=== PATIENT | female | born 1955 | race Caucasian/White ===

== ENCOUNTER 2016-07-29 11:38 | Emergency (ER) | payer MEDICARE ==
--- NOTE | 2016-07-29 11:52 | ER Document Report ---
ED Medical Screen (RME) - General Stated Complaint: BLOOD SUGAR PROBLEM Mode of Arrival: Wheelchair Information source: Patient Notes: Patient complains of elevated blood pressure and blood sugar. Patient states her blood sugar was in the 230s. Patient denies any pain symptoms hx: Hypertension, diabetes, TIA, right BKA I have greeted and performed a rapid initial assessment of this patient. A comprehensive ED assessment and evaluation of the patient, analysis of test results and completion of the medical decision making process will be conducted by additional ED providers. TRAVEL OUTSIDE OF THE [place] IN LAST 30 DAYS: No - Related Data Allergies/Adverse Reactions: No Known Allergies Allergy (Verified 07/29/16 11:40) Past Medical History - Past Medical History Cardiac Medical History: Reports: Hx Hypercholesterolemia, Hx Hypertension, Hx Peripheral Vascular Disease Neurological Medical History: Reports: Hx Cerebrovascular Accident Endocrine Medical History: Reports: Hx Diabetes Mellitus Type 2 GI Medical History: Denies: Hx Cirrhosis, Hx Hepatitis Infectious Medical History: Denies: Hx Hepatitis Past Surgical History: Reports: Hx Section, Hx Orthopedic Surgery - Right BKA - Immunizations Hx Diphtheria, Pertussis, Tetanus Vaccination: - Unknown Physical Exam - General General appearance: Appears well, Alert In distress: None
[2016-07-29 12:35] LABS: ABSOLUTE EOSINOPHILS # (AUTO) 0.1 10^3/uL (0.0-0.6); ABSOLUTE LYMPHOCYTES (AUTO) 0.8 10^3/uL (0.5-4.7); ABSOLUTE MONOCYTES (AUTO) 0.4 10^3/uL (0.1-1.4); ABSOLUTE NEUT (AUTO) 5.2 10^3/uL (1.7-8.2); BASOPHILS % (AUTO) 0.5 % (0-2); EOSINOPHILS % (AUTO) 1.9 % (0-6); HEMOGLOBIN 12.1 g/dL (12.0-15.5); HGB HCT DIFFERENCE -1.7; LYMPHOCYTES % (AUTO) 12.3 % (13-45); MEAN CORPUSCULAR HEMOGLOBIN 27.5 pg (27.0-33.4); MEAN CORPUSCULAR HGB CONC 31.9 g/dL (32.0-36.0); MEAN CORPUSCULAR VOLUME 86 fl (80-97); MONOCYTES % (AUTO) 6.4 % (3-13); RED BLOOD COUNT 4.42 10^6/uL (3.72-5.28); RED CELL DISTRIBUTION WIDTH 14.2 % (11.5-14.0); SEGMENTED NEUTROPHILS % (AUTO) 78.9 % (42-78); WHITE BLOOD COUNT 6.6 10^3/uL (4.0-10.5)
[2016-07-29 12:38] LABS: APPEARANCE,URINE CLEAR; BILIRUBIN,URINE NEGATIVE (NEGATIVE); GLUCOSE, URINE 150 mg/dL (NEGATIVE); KETONES,URINE TRACE mg/dL (NEGATIVE); LEUKOCYTE ESTERASE,URINE NEGATIVE (NEGATIVE); NITRITE,URINE NEGATIVE (NEGATIVE); PROTEIN,URINE >=500 mg/dL (NEGATIVE); URINE SPECIFIC GRAVITY 1.009; UROBILINOGEN,URINE NEGATIVE mg/dL (<2.0)
[2016-07-29 12:55] LABS: ALANINE AMINOTRANSFERASE 30 U/L (9-52); ALBUMIN 3.1 g/dL (3.5-5.0); ALKALINE PHOSPHATASE 120 U/L (38-126); ANION GAP 10 (5-19); ASPARTATE AMINO TRANSFERASE 19 U/L (14-36); BILIRUBIN,TOTAL 0.6 mg/dL (0.2-1.3); BLOOD UREA NITROGEN 22 mg/dL (7-20); CALCIUM 9.5 mg/dL (8.4-10.2); CARBON DIOXIDE 24 mmol/L (22-30); CHLORIDE 102 mmol/L (98-107); CREATININE RESULT 1.78 mg/dL (0.52-1.25); GLUCOSE 231 mg/dL (75-110); POTASSIUM 4.5 mmol/L (3.6-5.0); TOTAL PROTEIN 6.3 g/dL (6.3-8.2)
--- NOTE | 2016-07-29 12:57 | ER Document Report ---
ED Blood Sugar Problem - General Chief Complaint: High Blood Sugar Stated Complaint: BLOOD SUGAR PROBLEM Time seen by provider: 12:56 Mode of Arrival: Wheelchair Information source: Patient Notes: 60-year-old insulin-dependent diabetic needs a shot of insulin today. They do not have the money to buy the Lantus or the NovoLog. She and her want insulin orders that will not be as expensive as those 2 insulin that she's been taking for 3 years. No other illness or problems today. I told him that I would get in touch with Cyndie Comer MD and see what he recommended. Her Accu-Chek at 1155 was 220 in the emergency department. Blood sugar was 239 at home. Spoke to Cyndie Comer MD's nurse who does not have any Lantus and NovoLog samples in his office today. TRAVEL OUTSIDE OF THE [place] IN LAST 30 DAYS: No - Related Data Allergies/Adverse Reactions: No Known Allergies Allergy (Verified 07/29/16 11:40) Past Medical History - General Information source: Patient - Social History Smoking Status: Never Smoker Chew tobacco use (# tins/day): No Frequency of alcohol use: None Lives with: Spouse/Significant other Family History: Reviewed & Not Pertinent Patient has suicidal ideation: No Patient has homicidal ideation: No - Past Medical History Cardiac Medical History: Reports: Hx Hypercholesterolemia, Hx Hypertension, Hx Peripheral Vascular Disease Neurological Medical History: Reports: Hx Cerebrovascular Accident Endocrine Medical History: Reports: Hx Diabetes Mellitus Type 2 Renal/ Medical History: Denies: Hx Peritoneal Dialysis Past Surgical History: Reports: Hx Section, Hx Orthopedic Surgery - Right BKA - Immunizations Hx Diphtheria, Pertussis, Tetanus Vaccination: Yes - Unknown Hx Pneumococcal Vaccination: 09/09/09 Review of Systems - Review of Systems Constitutional: No symptoms reported EENT: No symptoms reported Cardiovascular: No symptoms reported Respiratory: No symptoms reported Gastrointestinal: No symptoms reported Genitourinary: No symptoms reported Female Genitourinary: No symptoms reported Musculoskeletal: No symptoms reported Skin: No symptoms reported Hematologic/Lymphatic: No symptoms reported Neurological/Psychological: No symptoms reported Physical Exam - Vital signs Vitals: Temp Pulse Resp BP Pulse Ox 97.8 F 77 20 190/83 H 95 07/29/16 11:45 07/29/16 11:45 07/29/16 11:45 07/29/16 11:45 07/29/16 11:45 Interpretation: Normal - General General appearance: Appears well, Alert Notes: obese - HEENT Head: Normocephalic, Atraumatic Eyes: Normal Conjunctiva: Normal Pupils: PERRL Pharynx: Normal Neck: Supple. No: Lymphadenopathy - Respiratory Respiratory status: No respiratory distress Chest status: Nontender Breath sounds: Normal Chest palpation: Normal - Cardiovascular Rhythm: Regular Heart sounds: Normal auscultation Murmur: No - Abdominal Inspection: Normal Distension: No distension Bowel sounds: Normal Tenderness: Nontender. No: Tender Organomegaly: No organomegaly - Back Back: Normal, Nontender - Extremities General upper extremity: Normal inspection, Nontender, Normal color, Normal ROM , Normal temperature General lower extremity: Normal inspection, Nontender, Normal color, Normal ROM , Normal temperature, Normal weight bearing. No: Pio's sign - Neurological Neuro grossly intact: Yes Cognition: Normal Orientation: AAOx4 [place] Coma Scale Eye Opening: Spontaneous Jacqueline Coma Scale Verbal: Oriented Jacqueline Coma Scale Motor: Obeys Commands Jacqueline Coma Scale Total: 15 Speech: Normal Motor strength normal: LUE, RUE, LLE, RLE Sensory: Normal - Psychological Associated symptoms: Normal affect, Normal mood - Skin Skin Temperature: Warm Skin Moisture: Dry Skin Color: Normal Skin irregularity: negative: Rash Course - Re-evaluation Re-evalutation: 07/29/16 13:[address] Cyndie Comer MD 07/29/16 13:51 Dr. Thomson recommended 7030 insulin which is $24 at [facility] she would take 12 units twice a day. Dr. Varela called me back and he was satisfied with those orders 07/29/16 13:[address] Portillo - Vital Signs Vital signs: Temp Pulse Resp BP Pulse Ox 97.2 F 74 16 192/108 H 97 07/29/16 14:03 07/29/16 14:03 07/29/16 14:03 07/29/16 14:00 07/29/16 14:03 - Laboratory Result Diagrams: 07/29/16 12:00 07/29/16 12:00 Laboratory results interpreted by me: 07/29/16 07/29/16 07/29/16 11:56 12:00 12:00 MCHC 31.9 L RDW 14.2 H Seg Neutrophils % 78.9 H Lymphocytes % 12.3 L Sodium 136.0 L BUN 22 H Creatinine 1.78 H Est GFR ( Amer) 35 L Est GFR (Non-Af Amer) 29 L Glucose 231 H POC Glucose 220 H Albumin 3.1 L Urine Protein Urine Glucose (UA) Urine Ketones Urine Blood 07/29/16 12:00 MCHC RDW Seg Neutrophils % Lymphocytes % Sodium BUN Creatinine Est GFR ( Amer) Est GFR (Non-Af Amer) Glucose POC Glucose Albumin Urine Protein >=500 H Urine Glucose (UA) 150 H Urine Ketones TRACE H Urine Blood SMALL H Discharge - Discharge Clinical Impression: diabetes ran out of insulin, Elevated blood pressure reading Condition: Good Disposition: HOME, SELF-CARE Instructions: Diabetes (COUNT INCLUDES THE [facility]), Insulin (COUNT INCLUDES THE [facility]), High Blood Pressure (COUNT INCLUDES THE [facility]) Additional Instructions: see dr varela on sunday get your insulin today, it is $24 at [facility] over the [place] Insulin 70/30 12 units twice a day Prescriptions: Hum Insulin NPH/Reg Insulin Hm [Insulin Inj 70-30 (100 Unit/1 ml) 3 ml Vial] 12 unit SUBCUT BID #3 unit Referrals: CYNDIE COMER MD [Primary Care Provider] - 07/31/16
[2016-07-29 15:52] VITALS: BP 192/108
== END 2016-07-29 14:03 | disposition home or self-care (01) ==
LOC: ER 11:38
DX: E11.9 Type 2 diabetes mellitus without complications (principal); I10 Essential (primary) hypertension; Z79.4 Long term (current) use of insulin; E78.00 Pure hypercholesterolemia, unspecified; E66.9 Obesity, unspecified; Z86.73 Personal history of transient ischemic attack (TIA), and cerebral infarction without residual deficits; Z89.511 Acquired absence of right leg below knee
CPT/HCPCS: 36415; 80053; 81001; 82962; 85025; 99283

== ENCOUNTER → 2016-08-22 | Outpatient (CLI) | payer MEDICARE ==
[2016-08-22 14:38] LABS: HEMATOCRIT 37.8 % (36.0-47.0); HEMOGLOBIN 12.3 g/dL (12.0-15.5); HGB HCT DIFFERENCE -0.9; MEAN CORPUSCULAR HEMOGLOBIN 27.3 pg (27.0-33.4); MEAN CORPUSCULAR HGB CONC 32.6 g/dL (32.0-36.0); MEAN CORPUSCULAR VOLUME 84 fl (80-97); RED BLOOD COUNT 4.52 10^6/uL (3.72-5.28); RED CELL DISTRIBUTION WIDTH 14.7 % (11.5-14.0); WHITE BLOOD COUNT 8.2 10^3/uL (4.0-10.5)
[2016-08-22 15:03] LABS: ANION GAP 12 (5-19); BLOOD UREA NITROGEN 27 mg/dL (7-20); CALCIUM 9.4 mg/dL (8.4-10.2); CARBON DIOXIDE 22 mmol/L (22-30); CHLORIDE 101 mmol/L (98-107); CREATININE RESULT 1.79 mg/dL (0.52-1.25); GLUCOSE 159 mg/dL (75-110); PHOSPHORUS 3.8 mg/dL (2.5-4.5); POTASSIUM 4.3 mmol/L (3.6-5.0)
[2016-08-23 18:59] LABS: APPEARANCE,URINE SLIGHTLY-CLOUDY; BILIRUBIN,URINE NEGATIVE (NEGATIVE); GLUCOSE, URINE 150 mg/dL (NEGATIVE); KETONES,URINE TRACE mg/dL (NEGATIVE); LEUKOCYTE ESTERASE,URINE TRACE (NEGATIVE); NITRITE,URINE NEGATIVE (NEGATIVE); PROTEIN,URINE >=500 mg/dL (NEGATIVE); URINE SPECIFIC GRAVITY 1.014; UROBILINOGEN,URINE NEGATIVE mg/dL (<2.0)
[2016-08-25 11:40] LABS: CREATININE URINE 78.6 mg/dL (Not Estab.)
== END ==
LOC: OD 13:38
PROVIDERS: ATTEND Internal Medicine Nephrology
DX: E11.22 Type 2 diabetes mellitus with diabetic chronic kidney disease (principal); N18.4 Chronic kidney disease, stage 4 (severe); D64.9 Anemia, unspecified; R80.9 Proteinuria, unspecified
CPT/HCPCS: 36415; 80048; 81001; 82570; 83970; 84100; 84156; 85027

== ENCOUNTER → 2016-09-11 | Outpatient (CLI) | payer MEDICARE | LOC: SP 14:57 | PROVIDERS: ATTEND Internal Medicine Nephrology | DX: I65.23 Occlusion and stenosis of bilateral carotid arteries (principal) | CPT/HCPCS: 93880 ==

== ENCOUNTER → 2016-11-07 | Outpatient (CLI) | payer MEDICARE ==
--- NOTE | 2016-11-07 15:45 | RADIOLOGY REPORT (SQ) ---
EXAM DESCRIPTION: HAND LEFT 3 VIEWS COMPLETED DATE/TIME: 11/07/2016 3:28 pm REASON FOR STUDY: UNSP INJURY OF LEFT WRIST, HAND AND FINGER(S), INIT ENCNTR, S69.92XA UNSP INJURY OF LEFT WRIST, HAND AND FINGER(S), INIT S62.92XA UNSP FRACTURE OF LEFT WRIST AND HAND, INIT FOR CLOS COMPARISON: None. EXAM PARAMETERS: NUMBER OF VIEWS: Three views. TECHNIQUE: AP, lateral and oblique radiographic images acquired of the left hand. LIMITATIONS: None. FINDINGS: MINERALIZATION: Osteopenia. BONES: There is irregularity at the base of the 4th middle phalanx on the radial aspect. JOINTS: No effusions. SOFT TISSUES: The soft tissue swelling of the 4th digit. OTHER: No other significant finding. IMPRESSION: There is slight irregularity in the 4th middle phalanx size is a minimal chip fracture c annot be ruled out. TECHNICAL DOCUMENTATION: JOB ID: [id number] [employer]- All Rights Reserved
== END ==
LOC: OD 15:05
PROVIDERS: ATTEND Internal Medicine
DX: S62.92XA Unspecified fracture of left hand, initial encounter for closed fracture (principal); X58.XXXA Exposure to other specified factors, initial encounter; Y93.9 Activity, unspecified; Y92.9 Unspecified place or not applicable

== ENCOUNTER → 2016-11-22 | Outpatient (CLI) | payer MEDICARE ==
[2016-11-22 17:18] LABS: HEMATOCRIT 39.8 % (36.0-47.0); HEMOGLOBIN 12.9 g/dL (12.0-15.5); HGB HCT DIFFERENCE -1.1; MEAN CORPUSCULAR HEMOGLOBIN 27.5 pg (27.0-33.4); MEAN CORPUSCULAR HGB CONC 32.4 g/dL (32.0-36.0); MEAN CORPUSCULAR VOLUME 85 fl (80-97); RED BLOOD COUNT 4.68 10^6/uL (3.72-5.28); RED CELL DISTRIBUTION WIDTH 16.4 % (11.5-14.0); WHITE BLOOD COUNT 5.3 10^3/uL (4.0-10.5)
[2016-11-22 17:29] LABS: APPEARANCE,URINE SLIGHTLY-CLOUDY; BILIRUBIN,URINE NEGATIVE (NEGATIVE); GLUCOSE, URINE 150 mg/dL (NEGATIVE); KETONES,URINE NEGATIVE (NEGATIVE); LEUKOCYTE ESTERASE,URINE NEGATIVE (NEGATIVE); NITRITE,URINE NEGATIVE (NEGATIVE); PROTEIN,URINE >=500 mg/dL (NEGATIVE); UROBILINOGEN,URINE NEGATIVE mg/dL (<2.0)
[2016-11-22 17:43] LABS: URINE CREATININE 56.1 mg/dL (15-278)
[2016-11-22 17:47] LABS: ANION GAP 11 (5-19); BLOOD UREA NITROGEN 38 mg/dL (7-20); CALCIUM 9.2 mg/dL (8.4-10.2); CARBON DIOXIDE 23 mmol/L (22-30); CHLORIDE 101 mmol/L (98-107); CREATININE RESULT 1.78 mg/dL (0.52-1.25); GLUCOSE 224 mg/dL (75-110); POTASSIUM 4.4 mmol/L (3.6-5.0); SODIUM 134.8 mmol/L (137-145)
[2016-11-22 18:08] LABS: URINE PROTEIN 562.1 mg/dL (<12)
== END ==
LOC: OD 16:31
PROVIDERS: ATTEND Internal Medicine Nephrology
DX: I12.9 Hypertensive chronic kidney disease with stage 1 through stage 4 chronic kidney disease, or unspecified chronic kidney disease (principal); N18.4 Chronic kidney disease, stage 4 (severe); R80.9 Proteinuria, unspecified; E11.9 Type 2 diabetes mellitus without complications
CPT/HCPCS: 36415; 80048; 81001; 82570; 84156; 85027

== ENCOUNTER → 2017-03-26 | Outpatient (CLI) | payer MEDICARE ==
[2017-03-26 16:24] LABS: HEMATOCRIT 36.4 % (36.0-47.0); HEMOGLOBIN 12.3 g/dL (12.0-15.5); HGB HCT DIFFERENCE 0.5; MEAN CORPUSCULAR HEMOGLOBIN 29.4 pg (27.0-33.4); MEAN CORPUSCULAR HGB CONC 33.8 g/dL (32.0-36.0); MEAN CORPUSCULAR VOLUME 87 fl (80-97); RED BLOOD COUNT 4.18 10^6/uL (3.72-5.28); RED CELL DISTRIBUTION WIDTH 13.4 % (11.5-14.0); WHITE BLOOD COUNT 6.7 10^3/uL (4.0-10.5)
[2017-03-26 16:25] LABS: AMORPHOUS SEDIMENT,URINE TRACE /HPF; APPEARANCE,URINE SLIGHTLY-CLOUDY; BILIRUBIN,URINE NEGATIVE (NEGATIVE); GLUCOSE, URINE 50 mg/dL (NEGATIVE); KETONES,URINE NEGATIVE (NEGATIVE); LEUKOCYTE ESTERASE,URINE LARGE (NEGATIVE); NITRITE,URINE NEGATIVE (NEGATIVE); PROTEIN,URINE >=500 mg/dL (NEGATIVE); URINE SPECIFIC GRAVITY 1.015; UROBILINOGEN,URINE NEGATIVE mg/dL (<2.0)
[2017-03-26 16:37] LABS: URINE CREATININE 87.8 mg/dL (15-278)
[2017-03-26 16:47] LABS: ANION GAP 11 (5-19); BLOOD UREA NITROGEN 42 mg/dL (7-20); CALCIUM 9.3 mg/dL (8.4-10.2); CARBON DIOXIDE 25 mmol/L (22-30); CHLORIDE 103 mmol/L (98-107); CREATININE RESULT 2.13 mg/dL (0.52-1.25); GLUCOSE 150 mg/dL (75-110); POTASSIUM 4.5 mmol/L (3.6-5.0); SODIUM 138.9 mmol/L (137-145)
[2017-03-26 17:11] LABS: URINE PROTEIN 880.4 mg/dL (<12)
== END ==
LOC: OD 15:08
PROVIDERS: ATTEND Internal Medicine Nephrology
DX: I12.9 Hypertensive chronic kidney disease with stage 1 through stage 4 chronic kidney disease, or unspecified chronic kidney disease (principal); N18.4 Chronic kidney disease, stage 4 (severe); E11.9 Type 2 diabetes mellitus without complications; R80.9 Proteinuria, unspecified; D64.9 Anemia, unspecified
CPT/HCPCS: 36415; 80048; 81001; 82570; 84156; 85027

== ENCOUNTER → 2017-06-27 | Outpatient (CLI) | payer MEDICARE ==
[2017-06-27 12:20] LABS: ABSOLUTE EOSINOPHILS # (AUTO) 0.1 10^3/uL (0.0-0.6); ABSOLUTE LYMPHOCYTES (AUTO) 1.1 10^3/uL (0.5-4.7); ABSOLUTE MONOCYTES (AUTO) 0.4 10^3/uL (0.1-1.4); ABSOLUTE NEUT (AUTO) 3.3 10^3/uL (1.7-8.2); EOSINOPHILS % (AUTO) 2.1 % (0-6); HEMATOCRIT 37.5 % (36.0-47.0); HEMOGLOBIN 12.5 g/dL (12.0-15.5); LYMPHOCYTES % (AUTO) 21.9 % (13-45); MEAN CORPUSCULAR HGB CONC 33.2 g/dL (32.0-36.0); MEAN CORPUSCULAR VOLUME 87 fl (80-97); MONOCYTES % (AUTO) 7.5 % (3-13); PLATELET COUNT 261 10^3/uL (150-450); RED BLOOD COUNT 4.29 10^6/uL (3.72-5.28); SEGMENTED NEUTROPHILS % (AUTO) 67.5 % (42-78); TOTAL CELLS COUNTED % (AUTO) 100 %; WHITE BLOOD COUNT 4.8 10^3/uL (4.0-10.5)
[2017-06-27 12:47] LABS: ALANINE AMINOTRANSFERASE 26 U/L (9-52); ALBUMIN 3.4 g/dL (3.5-5.0); ALKALINE PHOSPHATASE 121 U/L (38-126); ANION GAP 7 (5-19); ASPARTATE AMINO TRANSFERASE 20 U/L (14-36); BILIRUBIN,DIRECT 0.3 mg/dL (0.0-0.4); BILIRUBIN,TOTAL 0.3 mg/dL (0.2-1.3); BLOOD UREA NITROGEN 25 mg/dL (7-20); CALCIUM 9.2 mg/dL (8.4-10.2); CARBON DIOXIDE 25 mmol/L (22-30); CHLORIDE 105 mmol/L (98-107); CHOLESTEROL 288.98 mg/dL (0-200); GLUCOSE 166 mg/dL (75-110); POTASSIUM 4.7 mmol/L (3.6-5.0); TOTAL PROTEIN 6.3 g/dL (6.3-8.2); TRIGLYCERIDES 147 mg/dL (<150)
[2017-06-27 12:58] LABS: DIRECT LDL 147 mg/dL (<100)
[2017-06-29 10:38] LABS: CREATININE URINE 62.4 mg/dL (Not Estab.)
[2017-06-29 15:29] LABS: MICROALBUMIN URINE 3128.3 ug/mL (Not Estab.)
== END ==
LOC: OD 11:20
PROVIDERS: ATTEND Internal Medicine
DX: E11.9 Type 2 diabetes mellitus without complications (principal); E78.5 Hyperlipidemia, unspecified; I73.9 Peripheral vascular disease, unspecified; I25.10 Atherosclerotic heart disease of native coronary artery without angina pectoris
CPT/HCPCS: 36415; 80053; 80061; 82043; 82570; 83036; 84443; 85025

== ENCOUNTER → 2017-07-30 | Outpatient (CLI) | payer MEDICARE ==
[2017-07-30 15:38] LABS: HEMATOCRIT 36.3 % (36.0-47.0); HEMOGLOBIN 12.2 g/dL (12.0-15.5); MEAN CORPUSCULAR HEMOGLOBIN 28.9 pg (27.0-33.4); MEAN CORPUSCULAR HGB CONC 33.5 g/dL (32.0-36.0); MEAN CORPUSCULAR VOLUME 86 fl (80-97); PLATELET COUNT 235 10^3/uL (150-450); RED BLOOD COUNT 4.21 10^6/uL (3.72-5.28); RED CELL DISTRIBUTION WIDTH 13.7 % (11.5-14.0); WHITE BLOOD COUNT 7.3 10^3/uL (4.0-10.5)
[2017-07-30 16:02] LABS: ANION GAP 12 (5-19); BLOOD UREA NITROGEN 43 mg/dL (7-20); CALCIUM 8.3 mg/dL (8.4-10.2); CARBON DIOXIDE 21 mmol/L (22-30); CHLORIDE 97 mmol/L (98-107); GLUCOSE 125 mg/dL (75-110); POTASSIUM 4.1 mmol/L (3.6-5.0); SODIUM 130.3 mmol/L (137-145)
[2017-07-31 15:27] LABS: APPEARANCE,URINE SLIGHTLY-CLOUDY; BILIRUBIN,URINE NEGATIVE (NEGATIVE); COLOR,URINE YELLOW; GLUCOSE, URINE 50 mg/dL (NEGATIVE); KETONES,URINE TRACE mg/dL (NEGATIVE); LEUKOCYTE ESTERASE,URINE NEGATIVE (NEGATIVE); NITRITE,URINE NEGATIVE (NEGATIVE); PROTEIN,URINE >=500 mg/dL (NEGATIVE); URINE SPECIFIC GRAVITY 1.017; UROBILINOGEN,URINE NEGATIVE mg/dL (<2.0)
[2017-07-31 15:46] LABS: URINE CREATININE 94.2 mg/dL (15-278)
[2017-07-31 16:06] LABS: UR PRO/CREAT RATIO RESULT 10.4 mg/mg (0.0-0.2); URINE PROTEIN 982.4 mg/dL (<12)
== END ==
LOC: OD 14:49
PROVIDERS: ATTEND Internal Medicine Nephrology
DX: E11.22 Type 2 diabetes mellitus with diabetic chronic kidney disease (principal); I12.9 Hypertensive chronic kidney disease with stage 1 through stage 4 chronic kidney disease, or unspecified chronic kidney disease; N18.4 Chronic kidney disease, stage 4 (severe); D64.9 Anemia, unspecified; R80.9 Proteinuria, unspecified
CPT/HCPCS: 36415; 80048; 81001; 82570; 84156; 85027

== ENCOUNTER → 2017-11-09 | Outpatient (CLI) | payer MEDICARE ==
[2017-11-09 10:16] LABS: ABSOLUTE EOSINOPHILS # (AUTO) 0.6 10^3/uL (0.0-0.6); ABSOLUTE LYMPHOCYTES (AUTO) 0.7 10^3/uL (0.5-4.7); ABSOLUTE MONOCYTES (AUTO) 0.3 10^3/uL (0.1-1.4); ABSOLUTE NEUT (AUTO) 2.8 10^3/uL (1.7-8.2); BASOPHILS % (AUTO) 0.8 % (0-2); EOSINOPHILS % (AUTO) 13.2 % (0-6); HEMATOCRIT 35.1 % (36.0-47.0); HEMOGLOBIN 11.7 g/dL (12.0-15.5); LYMPHOCYTES % (AUTO) 15.9 % (13-45); MEAN CORPUSCULAR HEMOGLOBIN 28.6 pg (27.0-33.4); MEAN CORPUSCULAR HGB CONC 33.3 g/dL (32.0-36.0); MEAN CORPUSCULAR VOLUME 86 fl (80-97); MONOCYTES % (AUTO) 7.2 % (3-13); PLATELET COUNT 249 10^3/uL (150-450); RED BLOOD COUNT 4.07 10^6/uL (3.72-5.28); RED CELL DISTRIBUTION WIDTH 13.9 % (11.5-14.0); SEGMENTED NEUTROPHILS % (AUTO) 62.9 % (42-78); TOTAL CELLS COUNTED % (AUTO) 100 %; WHITE BLOOD COUNT 4.4 10^3/uL (4.0-10.5)
[2017-11-09 10:40] LABS: ALANINE AMINOTRANSFERASE 23 U/L (9-52); ALBUMIN 3.1 g/dL (3.5-5.0); ALKALINE PHOSPHATASE 93 U/L (38-126); ANION GAP 12 (5-19); ASPARTATE AMINO TRANSFERASE 20 U/L (14-36); BILIRUBIN,DIRECT 0.4 mg/dL (0.0-0.4); BILIRUBIN,TOTAL 0.4 mg/dL (0.2-1.3); BLOOD UREA NITROGEN 31 mg/dL (7-20); CARBON DIOXIDE 23 mmol/L (22-30); CHLORIDE 106 mmol/L (98-107); CHOLESTEROL 225.15 mg/dL (0-200); GLUCOSE 126 mg/dL (75-110); POTASSIUM 4.4 mmol/L (3.6-5.0); SODIUM 140.6 mmol/L (137-145); TOTAL PROTEIN 6.4 g/dL (6.3-8.2); TRIGLYCERIDES 132 mg/dL (<150)
[2017-11-09 10:52] LABS: DIRECT LDL 116 mg/dL (<100)
[2017-11-10 11:38] LABS: CREATININE URINE 51.7 mg/dL (Not Estab.)
[2017-11-11 03:59] LABS: MICROALBUMIN URINE 2030.3 ug/mL (Not Estab.)
== END ==
LOC: OD 09:13
PROVIDERS: ATTEND Internal Medicine
DX: E11.9 Type 2 diabetes mellitus without complications (principal); I12.9 Hypertensive chronic kidney disease with stage 1 through stage 4 chronic kidney disease, or unspecified chronic kidney disease; N18.9 Chronic kidney disease, unspecified; E78.5 Hyperlipidemia, unspecified
CPT/HCPCS: 36415; 80053; 80061; 82043; 82570; 83036; 84443; 85025

== ENCOUNTER → 2017-11-16 | Outpatient (CLI) | payer MEDICARE ==
[2017-11-16 16:44] LABS: HEMATOCRIT 32.5 % (36.0-47.0); MEAN CORPUSCULAR HEMOGLOBIN 29.2 pg (27.0-33.4); MEAN CORPUSCULAR HGB CONC 33.8 g/dL (32.0-36.0); MEAN CORPUSCULAR VOLUME 86 fl (80-97); PLATELET COUNT 243 10^3/uL (150-450); RED BLOOD COUNT 3.77 10^6/uL (3.72-5.28); RED CELL DISTRIBUTION WIDTH 13.8 % (11.5-14.0)
[2017-11-16 17:28] LABS: ANION GAP 9 (5-19); BLOOD UREA NITROGEN 34 mg/dL (7-20); CALCIUM 8.9 mg/dL (8.4-10.2); CARBON DIOXIDE 25 mmol/L (22-30); CHLORIDE 107 mmol/L (98-107); GLUCOSE 180 mg/dL (75-110); PHOSPHORUS 4.1 mg/dL (2.5-4.5); POTASSIUM 4.2 mmol/L (3.6-5.0); SODIUM 141.3 mmol/L (137-145)
[2017-11-19 14:39] LABS: A/G RATIO 0.9 (0.7-1.7); ALBUMIN 2 2.7 g/dL (2.9-4.4); ALPHA-2-GLOBULIN 2 0.8 g/dL (0.4-1.0); BETA GLOBULINS 0.8 g/dL (0.7-1.3); GAMMA GLOBULIN 1.2 g/dL (0.4-1.8); MONOCLONAL SPIKE Not Observed g/dL (Not Observ); PROTEIN TOTAL SERUM 5.7 g/dL (6.0-8.5)
== END ==
LOC: OD 16:11
PROVIDERS: ATTEND Internal Medicine Nephrology
DX: N18.4 Chronic kidney disease, stage 4 (severe) (principal); R80.9 Proteinuria, unspecified; E11.22 Type 2 diabetes mellitus with diabetic chronic kidney disease; I12.9 Hypertensive chronic kidney disease with stage 1 through stage 4 chronic kidney disease, or unspecified chronic kidney disease
CPT/HCPCS: 36415; 80048; 83970; 84100; 84165; 85027

== ENCOUNTER → 2017-12-26 | Outpatient (CLI) | payer MEDICARE ==
[2017-12-26 14:36] LABS: ABSOLUTE EOSINOPHILS # (AUTO) 0.1 10^3/uL (0.0-0.6); ABSOLUTE MONOCYTES (AUTO) 0.3 10^3/uL (0.1-1.4); ABSOLUTE NEUT (AUTO) 3.7 10^3/uL (1.7-8.2); BASOPHILS % (AUTO) 0.7 % (0-2); EOSINOPHILS % (AUTO) 2.3 % (0-6); HEMATOCRIT 34.7 % (36.0-47.0); HEMOGLOBIN 11.6 g/dL (12.0-15.5); LYMPHOCYTES % (AUTO) 19.1 % (13-45); MEAN CORPUSCULAR HEMOGLOBIN 28.9 pg (27.0-33.4); MEAN CORPUSCULAR HGB CONC 33.3 g/dL (32.0-36.0); MEAN CORPUSCULAR VOLUME 87 fl (80-97); MONOCYTES % (AUTO) 6.7 % (3-13); PLATELET COUNT 266 10^3/uL (150-450); RED CELL DISTRIBUTION WIDTH 14.4 % (11.5-14.0); SEGMENTED NEUTROPHILS % (AUTO) 71.2 % (42-78); TOTAL CELLS COUNTED % (AUTO) 100 %; WHITE BLOOD COUNT 5.2 10^3/uL (4.0-10.5)
[2017-12-26 14:43] LABS: APPEARANCE,URINE CLEAR; BILIRUBIN,URINE NEGATIVE (NEGATIVE); COLOR,URINE STRAW; GLUCOSE, URINE 150 mg/dL (NEGATIVE); KETONES,URINE NEGATIVE (NEGATIVE); LEUKOCYTE ESTERASE,URINE NEGATIVE (NEGATIVE); NITRITE,URINE NEGATIVE (NEGATIVE); PROTEIN,URINE >=500 mg/dL (NEGATIVE); URINE SPECIFIC GRAVITY 1.011; UROBILINOGEN,URINE NEGATIVE mg/dL (<2.0)
[2017-12-26 14:45] LABS: HEMATOCRIT 34.7 % (36.0-47.0); HEMOGLOBIN 11.6 g/dL (12.0-15.5); MEAN CORPUSCULAR HEMOGLOBIN 28.9 pg (27.0-33.4); MEAN CORPUSCULAR HGB CONC 33.3 g/dL (32.0-36.0); MEAN CORPUSCULAR VOLUME 87 fl (80-97); PLATELET COUNT 266 10^3/uL (150-450); RED CELL DISTRIBUTION WIDTH 14.4 % (11.5-14.0); WHITE BLOOD COUNT 5.2 10^3/uL (4.0-10.5)
[2017-12-26 14:50] LABS: ALANINE AMINOTRANSFERASE 19 U/L (9-52); ALBUMIN 3.3 g/dL (3.5-5.0); ALKALINE PHOSPHATASE 110 U/L (38-126); ANION GAP 12 (5-19); ASPARTATE AMINO TRANSFERASE 17 U/L (14-36); BILIRUBIN,DIRECT 0.3 mg/dL (0.0-0.4); BILIRUBIN,TOTAL 0.5 mg/dL (0.2-1.3); BLOOD UREA NITROGEN 44 mg/dL (7-20); CALCIUM 8.8 mg/dL (8.4-10.2); CARBON DIOXIDE 22 mmol/L (22-30); CHLORIDE 107 mmol/L (98-107); CHOLESTEROL 241.48 mg/dL (0-200); GLUCOSE 163 mg/dL (75-110); POTASSIUM 4.8 mmol/L (3.6-5.0); SODIUM 140.7 mmol/L (137-145); TOTAL PROTEIN 6.7 g/dL (6.3-8.2); TRIGLYCERIDES 112 mg/dL (<150)
[2017-12-26 15:01] LABS: DIRECT LDL 109 mg/dL (<100)
[2017-12-26 15:01] LABS: URINE CREATININE 37.3 mg/dL (15-278)
[2017-12-26 15:08] LABS: UR PRO/CREAT RATIO RESULT 13.9 mg/mg (0.0-0.2); URINE PROTEIN 518.6 mg/dL (<12)
[2017-12-26 15:28] LABS: ANION GAP 12 (5-19); BLOOD UREA NITROGEN 44 mg/dL (7-20); CALCIUM 8.8 mg/dL (8.4-10.2); CARBON DIOXIDE 22 mmol/L (22-30); CHLORIDE 107 mmol/L (98-107); GLUCOSE 163 mg/dL (75-110); PHOSPHORUS 4.8 mg/dL (2.5-4.5); POTASSIUM 4.8 mmol/L (3.6-5.0); SODIUM 140.7 mmol/L (137-145)
[2017-12-26 15:36] LABS: IRON(TIBC) 46.8 ug/dL (37-170)
[2017-12-28 11:40] LABS: CREATININE URINE 35.4 mg/dL (Not Estab.)
[2017-12-28 16:40] LABS: MICROALBUMIN URINE 2325.5 ug/mL (Not Estab.)
== END ==
LOC: OD 13:37
PROVIDERS: ATTEND Internal Medicine
DX: I12.9 Hypertensive chronic kidney disease with stage 1 through stage 4 chronic kidney disease, or unspecified chronic kidney disease (principal); N18.3 Chronic kidney disease, stage 3 (moderate); R80.9 Proteinuria, unspecified; D64.9 Anemia, unspecified; E78.5 Hyperlipidemia, unspecified; E11.9 Type 2 diabetes mellitus without complications; I73.9 Peripheral vascular disease, unspecified
CPT/HCPCS: 36415; 80048; 80053; 80061; 81001; 82043; 82570; 82728; 83036; 83540; 83550; 83735; 83970; 84100; 84156; 84165; 84443; 85025; 85027

== ENCOUNTER → 2018-01-21 | Outpatient (CLI) | payer MEDICARE ==
[2018-01-21 13:43] LABS: APPEARANCE,URINE CLEAR; BILIRUBIN,URINE NEGATIVE (NEGATIVE); COLOR,URINE YELLOW; GLUCOSE, URINE 50 mg/dL (NEGATIVE); KETONES,URINE NEGATIVE (NEGATIVE); LEUKOCYTE ESTERASE,URINE NEGATIVE (NEGATIVE); NITRITE,URINE NEGATIVE (NEGATIVE); PROTEIN,URINE >=500 mg/dL (NEGATIVE); URINE SPECIFIC GRAVITY 1.014; UROBILINOGEN,URINE NEGATIVE mg/dL (<2.0)
[2018-01-21 13:49] LABS: URINE CREATININE 64.4 mg/dL (15-278)
[2018-01-21 13:50] LABS: HEMATOCRIT 34.8 % (36.0-47.0); HEMOGLOBIN 11.5 g/dL (12.0-15.5); MEAN CORPUSCULAR HEMOGLOBIN 28.6 pg (27.0-33.4); MEAN CORPUSCULAR HGB CONC 33.1 g/dL (32.0-36.0); MEAN CORPUSCULAR VOLUME 86 fl (80-97); PLATELET COUNT 259 10^3/uL (150-450); RED BLOOD COUNT 4.02 10^6/uL (3.72-5.28); RED CELL DISTRIBUTION WIDTH 13.9 % (11.5-14.0); WHITE BLOOD COUNT 5.2 10^3/uL (4.0-10.5)
[2018-01-21 14:11] LABS: UR PRO/CREAT RATIO RESULT 6.8 mg/mg (0.0-0.2); URINE PROTEIN 437.7 mg/dL (<12)
[2018-01-21 14:17] LABS: ANION GAP 15 (5-19); BLOOD UREA NITROGEN 89 mg/dL (7-20); CALCIUM 9.3 mg/dL (8.4-10.2); CARBON DIOXIDE 22 mmol/L (22-30); CHLORIDE 101 mmol/L (98-107); GLUCOSE 158 mg/dL (75-110); IRON(TIBC) 100.9 ug/dL (37-170); POTASSIUM 4.3 mmol/L (3.6-5.0); SODIUM 138.3 mmol/L (137-145)
== END ==
LOC: OD 12:47
PROVIDERS: ATTEND Internal Medicine Nephrology
DX: I12.9 Hypertensive chronic kidney disease with stage 1 through stage 4 chronic kidney disease, or unspecified chronic kidney disease (principal); N18.4 Chronic kidney disease, stage 4 (severe); D64.9 Anemia, unspecified; E83.42 Hypomagnesemia
CPT/HCPCS: 36415; 80048; 81001; 82570; 82728; 83540; 83550; 84156; 85027

== ENCOUNTER → 2018-03-08 | Outpatient (CLI) | payer MEDICARE ==
[2018-03-08 12:57] LABS: HEMATOCRIT 31.6 % (36.0-47.0); HEMOGLOBIN 10.7 g/dL (12.0-15.5); MEAN CORPUSCULAR HEMOGLOBIN 29.6 pg (27.0-33.4); MEAN CORPUSCULAR HGB CONC 33.9 g/dL (32.0-36.0); MEAN CORPUSCULAR VOLUME 88 fl (80-97); PLATELET COUNT 257 10^3/uL (150-450); RED BLOOD COUNT 3.61 10^6/uL (3.72-5.28); RED CELL DISTRIBUTION WIDTH 14.2 % (11.5-14.0); WHITE BLOOD COUNT 4.5 10^3/uL (4.0-10.5)
[2018-03-08 13:19] LABS: ANION GAP 9 (5-19); BLOOD UREA NITROGEN 44 mg/dL (7-20); CALCIUM 8.9 mg/dL (8.4-10.2); CARBON DIOXIDE 20 mmol/L (22-30); CHLORIDE 108 mmol/L (98-107); GLUCOSE 120 mg/dL (75-110); PHOSPHORUS 4.2 mg/dL (2.5-4.5); POTASSIUM 4.5 mmol/L (3.6-5.0); SODIUM 136.9 mmol/L (137-145)
== END ==
LOC: OD 12:23
PROVIDERS: ATTEND Internal Medicine Nephrology
DX: I12.9 Hypertensive chronic kidney disease with stage 1 through stage 4 chronic kidney disease, or unspecified chronic kidney disease (principal); N18.4 Chronic kidney disease, stage 4 (severe); E11.22 Type 2 diabetes mellitus with diabetic chronic kidney disease; D64.9 Anemia, unspecified
CPT/HCPCS: 36415; 80048; 83735; 83970; 84100; 85027

== ENCOUNTER → 2018-05-07 | Outpatient (CLI) | payer MEDICARE ==
[2018-05-07 14:31] LABS: HEMATOCRIT 32.6 % (36.0-47.0); HEMOGLOBIN 11.3 g/dL (12.0-15.5); MEAN CORPUSCULAR HGB CONC 34.7 g/dL (32.0-36.0); MEAN CORPUSCULAR VOLUME 87 fl (80-97); PLATELET COUNT 250 10^3/uL (150-450); RED BLOOD COUNT 3.77 10^6/uL (3.72-5.28); RED CELL DISTRIBUTION WIDTH 12.9 % (11.5-14.0); WHITE BLOOD COUNT 3.7 10^3/uL (4.0-10.5)
[2018-05-07 14:41] LABS: APPEARANCE,URINE CLEAR; BILIRUBIN,URINE NEGATIVE (NEGATIVE); COLOR,URINE YELLOW; GLUCOSE, URINE 150 mg/dL (NEGATIVE); KETONES,URINE NEGATIVE (NEGATIVE); LEUKOCYTE ESTERASE,URINE NEGATIVE (NEGATIVE); NITRITE,URINE NEGATIVE (NEGATIVE); PROTEIN,URINE >=500 mg/dL (NEGATIVE); URINE SPECIFIC GRAVITY 1.012; UROBILINOGEN,URINE NEGATIVE mg/dL (<2.0)
[2018-05-07 14:59] LABS: ANION GAP 14 (5-19); BLOOD UREA NITROGEN 34 mg/dL (7-20); CALCIUM 8.9 mg/dL (8.4-10.2); CARBON DIOXIDE 23 mmol/L (22-30); CHLORIDE 101 mmol/L (98-107); GLUCOSE 136 mg/dL (75-110); PHOSPHORUS 4.5 mg/dL (2.5-4.5); POTASSIUM 4.3 mmol/L (3.6-5.0); SODIUM 137.5 mmol/L (137-145)
== END ==
LOC: OD 13:32
PROVIDERS: ATTEND Internal Medicine Nephrology
DX: I12.9 Hypertensive chronic kidney disease with stage 1 through stage 4 chronic kidney disease, or unspecified chronic kidney disease (principal); N18.4 Chronic kidney disease, stage 4 (severe); D64.9 Anemia, unspecified
CPT/HCPCS: 36415; 80048; 81001; 83970; 84100; 85027

== ENCOUNTER → 2018-06-28 | Outpatient (CLI) | payer MEDICARE ==
[2018-06-28 11:12] LABS: ABSOLUTE EOSINOPHILS # (AUTO) 0.1 10^3/uL (0.0-0.6); ABSOLUTE LYMPHOCYTES (AUTO) 0.7 10^3/uL (0.5-4.7); ABSOLUTE MONOCYTES (AUTO) 0.3 10^3/uL (0.1-1.4); ABSOLUTE NEUT (AUTO) 2.1 10^3/uL (1.7-8.2); EOSINOPHILS % (AUTO) 4.4 % (0-6); HEMATOCRIT 33.3 % (36.0-47.0); LYMPHOCYTES % (AUTO) 20.8 % (13-45); MEAN CORPUSCULAR HGB CONC 33.1 g/dL (32.0-36.0); MEAN CORPUSCULAR VOLUME 85 fl (80-97); PLATELET COUNT 209 10^3/uL (150-450); RED BLOOD COUNT 3.94 10^6/uL (3.72-5.28); RED CELL DISTRIBUTION WIDTH 14.3 % (11.5-14.0); SEGMENTED NEUTROPHILS % (AUTO) 64.8 % (42-78); TOTAL CELLS COUNTED % (AUTO) 100 %; WHITE BLOOD COUNT 3.3 10^3/uL (4.0-10.5)
[2018-06-28 11:33] LABS: ALANINE AMINOTRANSFERASE 24 U/L (9-52); ALBUMIN 3.1 g/dL (3.5-5.0); ALKALINE PHOSPHATASE 104 U/L (38-126); ANION GAP 7 (5-19); ASPARTATE AMINO TRANSFERASE 16 U/L (14-36); BILIRUBIN,DIRECT 0.2 mg/dL (0.0-0.4); BILIRUBIN,TOTAL 0.3 mg/dL (0.2-1.3); BLOOD UREA NITROGEN 27 mg/dL (7-20); CALCIUM 8.6 mg/dL (8.4-10.2); CARBON DIOXIDE 23 mmol/L (22-30); CHLORIDE 107 mmol/L (98-107); CHOLESTEROL 215.98 mg/dL (0-200); GLUCOSE 131 mg/dL (75-110); POTASSIUM 3.9 mmol/L (3.6-5.0); TOTAL PROTEIN 6.1 g/dL (6.3-8.2); TRIGLYCERIDES 82 mg/dL (<150)
[2018-06-28 11:44] LABS: DIRECT LDL 99 mg/dL (<100)
== END ==
LOC: OD 10:24
PROVIDERS: ATTEND Internal Medicine
DX: I13.0 Hypertensive heart and chronic kidney disease with heart failure and stage 1 through stage 4 chronic kidney disease, or unspecified chronic kidney disease (principal); N18.9 Chronic kidney disease, unspecified; I50.9 Heart failure, unspecified; I25.10 Atherosclerotic heart disease of native coronary artery without angina pectoris; E11.22 Type 2 diabetes mellitus with diabetic chronic kidney disease; E78.5 Hyperlipidemia, unspecified
CPT/HCPCS: 36415; 80053; 80061; 83036; 84443; 85025

== ENCOUNTER 2018-08-14 12:51 | Emergency (ER) | payer MEDICARE ==
[2018-08-14] MEDS ORDERED: HYDRALAZINE HCL INJ/PF 20 MG/1 ML SDV IV ONE (13:20)
[2018-08-14 13:30] LABS: ABSOLUTE LYMPHOCYTES (AUTO) 0.5 10^3/uL (0.5-4.7); ABSOLUTE MONOCYTES (AUTO) 0.1 10^3/uL (0.1-1.4); ABSOLUTE NEUT (AUTO) 4.3 10^3/uL (1.7-8.2); BASOPHILS % (AUTO) 0.3 % (0-2); EOSINOPHILS % (AUTO) 0.1 % (0-6); HEMATOCRIT 36.2 % (36.0-47.0); HEMOGLOBIN 12.2 g/dL (12.0-15.5); LYMPHOCYTES % (AUTO) 10.2 % (13-45); MEAN CORPUSCULAR HEMOGLOBIN 28.8 pg (27.0-33.4); MEAN CORPUSCULAR HGB CONC 33.7 g/dL (32.0-36.0); MEAN CORPUSCULAR VOLUME 86 fl (80-97); MONOCYTES % (AUTO) 2.9 % (3-13); PLATELET COUNT 256 10^3/uL (150-450); RED BLOOD COUNT 4.23 10^6/uL (3.72-5.28); RED CELL DISTRIBUTION WIDTH 15.8 % (11.5-14.0); SEGMENTED NEUTROPHILS % (AUTO) 86.5 % (42-78); TOTAL CELLS COUNTED % (AUTO) 100 %; WHITE BLOOD COUNT 4.9 10^3/uL (4.0-10.5)
[2018-08-14 13:47] LABS: LIPASE 92.5 U/L (23-300)
[2018-08-14 13:58] LABS: CREATINE KINASE MB 1.43 ng/mL (<4.55); TROPONIN I 0.026 ng/mL
[2018-08-14 14:14] LABS: ALANINE AMINOTRANSFERASE < 6 U/L (9-52); ALBUMIN 4.1 g/dL (3.5-5.0); ALKALINE PHOSPHATASE 100 U/L (38-126); ANION GAP 13 (5-19); ASPARTATE AMINO TRANSFERASE 23 U/L (14-36); BILIRUBIN,DIRECT 0.5 mg/dL (0.0-0.4); BILIRUBIN,TOTAL 0.5 mg/dL (0.2-1.3); BLOOD UREA NITROGEN 30 mg/dL (7-20); CARBON DIOXIDE 23 mmol/L (22-30); CHLORIDE 103 mmol/L (98-107); GLUCOSE 268 mg/dL (75-110); POTASSIUM 4.4 mmol/L (3.6-5.0); SODIUM 139.1 mmol/L (137-145); TOTAL PROTEIN 8.2 g/dL (6.3-8.2)
--- NOTE | 2018-08-14 16:44 | ER Document Report ---
ED General - General Chief Complaint: Nausea/Vomiting Stated Complaint: NAUSEA, VOMITING Time Seen by Provider: 08/14/18 13:07 Primary Care Provider: CYNDIE COMER MD [Primary Care Provider] - Follow up as needed TRAVEL OUTSIDE OF THE [place] IN LAST 30 DAYS: No - HPI Notes: Patient presents emergency department for evaluation. She has nausea and vomiting for the last several days. She complains of some constipation as well. Her boyfriend states that she has not really been able to keep down any solids for a while. She is been drinking nothing but liquids and has a markedly diminished appetite as of late. - Related Data Allergies/Adverse Reactions: No Known Allergies Allergy (Verified 07/29/16 11:40) Past Medical History - General Information source: Patient - Social History Smoking Status: Never Smoker Chew tobacco use (# tins/day): No Frequency of alcohol use: None Drug Abuse: None Family History: Reviewed & Not Pertinent Patient has suicidal ideation: No Patient has homicidal ideation: No - Past Medical History Cardiac Medical History: Reports: Hx Hypercholesterolemia, Hx Hypertension, Hx Peripheral Vascular Disease Neurological Medical History: Reports: Hx Cerebrovascular Accident Endocrine Medical History: Reports: Hx Diabetes Mellitus Type 2 Renal/ Medical History: Denies: Hx Peritoneal Dialysis GI Medical History: Denies: Hx Cirrhosis, Hx Hepatitis Infectious Medical History: Denies: Hx Hepatitis Past Surgical History: Reports: Hx Section, Hx Orthopedic Surgery - Right BKA - Immunizations Hx Diphtheria, Pertussis, Tetanus Vaccination: Yes - Unknown Hx Pneumococcal Vaccination: 09/09/09 Review of Systems - Review of Systems Constitutional: Malaise, Weakness EENT: No symptoms reported Cardiovascular: No symptoms reported Respiratory: No symptoms reported Gastrointestinal: Nausea, Vomiting Musculoskeletal: No symptoms reported Skin: No symptoms reported Neurological/Psychological: No symptoms reported Physical Exam - Vital signs Vitals: Temp 97.3 F 08/14/18 13:01 Notes: Blood pressure 205/79 on arrival, remainder of vitals unremarkable. - Notes Notes: Vital signs reviewed, please refer to chart. Patient is normocephalic, atraumatic. Pupils equal round, reactive to light. Neck is supple without meningismus. Heart is regular rate and rhythm. Lungs are clear to auscultation bilaterally. Abdomen is soft, nontender, normoactive bowel sounds throughout. Extremities reveal a right BKA. Left lower extremity reveals 1+ pretibial edema with no posterior calf tenderness.. Peripheral pulses are equal. Skin is warm and dry. Patient is awake, alert, neurological exam is nonfocal. Course - Re-evaluation Re-evalutation: 08/14/18 18:55 She presents to the emergency department for evaluation of the above-mentioned symptoms. She was significantly hypertensive upon arrival. I do suspect strongly this is all because she could not tolerate her antihypertensives. She was given 1 dose of hydralazine here. She maintained a blood pressure in the 160s-170s throughout the course of her stay. Her nausea and vomiting improved and she had no further emesis while here. Laboratory investigations failed to reveal any significant acute changes. Her EKG does reveal a left bundle branch block, but the patient has no chest pain. Her prior EKG for comparison is nearly 3 years old. I do not suspect that this is acute. I spoke with Dr. Comer. He states that on the lack of any acute findings he will see her as an outpatient. She does have diminished urine output but no signs of infection. Her renal function is poor but this is not new. I will send her home with Grant. She is to follow-up with her primary care physician tomorrow in the office. - Vital Signs Vital signs: Temp Pulse Resp BP Pulse Ox 97.3 F 20 176/92 H 100 08/14/18 13:01 08/14/18 15:01 08/14/18 15:00 08/14/18 15:01 - Laboratory Result Diagrams: 08/14/18 12:40 08/14/18 12:40 Laboratory results interpreted by me: 08/14/18 08/14/18 08/14/18 12:40 12:40 18:11 RDW 15.8 H Seg Neutrophils % 86.5 H Lymphocytes % 10.2 L Monocytes % 2.9 L BUN 30 H Creatinine 2.67 H Est GFR ( Amer) 22 L Est GFR (Non-Af Amer) 18 L Glucose 268 H Direct Bilirubin 0.5 H ALT < 6 L Urine Protein >=500 H Urine Glucose (UA) >=500 H Urine Ketones TRACE H Discharge - Discharge Clinical Impression: Nausea & vomiting, Hypertension Condition: Stable Disposition: HOME, SELF-CARE Instructions: Antinausea Medication ([facility]) Additional Instructions: Zofran as needed for nausea. Continue your home medications as previously prescribed. Follow-up with your primary care physician tomorrow. Return to the emergency department with worsening or new concerning symptoms. Referrals: CYNDIE COMER MD [Primary Care Provider] - Follow up as needed
--- NOTE | 2018-08-14 16:48 | RADIOLOGY REPORT (SQ) ---
EXAM DESCRIPTION: KUB/ABDOMEN (SINGLE VIEW) COMPLETED DATE/TIME: 08/14/2018 4:38 pm REASON FOR STUDY: Constipation COMPARISON: Chest films 08/21/2015 NUMBER OF VIEWS: One view. TECHNIQUE: Supine radiographic image of the abdomen acquired. LIMITATIONS: None. FINDINGS: BOWEL GAS PATTERN: Normal bowel gas pattern. No dilated loops. Moderate stool in the rect osigmoid CALCIFICATIONS: No suspicious calcifications. SOFT TISSUES: No gross mass or suggestion of organomegaly. HARDWARE: None in the abdomen. BONES: No acute fracture. No worrisome bone lesions. OTHER: No other significant finding. IMPRESSION: NO RADIOGRAPHIC EVIDENCE FOR ACUTE ABDOMINAL DISEASE. Moderate constipation TECHNICAL DOCUMENTATION: JOB ID: [id number] [employer]- All Rights Reserved Reading location - IP/workstation name: [email or web address]
[2018-08-14 18:25] LABS: APPEARANCE,URINE SLIGHTLY-CLOUDY; BILIRUBIN,URINE NEGATIVE (NEGATIVE); COLOR,URINE YELLOW; GLUCOSE, URINE >=500 mg/dL (NEGATIVE); KETONES,URINE TRACE mg/dL (NEGATIVE); LEUKOCYTE ESTERASE,URINE NEGATIVE (NEGATIVE); NITRITE,URINE NEGATIVE (NEGATIVE); PROTEIN,URINE >=500 mg/dL (NEGATIVE); UROBILINOGEN,URINE NEGATIVE mg/dL (<2.0)
[2018-08-14] MEDS ORDERED: ONDANSETRON ODT 4 MG TAB (6 TAB/ER DISP) PO PRN (18:53)
--- NOTE | 2018-08-14 19:12 | EKG REPORT ---
SEVERITY:- ABNORMAL ECG - SINUS RHYTHM LEFT BUNDLE BRANCH BLOCK : Confirmed by: Daisy Rose MD 14-Aug-2018 19:11:48
[2018-08-14 19:29] VITALS: BP 170/73
== END 2018-08-14 20:00 | disposition home or self-care (01) ==
LOC: ER 12:51
DX: R11.2 Nausea with vomiting, unspecified (principal); I10 Essential (primary) hypertension; K59.00 Constipation, unspecified; R63.0 Anorexia; R53.1 Weakness; R53.81 Other malaise; I44.7 Left bundle-branch block, unspecified; R60.0 Localized edema; E11.51 Type 2 diabetes mellitus with diabetic peripheral angiopathy without gangrene
CPT/HCPCS: 93005; 99284; 96374; 36415; 82553; 82550; 83690; 85025; 80053; 81001; 84484; 74018; 93010; J0360; A9270

== ENCOUNTER 2018-08-15 08:45 | Inpatient (IN) | payer MEDICARE ==
[2018-08-15] MEDS ORDERED: ONDANSETRON HCL INJ/PF 4 MG/2 ML SDV IV ONE (09:41)
--- NOTE | 2018-08-15 10:24 | ER Document Report ---
ED General - General Chief Complaint: Dizziness Stated Complaint: DIZZINESS,VOMITING Time Seen by Provider: 08/15/18 09:34 Primary Care Provider: CYNDIE COMER MD [Primary Care Provider] - Follow up as needed TRAVEL OUTSIDE OF THE [place] IN LAST 30 DAYS: No - HPI Notes: Patient presents to the emergency department for evaluation with her significant other. I actually had the pleasure of seeing this patient yesterday. She was seen yesterday for vomiting. She was feeling improved after symptoms were treated yesterday. Her blood pressure had been elevated and this was treated as well. She went home and patient's significant other did not give her any of her blood pressure medication last night. This morning upon waking she became extremely dizzy. She did describe the sensation that the world was spinning. She states that has improved significantly. She denies having that sensation at any time yesterday. She is still feeling very nauseated but has not vomited this morning. She did tolerate her blood pressure medications at home. 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 We are still unsure of all of her medications. She denies any head trauma. She denies any pain at this time. - Related Data Allergies/Adverse Reactions: No Known Allergies Allergy (Verified 07/29/16 11:40) Past Medical History - General Information source: Patient - And significant other - Social History Smoking Status: Unknown if Ever Smoked Family History: Reviewed & Not Pertinent Patient has suicidal ideation: No Patient has homicidal ideation: No - Past Medical History Cardiac Medical History: Reports: Hx Hypercholesterolemia, Hx Hypertension, Hx Peripheral Vascular Disease Neurological Medical History: Reports: Hx Cerebrovascular Accident Endocrine Medical History: Reports: Hx Diabetes Mellitus Type 2 Renal/ Medical History: Denies: Hx Peritoneal Dialysis GI Medical History: Denies: Hx Cirrhosis, Hx Hepatitis Infectious Medical History: Denies: Hx Hepatitis Past Surgical History: Reports: Hx Section, Hx Orthopedic Surgery - Right BKA - Immunizations Hx Diphtheria, Pertussis, Tetanus Vaccination: Yes - Unknown Hx Pneumococcal Vaccination: 09/09/09 Review of Systems - Review of Systems Constitutional: Weakness EENT: No symptoms reported Cardiovascular: No symptoms reported Respiratory: No symptoms reported Gastrointestinal: Nausea Genitourinary: Other - Diminished urine output Skin: No symptoms reported Neurological/Psychological: See HPI Physical Exam - Vital signs Vitals: BP Pulse Ox 176/74 H 97 08/15/18 08:51 08/15/18 08:51 Notes: She is afebrile. Blood pressure elevated. Vitals as charted. - Notes Notes: Vital signs reviewed, please refer to chart. Patient is normocephalic, atraumatic. Pupils equal round, reactive to light. Neck is supple without meningismus. Heart is regular rate and rhythm. Lungs are clear to auscultation bilaterally. Abdomen is soft, nontender, normoactive bowel sounds throughout. Right BKA with prosthetic in place. Left lower extremity yields 1+ pretibial edema, pitting. No posterior calf tenderness.. Peripheral pulses are equal. Skin is warm and dry. Patient is awake, alert, oriented x3. Cranial nerves II through XII are grossly intact without focal neurological deficits. Strength is 4+ out of 5 bilateral upper and left lower extremity. Sensation is intact. Intact [id number], rapid alternating movements, [id number] on the left. No pronator drift. Course - Re-evaluation Re-evalutation: 08/15/18 10:23 Patient presents to the emergency department for evaluation of dizziness. Given her multiple risk factors I am concerned about the possibility of a cerebellar issue, but she continues to say she is not dizzy at this time. She did complain of some nausea so this was treated. She was left on the monitor. Blood pressure is moderately elevated but certainly not to the level at which she presented yesterday. Certainly I do not think this is responsible for her symptoms and signs at this time. Patient maintained on the monitor, sent to CT. We will continue to evaluate. 08/15/18 14:06 Laboratory investigations are largely unchanged yesterday, but her chronic kidney disease is progressively worsening. She continues to feel intermittently dizzy. She continues to feel nauseated. CT scan showed an old cerebellar infa rct, certainly I cannot rule out another acute when given her symptoms. I spoke with Dr. Comer, he will admit the patient for further care. - Vital Signs Vital signs: Temp Pulse Resp BP Pulse Ox 98 F 75 18 144/76 H 96 08/15/18 09:22 08/15/18 09:22 08/15/18 13:02 08/15/18 13:02 08/15/18 13:02 - Laboratory Result Diagrams: 08/15/18 09:17 08/15/18 09:17 Laboratory results interpreted by me: 08/15/18 08/15/18 09:17 09:17 Hgb 11.0 L Hct 32.4 L RDW 16.0 H Seg Neutrophils % 86.0 H Lymphocytes % 8.4 L BUN 33 H Creatinine 2.78 H Est GFR ( Amer) 21 L Est GFR (Non-Af Amer) 17 L Glucose 178 H Direct Bilirubin 0.5 H - Diagnostic Test Radiology reviewed: Reports reviewed - No acute intracranial process. - EKG Interpretation by Me Additional EKG results interpreted by me: 08/15/18 14:07 Sinus mechanism at a rate of 78 bpm. Normal axis. Left bundle branch block. No significant change from prior study. Discharge - Discharge Clinical Impression: Nausea & vomiting, Dizziness Condition: Stable Disposition: ADMITTED INPATIENT Admitting Provider: Nikhil Unit Admitted: IMCU Referrals: CYNDIE COMER MD [Primary Care Provider] - Follow up as needed
[2018-08-15 10:40] LABS: ABSOLUTE LYMPHOCYTES (AUTO) 0.6 10^3/uL (0.5-4.7); ABSOLUTE MONOCYTES (AUTO) 0.4 10^3/uL (0.1-1.4); ABSOLUTE NEUT (AUTO) 6.1 10^3/uL (1.7-8.2); BASOPHILS % (AUTO) 0.2 % (0-2); EOSINOPHILS % (AUTO) 0.1 % (0-6); HEMATOCRIT 32.4 % (36.0-47.0); LYMPHOCYTES % (AUTO) 8.4 % (13-45); MEAN CORPUSCULAR HEMOGLOBIN 29.2 pg (27.0-33.4); MEAN CORPUSCULAR HGB CONC 33.9 g/dL (32.0-36.0); MEAN CORPUSCULAR VOLUME 86 fl (80-97); MONOCYTES % (AUTO) 5.3 % (3-13); PLATELET COUNT 248 10^3/uL (150-450); RED BLOOD COUNT 3.76 10^6/uL (3.72-5.28); TOTAL CELLS COUNTED % (AUTO) 100 %; WHITE BLOOD COUNT 7.1 10^3/uL (4.0-10.5)
[2018-08-15 10:43] LABS: INTERNATIONAL RATION (INR) 0.96; PROTHROMBIN TIME 13.2 SEC (11.4-15.4)
--- NOTE | 2018-08-15 10:53 | RADIOLOGY REPORT (SQ) ---
EXAM DESCRIPTION: CT HEAD WITHOUT COMPLETED DATE/TIME: 08/15/2018 10:42 am REASON FOR STUDY: Dizziness COMPARISON: None. TECHNIQUE: Axial images acquired through the brain without intravenous contrast. Images reviewed wi th bone, brain and subdural windows. Additional sagittal and coronal reconstructions were generated. Images stored on PACS. All CT scanners at this facility use dose modulation, iterative reconstruction, and/or weight based d osing when appropriate to reduce radiation dose to as low as reasonably achievable (ALARA). [facility]: Dose Right [facility]: CareDose [facility]: Dose Right [facility]: Teradose 4D [facility]: [employer] RADIATION DOSE: CT Rad equipment meets quality standard of care and radiation dose reduction techniq ues were employed. CTDIvol: 53.2 mGy. DLP: 1017 mGy-cm.mGy. LIMITATIONS: None. FINDINGS: VENTRICLES: Prominent. CEREBRUM: No masses. No hemorrhage. No midline shift. Areas of low density in the white matter mos t likely due to chronic micro-vascular ischemic change. No evidence for acute infarction. CEREBELLUM: No masses. No hemorrhage. Old left cerebellar infarct. No evidence for acute infarctio n. EXTRAAXIAL SPACES: Age-related involutional change. No fluid collections. No masses. ORBITS AND GLOBE: No intra- or extraconal masses. Normal contour of globe without masses. CALVARIUM: No fracture. PARANASAL SINUSES: No fluid or mucosal thickening. SOFT TISSUES: No mass or hematoma. OTHER: No other significant finding. IMPRESSION: CHRONIC CHANGES OF ATROPHY AND MICROVASCULAR ISCHEMIA. NO ACUTE PROCESS. EVIDENCE OF ACUTE STROKE: NO. TECHNICAL DOCUMENTATION: JOB ID: [id number] Quality ID # [id number]: Final reports with documentation of one or more dose reduction techniques (e.g., Au tomated exposure control, adjustment of the mA and/or kV according to patient size, use of iterative reconstruction technique) 2010 [employer]- All Rights Reserved Reading location - IP/workstation name: [email or web address]
[2018-08-15 11:01] LABS: CREATINE KINASE MB 2.55 ng/mL (<4.55)
[2018-08-15 11:08] LABS: ALANINE AMINOTRANSFERASE 10 U/L (9-52); ALBUMIN 3.7 g/dL (3.5-5.0); ALKALINE PHOSPHATASE 90 U/L (38-126); ANION GAP 12 (5-19); ASPARTATE AMINO TRANSFERASE 22 U/L (14-36); BILIRUBIN,DIRECT 0.5 mg/dL (0.0-0.4); BILIRUBIN,TOTAL 0.5 mg/dL (0.2-1.3); BLOOD UREA NITROGEN 33 mg/dL (7-20); CALCIUM 9.7 mg/dL (8.4-10.2); CARBON DIOXIDE 24 mmol/L (22-30); CHLORIDE 103 mmol/L (98-107); CREATINE KINASE 42 U/L (30-135); GLUCOSE 178 mg/dL (75-110); POTASSIUM 4.7 mmol/L (3.6-5.0); SODIUM 139.1 mmol/L (137-145); TOTAL PROTEIN 7.2 g/dL (6.3-8.2)
[2018-08-15 11:24] LABS: TROPONIN I 0.071 ng/mL
--- NOTE | 2018-08-15 12:34 | EKG REPORT ---
SEVERITY:- ABNORMAL ECG - LEFT BUNDLE BRANCH BLOCK PROBABLE SINUS RHYTHM : Confirmed by: Daisy Rose MD 15-Aug-2018 12:33:54
[2018-08-15] MEDS ORDERED: ACETAMINOPHEN 325 MG TABLET PO PRN (16:08)
--- NOTE | 2018-08-15 16:23 | PDOC H&P ---
History of Present Illness Admission Date/PCP: 08/15/18 14:42 CYNDIE COMER MD Patient complains of: Dizziness, lightheadedness, nausea, inability to keep anything down. Difficulty urinating. History of Present Illness: MELBA ROSADO is a 62 year old female Past Medical History Cardiac Medical History: Reports: Atrial Fibrillation, Coronary Artery Disease, Hyperlipidema, Hypertension, Peripheral Vascular Disease Neurological Medical History: Reports: Ischemic CVA Endocrine Medical History: Reports: Diabetes Mellitus Type 2 GI Medical History: Reports: Gastroesophageal Reflux Disease Denies: Cirrhosis, Hepatitis Musculoskeltal Medical History: Reports: Gout Hematology: Reports: Anemia Past Surgical History Past Surgical History: Reports: Amputation - Right BKA, September 2013, Section, Orthopedic Surgery - Right BKA, Vascular Surgery Social History Lives with: Family, Spouse/Significant other Smoking Status: Never Smoker Frequency of Alcohol Use: None Hx Recreational Drug Use: No Drugs: None Hx Prescription Drug Abuse: No Family History Family History: CAD, DM, Hypertension Parental Family History Reviewed: Yes Children Family History Reviewed: Yes Sibling(s) Family History Reviewed.: Yes Medication/Allergy Home Medications: Allopurinol [Zyloprim 100 mg Tablet] 100 mg PO DAILY 08/15/18 Aspirin [Adult Low Dose Aspirin EC] 81 mg PO QID 08/15/18 Atorvastatin Calcium [Lipitor 40 mg Tablet] 40 mg PO DAILY 08/15/18 B Complex W-C No.20/Folic Acid [Triphrocaps Softgel] 1 mg PO DAILY 08/15/18 Calcitriol [Rocaltrol 0.25 mcg Capsule] 0.25 mcg PO DAILY 08/15/18 Cyanocobalamin (Vitamin B-12) [Vitamin B-12] 1,000 mcg PO DAILY 08/15/18 Diltiazem HCl [Cardizem 30 mg Tablet] 30 mg PO TID 08/15/18 Famotidine [Pepcid 20 mg Tablet] 20 mg PO DAILY 08/15/18 Ferrous Sulfate [Feosol 325 mg Tablet] 325 mg PO BID 08/15/18 Furosemide [Lasix 40 mg Tablet] 40 mg PO DAILY 08/15/18 Hum Insulin NPH/Reg Insulin Hm [Novolin 70-30 100 Unit/ml Vial] 7 units SQ QAM 08/15/18 Hum Insulin NPH/Reg Insulin Hm [Novolin 70-30 100 Unit/ml Vial] 12 units SQ QPM 08/15/18 Hydralazine HCl [Apresoline 50 mg Tablet] 50 mg PO TID 08/15/18 Lisinopril [Zestril] 5 mg PO DAILY 08/15/18 Metolazone [Zaroxolyn 2.5 mg Tablet] 2.5 mg PO DAILY 08/15/18 Multivitamin [Multiple Vitamins] 1 tab PO DAILY 08/15/18 Omeprazole 20 mg PO DAILY 08/15/18 Warfarin Sodium [Coumadin 3 mg Tablet] 3 mg PO DAILY 08/15/18 Allergies/Adverse Reactions: No Known Allergies Allergy (Verified 07/29/16 11:40) Review of Systems All systems: as per PMH Physical Exam Vital Signs: Temp Pulse Resp BP Pulse Ox 98 F 75 25 H 165/60 H 95 08/15/18 09:22 08/15/18 09:22 08/15/18 16:01 08/15/18 16:00 08/15/18 16:01 Intake & Output 08/14/18 08/15/18 08/16/18 06:59 06:59 06:59 Weight 68.3 kg General appearance: PRESENT: mild distress Head exam: PRESENT: atraumatic Eye exam: PRESENT: conjunctival injection Mouth exam: PRESENT: dry mucosa Neck exam: PRESENT: carotid bruit. ABSENT: JVD Respiratory exam: PRESENT: clear to auscultation gustavo Cardiovascular exam: PRESENT: irregular rhythm, +S1, +S2 GI/Abdominal exam: PRESENT: normal bowel sounds, soft, tenderness Extremities exam: PRESENT: right BKA Musculoskeletal exam: PRESENT: tenderness Neurological exam: PRESENT: alert, awake Psychiatric exam: PRESENT: anxious Results Laboratory Results: 08/15/18 09:17 08/15/18 09:17 08/15/18 08/15/18 09:17 09:17 WBC 7.1 RBC 3.76 Hgb 11.0 L Hct 32.4 L MCV 86 MCH 29.2 MCHC 33.9 RDW 16.0 H Plt Count 248 Seg Neutrophils % 86.0 H Lymphocytes % 8.4 L Monocytes % 5.3 Eosinophils % 0.1 Basophils % 0.2 Absolute Neutrophils 6.1 Absolute Lymphocytes 0.6 Absolute Monocytes 0.4 Absolute Eosinophils 0.0 Absolute Basophils 0.0 Sodium 139.1 Potassium 4.7 Chloride 103 Carbon Dioxide 24 Anion Gap 12 BUN 33 H Creatinine 2.78 H Est GFR ( Amer) 21 L Est GFR (Non-Af Amer) 17 L Glucose 178 H Calcium 9.7 Total Bilirubin 0.5 AST 22 ALT 10 Alkaline Phosphatase 90 Total Protein 7.2 Albumin 3.7 08/15/18 08/15/18 09:17 09:17 Creatine Kinase 42 CK-MB (CK-2) 2.55 Troponin I 0.071 Impressions: Head CT 08/15/18 09:41 IMPRESSION: CHRONIC CHANGES OF ATROPHY AND MICROVASCULAR ISCHEMIA. NO ACUTE PROCESS. EVIDENCE OF ACUTE STROKE: NO. Assessment & Plan - Diagnosis (1) Dizziness Is this a current diagnosis for this admission?: Yes Plan: Bedrest and IV fluids (2) Nausea & vomiting Is this a current diagnosis for this admission?: Yes Plan: Diet as tolerated and medications (3) Acute worsening of stage 4 chronic kidney disease Is this a current diagnosis for this admission?: Yes Plan: Nephrology consultation (4) Cerebrovascular accident (CVA) Is this a current diagnosis for this admission?: Yes Plan: Continue current meds (5) Diabetes mellitus Is this a current diagnosis for this admission?: Yes Plan: We will put on the sliding scale protocol (6) Hypertension Is this a current diagnosis for this admission?: Yes Plan: Will need to adjust medications (7) Paroxysmal atrial fibrillation Is this a current diagnosis for this admission?: Yes Plan: Continue the same medications for rate control (8) Dehydration Is this a current diagnosis for this admission?: Yes Plan: Most probably because of difficulty keeping things down. We will gingerly hydrate and consult with nephrology
[2018-08-15] MEDS: 1/2 NORMAL SALINE 1,000 ML IV PRN (17:34)
[2018-08-15] MEDS: FERROUS SULFATE 325 MG TABLET PO SCH (17:34)
[2018-08-15] MEDS: DOCUSATE SODIUM 100 MG CAPSULE PO SCH (17:34)
[2018-08-15] MEDS: ASPIRIN 81 MG TABLET, ENT COATED PO SCH ×2 (17:34→21:08)
[2018-08-15 17:47] LABS: CREATINE KINASE MB 2.88 ng/mL (<4.55)
[2018-08-15 18:08] LABS: TROPONIN I 0.198 ng/mL
[2018-08-15] MEDS ORDERED: WARFARIN SODIUM 3 MG TABLET PO SCH (20:00)
[2018-08-15] MEDS: HYDRALAZINE HCL 50 MG TABLET PO SCH (21:08)
[2018-08-15] MEDS: DILTIAZEM HCL 30 MG TABLET PO SCH (21:08)
[2018-08-15 23:26] LABS: CREATINE KINASE MB 2.67 ng/mL (<4.55); TROPONIN I 0.273 ng/mL
[2018-08-16 04:50] LABS: ABSOLUTE MONOCYTES (AUTO) 0.3 10^3/uL (0.1-1.4); ABSOLUTE NEUT (AUTO) 2.9 10^3/uL (1.7-8.2); BASOPHILS % (AUTO) 0.5 % (0-2); EOSINOPHILS % (AUTO) 0.5 % (0-6); HEMATOCRIT 28.4 % (36.0-47.0); HEMOGLOBIN 9.6 g/dL (12.0-15.5); LYMPHOCYTES % (AUTO) 23.3 % (13-45); MEAN CORPUSCULAR HEMOGLOBIN 29.1 pg (27.0-33.4); MEAN CORPUSCULAR HGB CONC 33.9 g/dL (32.0-36.0); MEAN CORPUSCULAR VOLUME 86 fl (80-97); MONOCYTES % (AUTO) 7.1 % (3-13); PLATELET COUNT 233 10^3/uL (150-450); RED BLOOD COUNT 3.31 10^6/uL (3.72-5.28); SEGMENTED NEUTROPHILS % (AUTO) 68.6 % (42-78); TOTAL CELLS COUNTED % (AUTO) 100 %; WHITE BLOOD COUNT 4.3 10^3/uL (4.0-10.5)
[2018-08-16 04:53] LABS: INTERNATIONAL RATION (INR) 1.05; PROTHROMBIN TIME 14.3 SEC (11.4-15.4)
[2018-08-16 05:12] LABS: ANION GAP 8 (5-19); BLOOD UREA NITROGEN 34 mg/dL (7-20); CALCIUM 8.4 mg/dL (8.4-10.2); CARBON DIOXIDE 23 mmol/L (22-30); CHLORIDE 104 mmol/L (98-107); CHOLESTEROL 201.65 mg/dL (0-200); CREATINE KINASE 32 U/L (30-135); GLUCOSE 123 mg/dL (75-110); LIPASE 88.3 U/L (23-300); POTASSIUM 4.5 mmol/L (3.6-5.0); SODIUM 135.1 mmol/L (137-145); TRIGLYCERIDES 80 mg/dL (<150)
[2018-08-16 05:23] LABS: CREATINE KINASE MB 2.1 ng/mL (<4.55); DIRECT LDL 110 mg/dL (<100); TROPONIN I 0.346 ng/mL
[2018-08-16 05:32] LABS: AMYLASE < 30 U/L (30-110)
[2018-08-16] MEDS: 1/2 NORMAL SALINE 1,000 ML IV PRN ×2 (05:49→18:15)
[2018-08-16] MEDS: DILTIAZEM HCL 30 MG TABLET PO SCH ×3 (05:50→21:30)
[2018-08-16] MEDS: HYDRALAZINE HCL 50 MG TABLET PO SCH ×3 (05:50→21:30)
[2018-08-16] MEDS: LANSOPRAZOLE 30 MG TAB.RAP.DR PO SCH (05:50)
--- NOTE | 2018-08-16 07:27 | EKG REPORT ---
SEVERITY:- ABNORMAL ECG - POSSIBLE ATRIAL ARRHYTHMIA, A-RATE 219 NS IVCD.POSSIBLE LVH WITH STRAIN : Confirmed by: Daisy Rose MD 16-Aug-2018 07:26:51
[2018-08-16] MEDS ORDERED: GLUCAGON,HUMAN RECOMB 1 MG INJ IM PRN (08:24)
[2018-08-16] MEDS ORDERED: DEXTROSE 50%-WATER 25 GM/50 ML DISP.SYRIN IV PRN ×2 (08:24)
[2018-08-16] MEDS ORDERED: DEXTROSE 40% GEL 15 GM TUBE PO PRN ×2 (08:24)
--- NOTE | 2018-08-16 08:29 | PDOC PROGRESS REPORT ---
Subjective Progress Note for:: 08/16/18 Subjective:: The patient appears to be much better. She does not have any further nausea vomiting or dizziness. She is tolerating food well. Her blood pressure is better controlled. Her I& O's are positive Reason For Visit: ACUTE ON CHORNIC KIDNEY DISEASE,NIDDM,HISTORY Physical Exam Vital Signs: Temp Pulse Resp BP Pulse Ox 98.0 F 66 20 145/55 H 96 08/16/18 03:53 08/16/18 07:00 08/16/18 03:53 08/16/18 03:53 08/16/18 03:53 Intake & Output 08/15/18 08/16/18 08/17/18 06:59 06:59 06:59 Intake Total 1274 Output Total 0 Balance 1274 Weight 67.4 kg General appearance: PRESENT: mild distress Head exam: PRESENT: atraumatic Eye exam: PRESENT: conjunctival injection Neck exam: PRESENT: carotid bruit. ABSENT: JVD Respiratory exam: PRESENT: clear to auscultation gustavo Cardiovascular exam: PRESENT: irregular rhythm, +S1, +S2 GI/Abdominal exam: PRESENT: normal bowel sounds, soft Extremities exam: PRESENT: right BKA Neurological exam: PRESENT: alert, awake Results Laboratory Results: 08/16/18 04:29 08/16/18 04:29 08/15/18 08/15/18 08/16/18 09:17 09:17 04:29 WBC 7.1 RBC 3.76 Hgb 11.0 L Hct 32.4 L MCV 86 MCH 29.2 MCHC 33.9 RDW 16.0 H Plt Count 248 Seg Neutrophils % 86.0 H Lymphocytes % 8.4 L Monocytes % 5.3 Eosinophils % 0.1 Basophils % 0.2 Absolute Neutrophils 6.1 Absolute Lymphocytes 0.6 Absolute Monocytes 0.4 Absolute Eosinophils 0.0 Absolute Basophils 0.0 Sodium 139.1 135.1 L Potassium 4.7 4.5 Chloride 103 104 Carbon Dioxide 24 23 Anion Gap 12 8 BUN 33 H 34 H Creatinine 2.78 H 2.68 H Est GFR ( Amer) 21 L 22 L Est GFR (Non-Af Amer) 17 L 18 L Glucose 178 H 123 H Calcium 9.7 8.4 Magnesium 1.9 Total Bilirubin 0.5 AST 22 ALT 10 Alkaline Phosphatase 90 Ammonia Total Protein 7.2 Albumin 3.7 Triglycerides 80 Cholesterol 201.65 H LDL Cholesterol Direct 110 H VLDL Cholesterol 16.0 HDL Cholesterol 54 Amylase < 30 L Lipase 88.3 TSH 08/16/18 08/16/18 08/16/18 04:29 04:29 04:29 WBC 4.3 RBC 3.31 L Hgb 9.6 L Hct 28.4 L MCV 86 MCH 29.1 MCHC 33.9 RDW 16.0 H Plt Count 233 Seg Neutrophils % 68.6 Lymphocytes % 23.3 Monocytes % 7.1 Eosinophils % 0.5 Basophils % 0.5 Absolute Neutrophils 2.9 Absolute Lymphocytes 1.0 Absolute Monocytes 0.3 Absolute Eosinophils 0.0 Absolute Basophils 0.0 Sodium Potassium Chloride Carbon Dioxide Anion Gap BUN Creatinine Est GFR ( Amer) Est GFR (Non-Af Amer) Glucose Calcium Magnesium Total Bilirubin AST ALT Alkaline Phosphatase Ammonia < 8.7 L Total Protein Albumin Triglycerides Cholesterol LDL Cholesterol Direct VLDL Cholesterol HDL Cholesterol Amylase Lipase TSH 1.67 08/15/18 08/15/18 08/15/18 09:17 09:17 16:52 Creatine Kinase 42 46 CK-MB (CK-2) 2.55 Troponin I 0.071 08/15/18 08/15/18 08/15/18 16:52 22:22 22:22 Creatine Kinase 40 CK-MB (CK-2) 2.88 2.67 Troponin I 0.198 0.273 08/16/18 08/16/18 04:29 04:29 Creatine Kinase 32 CK-MB (CK-2) 2.10 Troponin I 0.346 Impressions: Head CT 08/15/18 09:41 IMPRESSION: CHRONIC CHANGES OF ATROPHY AND MICROVASCULAR ISCHEMIA. NO ACUTE PROCESS. EVIDENCE OF ACUTE STROKE: NO. Assessment & Plan - Diagnosis (1) Dizziness Is this a current diagnosis for this admission?: Yes Plan: Resolved continue current treatment (2) Nausea & vomiting Is this a current diagnosis for this admission?: Yes Plan: Resolved continue current treatment encourage (3) Acute worsening of stage 4 chronic kidney disease Is this a current diagnosis for this admission?: Yes Plan: Nephrology consultation (4) Cerebrovascular accident (CVA) Is this a current diagnosis for this admission?: Yes Plan: No new signs (5) Diabetes mellitus Is this a current diagnosis for this admission?: Yes Plan: Will use the sliding scale insulin (6) Hypertension Is this a current diagnosis for this admission?: Yes Plan: Relatively well controlled with medication (7) Paroxysmal atrial fibrillation Is this a current diagnosis for this admission?: Yes Plan: Continue current medications. Awaiting cardiology consultation (8) Dehydration Is this a current diagnosis for this admission?: Yes Plan: Continue IV fluids
[2018-08-16] MEDS: LISINOPRIL 5 MG TABLET PO SCH (09:52)
[2018-08-16] MEDS: ALLOPURINOL 100 MG TABLET PO SCH (09:52)
[2018-08-16] MEDS: FERROUS SULFATE 325 MG TABLET PO SCH ×2 (09:52→18:13)
[2018-08-16] MEDS: ASPIRIN 81 MG TABLET, ENT COATED PO SCH ×4 (09:52→21:30)
[2018-08-16] MEDS: MULTIVITAMIN TABLET PO SCH (09:52)
[2018-08-16] MEDS: CALCITRIOL 0.25 MCG CAPSULE PO SCH (09:52)
[2018-08-16] MEDS: DOCUSATE SODIUM 100 MG CAPSULE PO SCH ×2 (09:52→18:13)
[2018-08-16] MEDS: ATORVASTATIN CALCIUM 40 MG TABLET PO SCH (09:53)
[2018-08-16] MEDS: FOLIC ACID/VITAMIN B COMP W-C CAPSULE PO SCH (09:53)
[2018-08-16] MEDS: METOLAZONE 2.5 MG TABLET PO SCH (09:53)
[2018-08-16] MEDS: CYANOCOBALAMIN (VITAMIN B-12) 1,000 MCG TABLET PO SCH (09:53)
[2018-08-16] MEDS: FUROSEMIDE 40 MG TABLET PO SCH (09:53)
[2018-08-16] MEDS ORDERED: (PENDING PHARMACY ID) (Warfarin Sodium 3 MG) PO SCH (10:00)
[2018-08-16] MEDS: INSULIN LISPRO 100 UNIT/ML 3 ML VIAL SUBCUT SCH ×3 (12:29→21:29)
--- NOTE | 2018-08-16 14:45 | PDOC CONSULTATION ---
Consultation Consult Date: 08/16/18 Consult reason:: ANDREA on CKD. History of Present Illness Admission Date/PCP: 08/15/18 14:42 CYNDIE COMER MD History of Present Illness: MELBA ROSADO is a 62 year old female with complicated diabetes, hypertension, peripheral vascular disease was admitted with history of persistent nausea vomiting for the last couple of days. She has also been constipated for the same amount of time. She has still not had a bowel movement. She also gives a symptoms suggestive of diabetic gastroparesis for quite a long time. No complaints of any hematemesis, abdominal pains or melena. No history of being on any NSAIDs. Labs and medications were reviewed. Past Medical History Cardiac Medical History: Reports: Atrial Fibrillation, Coronary Artery Disease, Hyperlipidemia, Peripheral Vascular Disease Neurological Medical History: Reports: Ischemic CVA Endocrine Medical History: Reports: Diabetes Mellitus Type 2 Complications of Diabetes: Reports: Diabetic Foot Ulcer - s/p Right BKA Renal/ Medical History: Reports: Chronic Kidney Disease Stage IV GI Medical History: Reports: Gastroesophageal Reflux Disease Denies: Cirrhosis, Hepatitis Musculoskeltal Medical History: Reports: Gout Psychiatric Medical History: Denies: Depression Past Surgical History Past Surgical History: Reports: Section, Orthopedic Surgery - Right BKA, Vascular Surgery Social History Lives with: Family, Spouse/Significant other Smoking Status: Former Smoker Number of Years Smokin Frequency of Alcohol Use: None Hx Recreational Drug Use: No Drugs: None Hx Prescription Drug Abuse: No Family History Parental Family History Reviewed: Yes - Mother was a diabetic with CKD. Children Family History Reviewed: No Sibling(s) Family History Reviewed.: No Medication/Allergy Home Medications: Allopurinol [Zyloprim 100 mg Tablet] 100 mg PO DAILY 08/15/18 Aspirin [Adult Low Dose Aspirin EC] 81 mg PO QAM 08/15/18 Atorvastatin Calcium [Lipitor 40 mg Tablet] 40 mg PO DAILY 08/15/18 B Complex W-C No.20/Folic Acid [Triphrocaps Softgel] 1 mg PO DAILY 08/15/18 Calcitriol [Rocaltrol 0.25 mcg Capsule] 0.25 mcg PO DAILY 08/15/18 Cyanocobalamin (Vitamin B-12) [Vitamin B-12] 1,000 mcg PO DAILY 08/15/18 Diltiazem HCl [Cardizem 30 mg Tablet] 30 mg PO TID 08/15/18 Famotidine [Pepcid 20 mg Tablet] 20 mg PO DAILY 08/15/18 Ferrous Sulfate [Feosol 325 mg Tablet] 325 mg PO BID 08/15/18 Furosemide [Lasix 40 mg Tablet] 40 mg PO DAILY 08/15/18 Hum Insulin NPH/Reg Insulin Hm [Novolin 70-30 100 Unit/ml Vial] 7 units SQ QAM 08/15/18 Hum Insulin NPH/Reg Insulin Hm [Novolin 70-30 100 Unit/ml Vial] 12 units SQ QPM 08/15/18 Hydralazine HCl [Apresoline 50 mg Tablet] 50 mg PO TID 08/15/18 Lisinopril [Zestril] 5 mg PO DAILY 08/15/18 Metolazone [Zaroxolyn 2.5 mg Tablet] 2.5 mg PO DAILY 08/15/18 Multivitamin [Multiple Vitamins] 1 tab PO DAILY 08/15/18 Omeprazole 20 mg PO DAILY 08/15/18 Warfarin Sodium [Coumadin 3 mg Tablet] 3 mg PO QPM 08/15/18 Allergies/Adverse Reactions: No Known Allergies Allergy (Verified 07/29/16 11:40) Review of Systems Constitutional: PRESENT: anorexia, fatigue, weakness. ABSENT: chills, fever(s), headache(s), night sweats Nose, Mouth, and Throat: ABSENT: mouth pain, sore throat Cardiovascular: ABSENT: chest pain, dyspnea on exertion, edema, orthropnea, palpitations Gastrointestinal: PRESENT: bloating, constipation, nausea, vomiting. ABSENT: abdominal pain, coffee ground emesis, diarrhea, dysphagia, heartburn, hematemesis, hematochezia Genitourinary: ABSENT: difficulty urinating, dysuria, hematuria Musculoskeletal: ABSENT: deformity, joint swelling, muscle weakness Integumentary: ABSENT: diaphoresis, erythema, lesions, pruritus, rash Neurological: ABSENT: abnormal movements, abnormal speech, confusion, convulsions, focal weakness Psychiatric: ABSENT: anxiety Hematologic/Lymphatic: ABSENT: easy bruising, lymphadenopathy Physical Exam Vital Signs: Temp Pulse Resp BP Pulse Ox 97.6 F 75 21 H 169/54 H 100 08/16/18 11:42 08/16/18 14:00 08/16/18 11:42 08/16/18 11:42 08/16/18 11:42 Intake & Output 08/15/18 08/16/18 08/17/18 06:59 06:59 06:59 Intake Total 1274 100 Output Total 0 Balance 1274 100 Weight 67.4 kg General appearance: PRESENT: no acute distress Eye exam: PRESENT: conjunctiva pink, EOMI, PERRLA Ear exam: PRESENT: normal external ear exam Mouth exam: PRESENT: moist, neck supple Neck exam: ABSENT: lymphadenopathy, meningismus, tenderness, thyromegaly, tracheal deviation Respiratory exam: PRESENT: clear to auscultation gustavo. ABSENT: crackles, decreased breath sounds Cardiovascular exam: PRESENT: +S1, +S2 GI/Abdominal exam: PRESENT: normal bowel sounds, soft. ABSENT: organomegaly, tenderness Extremities exam: ABSENT: pedal edema - Of the left leg. She is status post right BKA. Neurological exam: PRESENT: alert, awake, oriented to person, oriented to place, oriented to time Psychiatric exam: PRESENT: appropriate affect Skin exam: ABSENT: erythema, mottled, petechiae, rash Results Laboratory Results: 08/16/18 04:29 08/16/18 04:29 08/16/18 08/16/18 08/16/18 04:29 04:29 04:29 WBC 4.3 RBC 3.31 L Hgb 9.6 L Hct 28.4 L MCV 86 MCH 29.1 MCHC 33.9 RDW 16.0 H Plt Count 233 Seg Neutrophils % 68.6 Lymphocytes % 23.3 Monocytes % 7.1 Eosinophils % 0.5 Basophils % 0.5 Absolute Neutrophils 2.9 Absolute Lymphocytes 1.0 Absolute Monocytes 0.3 Absolute Eosinophils 0.0 Absolute Basophils 0.0 Sodium 135.1 L Potassium 4.5 Chloride 104 Carbon Dioxide 23 Anion Gap 8 BUN 34 H Creatinine 2.68 H Est GFR ( Amer) 22 L Est GFR (Non-Af Amer) 18 L Glucose 123 H Calcium 8.4 Magnesium 1.9 Ammonia < 8.7 L Triglycerides 80 Cholesterol 201.65 H LDL Cholesterol Direct 110 H VLDL Cholesterol 16.0 HDL Cholesterol 54 Amylase < 30 L Lipase 88.3 TSH 08/16/18 04:29 WBC RBC Hgb Hct MCV MCH MCHC RDW Plt Count Seg Neutrophils % Lymphocytes % Monocytes % Eosinophils % Basophils % Absolute Neutrophils Absolute Lymphocytes Absolute Monocytes Absolute Eosinophils Absolute Basophils Sodium Potassium Chloride Carbon Dioxide Anion Gap BUN Creatinine Est GFR ( Amer) Est GFR (Non-Af Amer) Glucose Calcium Magnesium Ammonia Triglycerides Cholesterol LDL Cholesterol Direct VLDL Cholesterol HDL Cholesterol Amylase Lipase TSH 1.67 08/15/18 08/15/18 08/15/18 09:17 09:17 16:52 Creatine Kinase 42 46 CK-MB (CK-2) 2.55 Troponin I 0.071 08/15/18 08/15/18 08/15/18 16:52 22:22 22:22 Creatine Kinase 40 CK-MB (CK-2) 2.88 2.67 Troponin I 0.198 0.273 08/16/18 08/16/18 04:29 04:29 Creatine Kinase 32 CK-MB (CK-2) 2.10 Troponin I 0.346 Impressions: Head CT 08/15/18 09:41 IMPRESSION: CHRONIC CHANGES OF ATROPHY AND MICROVASCULAR ISCHEMIA. NO ACUTE PROCESS. EVIDENCE OF ACUTE STROKE: NO. Assessment & Plan - Diagnosis (1) Nausea & vomiting Is this a current diagnosis for this admission?: Yes Plan: Patient is got a complicated diabetic disease. I believe patient is got diabetic gastroparesis and enteropathy which possibly led her to her presentation. Obviously the disease could have been made worse by her blood sugars which has been running high around 200 also. Patient currently better. I am going to treat her bowels with an enema. I am unsure if this patient has had gastric emptying scan which would definitely aid to the diagnosis. If she is confirmed she has this then one could try a low-dose of prokinetic medications with respect to her CKD stage. (2) Dehydration Is this a current diagnosis for this admission?: Yes Plan: Patient getting gentle hydration which I agree. (3) CKD (chronic kidney disease), stage IV Plan: Patient has got underlying CKD stage IV with a base creatinine around 2.3-2.6. So her present condition is shows mild worsening of her baseline from dehydration.Agree with gentle hydration and monitoring. (4) ANDREA (acute kidney injury) Plan: Mild acute insult on CKD stage IV. She should hopefully respond to IV rehydration. 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 (7) Hypertension Is this a current diagnosis for this admission?: Yes Plan: Advised good control.
[2018-08-16] MEDS ORDERED: WARFARIN SODIUM 3 MG TABLET PO SCH (18:00)
[2018-08-16] MEDS: WARFARIN SODIUM 5 MG TABLET PO SCH (18:14)
[2018-08-17] MEDS: LANSOPRAZOLE 30 MG TAB.RAP.DR PO SCH (05:28)
[2018-08-17] MEDS: DILTIAZEM HCL 30 MG TABLET PO SCH ×3 (05:29→21:41)
[2018-08-17] MEDS: HYDRALAZINE HCL 50 MG TABLET PO SCH ×3 (05:29→21:40)
[2018-08-17 07:49] LABS: ABSOLUTE EOSINOPHILS # (AUTO) 0.1 10^3/uL (0.0-0.6); ABSOLUTE MONOCYTES (AUTO) 0.3 10^3/uL (0.1-1.4); ABSOLUTE NEUT (AUTO) 2.4 10^3/uL (1.7-8.2); BASOPHILS % (AUTO) 0.6 % (0-2); EOSINOPHILS % (AUTO) 1.7 % (0-6); HEMATOCRIT 28.3 % (36.0-47.0); HEMOGLOBIN 9.5 g/dL (12.0-15.5); MEAN CORPUSCULAR HEMOGLOBIN 28.7 pg (27.0-33.4); MEAN CORPUSCULAR HGB CONC 33.5 g/dL (32.0-36.0); MEAN CORPUSCULAR VOLUME 86 fl (80-97); MONOCYTES % (AUTO) 7.6 % (3-13); PLATELET COUNT 224 10^3/uL (150-450); RED BLOOD COUNT 3.31 10^6/uL (3.72-5.28); RED CELL DISTRIBUTION WIDTH 15.3 % (11.5-14.0); SEGMENTED NEUTROPHILS % (AUTO) 63.1 % (42-78); TOTAL CELLS COUNTED % (AUTO) 100 %; WHITE BLOOD COUNT 3.8 10^3/uL (4.0-10.5)
[2018-08-17 08:07] LABS: INTERNATIONAL RATION (INR) 1.05; PROTHROMBIN TIME 14.3 SEC (11.4-15.4)
[2018-08-17 08:18] LABS: ANION GAP 10 (5-19); BLOOD UREA NITROGEN 34 mg/dL (7-20); CALCIUM 8.4 mg/dL (8.4-10.2); CARBON DIOXIDE 22 mmol/L (22-30); CHLORIDE 97 mmol/L (98-107); GLUCOSE 154 mg/dL (75-110); POTASSIUM 4.1 mmol/L (3.6-5.0); SODIUM 128.5 mmol/L (137-145)
[2018-08-17] MEDS: 1/2 NORMAL SALINE 1,000 ML IV PRN (08:53)
[2018-08-17] MEDS: INSULIN LISPRO 100 UNIT/ML 3 ML VIAL SUBCUT SCH ×4 (08:53→21:40)
[2018-08-17] MEDS: ATORVASTATIN CALCIUM 40 MG TABLET PO SCH (10:28)
[2018-08-17] MEDS: CALCITRIOL 0.25 MCG CAPSULE PO SCH (10:28)
[2018-08-17] MEDS: METOLAZONE 2.5 MG TABLET PO SCH (10:28)
[2018-08-17] MEDS: MULTIVITAMIN TABLET PO SCH (10:28)
[2018-08-17] MEDS: CYANOCOBALAMIN (VITAMIN B-12) 1,000 MCG TABLET PO SCH (10:28)
[2018-08-17] MEDS: ALLOPURINOL 100 MG TABLET PO SCH (10:28)
[2018-08-17] MEDS: LISINOPRIL 5 MG TABLET PO SCH (10:29)
[2018-08-17] MEDS: FOLIC ACID/VITAMIN B COMP W-C CAPSULE PO SCH (10:29)
[2018-08-17] MEDS: FERROUS SULFATE 325 MG TABLET PO SCH ×2 (10:29→17:16)
[2018-08-17] MEDS: FUROSEMIDE 40 MG TABLET PO SCH (10:29)
[2018-08-17] MEDS: DOCUSATE SODIUM 100 MG CAPSULE PO SCH ×2 (10:29→17:16)
[2018-08-17] MEDS: ASPIRIN 81 MG TABLET, ENT COATED PO SCH ×4 (10:29→21:40)
--- NOTE | 2018-08-17 12:31 | EKG REPORT ---
SEVERITY:- ABNORMAL ECG - SINUS RHYTHM ATRIAL PREMATURE COMPLEX NS IVCD : Confirmed by: Daisy Rose MD 17-Aug-2018 12:31:14
--- NOTE | 2018-08-17 15:34 | PDOC PROGRESS REPORT ---
Subjective Progress Note for:: 08/17/18 - Covering Dr. Tejeda Subjective:: Patient is leaning slightly to the right. Plate of cottage cheese and fruits appears untouched. is at the bedside. Reason For Visit: ACUTE ON CHORNIC KIDNEY DISEASE,NIDDM,HISTORY Physical Exam Vital Signs: Temp Pulse Resp BP Pulse Ox 97.6 F 71 18 139/52 H 100 08/17/18 07:42 08/17/18 14:00 08/17/18 07:42 08/17/18 07:42 08/17/18 07:42 Intake & Output 08/16/18 08/17/18 08/18/18 06:59 06:59 07:59 Intake Total 1274 1132 1150 Output Total 0 Balance 1274 1132 1150 Weight 67.4 kg 69.4 kg General appearance: PRESENT: no acute distress, well-developed Head exam: PRESENT: normocephalic Eye exam: PRESENT: other - Exophthalmos Ear exam: PRESENT: normal external ear exam Mouth exam: PRESENT: moist Respiratory exam: PRESENT: clear to auscultation gustavo. ABSENT: rales, rhonchi, wheezes Cardiovascular exam: PRESENT: RRR, +S1, +S2 GI/Abdominal exam: PRESENT: normal bowel sounds, soft. ABSENT: tenderness Rectal exam: PRESENT: deferred Neurological exam: PRESENT: alert, awake, oriented to person, oriented to place, oriented to time, oriented to situation Psychiatric exam: PRESENT: flat affect. ABSENT: agitated, anxious Focused psych exam: ABSENT: delusional, restlessness Results Laboratory Results: 08/17/18 06:28 08/17/18 06:28 08/17/18 08/17/18 06:28 06:28 WBC 3.8 L RBC 3.31 L Hgb 9.5 L Hct 28.3 L MCV 86 MCH 28.7 MCHC 33.5 RDW 15.3 H Plt Count 224 Seg Neutrophils % 63.1 Lymphocytes % 27.0 Monocytes % 7.6 Eosinophils % 1.7 Basophils % 0.6 Absolute Neutrophils 2.4 Absolute Lymphocytes 1.0 Absolute Monocytes 0.3 Absolute Eosinophils 0.1 Absolute Basophils 0.0 Sodium 128.5 L Potassium 4.1 Chloride 97 L Carbon Dioxide 22 Anion Gap 10 BUN 34 H Creatinine 2.74 H Est GFR ( Amer) 21 L Est GFR (Non-Af Amer) 18 L Glucose 154 H Calcium 8.4 08/15/18 08/15/18 08/15/18 09:17 09:17 16:52 Creatine Kinase 42 46 CK-MB (CK-2) 2.55 Troponin I 0.071 08/15/18 08/15/18 08/15/18 16:52 22:22 22:22 Creatine Kinase 40 CK-MB (CK-2) 2.88 2.67 Troponin I 0.198 0.273 08/16/18 08/16/18 08/17/18 04:29 04:29 06:28 Creatine Kinase 32 CK-MB (CK-2) 2.10 Troponin I 0.346 0.173 Impressions: Head CT 08/15/18 09:41 IMPRESSION: CHRONIC CHANGES OF ATROPHY AND MICROVASCULAR ISCHEMIA. NO ACUTE PROCESS. EVIDENCE OF ACUTE STROKE: NO. Assessment & Plan - Diagnosis (1) Nausea & vomiting Qualifiers: Vomiting Intractability: unspecified Is this a current diagnosis for this admission?: Yes Plan: Please also reviewed nephrology note. With her underlying diabetes there is s uspicion of diabetic gastroparesis. She does not appear nauseated and has not been vomiting today. Her appetite is still diminished. Treat symptomatically at this time. (2) Acute worsening of stage 4 chronic kidney disease Is this a current diagnosis for this admission?: Yes Plan: Likely from the nausea, vomiting and dehydration. She was getting one half normal saline however she is developing hyponatremia until the saline was discontinued. We will encourage oral liquids. (3) Dehydration Is this a current diagnosis for this admission?: Yes Plan: As above (4) Hyponatremia Is this a current diagnosis for this admission?: Yes Plan: As above. The half-normal saline has been discontinued. - Time Time Spent with patient: 15-24 minutes Medications reviewed and adjusted accordingly: Yes
[2018-08-17] MEDS: WARFARIN SODIUM 5 MG TABLET PO SCH (17:16)
--- NOTE | 2018-08-17 21:25 | PDOC CONSULTATION ---
Consultation-Blank Consultation: CARDIOLOGY CONSULTATION by Dr. Daisy Rose on 08/17/2017. Note the patient is seen briefly and the chart reviewed on 08/16/2018. Formal consultation done at 8 AM on 08/17/2018. History obtained from patient patient's . REASON FOR CONSULTATION: Elevated troponin The patient. HISTORY OF PRESENT ILLNESS: Patient is a 62-year-old female with known history of hypertension, diabetes mellitus, chronic kidney disease stage III, who was admitted with nausea and vomiting, and decreased p.o. intake, and was admitted with acute on chronic renal failure, with acute kidney injury due to dehydration, and although the patient had no chest pain or discomfort.. The patient troponin has been elevated. Hence the consult. The patient denies any chest pain or discomfort. There is no shortness of breath or PND orthopnea. There is no new symptoms of TIA or CVA, with the patient having sustained an old right sided weakness due to prior stroke, and patient with multiple histories of TIAs. Neck PAST MEDICAL HISTORY: To me the patient and her denied any history of LA or CAD or anginal symptoms. She has a history of hypertension, history of diabetes mellitus, and history of chronic kidney disease. She has had a history of CVA in the past and history of multiple TIAs. There is no history of thyroid disease. There is no history of anxiety or depression. 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 She has a history of peripheral vascular disease. It is reported in the chart that the patient has a history of atrial fibrillation, but the patient and the state that there is no recent occurrences of atrial fibrillation. The patient is on Coumadin for this, for stroke prophylaxis. There is no history of asthma or COPD. There is no history of seizures. There is no history of sleep apnea. She has a past history of gout. She also has history of GERD. She has a past history of diabetic foot ulcer which did not heal and patient underwent a right BKA in the past. PAST SURGICAL HISTORY: The patient has had a , right BKA surgery, and vascular surgery. FAMILY HISTORY: Mother had a history of diabetes mellitus and chronic kidney disease. ALLERGIES: No known allergies. SOCIAL HISTORY: The patient has never smoked. There is no history of EtOH abuse. DISPOSITION: The patient is a full code. Her is her surrogate healthcare decision maker. REVIEW SYSTEMS: CONSTITUTIONAL: Denies any fever chills or rigors. She c omplains of generalized fatigue and weakness. EYES: No history of amblyopia, or diplopia. No history of diabetic retinopathy. No history of amaurosis fugax. EARS: No history of tinnitus. No history of hearing loss. No history of recurrent ear infections. NOSE: No history of hayfever. No history of nosebleeds. MOUTH: No altered taste sensation. No ulcers in the mouth. No bleeding from the gums. THROAT: No odynophagia or dysphagia. No history of recurrent sore throats. SKIN: No history of pruritus. No history of jaundice. No history of psoriasis. NECK: Denies any neck pain or neck swelling. LUNGS: No history of cough or sputum production. No wheezing. No history of asthma or COPD. No history of sleep apnea. No history of pulmonary embolism. No history of symptoms of upper or lower respiratory tract infections. CARDIAC: History of hypertension present.. The patient and the denies any history of CAD or LA. She has no anginal symptoms. Elevated troponin I most likely secondary to type II supply demand mismatch LA due to the patient's acute renal failure on chronic renal failure, and dehydration. No evidence of non-ST elevation LA. No history of congestive heart failure. History of proximal atrial fibrillation in the past, with no recurrence. She is on Coumadin GI: No history of GI bleed. The patient has been constipated. History of nausea and vomiting. Patient unable to keep anything down if she takes by mouth liquids or solids. No history of fatty food intolerance. No history of jaundice. Denies abdominal pain. No history of GI bleed. She has a history of GERD. She has very much decreased appetite. There is a plate of cottage cheese and fruit in a plate which the patient is not touched. She states that looking at them makes her nauseous. MUSCULOSKELETAL: Denies collagen vascular disease. History of arthritis present. METABOLIC: History of gout present. History of hyperlipidemia present. RENAL: The patient has history of chronic kidney disease stage III. No GFR is worsened. This is dehydration causing acute on chronic renal failure. No symptoms of UTI. No history of hematuria pyuria or dysuria. ENDOCRINE: History of diabetes mellitus present no history of thyroid disease. No polydipsia polyuria. No history of heat or cold intolerance. She has a history of diabetic neuropathy and history of diabetic ulcer resulting in the right BKA. No polydipsia polyuria. No history of heat or cold intolerance. 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 History of multiple TIAs. The patient now although there is no recurrence of TIA or CVA this admission does seem to lean towards the right. PSYCHIATRIC: No history of anxiety or depression. Appears to have slow mentation. There is no suicidal ideation. No history of homicidal ideation. VASCULAR: History of peripheral vascular disease present. But no history of calf or buttock claudication, but the patient does not ambulate much. No history of DVT. HEMATOLOGICAL: No history of bleeding diathesis. No history of clotting disorders. PHYSICAL EXAMINATION: The patient is well-built. Appears to be chronically ill. She is in no acute distress. Selected Entries 08/17/18 07:42 Temperature 97.6 F Temperature Oral Source Pulse Rate 66 Respiratory 18 Rate Blood Pressure 139/52 H Blood Pressure 81 Mean BP Location Left Arm BP Position Supine O2 Sat by Pulse 100 Oximetry Oxygen Delivery Room Air Method HEAD: Is atraumatic normocephalic. EYES: Pupils are equal round regular react to light accommodation. Extraocular movements are normal. There are no clinical pallor. There is no scleral icterus. EARS: Tympanic memories are intact. External auditory canals are clear NOSE: There is no deviated nasal septum. There is no inflammation nasal mucous membrane. MOUTH: Mucous membranes of the mouth are moist. Tongue is moist. There is no ulcers. There is no bleeding from the gums. THROAT: There is no exudates in the throat. There is no redness of the oropharynx. SKIN: There is no skin rashes or skin lesions.. There is no petechia or ecchymosis. NECK: Is supple. There is no JV D. Carotids are equal. There is no carotid bruits. There is no carotid delay. There is no lymphadenopathy. There is no goiter. There is no accessory muscle respiration use.. Trachea central. LUNGS: Lungs are clear to auscultation percussion, without any rhonchi rales or wheezing. On percussion there is hyperresonance. On palpation there is no chest wall tenderness. HEART: S1-S2 is heard. There is no S3 gallop. There is no S4 gallop. There is systolic murmur left sternal border and the apex there is no rub. ABDOMEN: Is soft. Nontender. There is no hepatosplenomegaly. Bowel sounds are well heard. There is no tender areas masses. EXTREMITIES: Femorals are mildly diminished there is no femoral bruits. Leg pulses are well felt. There is no pedal edema. There is no DVT or cellulitis. There is no calf tenderness. There is no cyanosis or clubbing. Capillary refill is normal. PROFESSOR OF FORESTRY: The patient is conscious awake oriented x3, but of slow mentation. Is mild right-sided weakness. PSYCHIATRIC: The patient judgment insight are intact. His affect is flat, and her mentation is slightly slow Current Medications Generic Name Dose Route Start Last Admin Trade Name Freq PRN Reason Stop Dose Admin Acetaminophen 650 mg 08/15/18 16:08 Tylenol 325 Mg Tablet PO 09/14/18 16:07 Q4HP PRN FOR PAIN Allopurinol 100 mg 08/16/18 10:00 08/17/18 10:28 Zyloprim 100 Mg Tablet PO 09/15/18 09:59 100 mg DAILY [facility] Administration Aspirin 81 mg 08/15/18 18:00 08/17/18 17:16 Ecotrin 81 Mg Ec Tablet PO 09/14/18 17:59 81 mg QID [facility] Administration Atorvastatin Calcium 40 mg 08/16/18 10:00 08/17/18 10:28 Lipitor 40 Mg Tablet PO 09/15/18 09:59 40 mg DAILY [facility] Administration Calcitriol 0.25 mcg 08/16/18 10:00 08/17/18 10:28 Rocaltrol 0.25 Mcg Capsule PO 09/15/18 09:59 0.25 mcg DAILY [facility] Administration Cyanocobalamin 1,000 mcg 08/16/18 10:00 08/17/18 10:28 Vitamin B-12 1000 Mcg Tablet PO 09/15/18 09:59 1,000 mcg DAILY [facility] Administration Dextrose 12.5 gm 08/16/18 08:24 Dextrose Inj 50% Syringe (25 Gm/50 Ml) IV 09/15/18 08:23 PRN PRN FOR BG 50-69 IN ALERT PATIENT Protocol Dextrose 25 gm 08/16/18 08:24 Dextrose Inj 50% Syringe (25 Gm/50 Ml) IV 09/15/18 08:23 PRN PRN PER PROTOCOL Protocol Diltiazem HCl 30 mg 08/15/18 22:00 08/17/18 13:18 Cardizem 30 Mg Tablet PO 09/14/18 21:59 30 mg Q8 [facility] Administration Docusate Sodium 100 mg 08/15/18 18:00 08/17/18 17:16 Colace 100 Mg Capsule PO 09/14/18 17:59 100 mg BID [facility] Administration Ferrous Sulfate 325 mg 08/15/18 18:00 08/17/18 17:16 Feosol 325 Mg Tablet PO 09/14/18 17:59 325 mg BID [facility] Administration Furosemide 40 mg 08/16/18 10:00 08/17/18 10:29 Lasix 40 Mg Tablet PO 09/15/18 09:59 40 mg DAILY [facility] Administration Glucagon 1 mg 08/16/18 08:24 Glucagen Inj 1 Mg Vial IM 09/15/18 08:23 PRN PRN Evaluate for BG < 70 Protocol Glucose 15 gm 08/16/18 08:24 Glutose 40% Gel 15 Gm Tube PO 09/15/18 08:23 PRN PRN FOR BG 50-69 IN ALERT PATIENT Protocol Glucose 30 gm 08/16/18 08:24 Glutose 40% Gel 15 Gm Tube PO 09/15/18 08:23 PRN PRN FOR BG < 50 IN ALERT PATIENT Protocol Hydralazine HCl 50 mg 08/15/18 22:00 08/17/18 13:19 Apresoline 50 Mg Tablet PO 09/14/18 21:59 50 mg Q8 [facility] Administration Insulin Human Lispro 0 - 12 unit 08/16/18 11:00 08/17/18 17:17 Humalog Insulin 100 Unit/1 Ml 3 Ml Vial SUBCUT 09/15/18 10:59 2 unit ACHS [facility] Administration Protocol Lansoprazole 30 mg 08/16/18 06:00 08/17/18 05:28 Prevacid 30 Mg Odt Tablet PO 09/15/18 05:59 30 mg Q6AM [facility] Administration Lisinopril 5 mg 08/16/18 10:00 08/17/18 10:29 Prinivil 5 Mg Tablet PO 09/15/18 09:59 5 mg DAILY [facility] Administration Metolazone 2.5 mg 08/16/18 10:00 08/17/18 10:28 Zaroxolyn 2.5 Mg Tablet PO 09/15/18 09:59 2.5 mg DAILY [facility] Administration Multivit/Ca Carb/B Cmplx/FA/Prenat 1 cap 08/16/18 10:00 08/17/18 10:29 Nephrocaps Multiple Vitamin Capsule PO 09/15/18 09:59 1 cap DAILY [facility] Administration Multivitamins 1 tab 08/16/18 10:00 08/17/18 10:28 Tab-A-Matheus (Multiple Vitamin) Tablet PO 09/15/18 09:59 1 tab DAILY [facility] Administration Ondansetron HCl 4 mg 08/15/18 16:08 Zofran Odt 4 Mg Tablet PO 09/14/18 16:07 Q4HP PRN FOR NAUSEA/VOMITING Sodium Chloride 2.5 ml 08/15/18 22:00 08/17/18 13:13 Saline Flush 2.5 Ml Monoject Prefil Syrin IV 09/14/18 21:59 Not Given Q8 [facility] Warfarin Sodium 5 mg 08/16/18 18:00 08/17/18 17:16 Coumadin 5 Mg Tablet PO 09/15/18 17:59 5 mg QPM [facility] Administration Discontinued Medications Generic Name Dose Route Start Last Admin Trade Name Freq PRN Reason Stop Dose Admin Sodium Chloride 1,000 mls @ 75 mls/hr 08/15/18 15:55 08/17/18 08:53 Nacl 0.45% 1000 Ml Iv Soln IV 09/14/18 15:54 75 mls/hr CONTINUOUS PRN Administration THIS MED IS NOT "PRN" Ondansetron HCl 8 mg 08/15/18 09:41 08/15/18 09:45 Zofran Inj/Pf 4 Mg/2 Ml Sdv IV 08/15/18 09:42 8 mg NOW ONE Administration Warfarin Sodium 3 mg 08/15/18 20:00 08/15/18 21:07 Coumadin 3 Mg Tablet PO 09/14/18 19:59 3 mg QPM [facility] Administration Warfarin Sodium 5 mg 08/16/18 18:00 Coumadin 3 Mg Tablet PO 09/15/18 17:59 QPM [facility] HOME MEDICATIONS: Allopurinol [Zyloprim 100 mg Tablet] 100 mg PO DAILY 08/15/18 Aspirin [Adult Low Dose Aspirin EC] 81 mg PO QAM 08/15/18 Atorvastatin Calcium [Lipitor 40 mg Tablet] 40 mg PO DAILY 08/15/18 B Complex W-C No.20/Folic Acid [Triphrocaps Softgel] 1 mg PO DAILY 08/15/18 Calcitriol [Rocaltrol 0.25 mcg Capsule] 0.25 mcg PO DAILY 08/15/18 Cyanocobalamin (Vitamin B-12) [Vitamin B-12] 1,000 mcg PO DAILY 08/15/18 Diltiazem HCl [Cardizem 30 mg Tablet] 30 mg PO TID 08/15/18 Famotidine [Pepcid 20 mg Tablet] 20 mg PO DAILY 08/15/18 Ferrous Sulfate [Feosol 325 mg Tablet] 325 mg PO BID 08/15/18 Furosemide [Lasix 40 mg Tablet] 40 mg PO DAILY 08/15/18 Hum Insulin NPH/Reg Insulin Hm [Novolin 70-30 100 Unit/ml Vial] 7 units SQ QAM 08/15/18 Hum Insulin NPH/Reg Insulin Hm [Novolin 70-30 100 Unit/ml Vial] 12 units SQ QPM 08/15/18 Hydralazine HCl [Apresoline 50 mg Tablet] 50 mg PO TID 08/15/18 Lisinopril [Zestril] 5 mg PO DAILY 08/15/18 Metolazone [Zaroxolyn 2.5 mg Tablet] 2.5 mg PO DAILY 08/15/18 Multivitamin [Multiple Vitamins] 1 tab PO DAILY 08/15/18 Omeprazole 20 mg PO DAILY 08/15/18 Warfarin Sodium [Coumadin 3 mg Tablet] 3 mg PO QPM 08/15/18 Labs- Entire Visit 08/15/18 08/15/18 08/15/18 09:17 09:17 09:17 WBC 7.1 RBC 3.76 Hgb 11.0 L Hct 32.4 L MCV 86 MCH 29.2 MCHC 33.9 RDW 16.0 H Plt Count 248 Seg Neutrophils % 86.0 H Lymphocytes % 8.4 L Monocytes % 5.3 Eosinophils % 0.1 Basophils % 0.2 Absolute Neutrophils 6.1 Absolute Lymphocytes 0.6 Absolute Monocytes 0.4 Absolute Eosinophils 0.0 Absolute Basophils 0.0 PT 13.2 INR 0.96 Sodium 139.1 Potassium 4.7 Chloride 103 Carbon Dioxide 24 Anion Gap 12 BUN 33 H Creatinine 2.78 H Est GFR ( Amer) 21 L Est GFR (Non-Af Amer) 17 L Glucose 178 H POC Glucose Hemoglobin A1c % Calcium 9.7 Magnesium Total Bilirubin 0.5 Direct Bilirubin 0.5 H Neonat Total Bilirubin Not Reportable Neonat Direct Bilirubin Not Reportable Neonat Indirect Bili Not Reportable AST 22 ALT 10 Alkaline Phosphatase 90 Ammonia Creatine Kinase 42 CK-MB (CK-2) Troponin I Total Protein 7.2 Albumin 3.7 Triglycerides Cholesterol LDL Cholesterol Direct VLDL Cholesterol HDL Cholesterol Amylase Lipase TSH 08/15/18 08/15/18 08/15/18 09:17 16:52 16:52 WBC RBC Hgb Hct MCV MCH MCHC RDW Plt Count Seg Neutrophils % Lymphocytes % Monocytes % Eosinophils % Basophils % Absolute Neutrophils Absolute Lymphocytes Absolute Monocytes Absolute Eosinophils Absolute Basophils PT INR Sodium Potassium Chloride Carbon Dioxide Anion Gap BUN Creatinine Est GFR ( Amer) Est GFR (Non-Af Amer) Glucose POC Glucose Hemoglobin A1c % Calcium Magnesium Total Bilirubin Direct Bilirubin Neonat Total Bilirubin Neonat Direct Bilirubin Neonat Indirect Bili AST ALT Alkaline Phosphatase Ammonia Creatine Kinase 46 CK-MB (CK-2) 2.55 2.88 Troponin I 0.071 0.198 Total Protein Albumin Triglycerides Cholesterol LDL Cholesterol Direct VLDL Cholesterol HDL Cholesterol Amylase Lipase TSH 08/15/18 08/15/18 08/16/18 22:22 22:22 04:29 WBC RBC Hgb Hct MCV MCH MCHC RDW Plt Count Seg Neutrophils % Lymphocytes % Monocytes % Eosinophils % Basophils % Absolute Neutrophils Absolute Lymphocytes Absolute Monocytes Absolute Eosinophils Absolute Basophils PT INR Sodium 135.1 L Potassium 4.5 Chloride 104 Carbon Dioxide 23 Anion Gap 8 BUN 34 H Creatinine 2.68 H Est GFR ( Amer) 22 L Est GFR (Non-Af Amer) 18 L Glucose 123 H POC Glucose Hemoglobin A1c % Calcium 8.4 Magnesium 1.9 Total Bilirubin Direct Bilirubin Neonat Total Bilirubin Neonat Direct Bilirubin Neonat Indirect Bili AST ALT Alkaline Phosphatase Ammonia Creatine Kinase 40 32 CK-MB (CK-2) 2.67 Troponin I 0.273 Total Protein Albumin Triglycerides 80 Cholesterol 201.65 H LDL Cholesterol Direct 110 H VLDL Cholesterol 16.0 HDL Cholesterol 54 Amylase < 30 L Lipase 88.3 TSH 08/16/18 08/16/18 08/16/18 04:29 04:29 04:29 WBC 4.3 RBC 3.31 L Hgb 9.6 L Hct 28.4 L MCV 86 MCH 29.1 MCHC 33.9 RDW 16.0 H Plt Count 233 Seg Neutrophils % 68.6 Lymphocytes % 23.3 Monocytes % 7.1 Eosinophils % 0.5 Basophils % 0.5 Absolute Neutrophils 2.9 Absolute Lymphocytes 1.0 Absolute Monocytes 0.3 Absolute Eosinophils 0.0 Absolute Basophils 0.0 PT 14.3 INR 1.05 Sodium Potassium Chloride Carbon Dioxide Anion Gap BUN Creatinine Est GFR ( Amer) Est GFR (Non-Af Amer) Glucose POC Glucose Hemoglobin A1c % Calcium Magnesium Total Bilirubin Direct Bilirubin Neonat Total Bilirubin Neonat Direct Bilirubin Neonat Indirect Bili AST ALT Alkaline Phosphatase Ammonia Creatine Kinase CK-MB (CK-2) 2.10 Troponin I 0.346 Total Protein Albumin Triglycerides Cholesterol LDL Cholesterol Direct VLDL Cholesterol HDL Cholesterol Amylase Lipase TSH 08/16/18 08/16/18 08/16/18 04:29 04:29 04:29 WBC RBC Hgb Hct MCV MCH MCHC RDW Plt Count Seg Neutrophils % Lymphocytes % Monocytes % Eosinophils % Basophils % Absolute Neutrophils Absolute Lymphocytes Absolute Monocytes Absolute Eosinophils Absolute Basophils PT INR Sodium Potassium Chloride Carbon Dioxide Anion Gap BUN Creatinine Est GFR ( Amer) Est GFR (Non-Af Amer) Glucose POC Glucose Hemoglobin A1c % 5.5 Calcium Magnesium Total Bilirubin Direct Bilirubin Neonat Total Bilirubin Neonat Direct Bilirubin Neonat Indirect Bili AST ALT Alkaline Phosphatase Ammonia < 8.7 L Creatine Kinase CK-MB (CK-2) Troponin I Total Protein Albumin Triglycerides Cholesterol LDL Cholesterol Direct VLDL Cholesterol HDL Cholesterol Amylase Lipase TSH 1.67 08/16/18 08/16/18 08/16/18 12:04 15:53 21:17 WBC RBC Hgb Hct MCV MCH MCHC RDW Plt Count Seg Neutrophils % Lymphocytes % Monocytes % Eosinophils % Basophils % Absolute Neutrophils Absolute Lymphocytes Absolute Monocytes Absolute Eosinophils Absolute Basophils PT INR Sodium Potassium Chloride Carbon Dioxide Anion Gap BUN Creatinine Est GFR ( Amer) Est GFR (Non-Af Amer) Glucose POC Glucose 151 H 166 H 183 H Hemoglobin A1c % Calcium Magnesium Total Bilirubin Direct Bilirubin Neonat Total Bilirubin Neonat Direct Bilirubin Neonat Indirect Bili AST ALT Alkaline Phosphatase Ammonia Creatine Kinase CK-MB (CK-2) Troponin I Total Protein Albumin Triglycerides Cholesterol LDL Cholesterol Direct VLDL Cholesterol HDL Cholesterol Amylase Lipase TSH 08/17/18 08/17/18 08/17/18 06:28 06:28 06:28 WBC 3.8 L RBC 3.31 L Hgb 9.5 L Hct 28.3 L MCV 86 MCH 28.7 MCHC 33.5 RDW 15.3 H Plt Count 224 Seg Neutrophils % 63.1 Lymphocytes % 27.0 Monocytes % 7.6 Eosinophils % 1.7 Basophils % 0.6 Absolute Neutrophils 2.4 Absolute Lymphocytes 1.0 Absolute Monocytes 0.3 Absolute Eosinophils 0.1 Absolute Basophils 0.0 PT 14.3 INR 1.05 Sodium 128.5 L Potassium 4.1 Chloride 97 L Carbon Dioxide 22 Anion Gap 10 BUN 34 H Creatinine 2.74 H Est GFR ( Amer) 21 L Est GFR (Non-Af Amer) 18 L Glucose 154 H POC Glucose Hemoglobin A1c % Calcium 8.4 Magnesium Total Bilirubin Direct Bilirubin Neonat Total Bilirubin Neonat Direct Bilirubin Neonat Indirect Bili AST ALT Alkaline Phosphatase Ammonia Creatine Kinase CK-MB (CK-2) Troponin I Total Protein Albumin Triglycerides Cholesterol LDL Cholesterol Direct VLDL Cholesterol HDL Cholesterol Amylase Lipase TSH 08/17/18 08/17/18 08/17/18 06:28 07:45 12:43 WBC RBC Hgb Hct MCV MCH MCHC RDW Plt Count Seg Neutrophils % Lymphocytes % Monocytes % Eosinophils % Basophils % Absolute Neutrophils Absolute Lymphocytes Absolute Monocytes Absolute Eosinophils Absolute Basophils PT INR Sodium Potassium Chloride Carbon Dioxide Anion Gap BUN Creatinine Est GFR ( Amer) Est GFR (Non-Af Amer) Glucose POC Glucose 159 H 150 H Hemoglobin A1c % Calcium Magnesium Total Bilirubin Direct Bilirubin Neonat Total Bilirubin Neonat Direct Bilirubin Neonat Indirect Bili AST ALT Alkaline Phosphatase Ammonia Creatine Kinase CK-MB (CK-2) Troponin I 0.173 Total Protein Albumin Triglycerides Cholesterol LDL Cholesterol Direct VLDL Cholesterol HDL Cholesterol Amylase Lipase TSH 08/17/18 16:53 WBC RBC Hgb Hct MCV MCH MCHC RDW Plt Count Seg Neutrophils % Lymphocytes % Monocytes % Eosinophils % Basophils % Absolute Neutrophils Absolute Lymphocytes Absolute Monocytes Absolute Eosinophils Absolute Basophils PT INR Sodium Potassium Chloride Carbon Dioxide Anion Gap BUN Creatinine Est GFR ( Amer) Est GFR (Non-Af Amer) Glucose POC Glucose 163 H Hemoglobin A1c % Calcium Magnesium Total Bilirubin Direct Bilirubin Neonat Total Bilirubin Neonat Direct Bilirubin Neonat Indirect Bili AST ALT Alkaline Phosphatase Ammonia Creatine Kinase CK-MB (CK-2) Troponin I Total Protein Albumin Triglycerides Cholesterol LDL Cholesterol Direct VLDL Cholesterol HDL Cholesterol Amylase Lipase TSH Head CT 08/15/18 09:41 IMPRESSION: CHRONIC CHANGES OF ATROPHY AND MICROVASCULAR ISCHEMIA. NO ACUTE PROCESS. EVIDENCE OF ACUTE STROKE: NO. ekg: Shows sinus rhythm. In some EKGs looks like nonspecific IVCD. There is it looks like the patient has left bundle branch block pattern. Hence EKG is nondiagnostic for acute ischemia or LA. IMPRESSION/RECOMMENDATION: 1. Elevated troponin I: Secondary to supply demand mismatch due to the patient's dehydration and acute on chronic kidney disease. There is no definite evidence of non-ST elevation LA. Would not treat this as a NSTEMI.Will treat the precipiatating cause. But the patient does have multiple CAD risk factors namely age, hypertension, diabetes mellitus, and hyperlipidemia, hence would recommend getting an echo and an IV Lexiscan Cardiolite stress test later this admission or as an outpatient as early as possible after patient discharge. 2. Dehydration: Secondary to nausea and vomiting. Agree with hydration of the patient. 3. Acute on chronic kidney disease: Nephrology on the case. 4. Hypertension: Blood pressure well controlled. 5. Diabetes mellitus: Continue antidiabetic medication and diet. 6. Hyperlipidemia: Continue statins. 7. Paroxysmal atrial fibrillation: No evidence of atrial fibrillation this admission. Agree with continue the patient Coumadin. Note the patient's corrected Willie vasc 2 score is 5, hence there is a strong indication for continuing chronic anticoagulation. 8. Past history of CVA, and history of TIAs: Most likely secondary to patient's paroxysmal atrial fibrillation. Agree with the present treatment of continuing Coumadin. Medications reviewed. Management plan discussed with attending physician on the case. Cardiac status is stable. Medical decision making is of moderate to high complexity. 60 minutes spent on this patient more than 50% of time spent in direct patient care. Cardiac status at present is stable. We will sign off. The patient desires to follow-up with me in the office. Will arrange for a echo and a stress test either as an inpatient or outpatient, depending upon the patient's clinical progress.
[2018-08-18] MEDS: HYDRALAZINE HCL 50 MG TABLET PO SCH ×3 (05:22→21:27)
[2018-08-18] MEDS: DILTIAZEM HCL 30 MG TABLET PO SCH ×3 (05:23→21:27)
[2018-08-18] MEDS: LANSOPRAZOLE 30 MG TAB.RAP.DR PO SCH (05:23)
[2018-08-18 05:32] LABS: ABSOLUTE LYMPHOCYTES (AUTO) 0.6 10^3/uL (0.5-4.7); ABSOLUTE MONOCYTES (AUTO) 0.2 10^3/uL (0.1-1.4); ABSOLUTE NEUT (AUTO) 4.1 10^3/uL (1.7-8.2); BASOPHILS % (AUTO) 0.3 % (0-2); EOSINOPHILS % (AUTO) 0.4 % (0-6); HEMATOCRIT 29.4 % (36.0-47.0); HEMOGLOBIN 9.9 g/dL (12.0-15.5); LYMPHOCYTES % (AUTO) 11.9 % (13-45); MEAN CORPUSCULAR HEMOGLOBIN 28.6 pg (27.0-33.4); MEAN CORPUSCULAR HGB CONC 33.7 g/dL (32.0-36.0); MEAN CORPUSCULAR VOLUME 85 fl (80-97); MONOCYTES % (AUTO) 4.9 % (3-13); PLATELET COUNT 243 10^3/uL (150-450); RED BLOOD COUNT 3.46 10^6/uL (3.72-5.28); RED CELL DISTRIBUTION WIDTH 15.4 % (11.5-14.0); SEGMENTED NEUTROPHILS % (AUTO) 82.5 % (42-78); TOTAL CELLS COUNTED % (AUTO) 100 %
[2018-08-18 05:39] LABS: INTERNATIONAL RATION (INR) 1.57; PROTHROMBIN TIME 19.5 SEC (11.4-15.4)
[2018-08-18 05:45] LABS: ANION GAP 11 (5-19); BLOOD UREA NITROGEN 34 mg/dL (7-20); CALCIUM 8.6 mg/dL (8.4-10.2); CARBON DIOXIDE 20 mmol/L (22-30); CHLORIDE 97 mmol/L (98-107); GLUCOSE 156 mg/dL (75-110); POTASSIUM 3.9 mmol/L (3.6-5.0); SODIUM 127.9 mmol/L (137-145)
[2018-08-18] MEDS: INSULIN LISPRO 100 UNIT/ML 3 ML VIAL SUBCUT SCH ×4 (07:55→22:15)
[2018-08-18] MEDS: ATORVASTATIN CALCIUM 40 MG TABLET PO SCH (10:19)
[2018-08-18] MEDS: FUROSEMIDE 40 MG TABLET PO SCH (10:19)
[2018-08-18] MEDS: CALCITRIOL 0.25 MCG CAPSULE PO SCH (10:19)
[2018-08-18] MEDS: FERROUS SULFATE 325 MG TABLET PO SCH ×2 (10:20→17:16)
[2018-08-18] MEDS: MULTIVITAMIN TABLET PO SCH (10:20)
[2018-08-18] MEDS: LISINOPRIL 5 MG TABLET PO SCH (10:20)
[2018-08-18] MEDS: FOLIC ACID/VITAMIN B COMP W-C CAPSULE PO SCH (10:20)
[2018-08-18] MEDS: ALLOPURINOL 100 MG TABLET PO SCH (10:20)
[2018-08-18] MEDS: ASPIRIN 81 MG TABLET, ENT COATED PO SCH ×4 (10:20→21:27)
[2018-08-18] MEDS: DOCUSATE SODIUM 100 MG CAPSULE PO SCH ×2 (10:21→17:15)
[2018-08-18] MEDS: CYANOCOBALAMIN (VITAMIN B-12) 1,000 MCG TABLET PO SCH (10:25)
[2018-08-18] MEDS: METOLAZONE 2.5 MG TABLET PO SCH (10:25)
[2018-08-18] MEDS: WARFARIN SODIUM 5 MG TABLET PO SCH (17:15)
--- NOTE | 2018-08-18 19:16 | PDOC PROGRESS REPORT ---
Subjective Progress Note for:: 08/18/18 Subjective:: Still complaining of very poor appetite and sense of fullness. Reason For Visit: ACUTE ON CHORNIC KIDNEY DISEASE,NIDDM,HISTORY Physical Exam Vital Signs: Temp Pulse Resp BP Pulse Ox 98.8 F 75 18 138/46 H 98 08/18/18 15:32 08/18/18 15:32 08/18/18 15:32 08/18/18 15:32 08/18/18 15:32 Intake & Output 08/17/18 08/18/18 08/19/18 05:59 06:59 06:59 Intake Total 592 Output Total Balance 592 Weight General appearance: PRESENT: no acute distress, cooperative, well-developed Head exam: PRESENT: normocephalic Eye exam: PRESENT: other - Exophthalmos Ear exam: PRESENT: normal external ear exam Mouth exam: PRESENT: moist, tongue midline Respiratory exam: PRESENT: rales, symmetrical, unlabored. ABSENT: accessory muscle use, rhonchi, wheezes Cardiovascular exam: PRESENT: RRR, +S1, +S2 GI/Abdominal exam: PRESENT: diminished bowel sounds, soft. ABSENT: distended, tenderness Rectal exam: PRESENT: deferred Extremities exam: PRESENT: pedal edema - Left foot Musculoskeletal exam: PRESENT: other - Right below-knee amputation with prosthetic Neurological exam: PRESENT: alert, awake, oriented to person, oriented to place, oriented to situation Psychiatric exam: PRESENT: unusual affect. ABSENT: agitated, anxious Focused psych exam: ABSENT: delusional, restlessness Results Laboratory Results: 08/18/18 04:53 08/18/18 04:53 08/18/18 08/18/18 04:53 04:53 WBC 5.0 RBC 3.46 L Hgb 9.9 L Hct 29.4 L MCV 85 MCH 28.6 MCHC 33.7 RDW 15.4 H Plt Count 243 Seg Neutrophils % 82.5 H Lymphocytes % 11.9 L Monocytes % 4.9 Eosinophils % 0.4 Basophils % 0.3 Absolute Neutrophils 4.1 Absolute Lymphocytes 0.6 Absolute Monocytes 0.2 Absolute Eosinophils 0.0 Absolute Basophils 0.0 Sodium 127.9 L Potassium 3.9 Chloride 97 L Carbon Dioxide 20 L Anion Gap 11 BUN 34 H Creatinine 2.88 H Est GFR ( Amer) 20 L Est GFR (Non-Af Amer) 17 L Glucose 156 H Calcium 8.6 08/15/18 08/15/18 08/15/18 09:17 09:17 16:52 Creatine Kinase 42 46 CK-MB (CK-2) 2.55 Troponin I 0.071 08/15/18 08/15/18 08/15/18 16:52 22:22 22:22 Creatine Kinase 40 CK-MB (CK-2) 2.88 2.67 Troponin I 0.198 0.273 08/16/18 08/16/18 08/17/18 04:29 04:29 06:28 Creatine Kinase 32 CK-MB (CK-2) 2.10 Troponin I 0.346 0.173 Impressions: Head CT 08/15/18 09:41 IMPRESSION: CHRONIC CHANGES OF ATROPHY AND MICROVASCULAR ISCHEMIA. NO ACUTE PROCESS. EVIDENCE OF ACUTE STROKE: NO. Assessment & Plan - Diagnosis (1) Nausea & vomiting Qualifiers: Vomiting Intractability: unspecified Is this a current diagnosis for this admission?: Yes Plan: Improved. May need a gastric emptying time exam. (2) Acute worsening of stage 4 chronic kidney disease Is this a current diagnosis for this admission?: Yes Plan: Continue to monitor. Nephrology is following. (3) Dehydration Is this a current diagnosis for this admission?: Yes Plan: She is drinking better. Her appetite is still poor. (4) Hyponatremia Is this a current diagnosis for this admission?: Yes Plan: May need to institute a fluid restriction. - Time Time Spent with patient: 15-24 minutes Medications reviewed and adjusted accordingly: Yes
[2018-08-18] MEDS: ONDANSETRON 4 MG TAB.RAPDIS PO PRN (21:27)
[2018-08-19 05:04] LABS: INTERNATIONAL RATION (INR) 2.58; PROTHROMBIN TIME 28.9 SEC (11.4-15.4)
[2018-08-19] MEDS: LANSOPRAZOLE 30 MG TAB.RAP.DR PO SCH (05:16)
[2018-08-19] MEDS: DILTIAZEM HCL 30 MG TABLET PO SCH ×3 (05:16→21:19)
[2018-08-19] MEDS: HYDRALAZINE HCL 50 MG TABLET PO SCH ×3 (05:16→21:19)
[2018-08-19] MEDS: INSULIN LISPRO 100 UNIT/ML 3 ML VIAL SUBCUT SCH ×4 (11:04→22:42)
[2018-08-19] MEDS: FOLIC ACID/VITAMIN B COMP W-C CAPSULE PO SCH (11:05)
[2018-08-19] MEDS: FUROSEMIDE 40 MG TABLET PO SCH (11:05)
[2018-08-19] MEDS: FERROUS SULFATE 325 MG TABLET PO SCH ×2 (11:05→19:45)
[2018-08-19] MEDS: CALCITRIOL 0.25 MCG CAPSULE PO SCH (11:05)
[2018-08-19] MEDS: ALLOPURINOL 100 MG TABLET PO SCH (11:06)
[2018-08-19] MEDS: CYANOCOBALAMIN (VITAMIN B-12) 1,000 MCG TABLET PO SCH (11:06)
[2018-08-19] MEDS: LISINOPRIL 5 MG TABLET PO SCH (11:06)
[2018-08-19] MEDS: MULTIVITAMIN TABLET PO SCH (11:06)
[2018-08-19] MEDS: ASPIRIN 81 MG TABLET, ENT COATED PO SCH ×2 (11:07→15:59)
[2018-08-19] MEDS: METOLAZONE 2.5 MG TABLET PO SCH (11:07)
[2018-08-19] MEDS: DOCUSATE SODIUM 100 MG CAPSULE PO SCH ×2 (11:07→19:44)
[2018-08-19] MEDS: ATORVASTATIN CALCIUM 40 MG TABLET PO SCH (11:08)
--- NOTE | 2018-08-19 14:57 | RADIOLOGY REPORT (SQ) ---
EXAM DESCRIPTION: CHEST SINGLE VIEW COMPLETED DATE/TIME: 08/19/2018 2:48 pm REASON FOR STUDY: Decreased breath sounds right lung COMPARISON: None. EXAM PARAMETERS: NUMBER OF VIEWS: One view. TECHNIQUE: Single frontal radiographic view of the chest acquired. RADIATION DOSE: NA LIMITATIONS: None. FINDINGS: LUNGS AND PLEURA: Faint airspace disease in the right lower lobe with small to moderate ri ght pleural effusion. Left lung clear. MEDIASTINUM AND HILAR STRUCTURES: No masses. Contour normal. HEART AND VASCULAR STRUCTURES: Heart upper limits of normal in size. Normal vasculature. BONES: No acute findings. HARDWARE: None in the chest. OTHER: No other significant finding. IMPRESSION: SMALL TO MODERATE RIGHT PLEURAL EFFUSION WITH MILD RIGHT BASILAR ATELECTASIS VERSUS INFI LTRATE. TECHNICAL DOCUMENTATION: JOB ID: [id number] [employer]- All Rights Reserved Reading location - IP/workstation name: [email or web address]
--- NOTE | 2018-08-19 16:10 | PDOC PROGRESS REPORT ---
Subjective Progress Note for:: 08/19/18 Subjective:: Patient denies any further nausea and vomiting today. However she remains to have poor appetite. She is drinking water and tea about less than 1 L a day from her description. Patient is incontinent and urine output is not being quantified. Her IV fluids were discontinued over the weekend and oral hydration was encouraged. Reason For Visit: ACUTE ON CHORNIC KIDNEY DISEASE,NIDDM,HISTORY Physical Exam Vital Signs: Temp Pulse Resp BP Pulse Ox 97.9 F 73 18 144/47 H 98 08/19/18 10:58 08/19/18 10:58 08/19/18 10:58 08/19/18 10:58 08/19/18 10:58 Intake & Output 08/18/18 08/19/18 08/20/18 06:59 06:59 06:59 Intake Total 792 200 Balance 792 200 Weight 68.2 kg Exam: General appearance: PRESENT: no acute distress, cooperative, well-developed, well-nourished Head exam: PRESENT: atraumatic, normocephalic Eye exam: PRESENT: conjunctiva pale, PERRLA. ABSENT: scleral icterus Neck exam: ABSENT: JVD Respiratory exam: PRESENT: Normal breath sounds. ABSENT: crackles, rales, rhonchi, unlabored, wheezes Cardiovascular exam: PRESENT: Regular rate rhythm -+S1, +S2. ABSENT: diastolic murmur, systolic murmur GI/Abdominal exam: PRESENT: normal bowel sounds, soft. ABSENT: guarding, mass, tenderness Extremities exam: ABSENT: No edema, prosthesis on her right BKA stump Neurological exam: PRESENT: alert, awake, oriented to person, place and time. Skin exam: PRESENT: dry, warm, Cardiovascular exam: PRESENT: +S1, +S2 GI/Abdominal exam: PRESENT: normal bowel sounds, soft. ABSENT: organomegaly, tenderness Results Laboratory Results: 08/18/18 04:53 08/18/18 04:53 08/15/18 08/15/18 08/15/18 09:17 09:17 16:52 Creatine Kinase 42 46 CK-MB (CK-2) 2.55 Troponin I 0.071 08/15/18 08/15/18 08/15/18 16:52 22:22 22:22 Creatine Kinase 40 CK-MB (CK-2) 2.88 2.67 Troponin I 0.198 0.273 08/16/18 08/16/18 08/17/18 04:29 04:29 06:28 Creatine Kinase 32 CK-MB (CK-2) 2.10 Troponin I 0.346 0.173 Impressions: Head CT 08/15/18 09:41 IMPRESSION: CHRONIC CHANGES OF ATROPHY AND MICROVASCULAR ISCHEMIA. NO ACUTE PROCESS. EVIDENCE OF ACUTE STROKE: NO. Chest X-Ray 08/19/18 00:00 IMPRESSION: SMALL TO MODERATE RIGHT PLEURAL EFFUSION WITH MILD RIGHT BASILAR ATELECTASIS VERSUS INFILTRATE. Assessment & Plan - Diagnosis (1) Acute worsening of stage 4 chronic kidney disease Is this a current diagnosis for this admission?: Yes Plan: There is some mild worsening of her kidney function which could still be secondary to prerenal factors. I will hold the patient's diuretics including Lasix and metolazone for the next 48 hours. Continue to monitor kidney function and avoid nephrotoxic medications. (2) CKD (chronic kidney disease), stage IV Is this a current diagnosis for this admission?: Yes Plan: Baseline creatinine about 2.3-2.6 (3) Nausea & vomiting Qualifiers: Vomiting Intractability: unspecified Is this a current diagnosis for this admission?: Yes Plan: Currently improved and resolved. Patient could have underlying diabetic gastroparesis. (4) Dehydration Is this a current diagnosis for this admission?: Yes (5) Hyponatremia Is this a current diagnosis for this admission?: Yes Plan: Encourage patient to drink fluids other than water and tea. Water restriction to less than 1 L a day. Hold metolazone. (6) Anemia Qualifiers: Chronic kidney disease stage: stage 4 (severe) Is this a current diagnosis for this admission?: Yes (7) Diabetes mellitus type 2 in nonobese Is this a current diagnosis for this admission?: Yes (8) Hypertension Is this a current diagnosis for this admission?: Yes - Time Time with patient: 15-25 minutes
[2018-08-19] MEDS: ONDANSETRON 4 MG TAB.RAPDIS PO PRN (19:45)
[2018-08-19] MEDS: WARFARIN SODIUM 5 MG TABLET PO SCH (19:46)
--- NOTE | 2018-08-19 22:51 | PDOC PROGRESS REPORT ---
Subjective Progress Note for:: 08/19/18 Subjective:: Patient is up in the chair. Lunch tray in front of her but nothing appears to have been eaten Reason For Visit: ACUTE ON CHORNIC KIDNEY DISEASE,NIDDM,HISTORY Physical Exam Vital Signs: Temp Pulse Resp BP Pulse Ox 97.8 F 75 14 157/56 H 97 08/19/18 03:42 08/19/18 03:42 08/19/18 03:42 08/19/18 03:42 08/19/18 03:42 Intake & Output 08/18/18 08/19/18 08/20/18 06:59 06:59 06:59 Intake Total 792 Balance 792 Weight 68.2 kg General appearance: PRESENT: no acute distress, cooperative, well-developed Head exam: PRESENT: normocephalic Respiratory exam: PRESENT: clear to auscultation gustavo - Anteriorly, decreased breath sounds - At bases, symmetrical. ABSENT: accessory muscle use, rhonchi, wheezes Cardiovascular exam: PRESENT: RRR, +S1, +S2 GI/Abdominal exam: PRESENT: hyperactive bowel sounds, soft. ABSENT: tenderness Extremities exam: PRESENT: pedal edema - Left foot, other - Right prosthesis in place. Neurological exam: PRESENT: alert, awake, oriented to person, oriented to place, oriented to situation Psychiatric exam: PRESENT: flat affect. ABSENT: agitated, anxious Focused psych exam: ABSENT: delusional, restlessness Results Laboratory Results: 08/18/18 04:53 08/18/18 04:53 08/15/18 08/15/18 08/15/18 09:17 09:17 16:52 Creatine Kinase 42 46 CK-MB (CK-2) 2.55 Troponin I 0.071 08/15/18 08/15/18 08/15/18 16:52 22:22 22:22 Creatine Kinase 40 CK-MB (CK-2) 2.88 2.67 Troponin I 0.198 0.273 08/16/18 08/16/18 08/17/18 04:29 04:29 06:28 Creatine Kinase 32 CK-MB (CK-2) 2.10 Troponin I 0.346 0.173 Impressions: Head CT 08/15/18 09:41 IMPRESSION: CHRONIC CHANGES OF ATROPHY AND MICROVASCULAR ISCHEMIA. NO ACUTE PROCESS. EVIDENCE OF ACUTE STROKE: NO. Assessment & Plan - Diagnosis (1) Nausea & vomiting Qualifiers: Vomiting Intractability: unspecified Is this a current diagnosis for this admission?: Yes Plan: Improved. Still with poor appetite. I have ordered a gastric emptying time study as the patient clinically appears to have gastroparesis. (2) Acute worsening of stage 4 chronic kidney disease Is this a current diagnosis for this admission?: Yes Plan: Appears to be stable at this time. Continue to monitor renal function. (3) Dehydration Is this a current diagnosis for this admission?: Yes Plan: Resolved (4) Hyponatremia Is this a current diagnosis for this admission?: Yes Plan: Still with low sodium. Oral fluid intake is minimal. Maintenance fluid has been stopped. He may need to reconsider use of furosemide. She would be susceptible to volume overload. (5) Diabetes mellitus type 2 in nonobese Is this a current diagnosis for this admission?: Yes Plan: Continue sliding scale. Glucoses are not ideally controlled. The patient was on 70/30 twice a day at home. Consider resuming small doses. Unfortunately her oral intake is inconsistent. 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 Her usual dose is 3 mg daily. She was on 5 mg daily. Her INR is now therapeutic. Continue to wean down to consistent dosing. She may very well require her 3 mg dose. I have ordered 4 mg for tomorrow. - Time Time Spent with patient: 15-24 minutes Medications reviewed and adjusted accordingly: Yes
[2018-08-20] MEDS: DILTIAZEM HCL 30 MG TABLET PO SCH ×3 (05:06→21:33)
[2018-08-20] MEDS: LANSOPRAZOLE 30 MG TAB.RAP.DR PO SCH (05:06)
[2018-08-20] MEDS: HYDRALAZINE HCL 50 MG TABLET PO SCH ×3 (05:06→21:32)
[2018-08-20 07:08] LABS: INTERNATIONAL RATION (INR) 2.81; PROTHROMBIN TIME 30.9 SEC (11.4-15.4)
[2018-08-20 07:22] LABS: ANION GAP 11 (5-19); BLOOD UREA NITROGEN 39 mg/dL (7-20); CALCIUM 8.6 mg/dL (8.4-10.2); CARBON DIOXIDE 23 mmol/L (22-30); CHLORIDE 93 mmol/L (98-107); GLUCOSE 179 mg/dL (75-110); POTASSIUM 4.1 mmol/L (3.6-5.0); SODIUM 127.3 mmol/L (137-145)
[2018-08-20] MEDS: INSULIN LISPRO 100 UNIT/ML 3 ML VIAL SUBCUT SCH ×4 (14:47→21:32)
[2018-08-20] MEDS: FERROUS SULFATE 325 MG TABLET PO SCH ×2 (14:48→18:03)
[2018-08-20] MEDS: DOCUSATE SODIUM 100 MG CAPSULE PO SCH ×2 (14:48→18:03)
[2018-08-20] MEDS: ATORVASTATIN CALCIUM 40 MG TABLET PO SCH (14:55)
[2018-08-20] MEDS: FOLIC ACID/VITAMIN B COMP W-C CAPSULE PO SCH (14:55)
[2018-08-20] MEDS: CALCITRIOL 0.25 MCG CAPSULE PO SCH (14:55)
[2018-08-20] MEDS: LISINOPRIL 5 MG TABLET PO SCH (14:55)
[2018-08-20] MEDS: CYANOCOBALAMIN (VITAMIN B-12) 1,000 MCG TABLET PO SCH (14:56)
[2018-08-20] MEDS: MULTIVITAMIN TABLET PO SCH (14:56)
[2018-08-20] MEDS: ALLOPURINOL 100 MG TABLET PO SCH (14:57)
[2018-08-20] MEDS: ASPIRIN 81 MG TABLET, ENT COATED PO SCH (14:57)
--- NOTE | 2018-08-20 16:31 | RADIOLOGY REPORT (SQ) ---
EXAM DESCRIPTION: NM GASTRIC EMPTYING STUDY COMPLETED DATE/TIME: 08/20/2018 3:10 pm REASON FOR STUDY: Suspect gastroparesis diabetic patient COMPARISON: KUB 08/14/2018 RADIONUCLIDE AND DOSE: 2.1 millicuries Tc-99m Sulfur Colloid. Scrambled eggs The route of agent administration: Oral. TECHNIQUE: 1 minute serial static imaging performed at time of meal, 1 hour, 2 hours, 3 hours, as ne eded. Once stomach reaches 90% emptying, the test is complete. Image intensity values plotted with r espect to time with linear regression algorithm. LIMITATIONS: None. FINDINGS: Patient was observed for 3 hours. Immediate post meal serves as baseline. Gastric emptying at 60 minutes was 46%. Gastric emptying at 180 minutes was 95%. Gastric emptying at 240 minutes was 96%. Normal values: 60 minutes: 30-90% retained. If less than 30%, abnormally rapid emptying. If greater than 90%, del ayed gastric emptying. 120 minutes: <60% retained. If greater than 60%, delayed gastric emptying. 240 minutes: <10% retained. If greater than 10%, delayed gastric emptying. IMPRESSION: NORMAL GASTRIC EMPTYING. TECHNICAL DOCUMENTATION: JOB ID: [id number] [employer]- All Rights Reserved rev-10/26 Reading location - IP/workstation name: [email or web address]
[2018-08-20] MEDS ORDERED: NORMAL SALINE 1000 ML 1,000 ML IV ONE (17:00)
[2018-08-20] MEDS ORDERED: WARFARIN SODIUM 5 MG TABLET PO SCH (18:00)
[2018-08-20] MEDS: WARFARIN SODIUM 4 MG TABLET PO SCH (18:04)
--- NOTE | 2018-08-20 19:35 | PDOC PROGRESS REPORT ---
Subjective Progress Note for:: 08/20/18 Subjective:: The patient is resting in her bed. She is awake and alert. She states she has had no further episodes of nausea or vomiting today. She has remained afebrile overnight and states that she is feeling better. She states that her plans are to go home directly from the hospital with possibly home health services. According to the last rehab notes patient really is not ambulating. I discussed the need for possible rehab with her and she wants to see how she does with physical therapy tomorrow. Reason For Visit: ACUTE ON CHORNIC KIDNEY DISEASE,NIDDM,HISTORY Physical Exam Vital Signs: Temp Pulse Resp BP Pulse Ox 97.3 F 72 18 145/47 H 100 08/20/18 15:29 08/20/18 15:29 08/20/18 15:29 08/20/18 15:29 08/20/18 15:29 Intake & Output 08/19/18 08/20/18 08/21/18 06:59 06:59 06:59 Intake Total 792 475 355 Output Total 0 Balance 792 475 355 Weight 68.2 kg 66.1 kg General appearance: PRESENT: no acute distress, well-developed, well-nourished Head exam: PRESENT: atraumatic, normocephalic Mouth exam: PRESENT: moist, tongue midline Respiratory exam: PRESENT: clear to auscultation gustavo. ABSENT: rales, rhonchi, wheezes Cardiovascular exam: PRESENT: RRR. ABSENT: diastolic murmur, rubs, systolic murmur GI/Abdominal exam: PRESENT: normal bowel sounds, soft. ABSENT: distended, g uarding, mass, organolmegaly, rebound, tenderness Rectal exam: PRESENT: deferred Extremities exam: PRESENT: full ROM. ABSENT: calf tenderness, clubbing, pedal edema Neurological exam: PRESENT: alert, awake, oriented to person, oriented to place, oriented to time, oriented to situation, CN II-XII grossly intact. ABSENT: mo tor sensory deficit Psychiatric exam: PRESENT: appropriate affect, normal mood. ABSENT: homicidal ideation, suicidal ideation Skin exam: PRESENT: dry, intact, warm. ABSENT: cyanosis, rash Results Laboratory Results: 08/18/18 04:53 08/20/18 05:36 08/20/18 05:36 Sodium 127.3 L Potassium 4.1 Chloride 93 L Carbon Dioxide 23 Anion Gap 11 BUN 39 H Creatinine 3.33 H Est GFR ( Amer) 17 L Est GFR (Non-Af Amer) 14 L Glucose 179 H Calcium 8.6 Magnesium 1.7 08/15/18 08/15/18 08/15/18 09:17 09:17 16:52 Creatine Kinase 42 46 CK-MB (CK-2) 2.55 Troponin I 0.071 08/15/18 08/15/18 08/15/18 16:52 22:22 22:22 Creatine Kinase 40 CK-MB (CK-2) 2.88 2.67 Troponin I 0.198 0.273 08/16/18 08/16/18 08/17/18 04:29 04:29 06:28 Creatine Kinase 32 CK-MB (CK-2) 2.10 Troponin I 0.346 0.173 Impressions: Head CT 08/15/18 09:41 IMPRESSION: CHRONIC CHANGES OF ATROPHY AND MICROVASCULAR ISCHEMIA. NO ACUTE PROCESS. EVIDENCE OF ACUTE STROKE: NO. Chest X-Ray 08/19/18 00:00 IMPRESSION: SMALL TO MODERATE RIGHT PLEURAL EFFUSION WITH MILD RIGHT BASILAR ATELECTASIS VERSUS INFILTRATE. Gastric Emptying Nuclear Medicine 08/20/18 00:00 IMPRESSION: NORMAL GASTRIC EMPTYING. Assessment & Plan - Diagnosis (1) Acute on chronic renal failure Is this a current diagnosis for this admission?: Yes Plan: Her baseline creatinine is 2.3-2.6. At this point her Lasix and metolazone have been held by the nephrology service. Creatinine is still above baseline. She will have a chemistry panel drawn in the morning. Appreciate the assistance of nephrology. (2) Nausea & vomiting Is this a current diagnosis for this admission?: Yes Plan: She had a gastric emptying study performed today which was normal. I suspect her nausea and vomiting is likely due to her acute renal failure. (3) Paroxysmal atrial fibrillation Is this a current diagnosis for this admission?: Yes Plan: Currently in a sinus rhythm and rate controlled. She is on Coumadin for anticoagulation (4) Current use of group home anticoagulation Is this a current diagnosis for this admission?: Yes Plan: She is on Coumadin for anticoagulation. Her INR is therapeutic today. (5) Diabetes mellitus type 2 in nonobese Is this a current diagnosis for this admission?: Yes Plan: Stable on current regimen (6) Hypertension Is this a current diagnosis for this admission?: Yes Plan: Stable (7) History of CVA (cerebrovascular accident) Is this a current diagnosis for this admission?: Yes Plan: Continue aspirin and statin medication (8) Dehydration Is this a current diagnosis for this admission?: Yes Plan: Resolved at this point. Her IV fluids have been stopped. Continue to encourage good p.o. intake (9) Hyponatremia Is this a current diagnosis for this admission?: Yes Plan: Nephrology is following. This could be due to SIADH versus volume contraction at the time of admission. She will have a chemistry panel drawn in the morning (10) Anemia Is this a current diagnosis for this admission?: Yes Plan: Anemia of chronic disease. (11) Full code status Is this a current diagnosis for this admission?: Yes - Time Time Spent with patient: 35 or more minutes - Inpatient Certification Medical Necessity: Other - Inpatient hospitalization remains necessary. Overall the patient is still in quite poor condition. Timing of disposition will be determined by her clinical course. The family would like her to go to subacute rehabilitation. I am not sure how well she will rehab at this point. I will try to talk to the family tomorrow.
--- NOTE | 2018-08-20 20:41 | PDOC PROGRESS REPORT ---
Subjective Progress Note for:: 08/20/18 Subjective:: Patient seems to be progressively getting better every day. She had a gastric emptying time study which came out to be normal. Says she feels good and when I saw her she was actually eating. She denies any more nausea nor vomiting. She is incontinent of urine so urine output is not quantified. Reason For Visit: ACUTE ON CHORNIC KIDNEY DISEASE,NIDDM,HISTORY Physical Exam Vital Signs: Temp Pulse Resp BP Pulse Ox 97.3 F 72 18 145/47 H 100 08/20/18 15:29 08/20/18 20:08 08/20/18 15:29 08/20/18 15:29 08/20/18 15:29 Intake & Output 08/19/18 08/20/18 08/21/18 06:59 06:59 06:59 Intake Total 792 475 355 Output Total 0 Balance 792 475 355 Weight 68.2 kg 66.1 kg Exam: General appearance: PRESENT: no acute distress, cooperative, well-developed, well-nourished Head exam: PRESENT: atraumatic, normocephalic Eye exam: PRESENT: conjunctiva slightly pale, PERRLA. ABSENT: scleral icterus Neck exam: ABSENT: JVD Respiratory exam: PRESENT: Normal breath sounds. ABSENT: crackles, rales, rhonchi, unlabored, wheezes Cardiovascular exam: PRESENT: Regular rate rhythm -+S1, +S2. ABSENT: diastolic murmur, systolic murmur GI/Abdominal exam: PRESENT: normal bowel sounds, soft. ABSENT: guarding, mass, tenderness Extremities exam: ABSENT: No edema, right BKA Neurological exam: PRESENT: alert, awake, oriented to person, place and time. Skin exam: PRESENT: dry, warm, Cardiovascular exam: PRESENT: +S1, +S2 GI/Abdominal exam: PRESENT: normal bowel sounds, soft. ABSENT: organomegaly, tenderness Results Laboratory Results: 08/18/18 04:53 08/20/18 05:36 08/20/18 05:36 Sodium 127.3 L Potassium 4.1 Chloride 93 L Carbon Dioxide 23 Anion Gap 11 BUN 39 H Creatinine 3.33 H Est GFR ( Amer) 17 L Est GFR (Non-Af Amer) 14 L Glucose 179 H Calcium 8.6 Magnesium 1.7 08/15/18 08/15/18 08/15/18 09:17 09:17 16:52 Creatine Kinase 42 46 CK-MB (CK-2) 2.55 Troponin I 0.071 08/15/18 08/15/18 08/15/18 16:52 22:22 22:22 Creatine Kinase 40 CK-MB (CK-2) 2.88 2.67 Troponin I 0.198 0.273 08/16/18 08/16/18 08/17/18 04:29 04:29 06:28 Creatine Kinase 32 CK-MB (CK-2) 2.10 Troponin I 0.346 0.173 Impressions: Head CT 08/15/18 09:41 IMPRESSION: CHRONIC CHANGES OF ATROPHY AND MICROVASCULAR ISCHEMIA. NO ACUTE PROCESS. EVIDENCE OF ACUTE STROKE: NO. Chest X-Ray 08/19/18 00:00 IMPRESSION: SMALL TO MODERATE RIGHT PLEURAL EFFUSION WITH MILD RIGHT BASILAR ATELECTASIS VERSUS INFILTRATE. Gastric Emptying Nuclear Medicine 08/20/18 00:00 IMPRESSION: NORMAL GASTRIC EMPTYING. Assessment & Plan - Diagnosis (1) Acute worsening of stage 4 chronic kidney disease Is this a current diagnosis for this admission?: Yes Plan: There is some mild worsening of her kidney function which could still be s econdary to prerenal factors. Continue to hold the patient's diuretics including Lasix and metolazone for the next 48 hours. I will give her 1 L of 0.9 normal saline at 100 mL an hour tonight. Continue to monitor kidney function and avoid nephrotoxic medications. (2) CKD (chronic kidney disease), stage IV Is this a current diagnosis for this admission?: Yes Plan: Baseline creatinine about 2.3-2.6 (3) Nausea & vomiting Qualifiers: Vomiting Intractability: unspecified Is this a current diagnosis for this admission?: Yes Plan: Currently improved and resolved. Gastric emptying time study was normal. (4) Dehydration Is this a current diagnosis for this admission?: Yes (5) Hyponatremia Is this a current diagnosis for this admission?: Yes Plan: Encourage patient to drink fluids other than water and tea. Water restriction to less than 1 L a day. Hold metolazone. I will give her a liter of 0.9 normal saline tonight. (6) Anemia Qualifiers: Chronic kidney disease stage: stage 4 (severe) Is this a current diagnosis for this admission?: Yes (7) Diabetes mellitus type 2 in nonobese Is this a current diagnosis for this admission?: Yes (8) Hypertension Is this a current diagnosis for this admission?: Yes - Time Time with patient: 15-25 minutes
[2018-08-21 04:59] LABS: ABSOLUTE EOSINOPHILS # (AUTO) 0.2 10^3/uL (0.0-0.6); ABSOLUTE MONOCYTES (AUTO) 0.4 10^3/uL (0.1-1.4); ABSOLUTE NEUT (AUTO) 2.7 10^3/uL (1.7-8.2); BASOPHILS % (AUTO) 0.6 % (0-2); LYMPHOCYTES % (AUTO) 23.1 % (13-45); MEAN CORPUSCULAR HGB CONC 34.5 g/dL (32.0-36.0); MEAN CORPUSCULAR VOLUME 84 fl (80-97); MONOCYTES % (AUTO) 9.8 % (3-13); PLATELET COUNT 244 10^3/uL (150-450); RED BLOOD COUNT 3.44 10^6/uL (3.72-5.28); RED CELL DISTRIBUTION WIDTH 15.8 % (11.5-14.0); SEGMENTED NEUTROPHILS % (AUTO) 62.5 % (42-78); TOTAL CELLS COUNTED % (AUTO) 100 %; WHITE BLOOD COUNT 4.4 10^3/uL (4.0-10.5)
[2018-08-21] MEDS: HYDRALAZINE HCL 50 MG TABLET PO SCH ×3 (05:13→21:53)
[2018-08-21] MEDS: LANSOPRAZOLE 30 MG TAB.RAP.DR PO SCH (05:13)
[2018-08-21] MEDS: DILTIAZEM HCL 30 MG TABLET PO SCH ×3 (05:13→21:53)
[2018-08-21 05:36] LABS: ANION GAP 6 (5-19); BLOOD UREA NITROGEN 41 mg/dL (7-20); CALCIUM 8.7 mg/dL (8.4-10.2); CARBON DIOXIDE 24 mmol/L (22-30); CHLORIDE 98 mmol/L (98-107); GLUCOSE 138 mg/dL (75-110); POTASSIUM 3.8 mmol/L (3.6-5.0); SODIUM 128.2 mmol/L (137-145)
[2018-08-21] MEDS: INSULIN LISPRO 100 UNIT/ML 3 ML VIAL SUBCUT SCH ×4 (10:34→21:55)
[2018-08-21] MEDS: ASPIRIN 81 MG TABLET, ENT COATED PO SCH (10:35)
[2018-08-21] MEDS: ATORVASTATIN CALCIUM 40 MG TABLET PO SCH (10:35)
[2018-08-21] MEDS: MULTIVITAMIN TABLET PO SCH (10:35)
[2018-08-21] MEDS: CALCITRIOL 0.25 MCG CAPSULE PO SCH (10:35)
[2018-08-21] MEDS: FOLIC ACID/VITAMIN B COMP W-C CAPSULE PO SCH (10:35)
[2018-08-21] MEDS: ALLOPURINOL 100 MG TABLET PO SCH (10:35)
[2018-08-21] MEDS: DOCUSATE SODIUM 100 MG CAPSULE PO SCH ×2 (10:36→19:27)
[2018-08-21] MEDS: FERROUS SULFATE 325 MG TABLET PO SCH ×2 (10:36→19:28)
[2018-08-21] MEDS: CYANOCOBALAMIN (VITAMIN B-12) 1,000 MCG TABLET PO SCH (10:36)
[2018-08-21] MEDS: LISINOPRIL 5 MG TABLET PO SCH (10:36)
--- NOTE | 2018-08-21 15:13 | RADIOLOGY REPORT (SQ) ---
EXAM DESCRIPTION: CT RT LOWER EXTREMITY WITHOUT COMPLETED DATE/TIME: 08/21/2018 2:54 pm REASON FOR STUDY: suspect abscess on stump COMPARISON: None. TECHNIQUE: Axial imaging performed through the right knee with reformatted coronal and sagittal imag ing windowed for bone and soft tissues. Images saved to PACS. 3D IMAGING: Were 3D images as MIP, SSD, or volume rendering performed at the work station? No. All CT scanners at this facility use dose modulation, iterative reconstruction, and/or weight based d osing when appropriate to reduce radiation dose to as low as reasonably achievable (ALARA). [facility]: Dose Right [facility]: CareDose [facility]: Dose Right [facility]: Teradose 4D [facility]: Awesome Maps LIMITATIONS: None. RADIATION DOSE: CT Rad equipment meets quality standard of care and radiation dose reduction techniq ues were employed. CTDIvol: 4.6 mGy. DLP: 132 mGy-cm. mGy. FINDINGS: SOFT TISSUES: No focal fluid collection. No soft tissue mass. BONES: [id number] amputation. No bony lesions. No acute fracture. No dislocation. MINERALIZATION: Normal. OTHER: No other significant finding. IMPRESSION: [id number] AMPUTATION. OTHERWISE NO SIGNIFICANT FINDINGS. NO EVIDENCE OF SOFT TISS UE ABSCESS. TECHNICAL DOCUMENTATION: JOB ID: [id number] Quality ID # [id number]: Final reports with documentation of one or more dose reduction techniques (e.g., Au tomated exposure control, adjustment of the mA and/or kV according to patient size, use of iterative reconstruction technique) 2010 [employer]- All Rights Reserved Reading location - IP/workstation name: [email or web address]
[2018-08-21] MEDS: WARFARIN SODIUM 4 MG TABLET PO SCH (19:27)
[2018-08-21] MEDS: ONDANSETRON 4 MG TAB.RAPDIS PO PRN (20:45)
--- NOTE | 2018-08-21 21:26 | PDOC PROGRESS REPORT ---
Subjective Progress Note for:: 08/21/18 Subjective:: Appetite is still poor but no nausea or vomiting. Patient has right BKA skin wound negative for abscess on CT scan of the leg. I gave the patient a liter of normal saline yesterday. Reason For Visit: ACUTE ON CHORNIC KIDNEY DISEASE,NIDDM,HISTORY Physical Exam Vital Signs: Temp Pulse Resp BP Pulse Ox 97.8 F 70 20 149/50 H 96 08/21/18 15:08 08/21/18 15:08 08/21/18 15:08 08/21/18 15:08 08/21/18 15:08 Intake & Output 08/20/18 08/21/18 08/22/18 06:59 06:59 06:59 Intake Total 475 1455 573 Output Total 0 Balance 475 1455 573 Weight 66.1 kg 67.4 kg Exam: General appearance: PRESENT: no acute distress, cooperative, well-developed, well-nourished Head exam: PRESENT: atraumatic, normocephalic Eye exam: PRESENT: conjunctiva pink, PERRLA. ABSENT: scleral icterus Neck exam: ABSENT: JVD Respiratory exam: PRESENT: Normal breath sounds. ABSENT: crackles, rales, rhonchi, unlabored, wheezes Cardiovascular exam: PRESENT: Regular rate rhythm -+S1, +S2. ABSENT: diastolic murmur, systolic murmur GI/Abdominal exam: PRESENT: normal bowel sounds, soft. ABSENT: guarding, mass, tenderness Extremities exam: ABSENT: No edema; Right BKA stump with sore but covered with TIKA Wrap. Neurological exam: PRESENT: alert, awake, oriented to person, place and time. Skin exam: PRESENT: dry, warm, Cardiovascular exam: PRESENT: +S1, +S2 GI/Abdominal exam: PRESENT: normal bowel sounds, soft. ABSENT: organomegaly, tenderness Results Laboratory Results: 08/21/18 04:34 08/21/18 04:34 08/21/18 08/21/18 04:34 04:34 WBC 4.4 RBC 3.44 L Hgb 10.0 L Hct 29.0 L MCV 84 MCH 29.0 MCHC 34.5 RDW 15.8 H Plt Count 244 Seg Neutrophils % 62.5 Lymphocytes % 23.1 Monocytes % 9.8 Eosinophils % 4.0 Basophils % 0.6 Absolute Neutrophils 2.7 Absolute Lymphocytes 1.0 Absolute Monocytes 0.4 Absolute Eosinophils 0.2 Absolute Basophils 0.0 Sodium 128.2 L Potassium 3.8 Chloride 98 Carbon Dioxide 24 Anion Gap 6 BUN 41 H Creatinine 3.03 H Est GFR ( Amer) 19 L Est GFR (Non-Af Amer) 16 L Glucose 138 H Calcium 8.7 Magnesium 1.7 08/15/18 08/15/18 08/15/18 09:17 09:17 16:52 Creatine Kinase 42 46 CK-MB (CK-2) 2.55 Troponin I 0.071 08/15/18 08/15/18 08/15/18 16:52 22:22 22:22 Creatine Kinase 40 CK-MB (CK-2) 2.88 2.67 Troponin I 0.198 0.273 08/16/18 08/16/18 08/17/18 04:29 04:29 06:28 Creatine Kinase 32 CK-MB (CK-2) 2.10 Troponin I 0.346 0.173 Impressions: Head CT 08/15/18 09:41 IMPRESSION: CHRONIC CHANGES OF ATROPHY AND MICROVASCULAR ISCHEMIA. NO ACUTE PROCESS. EVIDENCE OF ACUTE STROKE: NO. Chest X-Ray 08/19/18 00:00 IMPRESSION: SMALL TO MODERATE RIGHT PLEURAL EFFUSION WITH MILD RIGHT BASILAR ATELECTASIS VERSUS INFILTRATE. Gastric Emptying Nuclear Medicine 08/20/18 00:00 IMPRESSION: NORMAL GASTRIC EMPTYING. Lower Extremity CT 08/21/18 00:00 IMPRESSION: [id number] AMPUTATION. OTHERWISE NO SIGNIFICANT FINDINGS. NO EVIDENCE OF SOFT TISSUE ABSCESS. Assessment & Plan - Diagnosis (1) Acute worsening of stage 4 chronic kidney disease Is this a current diagnosis for this admission?: Yes Plan: There is some mild worsening of her kidney function which could still be secondary to prerenal factors. Continue to hold the patient's diuretics including Lasix and metolazone. Monitor kidney function. (2) CKD (chronic kidney disease), stage IV Is this a current diagnosis for this admission?: Yes Plan: Baseline creatinine about 2.3-2.6 (3) Nausea & vomiting Qualifiers: Vomiting Intractability: unspecified Is this a current diagnosis for this admission?: Yes Plan: Currently improved and resolved. Gastric emptying time study was normal. (4) Dehydration Is this a current diagnosis for this admission?: Yes (5) Hyponatremia Is this a current diagnosis for this admission?: Yes Plan: Encourage patient to drink fluids other than water and tea. Water restriction to less than 1 L a day. Hold metolazone. (6) Anemia Qualifiers: Chronic kidney disease stage: stage 4 (severe) Is this a current diagnosis for this admission?: Yes (7) Diabetes mellitus type 2 in nonobese Is this a current diagnosis for this admission?: Yes (8) Hypertension Is this a current diagnosis for this admission?: Yes - Time Time with patient: 15-25 minutes
--- NOTE | 2018-08-22 01:35 | PDOC PROGRESS REPORT ---
Subjective Progress Note for:: 08/22/18 Subjective:: The patient has developed a red painful area from her prosthetic. CT scan was negativefor abscess. No more nausea or vomiting. Her kidney function is still above baseline. Reason For Visit: ACUTE ON CHORNIC KIDNEY DISEASE,NIDDM,HISTORY Physical Exam Vital Signs: Temp Pulse Resp BP Pulse Ox 97.8 F 75 20 150/49 H 97 08/22/18 00:16 08/22/18 00:16 08/22/18 00:16 08/22/18 00:16 08/22/18 00:16 Intake & Output 08/20/18 08/21/18 08/22/18 06:59 06:59 06:59 Intake Total 475 1455 573 Output Total 0 Balance 475 1455 573 Weight 66.1 kg 67.4 kg General appearance: PRESENT: no acute distress, well-developed, well-nourished Head exam: PRESENT: atraumatic, normocephalic Respiratory exam: PRESENT: clear to auscultation gustavo. ABSENT: rales, rhonchi, wheezes Cardiovascular exam: PRESENT: RRR. ABSENT: diastolic murmur, rubs, systolic m urmur GI/Abdominal exam: PRESENT: normal bowel sounds, soft. ABSENT: distended, guarding, mass, organolmegaly, rebound, tenderness Extremities exam: PRESENT: other - right lower bka with area of erythema that is somewhat warm on her stump site Neurological exam: PRESENT: alert, awake, oriented to person, oriented to place, oriented to time, oriented to situation, CN II-XII grossly intact. ABSENT: motor sensory deficit Psychiatric exam: PRESENT: appropriate affect, normal mood. ABSENT: homicidal ideation, suicidal ideation Results Laboratory Results: 08/21/18 04:34 08/21/18 04:34 08/21/18 08/21/18 04:34 04:34 WBC 4.4 RBC 3.44 L Hgb 10.0 L Hct 29.0 L MCV 84 MCH 29.0 MCHC 34.5 RDW 15.8 H Plt Count 244 Seg Neutrophils % 62.5 Lymphocytes % 23.1 Monocytes % 9.8 Eosinophils % 4.0 Basophils % 0.6 Absolute Neutrophils 2.7 Absolute Lymphocytes 1.0 Absolute Monocytes 0.4 Absolute Eosinophils 0.2 Absolute Basophils 0.0 Sodium 128.2 L Potassium 3.8 Chloride 98 Carbon Dioxide 24 Anion Gap 6 BUN 41 H Creatinine 3.03 H Est GFR ( Amer) 19 L Est GFR (Non-Af Amer) 16 L Glucose 138 H Calcium 8.7 Magnesium 1.7 08/15/18 08/15/18 08/15/18 09:17 09:17 16:52 Creatine Kinase 42 46 CK-MB (CK-2) 2.55 Troponin I 0.071 08/15/18 08/15/18 08/15/18 16:52 22:22 22:22 Creatine Kinase 40 CK-MB (CK-2) 2.88 2.67 Troponin I 0.198 0.273 08/16/18 08/16/18 08/17/18 04:29 04:29 06:28 Creatine Kinase 32 CK-MB (CK-2) 2.10 Troponin I 0.346 0.173 Impressions: Head CT 08/15/18 09:41 IMPRESSION: CHRONIC CHANGES OF ATROPHY AND MICROVASCULAR ISCHEMIA. NO ACUTE PROCESS. EVIDENCE OF ACUTE STROKE: NO. Chest X-Ray 08/19/18 00:00 IMPRESSION: SMALL TO MODERATE RIGHT PLEURAL EFFUSION WITH MILD RIGHT BASILAR ATELECTASIS VERSUS INFILTRATE. Gastric Emptying Nuclear Medicine 08/20/18 00:00 IMPRESSION: NORMAL GASTRIC EMPTYING. Lower Extremity CT 08/21/18 00:00 IMPRESSION: [id number] AMPUTATION. OTHERWISE NO SIGNIFICANT FINDINGS. NO EVIDENCE OF SOFT TISSUE ABSCESS. Assessment & Plan - Diagnosis (1) Acute on chronic renal failure Is this a current diagnosis for this admission?: Yes Plan: Her baseline creatinine is 2.3-2.6. At this point her Lasix and metolazone have been held by the nephrology service. Creatinine is still above baseline. She will have a chemistry panel drawn in the morning. Appreciate the assistance of nephrology. (2) Nausea & vomiting Is this a current diagnosis for this admission?: Yes Plan: She had a gastric emptying study performed today which was normal. I suspect her nausea and vomiting is likely due to her acute renal failure. (3) Stump injury Is this a current diagnosis for this admission?: Yes Plan: Ct was negative for abscess. Will place on keflex as she likely is developing mild cellulitis (4) Paroxysmal atrial fibrillation Is this a current diagnosis for this admission?: Yes Plan: Currently in a sinus rhythm and rate controlled. She is on Coumadin for anticoagulation (5) Current use of [facility] anticoagulation Is this a current diagnosis for this admission?: Yes Plan: She is on Coumadin for anticoagulation. Her INR is therapeutic today. (6) Diabetes mellitus type 2 in nonobese Is this a current diagnosis for this admission?: Yes (7) History of CVA (cerebrovascular accident) Is this a current diagnosis for this admission?: Yes (8) Dehydration Is this a current diagnosis for this admission?: Yes (9) Hyponatremia Is this a current diagnosis for this admission?: Yes (10) Anemia Is this a current diagnosis for this admission?: Yes (11) Full code status Is this a current diagnosis for this admission?: Yes - Time Time Spent with patient: 35 or more minutes - Inpatient Certification Medical Necessity: Other - Inpatient hospitalization remains necessary. Need to see if she will be able to manage at home without her prostetic. If she can she may be able to go tomorrow
[2018-08-22] MEDS ORDERED: CEPHALEXIN 500 MG CAPSULE PO ONE (02:00)
[2018-08-22 05:17] LABS: ABSOLUTE EOSINOPHILS # (AUTO) 0.1 10^3/uL (0.0-0.6); ABSOLUTE LYMPHOCYTES (AUTO) 0.8 10^3/uL (0.5-4.7); ABSOLUTE MONOCYTES (AUTO) 0.4 10^3/uL (0.1-1.4); ABSOLUTE NEUT (AUTO) 2.5 10^3/uL (1.7-8.2); BASOPHILS % (AUTO) 0.8 % (0-2); EOSINOPHILS % (AUTO) 3.5 % (0-6); HEMATOCRIT 28.6 % (36.0-47.0); HEMOGLOBIN 9.8 g/dL (12.0-15.5); LYMPHOCYTES % (AUTO) 21.6 % (13-45); MEAN CORPUSCULAR HGB CONC 34.4 g/dL (32.0-36.0); MEAN CORPUSCULAR VOLUME 85 fl (80-97); MONOCYTES % (AUTO) 9.6 % (3-13); PLATELET COUNT 243 10^3/uL (150-450); RED BLOOD COUNT 3.38 10^6/uL (3.72-5.28); RED CELL DISTRIBUTION WIDTH 15.7 % (11.5-14.0); SEGMENTED NEUTROPHILS % (AUTO) 64.5 % (42-78); TOTAL CELLS COUNTED % (AUTO) 100 %; WHITE BLOOD COUNT 3.8 10^3/uL (4.0-10.5)
[2018-08-22] MEDS: LANSOPRAZOLE 30 MG TAB.RAP.DR PO SCH (05:26)
[2018-08-22] MEDS: HYDRALAZINE HCL 50 MG TABLET PO SCH ×3 (05:26→22:01)
[2018-08-22] MEDS: DILTIAZEM HCL 30 MG TABLET PO SCH ×3 (05:26→22:01)
[2018-08-22 05:43] LABS: ANION GAP 6 (5-19); BLOOD UREA NITROGEN 39 mg/dL (7-20); CALCIUM 8.8 mg/dL (8.4-10.2); CARBON DIOXIDE 25 mmol/L (22-30); CHLORIDE 98 mmol/L (98-107); GLUCOSE 151 mg/dL (75-110); POTASSIUM 4.1 mmol/L (3.6-5.0); SODIUM 129.3 mmol/L (137-145)
[2018-08-22] MEDS: INSULIN LISPRO 100 UNIT/ML 3 ML VIAL SUBCUT SCH ×4 (10:00→22:04)
[2018-08-22] MEDS: ASPIRIN 81 MG TABLET, ENT COATED PO SCH (10:07)
[2018-08-22] MEDS: FOLIC ACID/VITAMIN B COMP W-C CAPSULE PO SCH (10:07)
[2018-08-22] MEDS: CALCITRIOL 0.25 MCG CAPSULE PO SCH (10:07)
[2018-08-22] MEDS: LISINOPRIL 5 MG TABLET PO SCH (10:07)
[2018-08-22] MEDS: ATORVASTATIN CALCIUM 40 MG TABLET PO SCH (10:08)
[2018-08-22] MEDS: FERROUS SULFATE 325 MG TABLET PO SCH ×2 (10:08→17:51)
[2018-08-22] MEDS: ALLOPURINOL 100 MG TABLET PO SCH (10:08)
[2018-08-22] MEDS: MULTIVITAMIN TABLET PO SCH (10:08)
[2018-08-22] MEDS: CYANOCOBALAMIN (VITAMIN B-12) 1,000 MCG TABLET PO SCH (10:08)
[2018-08-22] MEDS: FUROSEMIDE 40 MG TABLET PO SCH (10:08)
[2018-08-22] MEDS: METOLAZONE 2.5 MG TABLET PO SCH (10:10)
[2018-08-22] MEDS: DOCUSATE SODIUM 100 MG CAPSULE PO SCH ×2 (10:10→17:51)
[2018-08-22] MEDS: CEPHALEXIN 500 MG CAPSULE PO SCH ×2 (10:10→22:01)
[2018-08-22] MEDS ORDERED: ACETAMINOPHEN 325 MG TABLET PO PRN (12:16)
--- NOTE | 2018-08-22 12:16 | PDOC PROGRESS REPORT ---
Subjective Progress Note for:: 08/22/18 Subjective:: Patient says she does not have any nausea she feels better today. He was able to walk with a short distance using her prosthesis. Lower extremity CT scan did not reveal any abscess. She does not have any other complaints. Reason For Visit: ACUTE ON CHORNIC KIDNEY DISEASE,NIDDM,HISTORY Physical Exam Vital Signs: Temp Pulse Resp BP Pulse Ox 97.8 F 67 20 155/53 H 98 08/22/18 04:03 08/22/18 07:00 08/22/18 04:03 08/22/18 04:03 08/22/18 04:03 Intake & Output 08/21/18 08/22/18 08/23/18 06:59 06:59 06:59 Intake Total 1455 1034 Balance 1455 1034 Weight 67.4 kg 67.2 kg Exam: General appearance: PRESENT: no acute distress, cooperative, well-developed, well-nourished Head exam: PRESENT: atraumatic, normocephalic Eye exam: PRESENT: conjunctiva slightly pale, PERRLA. ABSENT: scleral icterus Neck exam: ABSENT: JVD Respiratory exam: PRESENT: Normal breath sounds. ABSENT: crackles, rales, rhonchi, unlabored, wheezes Cardiovascular exam: PRESENT: Regular rate rhythm -+S1, +S2. ABSENT: diastolic murmur, systolic murmur GI/Abdominal exam: PRESENT: normal bowel sounds, soft. ABSENT: guarding, mass, tenderness Extremities exam: ABSENT: No edema, right BKA stump with bandage on. Neurological exam: PRESENT: alert, awake, oriented to person, place and time. Skin exam: PRESENT: dry, warm, Cardiovascular exam: PRESENT: +S1, +S2 GI/Abdominal exam: PRESENT: normal bowel sounds, soft. ABSENT: organomegaly, tenderness Results Laboratory Results: 08/22/18 04:54 08/22/18 04:54 08/22/18 08/22/18 04:54 04:54 WBC 3.8 L RBC 3.38 L Hgb 9.8 L Hct 28.6 L MCV 85 MCH 29.0 MCHC 34.4 RDW 15.7 H Plt Count 243 Seg Neutrophils % 64.5 Lymphocytes % 21.6 Monocytes % 9.6 Eosinophils % 3.5 Basophils % 0.8 Absolute Neutrophils 2.5 Absolute Lymphocytes 0.8 Absolute Monocytes 0.4 Absolute Eosinophils 0.1 Absolute Basophils 0.0 Sodium 129.3 L Potassium 4.1 Chloride 98 Carbon Dioxide 25 Anion Gap 6 BUN 39 H Creatinine 3.02 H Est GFR ( Amer) 19 L Est GFR (Non-Af Amer) 16 L Glucose 151 H Calcium 8.8 Magnesium 1.8 08/15/18 08/15/18 08/15/18 09:17 09:17 16:52 Creatine Kinase 42 46 CK-MB (CK-2) 2.55 Troponin I 0.071 08/15/18 08/15/18 08/15/18 16:52 22:22 22:22 Creatine Kinase 40 CK-MB (CK-2) 2.88 2.67 Troponin I 0.198 0.273 08/16/18 08/16/18 08/17/18 04:29 04:29 06:28 Creatine Kinase 32 CK-MB (CK-2) 2.10 Troponin I 0.346 0.173 Impressions: Head CT 08/15/18 09:41 IMPRESSION: CHRONIC CHANGES OF ATROPHY AND MICROVASCULAR ISCHEMIA. NO ACUTE PROCESS. EVIDENCE OF ACUTE STROKE: NO. Chest X-Ray 08/19/18 00:00 IMPRESSION: SMALL TO MODERATE RIGHT PLEURAL EFFUSION WITH MILD RIGHT BASILAR ATELECTASIS VERSUS INFILTRATE. Gastric Emptying Nuclear Medicine 08/20/18 00:00 IMPRESSION: NORMAL GASTRIC EMPTYING. Lower Extremity CT 08/21/18 00:00 IMPRESSION: [id number] AMPUTATION. OTHERWISE NO SIGNIFICANT FINDINGS. NO EVIDENCE OF SOFT TISSUE ABSCESS. Assessment & Plan - Diagnosis (1) Acute worsening of stage 4 chronic kidney disease Is this a current diagnosis for this admission?: Yes Plan: There is some mild worsening of her kidney function which could still be secondary to prerenal factors. Kidney function stabilizing for the last couple of days. Lasix and metolazone were resumed today. I do not think she needs metolazone at all so I will discontinue the metolazone and advised patient that it should only be taken as needed but not scheduled. If the patient's kidney function remains stable I think patient can be discharged home for the next 24 hours from nephrology standpoint. (2) CKD (chronic kidney disease), stage IV Is this a current diagnosis for this admission?: Yes Plan: Baseline creatinine about 2.3-2.6 (3) Nausea & vomiting Qualifiers: Vomiting Intractability: unspecified Is this a current diagnosis for this admission?: Yes Plan: Currently improved and resolved. Gastric emptying time study was normal. (4) Dehydration Is this a current diagnosis for this admission?: Yes Plan: Resolved. (5) Hyponatremia Is this a current diagnosis for this admission?: Yes Plan: Improved. Discontinue metolazone. (6) Anemia Qualifiers: Chronic kidney disease stage: stage 4 (severe) Is this a current diagnosis for this admission?: Yes (7) Diabetes mellitus type 2 in nonobese Is this a current diagnosis for this admission?: Yes (8) Hypertension Is this a current diagnosis for this admission?: Yes - Time Time with patient: 15-25 minutes
[2018-08-22] MEDS: WARFARIN SODIUM 4 MG TABLET PO SCH (17:51)
[2018-08-23] MEDS: DILTIAZEM HCL 30 MG TABLET PO SCH ×3 (05:22→22:44)
[2018-08-23] MEDS: HYDRALAZINE HCL 50 MG TABLET PO SCH ×3 (05:22→22:44)
[2018-08-23] MEDS: LANSOPRAZOLE 30 MG TAB.RAP.DR PO SCH (05:23)
[2018-08-23] MEDS: INSULIN LISPRO 100 UNIT/ML 3 ML VIAL SUBCUT SCH ×4 (10:15→22:45)
[2018-08-23] MEDS: DOCUSATE SODIUM 100 MG CAPSULE PO SCH ×2 (10:23→18:06)
[2018-08-23] MEDS: FOLIC ACID/VITAMIN B COMP W-C CAPSULE PO SCH (10:23)
[2018-08-23] MEDS: CALCITRIOL 0.25 MCG CAPSULE PO SCH (10:23)
[2018-08-23] MEDS: ATORVASTATIN CALCIUM 40 MG TABLET PO SCH (10:24)
[2018-08-23] MEDS: ALLOPURINOL 100 MG TABLET PO SCH (10:24)
[2018-08-23] MEDS: MULTIVITAMIN TABLET PO SCH (10:24)
[2018-08-23] MEDS: ASPIRIN 81 MG TABLET, ENT COATED PO SCH (10:24)
[2018-08-23] MEDS: CYANOCOBALAMIN (VITAMIN B-12) 1,000 MCG TABLET PO SCH (10:24)
[2018-08-23] MEDS: FUROSEMIDE 40 MG TABLET PO SCH (10:24)
[2018-08-23] MEDS: LISINOPRIL 5 MG TABLET PO SCH (10:24)
[2018-08-23] MEDS: FERROUS SULFATE 325 MG TABLET PO SCH ×2 (10:24→18:06)
[2018-08-23] MEDS: CEPHALEXIN 500 MG CAPSULE PO SCH ×2 (10:26→22:46)
[2018-08-23] MEDS: WARFARIN SODIUM 4 MG TABLET PO SCH (18:11)
--- NOTE | 2018-08-23 18:16 | PDOC DISCHARGE SUMMARY ---
General - Admit/Disc Date/PCP Admission Date/Primary Care Provider: 08/15/18 14:42 CYNDIE COMER MD Discharge Date: 08/23/18 - Discharge Diagnosis (1) Acute on chronic renal failure Is this a current diagnosis for this admission?: Yes Summary: Due to dehydration, seen by nephrology, no further intervention was recommended beyond replenishment via IV fluids (2) Dehydration Is this a current diagnosis for this admission?: Yes Summary: Resolved via IV fluids (3) Stump injury Is this a current diagnosis for this admission?: Yes Summary: She is being treated for cellulitis with Keflex - Additional Information Discharge Diet: Diabetic Discharge Activity: Activity As Tolerated, Balance Activity w/Rest Prescriptions: Cephalexin Monohydrate [Keflex 500 mg Capsule] 500 mg PO Q12 #20 capsule Home Medications: Allopurinol [Zyloprim 100 mg Tablet] 100 mg PO DAILY 08/15/18 Aspirin [Adult Low Dose Aspirin EC] 81 mg PO QAM 08/15/18 Atorvastatin Calcium [Lipitor 40 mg Tablet] 40 mg PO DAILY 08/15/18 B Complex W-C No.20/Folic Acid [Triphrocaps Softgel] 1 mg PO DAILY 08/15/18 Calcitriol [Rocaltrol 0.25 mcg Capsule] 0.25 mcg PO DAILY 08/15/18 Cyanocobalamin (Vitamin B-12) [Vitamin B-12] 1,000 mcg PO DAILY 08/15/18 Diltiazem HCl [Cardizem 30 mg Tablet] 30 mg PO TID 08/15/18 Famotidine [Pepcid 20 mg Tablet] 20 mg PO DAILY 08/15/18 Ferrous Sulfate [Feosol 325 mg Tablet] 325 mg PO BID 08/15/18 Furosemide [Lasix 40 mg Tablet] 40 mg PO DAILY 08/15/18 Hum Insulin NPH/Reg Insulin Hm [Novolin 70-30 100 Unit/ml Vial] 7 units SQ QAM 08/15/18 Hum Insulin NPH/Reg Insulin Hm [Novolin 70-30 100 Unit/ml Vial] 12 units SQ QPM 08/15/18 Hydralazine HCl [Apresoline 50 mg Tablet] 50 mg PO TID 08/15/18 Lisinopril [Zestril] 5 mg PO DAILY 08/15/18 Multivitamin [Multiple Vitamins] 1 tab PO DAILY 08/15/18 Omeprazole 20 mg PO DAILY 08/15/18 Warfarin Sodium [Coumadin 3 mg Tablet] 3 mg PO QPM 08/15/18 Cephalexin Monohydrate [Keflex 500 mg Capsule] 500 mg PO Q12 #20 capsule 08/23/18 History of Present Illness History of Present Illness: MELBA ROSADO is a 62 year old female Per HPI: "She was seen yesterday for vomiting. She was feeling improved after symptoms were treated yesterday. Her blood pressure had been elevated and this was treated as well. She went home and patient's significant other did not give her any of her blood pressure medication last night. This morning upon waking she became extremely dizzy. She did describe the sensation that the world was spinning. She states that has improved significantly. She denies having that sensation at any time yesterday. She is still feeling very nauseated but has not vomited this morning. She did tolerate her blood pressure medications at home. 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 We are still unsure of all of her medications. She denies any head trauma. She denies any pain at this time." Hospital Course Hospital Course: She was treated with IV fluids and was thought to have gotten dehydrated because of some nausea and decreased p.o. intake. She was seen in consultation by nephrology who recommended no further intervention. She had treatment started for a possible cellulitis on her lower extremity stump and will finish a course of Keflex as an outpatient. She was eating and drinking without difficulty this morning. Her labs and examination were reassuring she was discharged in good condition. Physical Exam Vital Signs: Temp Pulse Resp BP Pulse Ox 97.1 F 71 20 133/37 H 94 08/23/18 12:00 08/23/18 15:31 08/23/18 12:00 08/23/18 12:00 08/23/18 12:00 Intake & Output 08/22/18 08/23/18 08/24/18 06:59 06:59 06:59 Intake Total 1034 372 822 Output Total 0 Balance 1034 372 822 Weight 67.2 kg General appearance: PRESENT: no acute distress, well-developed, well-nourished Head exam: PRESENT: atraumatic, normocephalic Respiratory exam: PRESENT: clear to auscultation gustavo. ABSENT: rales, rhonchi, wheezes Cardiovascular exam: PRESENT: RRR. ABSENT: diastolic murmur, rubs, systolic murmur GI/Abdominal exam: PRESENT: normal bowel sounds, soft. ABSENT: distended, guarding, mass, organolmegaly, rebound, tenderness Extremities exam: PRESENT: other - right lower bka with area of erythema that is somewhat warm on her stump site Neurological exam: PRESENT: alert, awake, oriented to person, oriented to place, oriented to time, oriented to situation, CN II-XII grossly intact. ABSENT: motor sensory deficit Psychiatric exam: PRESENT: appropriate affect, normal mood. ABSENT: homicidal ideation, suicidal ideation Results Laboratory Results: 08/22/18 04:54 08/22/18 04:54 08/15/18 08/15/18 08/15/18 09:17 09:17 16:52 Creatine Kinase 42 46 CK-MB (CK-2) 2.55 Troponin I 0.071 08/15/18 08/15/18 08/15/18 16:52 22:22 22:22 Creatine Kinase 40 CK-MB (CK-2) 2.88 2.67 Troponin I 0.198 0.273 08/16/18 08/16/18 08/17/18 04:29 04:29 06:28 Creatine Kinase 32 CK-MB (CK-2) 2.10 Troponin I 0.346 0.173 Impressions: Head CT 08/15/18 09:41 IMPRESSION: CHRONIC CHANGES OF ATROPHY AND MICROVASCULAR ISCHEMIA. NO ACUTE PROCESS. EVIDENCE OF ACUTE STROKE: NO. Chest X-Ray 08/19/18 00:00 IMPRESSION: SMALL TO MODERATE RIGHT PLEURAL EFFUSION WITH MILD RIGHT BASILAR ATELECTASIS VERSUS INFILTRATE. Gastric Emptying Nuclear Medicine 08/20/18 00:00 IMPRESSION: NORMAL GASTRIC EMPTYING. Lower Extremity CT 08/21/18 00:00 IMPRESSION: [id number] AMPUTATION. OTHERWISE NO SIGNIFICANT FINDINGS. NO EVIDENCE OF SOFT TISSUE ABSCESS. Qualifiers - * PATIENT BEING DISCHARGED WITH ANY OF THE FOLLOWING DIAGNOSIS: No
[2018-08-24] MEDS ORDERED: PANTOPRAZOLE SODIUM 40 MG TABLET.DR PO SCH (06:00)
[2018-08-24] MEDS: HYDRALAZINE HCL 50 MG TABLET PO SCH (06:00)
[2018-08-24] MEDS: DILTIAZEM HCL 30 MG TABLET PO SCH (06:01)
[2018-08-24] MEDS: INSULIN LISPRO 100 UNIT/ML 3 ML VIAL SUBCUT SCH ×2 (08:32→13:25)
[2018-08-24] MEDS: ALLOPURINOL 100 MG TABLET PO SCH (09:30)
[2018-08-24] MEDS: CEPHALEXIN 500 MG CAPSULE PO SCH (09:30)
[2018-08-24] MEDS: FERROUS SULFATE 325 MG TABLET PO SCH (09:30)
[2018-08-24] MEDS: MULTIVITAMIN TABLET PO SCH (09:30)
[2018-08-24] MEDS: FUROSEMIDE 40 MG TABLET PO SCH (09:30)
[2018-08-24] MEDS: CYANOCOBALAMIN (VITAMIN B-12) 1,000 MCG TABLET PO SCH (09:30)
[2018-08-24] MEDS: CALCITRIOL 0.25 MCG CAPSULE PO SCH (09:30)
[2018-08-24] MEDS: ATORVASTATIN CALCIUM 40 MG TABLET PO SCH (09:30)
[2018-08-24] MEDS: ASPIRIN 81 MG TABLET, ENT COATED PO SCH (09:30)
[2018-08-24] MEDS: DOCUSATE SODIUM 100 MG CAPSULE PO SCH (09:30)
[2018-08-24] MEDS: FOLIC ACID/VITAMIN B COMP W-C CAPSULE PO SCH (09:30)
[2018-08-24] MEDS: LISINOPRIL 5 MG TABLET PO SCH (09:31)
[2018-08-24 14:43] VITALS: BP 177/52
== END 2018-08-24 13:27 | disposition home health service (06) | DRG 683 ==
LOC: ER 08:45 → EH 14:42 → 3W 16:42
PROVIDERS: ADMIT Internal Medicine; ATTEND Internal Medicine
DX: N17.9 Acute kidney failure, unspecified (principal); I69.351 Hemiplegia and hemiparesis following cerebral infarction affecting right dominant side; L03.115 Cellulitis of right lower limb; E87.1 Hypo-osmolality and hyponatremia; E86.0 Dehydration; I12.9 Hypertensive chronic kidney disease with stage 1 through stage 4 chronic kidney disease, or unspecified chronic kidney disease; E11.22 Type 2 diabetes mellitus with diabetic chronic kidney disease; E11.51 Type 2 diabetes mellitus with diabetic peripheral angiopathy without gangrene; M10.9 Gout, unspecified; K21.9 Gastro-esophageal reflux disease without esophagitis; K59.00 Constipation, unspecified; E78.5 Hyperlipidemia, unspecified; I44.7 Left bundle-branch block, unspecified; I48.0 Paroxysmal atrial fibrillation; N18.4 Chronic kidney disease, stage 4 (severe); D63.1 Anemia in chronic kidney disease; Z89.519 Acquired absence of unspecified leg below knee; Z79.4 Long term (current) use of insulin; Z79.899 Other long term (current) drug therapy; Z79.01 Long term (current) use of anticoagulants; Z79.82 Long term (current) use of aspirin; Z87.891 Personal history of nicotine dependence; Z84.1 Family history of disorders of kidney and ureter; Z83.3 Family history of diabetes mellitus
CPT/HCPCS: 36415; 70450; 71045; 74018; 78264; 80048; 80053; 80061; 81001; 82140; 82150; 82550; 82553; 82962; 83036; 83690; 83735; 84443; 84484; 85025; 85610; 93005; 93010; 94799; 96374; 99285; A9541; J1815; J2405; J3490; J7030; S0119

== ENCOUNTER → 2018-09-16 | Outpatient (CLI) | payer MEDICARE | LOC: CHH 14:03 | PROVIDERS: ATTEND Internal Medicine | DX: I48.0 Paroxysmal atrial fibrillation (principal); Z79.01 Long term (current) use of anticoagulants; Z53.8 Procedure and treatment not carried out for other reasons ==

== ENCOUNTER 2018-11-24 12:42 | Inpatient (IN) | payer MEDICARE ==
--- NOTE | 2018-11-24 14:11 | ER Document Report ---
ED Medical Screen (RME) - General Chief Complaint: Skin Sore(s) Stated Complaint: PAIN/DRAINAGE/ODOR FROM "BED SORE" Time Seen by Provider: 11/24/18 14:07 Primary Care Provider: CYNDIE COMER MD [Primary Care Provider] - Follow up as needed Mode of Arrival: Wheelchair Information source: Patient, Friend Notes: Patient presents to the emergency department today with complaints of sacral decubitus. Patient is a diabetic wheelchair-bound. Boyfriend at her side reports that he was looking at it with a flashlight and it looks like it is tunneling and that it has drainage today. Unable to visualize an RME I have greeted and performed a rapid initial assessment of this patient. A comprehensive ED assessment and evaluation of the patient, analysis of test results and completion of the medical decision making process will be conducted by additional ED providers. Dictation of this chart was performed using voice recognition software; therefore, there may be some unintended grammatical errors. TRAVEL OUTSIDE OF THE [place] IN LAST 30 DAYS: No - Related Data Allergies/Adverse Reactions: No Known Allergies Allergy (Verified 11/24/18 12:45) Past Medical History - Past Medical History Cardiac Medical History: Reports: Hx Atrial Fibrillation, Hx Coronary Artery Disease, Hx Hypercholesterolemia, Hx Hypertension, Hx Peripheral Vascular Disease Neurological Medical History: Reports: Hx Cerebrovascular Accident Endocrine Medical History: Reports: Hx Diabetes Mellitus Type 2 Renal/ Medical History: Denies: Hx Peritoneal Dialysis GI Medical History: Reports: Hx Gastroesophageal Reflux Disease. Denies: Hx Cirrhosis, Hx Hepatitis Musculoskeltal Medical History: Reports Hx Gout Psychiatric Medical History: Denies: Hx Depression Infectious Medical History: Denies: Hx Hepatitis Past Surgical History: Reports: Hx Section, Hx Orthopedic Surgery - Right BKA, Hx Vascular Surgery - Immunizations Hx Diphtheria, Pertussis, Tetanus Vaccination: Yes - Unknown Physical Exam - Vital signs Vitals: Temp Pulse Resp BP Pulse Ox 99.0 F 80 16 145/53 H 100 11/24/18 12:51 11/24/18 12:51 11/24/18 12:51 11/24/18 12:51 11/24/18 12:51 Course - Vital Signs Vital signs: Temp Pulse Resp BP Pulse Ox 99.0 F 80 16 145/53 H 100 11/24/18 12:51 11/24/18 12:51 11/24/18 12:51 11/24/18 12:51 11/24/18 12:51 Doctor's Discharge - Discharge Referrals: CYNDIE COMER MD [Primary Care Provider] - Follow up as needed
[2018-11-24 14:40] LABS: ABSOLUTE EOSINOPHILS # (AUTO) 0.1 10^3/uL (0.0-0.6); ABSOLUTE MONOCYTES (AUTO) 0.5 10^3/uL (0.1-1.4); ABSOLUTE NEUT (AUTO) 5.5 10^3/uL (1.7-8.2); BASOPHILS % (AUTO) 0.6 % (0-2); EOSINOPHILS % (AUTO) 1.5 % (0-6); HEMATOCRIT 27.3 % (36.0-47.0); HEMOGLOBIN 9.2 g/dL (12.0-15.5); LYMPHOCYTES % (AUTO) 13.7 % (13-45); MEAN CORPUSCULAR HGB CONC 33.8 g/dL (32.0-36.0); MEAN CORPUSCULAR VOLUME 89 fl (80-97); MONOCYTES % (AUTO) 6.7 % (3-13); PLATELET COUNT 335 10^3/uL (150-450); RED BLOOD COUNT 3.07 10^6/uL (3.72-5.28); RED CELL DISTRIBUTION WIDTH 15.9 % (11.5-14.0); SEGMENTED NEUTROPHILS % (AUTO) 77.5 % (42-78); TOTAL CELLS COUNTED % (AUTO) 100 %
[2018-11-24 14:52] LABS: INTERNATIONAL RATION (INR) 3.05
[2018-11-24 14:53] LABS: APPEARANCE,URINE CLEAR; BILIRUBIN,URINE NEGATIVE (NEGATIVE); COLOR,URINE STRAW; GLUCOSE, URINE 150 mg/dL (NEGATIVE); KETONES,URINE NEGATIVE (NEGATIVE); LEUKOCYTE ESTERASE,URINE NEGATIVE (NEGATIVE); NITRITE,URINE NEGATIVE (NEGATIVE); PARTIAL THROMBOPLASTIN TIME 62.2 SEC (23.5-35.8); PROTEIN,URINE 100 mg/dL (NEGATIVE); UROBILINOGEN,URINE NEGATIVE mg/dL (<2.0)
[2018-11-24 14:59] LABS: ALANINE AMINOTRANSFERASE 13 U/L (9-52); ALBUMIN 3.5 g/dL (3.5-5.0); ALKALINE PHOSPHATASE 155 U/L (38-126); ANION GAP 12 (5-19); ASPARTATE AMINO TRANSFERASE 28 U/L (14-36); BLOOD UREA NITROGEN 84 mg/dL (7-20); CARBON DIOXIDE 22 mmol/L (22-30); CHLORIDE 101 mmol/L (98-107); GLUCOSE 140 mg/dL (75-110); POTASSIUM 4.3 mmol/L (3.6-5.0); SODIUM 135.1 mmol/L (137-145); TOTAL PROTEIN 7.4 g/dL (6.3-8.2)
[2018-11-24 15:00] LABS: CALCIUM 8.8 mg/dL (8.4-10.2)
[2018-11-24 15:03] LABS: BILIRUBIN,TOTAL 0.3 mg/dL (0.2-1.3)
--- NOTE | 2018-11-24 15:05 | ER Document Report ---
ED General - General Chief Complaint: Skin Sore(s) Stated Complaint: PAIN/DRAINAGE/ODOR FROM "BED SORE" Time Seen by Provider: 11/24/18 14:07 Mode of Arrival: Wheelchair TRAVEL OUTSIDE OF THE [place] IN LAST 30 DAYS: No - HPI Notes: 62-year-old female to the emergency department with her with complaints of a worsening sacral decubitus ulcer with foul draining purulence that has been noticed has significantly worsened today. He states that she has had some ulcers to her sacral region for the past several weeks because she predominantly sits all day long since she had a right below-knee amputation. Dates today that the patient had an accident on herself and when he went to go clean the ulcer he noticed some dark skin along the edges as well as significantly deeper ulceration that he had noticed before. He denies any fevers, chills, nausea, vomiting, diarrhea, abdominal pain, chest pain, shortness of breath. Patient has a history of diabetes, chronic kidney disease stage IV. The is followed by Dr. Tejeda as her primary care physician. She is a full code. - Related Data Allergies/Adverse Reactions: No Known Allergies Allergy (Verified 11/24/18 12:45) Past Medical History - General Information source: Patient, Friend - Social History Smoking Status: Never Smoker Chew tobacco use (# tins/day): No Frequency of alcohol use: None Drug Abuse: None Family History: CAD, DM, Hypertension Patient has suicidal ideation: No Patient has homicidal ideation: No - Past Medical History Cardiac Medical History: Reports: Hx Atrial Fibrillation, Hx Coronary Artery Disease, Hx Hypercholesterolemia, Hx Hypertension, Hx Peripheral Vascular Disease Neurological Medical History: Reports: Hx Cerebrovascular Accident Endocrine Medical History: Reports: Hx Diabetes Mellitus Type 2 Renal/ Medical History: Denies: Hx Peritoneal Dialysis GI Medical History: Reports: Hx Gastroesophageal Reflux Disease. Denies: Hx Cirrhosis, Hx Hepatitis Musculoskeletal Medical History: Reports Hx Gout Psychiatric Medical History: Denies: Hx Depression Infectious Medical History: Denies: Hx Hepatitis Past Surgical History: Reports: Hx Section, Hx Orthopedic Surgery - Right BKA, Hx Vascular Surgery - Immunizations Hx Diphtheria, Pertussis, Tetanus Vaccination: Yes - Unknown Hx Pneumococcal Vaccination: 09/09/09 Review of Systems - Review of Systems Constitutional: denies: Chills, Fever EENT: No symptoms reported Cardiovascular: denies: Chest pain, Palpitations, Heart racing, Dizziness, Lightheaded Respiratory: denies: Cough, Short of breath Gastrointestinal: denies: Abdominal pain, Diarrhea, Nausea, Vomiting Musculoskeletal: denies: No symptoms reported Skin: Other - Sacral decubitus ulcer -: Yes All other systems reviewed and negative Physical Exam - Vital signs Vitals: Temp Pulse Resp BP Pulse Ox 99.0 F 80 16 145/53 H 100 11/24/18 12:51 11/24/18 12:51 11/24/18 12:51 11/24/18 12:51 11/24/18 12:51 Interpretation: Normal - General General appearance: Other - Chronically ill-appearing sitting in wheelchair In distress: None - HEENT Head: Normocephalic, Atraumatic Eyes: Normal Pupils: PERRL - Respiratory Respiratory status: No respiratory distress Chest status: Nontender Breath sounds: Normal Chest palpation: Normal - Cardiovascular Rhythm: Regular Heart sounds: Normal auscultation Murmur: No - Abdominal Inspection: Normal Distension: No distension Bowel sounds: Normal Tenderness: Nontender - Extremities General upper extremity: Other - There is a below-knee amputation to the right leg. There is deformity to the left foot that is consistent with chronic Charcot's foot. There is dried wound to the base of the left foot without jean carlos ulceration - Neurological Neuro grossly intact: Yes Cognition: Normal Orientation: AAOx4 [place] Coma Scale Eye Opening: Spontaneous [place] Coma Scale Verbal: Oriented Jacqueline Coma Scale Motor: Obeys Commands [place] Coma Scale Total: 15 Speech: Normal - Skin Skin Temperature: Warm Skin Moisture: Dry Skin Color: Other - To the sacrum there is a stage IV decubitus ulcer approximately 3.5 cm in diameter with circumferential necrotic tissue and gummy foul-smelling purulence. Surrounding this area there are several other sacral ulcers, stage three. These do not appear to be infected. Patient has no tenderness to palpation to the infected ulcer likely due to her diabetes. Course - Vital Signs Vital signs: Temp Pulse Resp BP Pulse Ox 98.2 F 88 23 H 147/78 H 99 11/24/18 17:59 11/24/18 17:59 11/24/18 18:11 11/24/18 18:11 11/24/18 18:11 - Laboratory Result Diagrams: 11/24/18 14:20 11/24/18 14:20 Laboratory results interpreted by me: 11/24/18 11/24/18 11/24/18 14:20 14:20 14:20 RBC 3.07 L Hgb 9.2 L Hct 27.3 L RDW 15.9 H PT 33.0 H APTT 62.2 H Sodium 135.1 L BUN 84 H Creatinine 3.57 H Est GFR ( Amer) 16 L Est GFR (Non-Af Amer) 13 L Glucose 140 H Alkaline Phosphatase 155 H Creatine Kinase Urine Protein Urine Glucose (UA) Urine Blood 11/24/18 11/24/18 14:20 14:20 RBC Hgb Hct RDW PT APTT Sodium BUN Creatinine Est GFR ( Amer) Est GFR (Non-Af Amer) Glucose Alkaline Phosphatase Creatine Kinase 210 H Urine Protein 100 H Urine Glucose (UA) 150 H Urine Blood MODERATE H - Transfer of Care Notes: 11/24/18 lab work in conjunction with patient's physical exam findings of foul infected stage IV sacral decubitus ulcer with necrotic edges, patient will need admission. Started on clindamycin, obtained wound culture. Discussed patient with Dr. Cross ER attending and she agrees with plan for admission. States that surgery should be consulted as well for debridement. Dr. Hayes, surgeon on-call. He will come down and see the patient and likely provide debridement bedside. He has asked for debridement kit, lidocaine, a [address] Keith, hospitalist. He agrees with plan for admission, he is aware of patient's labs, including worsening kidney dysfunction and physical exam with infected sacral decubitus ulcer. Aware that clindamycin started. Aware that surgery is consulting on patient and will debride. Dr. Hayes down to see the patient we rounded on her together and he will do bedside debridement. He is aware patient's INR. Impression: Infected sacral decubitus ulcer stage IV and diabetic sedentary patient. Noted chronic knee disease but seems to have worsened from August. In August during admission creatinine was 3.03 with reported baseline of 2.3-2.6. Today creatinine is 3.52. Patient and agree with the plans to admit patient. Discharge - Discharge Clinical Impression: [id number] kidney injury Decubitus ulcer Qualifiers: Pressure injury location: sacral region Pressure injury stage: stage 4 Qualified Code(s): L89.154 - Pressure ulcer of sacral region, stage 4 Condition: Stable Disposition: ADMITTED INPATIENT Admitting Provider: Inna (Hospitalist) Unit Admitted: [facility]
[2018-11-24 15:20] LABS: BILIRUBIN,DIRECT 0.3 mg/dL (0.0-0.4)
[2018-11-24] MEDS ORDERED: NORMAL SALINE 1000 ML 1,000 ML IV ONE (16:57)
[2018-11-24] MEDS ORDERED: CLINDAMYCIN PHOSPHATE INJ 300 MG/2 ML SDV IV ONE (16:58)
[2018-11-24] MEDS ORDERED: LIDOCAINE 1% INJ (10 MG/ML) 10 ML MDV INJ ONE (17:53)
[2018-11-24] MEDS ORDERED: ONDANSETRON HCL INJ/PF 4 MG/2 ML SDV IV PRN (18:10)
[2018-11-24] MEDS ORDERED: ACETAMINOPHEN 325 MG TABLET PO PRN (18:10)
[2018-11-24] MEDS ORDERED: DEXTROSE 50%-WATER 25 GM/50 ML DISP.SYRIN IV PRN ×2 (18:24)
[2018-11-24] MEDS ORDERED: DEXTROSE 40% GEL 15 GM TUBE PO PRN ×2 (18:24)
[2018-11-24] MEDS ORDERED: GLUCAGON,HUMAN RECOMB 1 MG INJ IM PRN (18:24)
[2018-11-24] MEDS ORDERED: PIPERACILLIN/TAZOBACTAM 3.375 GM VIAL IV SCH (18:30)
--- NOTE | 2018-11-24 18:42 | PDOC H&P ---
History of Present Illness Admission Date/PCP: CYNDIE COMER MD Patient complains of: Infected bed sore History of Present Illness: MELBA ROSADO is a 62 year old female with history of atrial fibrillation on warfarin, diabetes mellitus type 2, hypertension, right BKA, hyperlipidemia, history of mini strokes brought in by family members with complaints of infected sacral decubitus. As per the living partner they noticed sacral wound 2 weeks ago and started turning black with foul-smelling drainage decided to came to the emergency room for further evaluation denies any fever denies any chills denies any nausea vomiting diarrhea denies any pains. She did not usually stays in the bed or in the wheelchair most of the time. No other complaints. Past Medical History Cardiac Medical History: Reports: Atrial Fibrillation, Coronary Artery Disease, Hyperlipidema, Hypertension, Peripheral Vascular Disease Endocrine Medical History: Reports: Diabetes Mellitus Type 2 GI Medical History: Reports: Gastroesophageal Reflux Disease Denies: Cirrhosis, Hepatitis Musculoskeltal Medical History: Reports: Gout Psychiatric Medical History: Denies: Depression Hematology: Reports: Anemia Past Surgical History Past Surgical History: Reports: Amputation - Right BKA, September 2013, Section, Orthopedic Surgery - Right BKA, Vascular Surgery Social History Information Source: Patient Smoking Status: Never Smoker Frequency of Alcohol Use: None Hx Recreational Drug Use: No Drugs: None Hx Prescription Drug Abuse: No - Advance Directive Resuscitation Status: Full Code Family History Family History: CAD, DM, Hypertension Parental Family History Reviewed: Yes - mOther with history of diabetes mellitus Children Family History Reviewed: Yes Sibling(s) Family History Reviewed.: Yes Medication/Allergy Home Medications: Allopurinol [Zyloprim 100 mg Tablet] 100 mg PO DAILY 08/15/18 Aspirin [Adult Low Dose Aspirin EC] 81 mg PO QAM 08/15/18 Atorvastatin Calcium [Lipitor 40 mg Tablet] 40 mg PO DAILY 08/15/18 B Complex W-C No.20/Folic Acid [Triphrocaps Softgel] 1 mg PO DAILY 08/15/18 Calcitriol [Rocaltrol 0.25 mcg Capsule] 0.25 mcg PO DAILY 08/15/18 Cyanocobalamin (Vitamin B-12) [Vitamin B-12] 1,000 mcg PO DAILY 08/15/18 Diltiazem HCl [Cardizem 30 mg Tablet] 30 mg PO TID 08/15/18 Famotidine [Pepcid 20 mg Tablet] 20 mg PO DAILY 08/15/18 Ferrous Sulfate [Feosol 325 mg Tablet] 325 mg PO BID 08/15/18 Furosemide [Lasix 40 mg Tablet] 40 mg PO DAILY 08/15/18 Hum Insulin NPH/Reg Insulin Hm [Novolin 70-30 100 Unit/ml Vial] 7 units SQ QAM 08/15/18 Hum Insulin NPH/Reg Insulin Hm [Novolin 70-30 100 Unit/ml Vial] 12 units SQ QPM 08/15/18 Hydralazine HCl [Apresoline 50 mg Tablet] 50 mg PO TID 08/15/18 Lisinopril [Zestril] 5 mg PO DAILY 08/15/18 Multivitamin [Multiple Vitamins] 1 tab PO DAILY 08/15/18 Omeprazole 20 mg PO DAILY 08/15/18 Warfarin Sodium [Coumadin 3 mg Tablet] 3 mg PO QPM 08/15/18 Cephalexin Monohydrate [Keflex 500 mg Capsule] 500 mg PO Q12 #20 capsule 08/23 Allergies/Adverse Reactions: No Known Allergies Allergy (Verified 11/24/18 12:45) Review of Systems Constitutional: ABSENT: fatigue, fever(s), headache(s), weakness Eyes: ABSENT: visual disturbances Nose, Mouth, and Throat: ABSENT: sore throat Cardiovascular: ABSENT: chest pain, dyspnea on exertion, orthropnea, palpitations Respiratory: ABSENT: cough, dyspnea Gastrointestinal: ABSENT: abdominal pain, constipation, diarrhea, hematemesis, hematochezia, nausea, vomiting Genitourinary: ABSENT: dysuria, hematuria Musculoskeletal: ABSENT: joint swelling Integumentary: PRESENT: other - Infected bed so Neurological: ABSENT: abnormal gait, abnormal speech, confusion, dizziness, focal weakness, syncope Psychiatric: ABSENT: anxiety, depression, homidical ideation, suicidal ideation Physical Exam Vital Signs: Temp Pulse Resp BP Pulse Ox 98.2 F 88 23 H 147/78 H 99 11/24/18 17:59 11/24/18 17:59 11/24/18 18:11 11/24/18 18:11 11/24/18 18:11 Intake & Output 11/23/18 11/24/18 11/25/18 06:59 06:59 06:59 Weight 74.843 kg General appearance: PRESENT: mild distress, thin Head exam: PRESENT: atraumatic Eye exam: PRESENT: PERRLA Mouth exam: PRESENT: moist, tongue midline Teeth exam: PRESENT: poor dentation Neck exam: ABSENT: carotid bruit, JVD, lymphadenopathy, thyromegaly Respiratory exam: PRESENT: clear to auscultation gustavo. ABSENT: rales, rhonchi, wheezes Cardiovascular exam: PRESENT: RRR, systolic murmur, tachycardia. ABSENT: diastolic murmur, rubs GI/Abdominal exam: PRESENT: normal bowel sounds, soft. ABSENT: distended, guarding, mass, organolmegaly, rebound, tenderness Rectal exam: PRESENT: deferred Extremities exam: PRESENT: full ROM, other - Patient has a right BKA with prosth esis. ABSENT: calf tenderness, clubbing, pedal edema Neurological exam: PRESENT: alert, awake, oriented to person, oriented to place, oriented to time, oriented to situation, CN II-XII grossly intact. ABSENT: motor sensory deficit Psychiatric exam: PRESENT: appropriate affect, normal mood. ABSENT: homicidal ideation, suicidal ideation Skin exam: PRESENT: other - Patient has a 3 bedsores one on the top on the sacrum with blackish discoloration of the skin and foul-smelling drainage and deep tunneling. Probably stage II-III. Results Laboratory Results: 11/24/18 14:20 11/24/18 14:20 11/24/18 11/24/18 11/24/18 14:20 14:20 14:20 WBC 7.0 RBC 3.07 L Hgb 9.2 L Hct 27.3 L MCV 89 MCH 30.0 MCHC 33.8 RDW 15.9 H Plt Count 335 Seg Neutrophils % 77.5 Lymphocytes % 13.7 Monocytes % 6.7 Eosinophils % 1.5 Basophils % 0.6 Absolute Neutrophils 5.5 Absolute Lymphocytes 1.0 Absolute Monocytes 0.5 Absolute Eosinophils 0.1 Absolute Basophils 0.0 Sodium 135.1 L Potassium 4.3 Chloride 101 Carbon Dioxide 22 Anion Gap 12 BUN 84 H Creatinine 3.57 H Est GFR ( Amer) 16 L Est GFR (Non-Af Amer) 13 L Glucose 140 H Calcium 8.8 Total Bilirubin 0.3 AST 28 ALT 13 Alkaline Phosphatase 155 H Total Protein 7.4 Albumin 3.5 Urine Color STRAW Urine Appearance CLEAR Urine pH 6.0 Ur Specific [place] 1.010 Urine Protein 100 H Urine Glucose (UA) 150 H Urine Ketones NEGATIVE Urine Blood MODERATE H Urine Nitrite NEGATIVE Ur Leukocyte Esterase NEGATIVE Urine WBC (Auto) 3 Urine RBC (Auto) 27 Assessment and Plan - Diagnosis (1) Decubitus ulcer Qualifiers: Pressure injury stage: stage 3 Is this a current diagnosis for this admission?: Yes Plan: 11/[id number]y-old female came in with infected decubitus ulcer surgical consult was requested. Patient is going to placed in [facility] rehab consult was requested to warfarin because the patient may go for debridement and also INR is 3+. GI prophylaxis was initiated started on SCDs. Wound cultures are done blood cultures and urine cultures are requested patient was started on IV Zosyn and vancomycin x-rays of the sacrum and MRI of the pelvic bones are requested to rule out osteomyelitis. Family is requesting for rehab placement PT consult OT consult was requested and social science research assistant consult requested for placement. Aspiration fall seizure precautions are requested. (2) Acute on chronic renal failure Is this a current diagnosis for this admission?: Yes Plan: 11/24/2018-patient admission creatinine to 3.57 baseline creatinine is around 2.7. Acute on chronic injury may be secondary to sepsis. Started on IV fluids 100 cc/h. Renal consult was requested and a renal ultrasound was ordered. (3) Anemia Is this a current diagnosis for this admission?: No Plan: 11/24/2018-serum hemoglobin is 9.2 anemia of chronic disease most likely secondary to CKD. (4) Diabetes mellitus type 2 in nonobese Is this a current diagnosis for this admission?: No Plan: 11/24/2018-patient has history of type 2 diabetes mellitus on blood sugar in the ER is 140s to start on insulin sliding scale before meals and at bedtime and plan to check hemoglobin A1c tomorrow. Reconsult was requested. (5) Paroxysmal atrial fibrillation Is this a current diagnosis for this admission?: No Plan: 11/24/2018-patient has history of paroxysmal atrial fibrillation on warfarin at home INR is 3.03 plan to hold warfarin for now recheck the PT/INR tomorrow. (6) HTN (hypertension) Is this a current diagnosis for this admission?: No Plan: 11/24/2018-patient has history of hypertension blood pressure is 147/78. Stable. Plan to put her on IV hydralazine 10 mg every 6 hours PRN for systolic blood pressure more than 150. Patient is going to kept n.p.o. for possible surgical debridement of the sacral wound. - Time Time Spent with patient: 25-34 minutes Medications reviewed and adjusted accordingly: Yes Anticipated discharge: SNF
--- NOTE | 2018-11-24 19:02 | Operative Report ---
Operative Report DATE OF SURGERY: 11/24/18 PREOPERATIVE DIAGNOSIS: Stage IV sacral decubitus; stage II bilateral ischial d ecubiti POSTOPERATIVE DIAGNOSIS: Same OPERATION: Excisional debridement of a stage IV sacral decubitus SURGEON: SOCORRO JUAN ANESTHESIA: Local TISSUE REMOVED OR ALTERED: Skin, subcutaneous tissue, fascia COMPLICATIONS: None ESTIMATED BLOOD LOSS: Minimal INTRAOPERATIVE FINDINGS: See below PROCEDURE: The patient was examined preoperatively, and determined to have a stage IV sacral decubitus with foul-smelling necrotic tissue. Despite the patient being on Coumadin with an INR of 3.05, I felt that debriding necrotic tissue would serve the patient favorably. Consent was provided. Surgical timeout conducted. The patient was placed in the right lateral decubitus position. The sacral wound was prepped with Betadine anesthetized 1% plain lidocaine. Using a #10 blade and tenotomy scissors, necrotic skin, subcutaneous tissue and fascia debrided. Approximately 5 g of tissue was excised. The final debrided hole was 2 x 2 x 3 cm. The wound was irrigated with saline, packed with a gauze moistened saline. 4 x 4's and tape applied. Patient tolerated procedure well. Bleeding was minimal. Orders for dressing change and offloading provided.
[2018-11-24 19:27] LABS: CREATINE KINASE MB 3.22 ng/mL (<4.55)
[2018-11-24 19:34] LABS: TROPONIN I 0.065 ng/mL
--- NOTE | 2018-11-24 19:39 | RADIOLOGY REPORT (SQ) ---
EXAM DESCRIPTION: U/S RETROPERITON (RENAL/AORTA) COMPLETED DATE/TIME: 11/24/2018 7:23 pm REASON FOR STUDY: ckd COMPARISON: 05/15/2016 TECHNIQUE: Dynamic and static grayscale images acquired of the kidneys and bladder and recorded on P ACS. Additional selected color Doppler and spectral images recorded. LIMITATIONS: None. FINDINGS: RIGHT KIDNEY: Atrophic size. Increased cortical echogenicity. No suspicious masses identif ied. No hydronephrosis. No significant calcifications. LEFT KIDNEY: Atrophic size. Increased cortical echogenicity. No suspicious masses identified. No hyd ronephrosis. No significant calcifications. BLADDER: No masses. OTHER: No other significant finding. IMPRESSION: CHRONIC MEDICAL RENAL DISEASE. NO HYDRONEPHROSIS. TECHNICAL DOCUMENTATION: JOB ID: [id number] [id number] 2010 [employer]- All Rights Reserved Reading location - IP/workstation name: [employer]
--- NOTE | 2018-11-24 20:45 | RADIOLOGY REPORT (SQ) ---
EXAM DESCRIPTION: MR PELVIS WITHOUT IV CONTRAST COMPLETED DATE/TME: 11/24/2018 00:00 CLINICAL HISTORY: Draining ulcer, right hip COMPARISON: None. FINDINGS: Multiplanar images of the hips were submitted. Bone marrow signal is preserved without evidence of edema or osteomyelitis. Abnormal diffuse increased T2-weighted signal within the subcutaneous tissue compatible with edema versus cellulitis. There is no abnormal focal fluid collection to suggest a drainable abscess. A marker was not placed at the ulcer. IMPRESSION: No MR evidence of osteomyelitis. Diffuse abnormal signal of the subcutaneous tissue could represent edema versus cellulitis.
[2018-11-24] MEDS: INSULIN REG, HUMAN 100 UNIT/ML 3 ML VIAL (PYX) SUBCUT SCH (21:47)
[2018-11-24] MEDS: ATORVASTATIN CALCIUM 40 MG TABLET PO SCH (21:48)
--- NOTE | 2018-11-24 21:59 | EKG REPORT ---
SEVERITY:- ABNORMAL ECG - SINUS RHYTHM FIRST DEGREE AV BLOCK LEFT BUNDLE BRANCH BLOCK : Confirmed by: Ty Montana MD 24-Nov-2018 21:59:01
[2018-11-24] MEDS ORDERED: VANCOMYCIN HCL 1,000 MG in DEXTROSE 5%-WATER 250 ML IV ONE (22:00)
[2018-11-24] MEDS: PANTOPRAZOLE SODIUM 40 MG VIAL IV SCH (22:27)
--- NOTE | 2018-11-24 22:48 | RADIOLOGY REPORT (SQ) ---
EXAM DESCRIPTION: XR HIP 1 VIEW BILATERAL COMPLETED DATE/TME: 11/24/2018 00:00 CLINICAL HISTORY: 62 years, Female, infected decubitus ulcer COMPARISON: None. NUMBER OF VIEWS: 3 TECHNIQUE: AP pelvis and single view of each hip LIMITATIONS: None. FINDINGS: Osteopenia. Negative for acute fracture or dislocation. Vascular calcifications. Hip joints are preserved bilaterally IMPRESSION: Osteopenia. No acute osseous abnormality copyright 2010 [employer]- All Rights Reserved
[2018-11-25] MEDS ORDERED: PIPERACILLIN SODIUM/TAZOBACTAM 2.25 GM in NORMAL SALINE 50 ML IV SCH ×2
[2018-11-25] MEDS: NORMAL SALINE 1000 ML 1,000 ML IV PRN (00:14)
[2018-11-25] MEDS ORDERED: VANCOMYCIN HCL INJ 1000 MG VIAL IV ONE (00:15)
[2018-11-25 01:26] LABS: CREATINE KINASE MB 2.99 ng/mL (<4.55); TROPONIN I 0.056 ng/mL
[2018-11-25] MEDS ORDERED: PIPERACILLIN/TAZOBACTAM 2.25 GM VIAL IV ONE (02:15)
[2018-11-25] MEDS: INSULIN REG, HUMAN 100 UNIT/ML 3 ML VIAL (PYX) SUBCUT SCH ×4 (04:22→17:51)
[2018-11-25 06:29] LABS: ABSOLUTE EOSINOPHILS # (AUTO) 0.1 10^3/uL (0.0-0.6); ABSOLUTE LYMPHOCYTES (AUTO) 1.1 10^3/uL (0.5-4.7); ABSOLUTE MONOCYTES (AUTO) 0.5 10^3/uL (0.1-1.4); ABSOLUTE NEUT (AUTO) 4.6 10^3/uL (1.7-8.2); BASOPHILS % (AUTO) 0.7 % (0-2); EOSINOPHILS % (AUTO) 1.7 % (0-6); HEMATOCRIT 21.7 % (36.0-47.0); LYMPHOCYTES % (AUTO) 16.9 % (13-45); MEAN CORPUSCULAR HEMOGLOBIN 29.5 pg (27.0-33.4); MEAN CORPUSCULAR HGB CONC 33.2 g/dL (32.0-36.0); MEAN CORPUSCULAR VOLUME 89 fl (80-97); MONOCYTES % (AUTO) 8.7 % (3-13); PLATELET COUNT 285 10^3/uL (150-450); RED BLOOD COUNT 2.45 10^6/uL (3.72-5.28); TOTAL CELLS COUNTED % (AUTO) 100 %; WHITE BLOOD COUNT 6.3 10^3/uL (4.0-10.5)
[2018-11-25 06:32] LABS: HEMOGLOBIN 7.2 g/dL (12.0-15.5)
[2018-11-25 06:37] LABS: INTERNATIONAL RATION (INR) 3.45; PROTHROMBIN TIME 36.3 SEC (11.4-15.4)
[2018-11-25 06:53] LABS: ALANINE AMINOTRANSFERASE 24 U/L (9-52); ALBUMIN 2.5 g/dL (3.5-5.0); ALKALINE PHOSPHATASE 100 U/L (38-126); ANION GAP 9 (5-19); ASPARTATE AMINO TRANSFERASE 18 U/L (14-36); BILIRUBIN,DIRECT 0.3 mg/dL (0.0-0.4); BILIRUBIN,TOTAL 0.3 mg/dL (0.2-1.3); BLOOD UREA NITROGEN 76 mg/dL (7-20); CALCIUM 8.1 mg/dL (8.4-10.2); CARBON DIOXIDE 21 mmol/L (22-30); CHLORIDE 104 mmol/L (98-107); CHOLESTEROL 109.85 mg/dL (0-200); CREATINE KINASE 134 U/L (30-135); GLUCOSE 194 mg/dL (75-110); POTASSIUM 4.1 mmol/L (3.6-5.0); SODIUM 133.9 mmol/L (137-145); TOTAL PROTEIN 5.4 g/dL (6.3-8.2); TRIGLYCERIDES 70 mg/dL (<150)
[2018-11-25 07:03] LABS: CREATINE KINASE MB 2.67 ng/mL (<4.55); TROPONIN I 0.062 ng/mL
[2018-11-25 07:04] LABS: DIRECT LDL 46 mg/dL (<100)
[2018-11-25 07:14] LABS: AMYLASE < 30 U/L (30-110)
[2018-11-25] MEDS: FERROUS SULFATE 325 MG TABLET PO SCH ×2 (09:29→17:51)
[2018-11-25] MEDS: FOLIC ACID/VITAMIN B COMP W-C CAPSULE PO SCH (09:29)
[2018-11-25] MEDS: MULTIVITAMIN TABLET PO SCH (09:29)
[2018-11-25] MEDS: CALCITRIOL 0.25 MCG CAPSULE PO SCH (09:29)
[2018-11-25] MEDS: DILTIAZEM HCL 30 MG TABLET PO SCH ×3 (09:29→17:51)
[2018-11-25] MEDS: PANTOPRAZOLE SODIUM 40 MG VIAL IV SCH ×2 (09:29→22:52)
[2018-11-25] MEDS: FAMOTIDINE 20 MG TABLET PO SCH (09:29)
[2018-11-25] MEDS ORDERED: VANCOMYCIN HCL INJ 1000 MG VIAL IV SCH (10:00)
--- NOTE | 2018-11-25 11:07 | PDOC PROGRESS REPORT ---
Subjective Progress Note for:: 11/25/18 Subjective:: 62 year old female with history of atrial fibrillation on warfarin, diabetes mellitus type 2, hypertension, right BKA, hyperlipidemia, history of mini strokes brought in by family members with complaints of infected sacral decubitus. As per the living partner they noticed sacral wound 2 weeks ago and started turning black with foul-smelling drainage decided to came to the emergency room for further evaluation denies any fever denies any chills denies any nausea vomiting diarrhea denies any pains. She did not usually stays in the bed or in the wheelchair most of the time. No other complaints. 11/25/[id number]-rhza-old female admitted with infected sacral decubitus. Status post debridement was done. Patient came in stage IV infected ulcer. MRI of the pelvis is negative for osteomyelitis. Patient is comfortable in the bed not in distress. Communicating well. T-max is 97.7. presently on IV vancomycin and Zosyn. Reason For Visit: INFECTED DECUBITUS ULCER Physical Exam Vital Signs: Temp Pulse Resp BP Pulse Ox 97.6 F 82 18 143/55 H 100 11/25/18 07:41 11/25/18 07:41 11/25/18 07:41 11/25/18 04:19 11/25/18 07:41 Intake & Output 11/24/18 11/25/18 11/26/18 06:59 06:59 06:59 Intake Total 1450 1000 Output Total 500 Balance 950 1000 Weight 70.4 kg General appearance: PRESENT: no acute distress Head exam: PRESENT: atraumatic Eye exam: PRESENT: PERRLA Mouth exam: PRESENT: moist, tongue midline Teeth exam: PRESENT: poor dentation Neck exam: ABSENT: carotid bruit, JVD, lymphadenopathy, thyromegaly Respiratory exam: PRESENT: decreased breath sounds Cardiovascular exam: PRESENT: RRR. ABSENT: diastolic murmur, rubs, systolic murmur GI/Abdominal exam: PRESENT: normal bowel sounds, soft. ABSENT: distended, guarding, mass, organolmegaly, rebound, tenderness Rectal exam: PRESENT: deferred Extremities exam: PRESENT: other - Right BKA with prosthesis present. Neurological exam: PRESENT: alert, awake, oriented to person, oriented to place, oriented to time, oriented to situation, CN II-XII grossly intact. ABSENT: motor sensory deficit Psychiatric exam: PRESENT: appropriate affect, normal mood. ABSENT: homicidal ideation, suicidal ideation Skin exam: PRESENT: other - Patient came in with infected stage III/IV sacral decubitus status post debridement. Results Laboratory Results: 11/25/18 05:59 11/25/18 05:59 11/24/18 11/24/18 11/24/18 14:20 14:20 14:20 WBC 7.0 RBC 3.07 L Hgb 9.2 L Hct 27.3 L MCV 89 MCH 30.0 MCHC 33.8 RDW 15.9 H Plt Count 335 Seg Neutrophils % 77.5 Lymphocytes % 13.7 Monocytes % 6.7 Eosinophils % 1.5 Basophils % 0.6 Absolute Neutrophils 5.5 Absolute Lymphocytes 1.0 Absolute Monocytes 0.5 Absolute Eosinophils 0.1 Absolute Basophils 0.0 Sodium 135.1 L Potassium 4.3 Chloride 101 Carbon Dioxide 22 Anion Gap 12 BUN 84 H Creatinine 3.57 H Est GFR ( Amer) 16 L Est GFR (Non-Af Amer) 13 L Glucose 140 H Calcium 8.8 Magnesium Total Bilirubin 0.3 AST 28 ALT 13 Alkaline Phosphatase 155 H Total Protein 7.4 Albumin 3.5 Triglycerides Cholesterol LDL Cholesterol Direct VLDL Cholesterol HDL Cholesterol Amylase TSH Urine Color STRAW Urine Appearance CLEAR Urine pH 6.0 Ur Specific [place] 1.010 Urine Protein 100 H Urine Glucose (UA) 150 H Urine Ketones NEGATIVE Urine Blood MODERATE H Urine Nitrite NEGATIVE Ur Leukocyte Esterase NEGATIVE Urine WBC (Auto) 3 Urine RBC (Auto) 27 11/25/18 11/25/18 11/25/18 05:59 05:59 05:59 WBC 6.3 RBC 2.45 L Hgb 7.2 L Hct 21.7 L MCV 89 MCH 29.5 MCHC 33.2 RDW 16.0 H Plt Count 285 Seg Neutrophils % 72.0 Lymphocytes % 16.9 Monocytes % 8.7 Eosinophils % 1.7 Basophils % 0.7 Absolute Neutrophils 4.6 Absolute Lymphocytes 1.1 Absolute Monocytes 0.5 Absolute Eosinophils 0.1 Absolute Basophils 0.0 Sodium 133.9 L Potassium 4.1 Chloride 104 Carbon Dioxide 21 L Anion Gap 9 BUN 76 H Creatinine 3.28 H Est GFR ( Amer) 17 L Est GFR (Non-Af Amer) 14 L Glucose 194 H Calcium 8.1 L Magnesium 1.6 Total Bilirubin 0.3 AST 18 ALT 24 Alkaline Phosphatase 100 Total Protein 5.4 L Albumin 2.5 L Triglycerides 70 Cholesterol 109.85 LDL Cholesterol Direct 46 VLDL Cholesterol 14.0 HDL Cholesterol 52 Amylase < 30 L TSH 1.79 Urine Color Urine Appearance Urine pH Ur Specific [place] Urine Protein Urine Glucose (UA) Urine Ketones Urine Blood Urine Nitrite Ur Leukocyte Esterase Urine WBC (Auto) Urine RBC (Auto) 11/24/18 11/24/18 11/25/18 14:20 14:20 00:44 Creatine Kinase 210 H 158 H CK-MB (CK-2) 3.22 Troponin I 0.065 NT-Pro-B Natriuret Pep 11/25/18 11/25/18 11/25/18 00:44 05:59 05:59 Creatine Kinase 134 CK-MB (CK-2) 2.99 2.67 Troponin I 0.056 0.062 NT-Pro-B Natriuret Pep 20940 H Impressions: Hip X-Ray 11/24/18 00:00 IMPRESSION: Osteopenia. No acute osseous abnormality copyright 2010 [employer]- All Rights Reserved Pelvis MRI 11/24/18 00:00 IMPRESSION: No MR evidence of osteomyelitis. Diffuse abnormal signal of the subcutaneous tissue could represent edema versus cellulitis. Renal Ultrasound 11/24/18 00:00 IMPRESSION: CHRONIC MEDICAL RENAL DISEASE. NO HYDRONEPHROSIS. Assessment and Plan - Diagnosis (1) Decubitus ulcer Qualifiers: Pressure injury location: sacral region Pressure injury stage: stage 4 Qualified Code(s): L89.154 - Pressure ulcer of sacral region, stage 4 Is this a current diagnosis for this admission?: Yes Plan: 11/24/[id number]-latc-old female came in with infected decubitus ulcer surgical consult was requested. Patient is going to placed in [facility] rehab consult was requested to warfarin because the patient may go for debridement and also INR is 3+. GI prophylaxis was initiated started on SCDs. Wound cultures are done blood cultures and urine cultures are requested patient was started on IV Zosyn and vancomycin x-rays of the sacrum and MRI of the pelvic bones are requested to rule out osteomyelitis. Family is requesting for rehab placement PT consult OT consult was requested and social work lecturer consult requested for placement. Aspiration fall seizure precautions are requested. 11/25/2018-patient came in with a stage III/stage IV sacral decubitus with necrosis status post debridement was done by Dr. Hayes. MRI of the pelvis is negative for osteomyelitis. Presently on IV vancomycin and Zosyn. Cultures are pending. (2) Acute on chronic renal failure Is this a current diagnosis for this admission?: Yes Plan: 11/24/2018-patient admission creatinine to 3.57 baseline creatinine is around 2.7. Acute on chronic injury may be secondary to sepsis. Started on IV fluids 100 cc/h. Renal consult was requested and a renal ultrasound was ordered. 11/25/2018-patient has history of stage III kidney disease baseline creatinine is around 2.7 on admission creatinine was 3.57 improved to 3.28 with IV fluids. Patient is receiving gentle hydration. Renal ultrasound suggestive of chronic medical disease no hydronephrosis seen. Nephrology consult was requested. Urinary output is good. (3) Anemia Is this a current diagnosis for this admission?: No Plan: 11/24/2018-serum hemoglobin is 9.2 anemia of chronic disease most likely secondary to CKD. 11/25/2018-patient came in with hemoglobin of 9.2 hemoglobin dropped to 7.2 after the procedure and she received 1 unit of PRBC. Anemia of chronic disease with blood loss may be secondary to chronic kidney disease and perioperative blood loss. (4) Diabetes mellitus type 2 in nonobese Is this a current diagnosis for this admission?: No Plan: 11/24/2018-patient has history of type 2 diabetes mellitus on blood sugar in the ER is 140s to start on insulin sliding scale before meals and at bedtime and plan to check hemoglobin A1c tomorrow. dietary consult was requested. 11/25/2018-patient has history of type 2 diabetes mellitus blood sugar is 222. Presently on insulin sliding scale before meals and at bedtime. Hemoglobin A1c is 8.2. Dietary consult was requested. (5) Paroxysmal atrial fibrillation Is this a current diagnosis for this admission?: No Plan: 11/24/2018-patient has history of paroxysmal atrial fibrillation on warfarin at home INR is 3.03 plan to hold warfarin for now recheck the PT/INR tomorrow. 11/25/2018-patient has history of paroxysmal atrial fibrillation on Coumadin at home INR today is 3.45 we are going to keep the INR on hold repeat the PT/INR tomorrow. (6) HTN (hypertension) Is this a current diagnosis for this admission?: No Plan: 11/24/2018-patient has history of hypertension blood pressure is 147/78. Stable. Plan to put her on IV hydralazine 10 mg every 6 hours PRN for systolic blood pressure more than 150. Patient is going to kept n.p.o. for possible surgical debridement of the sacral wound. 11/25/2018-patient blood pressure today is 143/55. Stable. Order was placed for PRN hydralazine 10 mg IV every 6 as needed for systolic blood pressure more than 150. She was started back on a diabetic diet. - Time Time Spent with patient: 25-34 minutes Medications reviewed and adjusted accordingly: Yes Anticipated discharge: SNF
[2018-11-25] MEDS: PIPERACILLIN SODIUM/TAZOBACTAM 2.25 GM in NORMAL SALINE 50 ML IV SCH ×2 (12:41→17:52)
--- NOTE | 2018-11-25 14:06 | PDOC CONSULTATION ---
Consultation Consult Date: 11/25/18 Provider Consulted: YONATAN GUZMAN Consult reason:: I was asked to see the patient due to some acute worsening of kidney function in a patient with chronic kidney disease. History of Present Illness Admission Date/PCP: 11/24/18 18:38 CYNDIE COMER MD History of Present Illness: MELBA ROSADO is a 62 year old female with history of diabetes mellitus type 2, hypertension, peripheral vascular disease, and chronic kidney disease stage IV being followed by Dr. Fonseca who was admitted yesterday because of infected sacral bed ulcer. Patient stated that her boyfriend noted sacral wound 2 days ago but other hospital records stated that it was actually noted 2 weeks ago associated with foul-smelling drainage and worsening wound. Immediately the patient was placed on IV antibiotics and had debridement last night. MRI did not show any evidence of osteomyelitis. Patient also came in with elevated BUN of 84, creatinine of 3.57 and EGFR of 13. Today she had a BUN of 76, creatinine of 3.28 and EGFR 14. Her baseline kidney function include a creatinine ranging between 2.7-3.0 and EGFR ranging from 16- 18. Her diabetes is not" not controlled with hemoglobin A1c of 8.2. She makes urine and overnight had 500 mL of urine via her Hardy catheter. She was given IV fluid bolus on presentation and is currently on maintenance normal saline at 100 mL an hour. Her urinalysis showed 100 protein, glucose of 150 and moderate blood. She had a kidney ultrasound which showed bilateral atrophic kidney with increased echogenicity and no hydronephrosis. Patient has no other complaints today. She states that she is eating good and drinking fluids good even at home prior to admission. She denies any nausea, vomiting, diarrhea, chest pains no shortness of breath. She denies any problem with urination including hematuria. She denies any NSAID use or any o [id number] elbow herbal use. Past Medical History Cardiac Medical History: Reports: Atrial Fibrillation, Coronary Artery Disease, Hyperlipidemia, Peripheral Vascular Disease Endocrine Medical History: Reports: Diabetes Mellitus Type 2 Complications of Diabetes: Reports: Diabetic Foot Ulcer - s/p Right BKA, Nephropathy Renal/ Medical History: Reports: Chronic Kidney Disease Stage IV GI Medical History: Reports: Gastroesophageal Reflux Disease Musculoskeltal Medical History: Reports: Gout Hematology Medical History: Reports Anemia of Chronic Kidney Disease Past Surgical History Past Surgical History: Reports: Section, Orthopedic Surgery - Right BK A, Vascular Surgery Social History Information Source: Patient, [facility] Records Smoking Status: Never Smoker Frequency of Alcohol Use: None Hx Recreational Drug Use: No Drugs: None Hx Prescription Drug Abuse: No - Advance Directive Resuscitation Status: Full Code Family History Family History: Chronic Kidney Disease - Mother, DM - Mother Parental Family History Reviewed: Yes Children Family History Reviewed: Yes Sibling(s) Family History Reviewed.: Yes Medication/Allergy Home Medications: Allopurinol [Zyloprim 100 mg Tablet] 100 mg PO DAILY 11/25/18 Atorvastatin Calcium [Lipitor 80 mg Tablet] 80 mg PO DAILY 11/25/18 Clopidogrel Bisulfate [Plavix 75 mg Tablet] 75 mg PO DAILY 11/25/18 Diltiazem HCl [Cardizem 30 mg Tablet] 30 mg PO MEALSHS 11/25/18 Docusate Sodium [Colace 100 mg Capsule] 100 mg PO DAILYP PRN 11/25/18 Ferrous Sulfate [Feosol 325 mg Tablet] 325 mg PO BID 11/25/18 Furosemide [Lasix 40 mg Tablet] 40 mg PO BID 11/25/18 Insulin NPH Hum/Reg Insulin Hm [Novolin 70-30 Flexpen] 7 units SQ QAM 11/25/18 Insulin NPH Hum/Reg Insulin Hm [Novolin 70-30 Flexpen] 12 units SQ QPM 11/25/18 Lisinopril [Zestril] 20 mg PO DAILY 11/25/18 Omeprazole 20 mg PO DAILY 11/25/18 Warfarin Sodium [Coumadin 3 mg Tablet] 3 mg PO [id number] 11/25/18 Allergies/Adverse Reactions: No Known Allergies Allergy (Verified 11/24/18 12:45) Review of Systems All systems: reviewed and no additional remarkable complaints except as stated Review of Systems: Constitutional: ABSENT: chills, fatigue, fever(s), headache(s), weight gain, cynthia ght loss Eyes: ABSENT: visual disturbances Ears: ABSENT: hearing changes Cardiovascular: ABSENT: chest pain, dyspnea on exertion, edema, orthropnea, palpitations Respiratory: ABSENT: cough, dyspnea, hemoptysis Gastrointestinal: ABSENT: abdominal pain, constipation, diarrhea, hematemesis, hematochezia, nausea, vomiting Genitourinary: ABSENT: dysuria, hematuria Musculoskeletal: ABSENT: joint swelling Integumentary: ABSENT: rash, wounds; admits sacral ulcer Neurological: ABSENT: abnormal gait, abnormal speech, confusion, dizziness, focal weakness, numbness, syncope Psychiatric: ABSENT: anxiety, depression Endocrine: ABSENT: cold intolerance, heat intolerance, polydipsia, polyuria Hematologic/Lymphatic: ABSENT: easy bleeding, easy bruising, lymphadenopathy Physical Exam Vital Signs: Temp Pulse Resp BP Pulse Ox 98.1 F 88 18 157/65 H 100 11/25/18 12:44 11/25/18 12:44 11/25/18 12:40 11/25/18 12:44 11/25/18 12:44 Intake & Output 11/24/18 11/25/18 11/26/18 06:59 06:59 06:59 Intake Total 1450 1050 Output Total 500 Balance 950 1050 Weight 70.4 kg Exam: General appearance: No acute distress, cooperative, well-developed, well- nourished Head exam: PRESENT: atraumatic, normocephalic Eye exam: PRESENT: Conjunctiva pale, EOMI, PERRLA. ABSENT: conjunctival injection, scleral icterus Mouth exam: PRESENT: moist, neck supple, tongue midline Neck exam: PRESENT: full ROM. ABSENT: carotid bruit, JVD, lymphadenopathy, thyromegaly Respiratory exam: PRESENT: clear to auscultation bilaterally. ABSENT: rales, rhonchi, stridor, wheezes Cardiovascular exam: PRESENT: RRR, +S1, +S2. ABSENT: systolic murmur Pulses: PRESENT: normal radial pulses, normal dorsalis pedis pulses GI/Abdominal exam: PRESENT: normal bowel sounds, soft. ABSENT: guarding, mass, tenderness Rectal exam: Deferred Extremities exam: PRESENT: full ROM. Right BKA with prosthesis. Grade 1 left lower extremity pitting edema ABSENT: calf tenderness Musculoskeletal: PRESENT: full ROM. ABSENT: deformity Neurological exam: PRESENT: alert, Awake, Oriented to person, Oriented to place, Oriented to time, reflexes normal, CN II-XII grossly intact. ABSENT: motor sensory deficit Psychiatric exam: PRESENT: appropriate affect, normal mood. ABSENT: homicidal ideation, suicidal ideation Skin exam: PRESENT: intact, dry, warm. ABSENT: rash Results Laboratory Results: 11/25/18 05:59 11/25/18 05:59 11/24/18 11/24/18 11/24/18 14:20 14:20 14:20 WBC 7.0 RBC 3.07 L Hgb 9.2 L Hct 27.3 L MCV 89 MCH 30.0 MCHC 33.8 RDW 15.9 H Plt Count 335 Seg Neutrophils % 77.5 Lymphocytes % 13.7 Monocytes % 6.7 Eosinophils % 1.5 Basophils % 0.6 Absolute Neutrophils 5.5 Absolute Lymphocytes 1.0 Absolute Monocytes 0.5 Absolute Eosinophils 0.1 Absolute Basophils 0.0 Sodium 135.1 L Potassium 4.3 Chloride 101 Carbon Dioxide 22 Anion Gap 12 BUN 84 H Creatinine 3.57 H Est GFR ( Amer) 16 L Est GFR (Non-Af Amer) 13 L Glucose 140 H Calcium 8.8 Magnesium Total Bilirubin 0.3 AST 28 ALT 13 Alkaline Phosphatase 155 H Total Protein 7.4 Albumin 3.5 Triglycerides Cholesterol LDL Cholesterol Direct VLDL Cholesterol HDL Cholesterol Amylase TSH Urine Color STRAW Urine Appearance CLEAR Urine pH 6.0 Ur Specific [place] 1.010 Urine Protein 100 H Urine Glucose (UA) 150 H Urine Ketones NEGATIVE Urine Blood MODERATE H Urine Nitrite NEGATIVE Ur Leukocyte Esterase NEGATIVE Urine WBC (Auto) 3 Urine RBC (Auto) 27 Blood Type Antibody Screen 11/25/18 11/25/18 11/25/18 05:59 05:59 05:59 WBC 6.3 RBC 2.45 L Hgb 7.2 L Hct 21.7 L MCV 89 MCH 29.5 MCHC 33.2 RDW 16.0 H Plt Count 285 Seg Neutrophils % 72.0 Lymphocytes % 16.9 Monocytes % 8.7 Eosinophils % 1.7 Basophils % 0.7 Absolute Neutrophils 4.6 Absolute Lymphocytes 1.1 Absolute Monocytes 0.5 Absolute Eosinophils 0.1 Absolute Basophils 0.0 Sodium 133.9 L Potassium 4.1 Chloride 104 Carbon Dioxide 21 L Anion Gap 9 BUN 76 H Creatinine 3.28 H Est GFR ( Amer) 17 L Est GFR (Non-Af Amer) 14 L Glucose 194 H Calcium 8.1 L Magnesium 1.6 Total Bilirubin 0.3 AST 18 ALT 24 Alkaline Phosphatase 100 Total Protein 5.4 L Albumin 2.5 L Triglycerides 70 Cholesterol 109.85 LDL Cholesterol Direct 46 VLDL Cholesterol 14.0 HDL Cholesterol 52 Amylase < 30 L TSH 1.79 Urine Color Urine Appearance Urine pH Ur Specific [place] Urine Protein Urine Glucose (UA) Urine Ketones Urine Blood Urine Nitrite Ur Leukocyte Esterase Urine WBC (Auto) Urine RBC (Auto) Blood Type Antibody Screen 11/25/18 09:30 WBC RBC Hgb Hct MCV MCH MCHC RDW Plt Count Seg Neutrophils % Lymphocytes % Monocytes % Eosinophils % Basophils % Absolute Neutrophils Absolute Lymphocytes Absolute Monocytes Absolute Eosinophils Absolute Basophils Sodium Potassium Chloride Carbon Dioxide Anion Gap BUN Creatinine Est GFR ( Amer) Est GFR (Non-Af Amer) Glucose Calcium Magnesium Total Bilirubin AST ALT Alkaline Phosphatase Total Protein Albumin Triglycerides Cholesterol LDL Cholesterol Direct VLDL Cholesterol HDL Cholesterol Amylase TSH Urine Color Urine Appearance Urine pH Ur Specific [place] Urine Protein Urine Glucose (UA) Urine Ketones Urine Blood Urine Nitrite Ur Leukocyte Esterase Urine WBC (Auto) Urine RBC (Auto) Blood Type B POSITIVE Antibody Screen NEGATIVE 11/24/18 11/24/18 11/25/18 14:20 14:20 00:44 Creatine Kinase 210 H 158 H CK-MB (CK-2) 3.22 Troponin I 0.065 NT-Pro-B Natriuret Pep 11/25/18 11/25/18 11/25/18 00:44 05:59 05:59 Creatine Kinase 134 CK-MB (CK-2) 2.99 2.67 Troponin I 0.056 0.062 NT-Pro-B Natriuret Pep 45747 H Impressions: Hip X-Ray 11/24/18 00:00 IMPRESSION: Osteopenia. No acute osseous abnormality copyright 2010 [employer]- All Rights Reserved Pelvis MRI 11/24/18 00:00 IMPRESSION: No MR evidence of osteomyelitis. Diffuse abnormal signal of the subcutaneous tissue could represent edema versus cellulitis. Renal Ultrasound 11/24/18 00:00 IMPRESSION: CHRONIC MEDICAL RENAL DISEASE. NO HYDRONEPHROSIS. Assessment & Plan - Diagnosis (1) Acute on chronic renal failure Is this a current diagnosis for this admission?: Yes Plan: The mild worsening of the patient's kidney function is likely related to the patient's infected sacral ulcer. Currently slowly improving with IV fluid hydration and treatment of the ulcer with debridement and IV antibiotics. Continue current management. No urgent indication for any acute renal replaceme nt therapy. Monitor kidney function and electrolytes. (2) Decubitus ulcer Qualifiers: Pressure injury location: sacral region Pressure injury stage: stage 4 Qualified Code(s): L89.154 - Pressure ulcer of sacral region, stage 4 Is this a current diagnosis for this admission?: Yes Plan: Status post debridement. Currently on IV antibiotics. (3) HTN (hypertension) Is this a current diagnosis for this admission?: Yes (4) Anemia Is this a current diagnosis for this admission?: Yes Plan: Patient's hemoglobin slightly got worse after debridement. Currently being transfused 1 unit of packed RBC. Will check iron panel. Patient may also need some Procrit related to her anemia of chronic kidney disease. (5) CKD (chronic kidney disease), stage IV Is this a current diagnosis for this admission?: Yes Plan: Patient's kidney ultrasound showing bilateral atrophic kidney and increased echogenicity is consistent with ongoing progressive chronic kidney disease. The patient should continue to follow-up with Dr. Fonseca once discharge. We will check phosphorus, PTH, vitamin D level and urine protein to creatinine ratio. I discussed with the patient the possibility of her requiring renal replacement therapy if her kidney function continued to deteriorate in the future. When I asked her if she is going to go to dialysis if she needs it, she said she will think about it first. At this time she does not need any acute renal replacement therapy. (6) Hyponatremia Is this a current diagnosis for this admission?: Yes (7) Diabetes mellitus type 2 in nonobese Is this a current diagnosis for this admission?: Yes - Notes Notes: Thank you very much for this consultation. We will follow the patient with you. - Time Time Spent: 50 to 70 Minutes
[2018-11-25 15:29] LABS: URINE CREATININE 35.7 mg/dL (15-278)
[2018-11-25 15:33] LABS: URINE AMPHETAMINES SCREEN NEGATIVE; URINE BARBITURATES SCREEN NEGATIVE; URINE BENZODIAZEPINES SCREEN NEGATIVE; URINE COCAINE SCREEN NEGATIVE; URINE MARIJUANA (THC) SCREEN NEGATIVE; URINE METHADONE SCREEN NEGATIVE; URINE PHENCYCLIDINE SCREEN NEGATIVE
[2018-11-25 15:40] LABS: UR PRO/CREAT RATIO RESULT 9.7 mg/mg (0.0-0.2); URINE PROTEIN 345.3 mg/dL (<12)
[2018-11-25] MEDS: ATORVASTATIN CALCIUM 40 MG TABLET PO SCH (22:51)
[2018-11-26] MEDS: PIPERACILLIN SODIUM/TAZOBACTAM 2.25 GM in NORMAL SALINE 50 ML IV SCH ×5 (00:47→23:40)
[2018-11-26] MEDS: INSULIN REG, HUMAN 100 UNIT/ML 3 ML VIAL (PYX) SUBCUT SCH ×5 (00:50→22:34)
[2018-11-26] MEDS: NORMAL SALINE 1000 ML 1,000 ML IV PRN ×2 (04:02→22:42)
[2018-11-26 06:22] LABS: ABSOLUTE EOSINOPHILS # (AUTO) 0.2 10^3/uL (0.0-0.6); ABSOLUTE LYMPHOCYTES (AUTO) 1.2 10^3/uL (0.5-4.7); ABSOLUTE MONOCYTES (AUTO) 0.5 10^3/uL (0.1-1.4); ABSOLUTE NEUT (AUTO) 3.7 10^3/uL (1.7-8.2); ABSOLUTE RETICS # 0.036 10^6/uL (0.028-0.122); BASOPHILS % (AUTO) 0.7 % (0-2); HEMOGLOBIN 8.7 g/dL (12.0-15.5); INTERNATIONAL RATION (INR) 3.35; LYMPHOCYTES % (AUTO) 21.2 % (13-45); MEAN CORPUSCULAR HEMOGLOBIN 29.7 pg (27.0-33.4); MEAN CORPUSCULAR HGB CONC 33.6 g/dL (32.0-36.0); MEAN CORPUSCULAR VOLUME 88 fl (80-97); MONOCYTES % (AUTO) 8.5 % (3-13); PLATELET COUNT 262 10^3/uL (150-450); PROTHROMBIN TIME 35.5 SEC (11.4-15.4); RED BLOOD COUNT 2.94 10^6/uL (3.72-5.28); RED CELL DISTRIBUTION WIDTH 15.3 % (11.5-14.0); RETICULOCYTE COUNT (AUTO) 1.24 % (0.66-2.85); SEGMENTED NEUTROPHILS % (AUTO) 66.6 % (42-78); TOTAL CELLS COUNTED % (AUTO) 100 %; WHITE BLOOD COUNT 5.6 10^3/uL (4.0-10.5)
[2018-11-26 06:42] LABS: ALANINE AMINOTRANSFERASE 21 U/L (9-52); ALBUMIN 2.5 g/dL (3.5-5.0); ALKALINE PHOSPHATASE 83 U/L (38-126); ANION GAP 9 (5-19); ASPARTATE AMINO TRANSFERASE 16 U/L (14-36); BILIRUBIN,DIRECT 0.3 mg/dL (0.0-0.4); BILIRUBIN,TOTAL 0.4 mg/dL (0.2-1.3); BLOOD UREA NITROGEN 68 mg/dL (7-20); CALCIUM 8.5 mg/dL (8.4-10.2); CARBON DIOXIDE 19 mmol/L (22-30); CHLORIDE 107 mmol/L (98-107); GLUCOSE 134 mg/dL (75-110); IRON(TIBC) 39.2 ug/dL (37-170); PHOSPHORUS 5.3 mg/dL (2.5-4.5); POTASSIUM 4.4 mmol/L (3.6-5.0); SODIUM 134.9 mmol/L (137-145); TOTAL PROTEIN 5.7 g/dL (6.3-8.2)
[2018-11-26 07:52] LABS: FOLATE > 20.00 ng/mL (>2.76)
[2018-11-26] MEDS: MULTIVITAMIN TABLET PO SCH (09:22)
[2018-11-26] MEDS: PANTOPRAZOLE SODIUM 40 MG VIAL IV SCH ×2 (09:22→22:34)
[2018-11-26] MEDS: FOLIC ACID/VITAMIN B COMP W-C CAPSULE PO SCH (09:22)
[2018-11-26] MEDS: CALCITRIOL 0.25 MCG CAPSULE PO SCH (09:22)
[2018-11-26] MEDS: DILTIAZEM HCL 30 MG TABLET PO SCH ×3 (09:22→17:05)
[2018-11-26] MEDS: FAMOTIDINE 20 MG TABLET PO SCH (09:22)
[2018-11-26] MEDS: FERROUS SULFATE 325 MG TABLET PO SCH ×2 (09:22→17:05)
[2018-11-26] MEDS ORDERED: FERRIC CARBOXYMALTOSE INJ 750 MG/15 ML VIAL IV ONE (10:45)
--- NOTE | 2018-11-26 10:54 | PDOC PROGRESS REPORT ---
Subjective Progress Note for:: 11/26/18 Subjective:: Patient states that she is doing fine. She denies any nausea, vomiting or shortness of breath. Here her urine output is minimal at only 350 mL that was recorded at least. No other new complaints. Reason For Visit: INFECTED DECUBITUS ULCER Physical Exam Vital Signs: Temp Pulse Resp BP Pulse Ox 98.4 F 90 18 140/98 H 99 11/26/18 09:13 11/26/18 09:13 11/26/18 09:13 11/26/18 09:13 11/26/18 09:13 Intake & Output 11/25/18 11/26/18 11/27/18 06:59 06:59 06:59 Intake Total 1450 1450 50 Output Total 500 350 Balance 950 1100 50 Weight 70.4 kg 64.5 kg Exam: General appearance: PRESENT: no acute distress, cooperative, well-developed, well-nourished Head exam: PRESENT: atraumatic, normocephalic Eye exam: PRESENT: conjunctiva pale, PERRLA. ABSENT: scleral icterus Neck exam: ABSENT: JVD Respiratory exam: PRESENT: Diminished breath sounds. ABSENT: crackles, rales, rhonchi, unlabored, wheezes Cardiovascular exam: PRESENT: Regular rate rhythm -+S1, +S2. ABSENT: diastolic murmur, systolic murmur GI/Abdominal exam: PRESENT: normal bowel sounds, soft. ABSENT: guarding, mass, tenderness Extremities exam: Improved trace left lower extremity edema, right BKA with prosthesis Neurological exam: PRESENT: alert, awake, oriented to person, place and time. Skin exam: PRESENT: dry, warm, Results Laboratory Results: 11/26/18 05:50 11/26/18 05:50 11/25/18 11/26/18 11/26/18 09:30 05:50 05:50 WBC 5.6 RBC 2.94 L Hgb 8.7 L Hct 26.0 L MCV 88 MCH 29.7 MCHC 33.6 RDW 15.3 H Plt Count 262 Seg Neutrophils % 66.6 Lymphocytes % 21.2 Monocytes % 8.5 Eosinophils % 3.0 Basophils % 0.7 Absolute Neutrophils 3.7 Absolute Lymphocytes 1.2 Absolute Monocytes 0.5 Absolute Eosinophils 0.2 Absolute Basophils 0.0 Retic Count (auto) 1.24 Absolute Retic 0.036 Sodium 134.9 L Potassium 4.4 Chloride 107 Carbon Dioxide 19 L Anion Gap 9 BUN 68 H Creatinine 3.46 H Est GFR ( Amer) 16 L Est GFR (Non-Af Amer) 13 L Glucose 134 H Calcium 8.5 Phosphorus 5.3 H Magnesium 1.8 Iron 39.2 TIBC 231 L % Saturation 17 Ferritin 220.00 Total Bilirubin 0.4 AST 16 ALT 21 Alkaline Phosphatase 83 Total Protein 5.7 L Albumin 2.5 L Vitamin B12 957.0 H Folate > 20.00 PTH Intact Blood Type B POSITIVE Antibody Screen NEGATIVE 11/26/18 05:50 WBC RBC Hgb Hct MCV MCH MCHC RDW Plt Count Seg Neutrophils % Lymphocytes % Monocytes % Eosinophils % Basophils % Absolute Neutrophils Absolute Lymphocytes Absolute Monocytes Absolute Eosinophils Absolute Basophils Retic Count (auto) Absolute Retic Sodium Potassium Chloride Carbon Dioxide Anion Gap BUN Creatinine Est GFR ( Amer) Est GFR (Non-Af Amer) Glucose Calcium Phosphorus Magnesium Iron TIBC % Saturation Ferritin Total Bilirubin AST ALT Alkaline Phosphatase Total Protein Albumin Vitamin B12 Folate PTH Intact Cancelled Blood Type Antibody Screen 11/24/18 11/24/18 11/25/18 14:20 14:20 00:44 Creatine Kinase 210 H 158 H CK-MB (CK-2) 3.22 Troponin I 0.065 NT-Pro-B Natriuret Pep 11/25/18 11/25/18 11/25/18 00:44 05:59 05:59 Creatine Kinase 134 CK-MB (CK-2) 2.99 2.67 Troponin I 0.056 0.062 NT-Pro-B Natriuret Pep 96151 H Impressions: Hip X-Ray 11/24/18 00:00 IMPRESSION: Osteopenia. No acute osseous abnormality copyright 2010 [employer]- All Rights Reserved Pelvis MRI 11/24/18 00:00 IMPRESSION: No MR evidence of osteomyelitis. Diffuse abnormal signal of the subcutaneous tissue could represent edema versus cellulitis. Renal Ultrasound 11/24/18 00:00 IMPRESSION: CHRONIC MEDICAL RENAL DISEASE. NO HYDRONEPHROSIS. Assessment & Plan - Diagnosis (1) Acute on chronic renal failure Is this a current diagnosis for this admission?: Yes Plan: Patient appears to be somewhat oliguric. However she does not have any signs of fluid overload. She does not have any other signs of uremia either. Kidney function is unchanged and steady. No indication for any urgent initiation of renal replacement therapy at this time. Continue to monitor kidney function. (2) Decubitus ulcer Qualifiers: Pressure injury location: sacral region Pressure injury stage: stage 4 Qualified Code(s): L89.154 - Pressure ulcer of sacral region, stage 4 Is this a current diagnosis for this admission?: Yes Plan: On IV antibiotics. Surgery following. (3) HTN (hypertension) Is this a current diagnosis for this admission?: Yes (4) Anemia Is this a current diagnosis for this admission?: Yes Plan: Her T sat is mildly elevated at 17, iron at 39.2 and ferritin of 220. I will give her a dose of IV Injectafer. We will also give her Procrit 20,000 units subcutaneously. Continue oral ferrous sulfate and thereafter. Check stool for occult blood. (5) CKD (chronic kidney disease), stage IV Is this a current diagnosis for this admission?: Yes Plan: I reiterated again to the patient that she is nearing to the point that she would need to be initiated with possible chronic renal replacement therapy depending on how her kidney function improves. I urged her to think about that he dialysis options. I do not think she is a candidate for home peritoneal dialysis and I recommend that she does hemodialysis if ever. (6) Hyponatremia Is this a current diagnosis for this admission?: Yes Plan: Improving. (7) Diabetes mellitus type 2 in nonobese Is this a current diagnosis for this admission?: Yes (8) Vitamin D deficiency Is this a current diagnosis for this admission?: Yes Plan: Start vitamin D 2000 units daily. Check PTH. (9) Metabolic acidosis Is this a current diagnosis for this admission?: Yes Plan: Mild. Monitor for now. - Time Time with patient: Greater than 35 minutes
[2018-11-26] MEDS ORDERED: DOCUSATE SODIUM 100 MG CAPSULE PO PRN (11:09)
[2018-11-26] MEDS ORDERED: VANCOMYCIN HCL 0 MG in DEXTROSE 5%-WATER 250 ML IV NR (11:15)
[2018-11-26] MEDS ORDERED: EPOETIN ALFA INJ 20000 UNIT/1 ML VIAL (RENAL) SUBCUT ONE (12:00)
[2018-11-26] MEDS: CHOLECALCIFEROL (D3) 1,000 UNIT (25 MCG) TABLET PO SCH (12:20)
[2018-11-26] MEDS ORDERED: INSULIN REG, HUMAN 100 UNIT/ML 3 ML VIAL (PYX) ONE (12:26)
[2018-11-26] MEDS ORDERED: FERRIC CARBOXYMALTOSE 750 MG in NORMAL SALINE 250 ML IV ONE (14:00)
[2018-11-26] MEDS ORDERED: HYDRALAZINE HCL INJ/PF 20 MG/1 ML SDV IV PRN (14:29)
--- NOTE | 2018-11-26 14:34 | PDOC PROGRESS REPORT ---
Subjective Progress Note for:: 11/26/18 Subjective:: 62 year old female with history of atrial fibrillation on warfarin, diabetes mellitus type 2, hypertension, right BKA, hyperlipidemia, and TIAs who was admitted for infected sacral decubitus ulcers. The patient was briefly seen on morning rounds and then checked on again later on this afternoon. Upon my first assessment I found her to be lying semi- Fowlers with right tilt. She was not noted to be in any acute distress, alert and oriented x4, but with large volume of emesis to her bed. Patient denied nausea prior to vomiting; denies abdominal discomfort, dyspepsia, constipation and diarrhea. When checked on again this afternoon, the patient stated she was feeling well. She denies further episodes of emesis; continues to deny nausea, abdominal pain, diarrhea, constipation. She further denies fever, chills, headache, dizziness, chest pain, palpitation, dyspnea, orthopnea, cough, discomfort to her sacral wound. She reports that she is ambulatory at home does not stay sedentary in chair or wheelchair for long periods of time. This morning she reports that she was able to ambulate approximately 20 feet with physical therapy. She indicates that her goal is to discharge to SNF for continued rehab and wound care. She has no further questions or concerns at this time. No concerns per nursing. Reason For Visit: INFECTED DECUBITUS ULCER Physical Exam Vital Signs: Temp Pulse Resp BP Pulse Ox 98.4 F 83 22 H 152/58 H 99 11/26/18 11:25 11/26/18 11:25 11/26/18 11:25 11/26/18 11:25 11/26/18 11:25 Intake & Output 11/25/18 11/26/18 11/27/18 06:59 06:59 06:59 Intake Total 1450 1450 100 Output Total 500 350 Balance 950 1100 100 Weight 70.4 kg 64.5 kg General appearance: PRESENT: no acute distress, cooperative, disheveled, well- developed, well-nourished - overweight Head exam: PRESENT: atraumatic, normocephalic Eye exam: PRESENT: conjunctiva pink, EOMI, PERRLA. ABSENT: scleral icterus Ear exam: PRESENT: normal external ear exam Mouth exam: PRESENT: moist, tongue midline Teeth exam: PRESENT: poor dentation Neck exam: ABSENT: carotid bruit, JVD, lymphadenopathy, thyromegaly Respiratory exam: PRESENT: clear to auscultation gustavo, symmetrical, unlabored. ABSENT: rales, rhonchi, wheezes Cardiovascular exam: PRESENT: RRR. ABSENT: diastolic murmur, rubs, systolic murmur Pulses: PRESENT: normal dorsalis pedis pul Vascular exam: PRESENT: normal capillary refill GI/Abdominal exam: PRESENT: normal bowel sounds, soft. ABSENT: distended, guarding, mass, organolmegaly, rebound, tenderness Rectal exam: PRESENT: deferred Gentrourinary exam: PRESENT: indwelling catheter Extremities exam: PRESENT: full ROM. ABSENT: calf tenderness, clubbing, pedal edema Musculoskeletal exam: PRESENT: other - Right BKA with prosthetic Neurological exam: PRESENT: alert, awake, oriented to person, oriented to place, oriented to time, oriented to situation, CN II-XII grossly intact. ABSENT: motor sensory deficit Psychiatric exam: PRESENT: appropriate affect, normal mood. ABSENT: homicidal ideation, suicidal ideation Skin exam: PRESENT: dry, intact, warm. ABSENT: cyanosis, rash Results Laboratory Results: 11/26/18 05:50 11/26/18 05:50 11/26/18 11/26/18 11/26/18 05:50 05:50 05:50 WBC 5.6 RBC 2.94 L Hgb 8.7 L Hct 26.0 L MCV 88 MCH 29.7 MCHC 33.6 RDW 15.3 H Plt Count 262 Seg Neutrophils % 66.6 Lymphocytes % 21.2 Monocytes % 8.5 Eosinophils % 3.0 Basophils % 0.7 Absolute Neutrophils 3.7 Absolute Lymphocytes 1.2 Absolute Monocytes 0.5 Absolute Eosinophils 0.2 Absolute Basophils 0.0 Retic Count (auto) 1.24 Absolute Retic 0.036 Sodium 134.9 L Potassium 4.4 Chloride 107 Carbon Dioxide 19 L Anion Gap 9 BUN 68 H Creatinine 3.46 H Est GFR ( Amer) 16 L Est GFR (Non-Af Amer) 13 L Glucose 134 H Calcium 8.5 Phosphorus 5.3 H Magnesium 1.8 Iron 39.2 TIBC 231 L % Saturation 17 Ferritin 220.00 Total Bilirubin 0.4 AST 16 ALT 21 Alkaline Phosphatase 83 Total Protein 5.7 L Albumin 2.5 L Vitamin B12 957.0 H Folate > 20.00 PTH Intact Cancelled 11/24/18 11/24/18 11/25/18 14:20 14:20 00:44 Creatine Kinase 210 H 158 H CK-MB (CK-2) 3.22 Troponin I 0.065 NT-Pro-B Natriuret Pep 11/25/18 11/25/18 11/25/18 00:44 05:59 05:59 Creatine Kinase 134 CK-MB (CK-2) 2.99 2.67 Troponin I 0.056 0.062 NT-Pro-B Natriuret Pep 29946 H Impressions: Hip X-Ray 11/24/18 00:00 IMPRESSION: Osteopenia. No acute osseous abnormality copyright 2010 [email or web address]- All Rights Reserved Pelvis MRI 11/24/18 00:00 IMPRESSION: No MR evidence of osteomyelitis. Diffuse abnormal signal of the subcutaneous tissue could represent edema versus cellulitis. Renal Ultrasound 11/24/18 00:00 IMPRESSION: CHRONIC MEDICAL RENAL DISEASE. NO HYDRONEPHROSIS. Assessment and Plan - Diagnosis (1) Decubitus ulcer Qualifiers: Pressure injury location: sacral region Pressure injury stage: stage 4 Qualified Code(s): L89.154 - Pressure ulcer of sacral region, stage 4 Is this a current diagnosis for this admission?: Yes Plan: Now POD #2 surgical debridement. MRI was negative for osteomyelitis. Blood cultures are negative at 24 hours. Wound cultures are pending. Patient is admitted to the medical floor and continuous cardiac telemetry. She is empirically placed on IV Zosyn and vancomycin; patient does have history of MRSA. Surgery is consulted; appreciate their expertise. Discharge planning is consulted; anticipate patient will require SNF and possibly wound VAC at discharge. (2) Acute on chronic renal failure Is this a current diagnosis for this admission?: Yes Plan: Improved. Patient has baseline creatinine of 3.03; she is admitted with creatinine of 3.57. She is noted to be somewhat oliguric; 350 output today. No evidence of fluid overload; no dependent edema and clear lung sounds. Nephrology is consulted; appreciate Dr. Roberson's assistance. Avoid nephrotoxic medications as able. Pharmacy to dose vancomycin. Continue gentle IV fluids. Holding home dose diuretics. Daily chemistries. (3) HTN (hypertension) Is this a current diagnosis for this admission?: Yes Plan: Patient is noted to have hypertension; blood pressures 150/58 today. Cardiac consistent carb diet. Continue home dose diltiazem. IV hydralazine as needed for blood pressure control. (4) Anemia Qualifiers: Anemia type: due to chronic kidney disease Chronic kidney disease stage: stage 3 (moderate) Qualified Code(s): N18.3 - Chronic kidney disease, stage 3 (moderate); D63.1 - Anemia in chronic kidney disease Is this a current diagnosis for this admission?: Yes Plan: Anemia of chronic disease secondary to CKD 3. s/p 1 unit PRBC Occult stool pending. No evidence of active bleeding at this time. Nephrology is consulted; appreciate Dr. Roberson's assistance. Has received IV Venofer here. Continue p.o. ferrous sulfate supplementation. (5) Diabetes mellitus Qualifiers: Diabetes mellitus type: type 2 Diabetes mellitus intermediate card tender insulin use: with intermediate card tender use Chronic kidney disease stage: stage 3 (moderate) Is this a current diagnosis for this admission?: Yes Plan: A1C 8.2% Patient is placed on a consistent carb/cardiac diet. Accu-Cheks AC and at bedtime with Humalog for sliding scale coverage. Continue home dose long-acting insulin. Hypoglycemia protocol in place. Registered dietitian and asthma educator consulted. (6) Paroxysmal atrial fibrillation Is this a current diagnosis for this admission?: No Plan: Patient has history of paroxysmal atrial fibrillation on Coumadin at home INR t dez is 3.45 Hold coumadin and repeat the PT/INR tomorrow. Continue home dose diltiazem (7) Supratherapeutic INR Is this a current diagnosis for this admission?: Yes Plan: Coumadin for PAF; goal 2-3 INR 3.05-> 3.45-> 3.35 Continue to hold coumadin. Daily PT/INR - Time Time Spent with patient: 25-34 minutes Medications reviewed and adjusted accordingly: Yes Anticipated discharge: SNF Within: Other - >72 hrs; pending culture results and surgical clearance. - Inpatient Certification Based on my medical assessment, after consideration of the patient's comorbidities, presenting symptoms, or acuity I expect that the services needed warrant INPATIENT care.: Yes I certify that my determination is in accordance with my understanding of Medicare's requirements for reasonable and necessary INPATIENT services [42 CFR 412.3e].: Yes Medical Necessity: Need for IV Antibiotics, Need for Surgery, Risk of Diagnosis Which Will Require Inpatient Eval/Care/Monitoring
[2018-11-26] MEDS ORDERED: VANCOMYCIN HCL 1,000 MG in DEXTROSE 5%-WATER 250 ML IV SCH (15:00)
[2018-11-26] MEDS ORDERED: INSULIN REG, HUMAN 100 UNIT/ML 3 ML VIAL (PYX) SUBCUT SCH (16:00)
[2018-11-26] MEDS: ATORVASTATIN CALCIUM 40 MG TABLET PO SCH (22:35)
[2018-11-27 05:12] LABS: ABSOLUTE BASOPHILS # (AUTO) 0.1 10^3/uL (0.0-0.2); ABSOLUTE EOSINOPHILS # (AUTO) 0.1 10^3/uL (0.0-0.6); ABSOLUTE LYMPHOCYTES (AUTO) 0.9 10^3/uL (0.5-4.7); ABSOLUTE MONOCYTES (AUTO) 0.6 10^3/uL (0.1-1.4); ABSOLUTE NEUT (AUTO) 4.1 10^3/uL (1.7-8.2); BASOPHILS % (AUTO) 0.9 % (0-2); EOSINOPHILS % (AUTO) 2.5 % (0-6); HEMATOCRIT 25.5 % (36.0-47.0); HEMOGLOBIN 8.6 g/dL (12.0-15.5); LYMPHOCYTES % (AUTO) 16.2 % (13-45); MEAN CORPUSCULAR HEMOGLOBIN 30.1 pg (27.0-33.4); MEAN CORPUSCULAR HGB CONC 33.8 g/dL (32.0-36.0); MEAN CORPUSCULAR VOLUME 89 fl (80-97); MONOCYTES % (AUTO) 10.1 % (3-13); PLATELET COUNT 242 10^3/uL (150-450); RED BLOOD COUNT 2.86 10^6/uL (3.72-5.28); RED CELL DISTRIBUTION WIDTH 15.6 % (11.5-14.0); SEGMENTED NEUTROPHILS % (AUTO) 70.3 % (42-78); TOTAL CELLS COUNTED % (AUTO) 100 %; WHITE BLOOD COUNT 5.8 10^3/uL (4.0-10.5)
[2018-11-27 05:17] LABS: INTERNATIONAL RATION (INR) 3.47; PROTHROMBIN TIME 36.5 SEC (11.4-15.4)
[2018-11-27] MEDS: PIPERACILLIN SODIUM/TAZOBACTAM 2.25 GM in NORMAL SALINE 50 ML IV SCH ×3 (05:22→17:59)
[2018-11-27 05:33] LABS: ANION GAP 9 (5-19); BLOOD UREA NITROGEN 61 mg/dL (7-20); CALCIUM 8.4 mg/dL (8.4-10.2); CARBON DIOXIDE 16 mmol/L (22-30); CHLORIDE 110 mmol/L (98-107); GLUCOSE 193 mg/dL (75-110); POTASSIUM 4.3 mmol/L (3.6-5.0); SODIUM 134.8 mmol/L (137-145)
[2018-11-27] MEDS: INSULIN REG, HUMAN 100 UNIT/ML 3 ML VIAL (PYX) SUBCUT SCH ×4 (08:27→22:53)
[2018-11-27] MEDS: FERROUS SULFATE 325 MG TABLET PO SCH ×2 (10:18→17:58)
[2018-11-27] MEDS: MULTIVITAMIN TABLET PO SCH (10:18)
[2018-11-27] MEDS: NORMAL SALINE 1000 ML 1,000 ML IV PRN ×2 (10:18→22:00)
[2018-11-27] MEDS: CHOLECALCIFEROL (D3) 1,000 UNIT (25 MCG) TABLET PO SCH (10:18)
[2018-11-27] MEDS: FOLIC ACID/VITAMIN B COMP W-C CAPSULE PO SCH (10:18)
[2018-11-27] MEDS: FAMOTIDINE 20 MG TABLET PO SCH (10:18)
[2018-11-27] MEDS: DILTIAZEM HCL 30 MG TABLET PO SCH ×3 (10:18→17:58)
[2018-11-27] MEDS: CALCITRIOL 0.25 MCG CAPSULE PO SCH (10:18)
[2018-11-27] MEDS: PANTOPRAZOLE SODIUM 40 MG VIAL IV SCH (10:19)
--- NOTE | 2018-11-27 12:01 | PDOC PROGRESS REPORT ---
Subjective Progress Note for:: 11/27/18 Subjective:: Patient is hemodynamically stable. He does not have any new complaints. She made a good amount of urine output for the last 24 hours at around 2225 mL. She said she is eating and drinking fluids. She does not have any other new complaints. Reason For Visit: INFECTED DECUBITUS ULCER Physical Exam Vital Signs: Temp Pulse Resp BP Pulse Ox 98.3 F 82 18 149/61 H 98 11/27/18 07:28 11/27/18 07:28 11/27/18 07:28 11/27/18 07:28 11/27/18 07:28 Intake & Output 11/26/18 11/27/18 11/28/18 06:59 06:59 06:59 Intake Total 1450 2325 1050 Output Total 350 2225 Balance 9531 333 6584 Weight 64.5 kg 67.7 kg Exam: General appearance: PRESENT: no acute distress, cooperative, well-developed, well-nourished Head exam: PRESENT: atraumatic, normocephalic Eye exam: PRESENT: conjunctiva pale, PERRLA. ABSENT: scleral icterus Neck exam: ABSENT: JVD Respiratory exam: PRESENT: Normal breath sounds. ABSENT: crackles, rales, rhonchi, unlabored, wheezes Cardiovascular exam: PRESENT: Regular rate rhythm -+S1, +S2. ABSENT: diastolic murmur, systolic murmur GI/Abdominal exam: PRESENT: normal bowel sounds, soft. ABSENT: guarding, mass, tenderness Extremities exam: Trace left lower extremity edema; right BKA with prosthesis Neurological exam: PRESENT: alert, awake, oriented to person, place and time. Skin exam: PRESENT: dry, warm, Results Laboratory Results: 11/27/18 04:48 11/27/18 04:48 11/26/18 11/27/18 11/27/18 18:00 04:48 04:48 WBC 5.8 RBC 2.86 L Hgb 8.6 L Hct 25.5 L MCV 89 MCH 30.1 MCHC 33.8 RDW 15.6 H Plt Count 242 Seg Neutrophils % 70.3 Lymphocytes % 16.2 Monocytes % 10.1 Eosinophils % 2.5 Basophils % 0.9 Absolute Neutrophils 4.1 Absolute Lymphocytes 0.9 Absolute Monocytes 0.6 Absolute Eosinophils 0.1 Absolute Basophils 0.1 Sodium 134.8 L Potassium 4.3 Chloride 110 H Carbon Dioxide 16 L Anion Gap 9 BUN 61 H Creatinine 3.26 H Est GFR ( Amer) 17 L Est GFR (Non-Af Amer) 14 L Glucose 193 H Calcium 8.4 PTH Intact Stool Occult Blood NEGATIVE 11/27/18 04:48 WBC RBC Hgb Hct MCV MCH MCHC RDW Plt Count Seg Neutrophils % Lymphocytes % Monocytes % Eosinophils % Basophils % Absolute Neutrophils Absolute Lymphocytes Absolute Monocytes Absolute Eosinophils Absolute Basophils Sodium Potassium Chloride Carbon Dioxide Anion Gap BUN Creatinine Est GFR ( Amer) Est GFR (Non-Af Amer) Glucose Calcium PTH Intact 234.7 H Stool Occult Blood 11/25/18 14:30 Catheterized Urine Urine Culture - Final NO GROWTH 2 DAYS 11/24/18 11/24/18 11/25/18 14:20 14:20 00:44 Creatine Kinase 210 H 158 H CK-MB (CK-2) 3.22 Troponin I 0.065 NT-Pro-B Natriuret Pep 11/25/18 11/25/18 11/25/18 00:44 05:59 05:59 Creatine Kinase 134 CK-MB (CK-2) 2.99 2.67 Troponin I 0.056 0.062 NT-Pro-B Natriuret Pep 32962 H Impressions: Hip X-Ray 11/24/18 00:00 IMPRESSION: Osteopenia. No acute osseous abnormality copyright 2011 [employer]- All Rights Reserved Pelvis MRI 11/24/18 00:00 IMPRESSION: No MR evidence of osteomyelitis. Diffuse abnormal signal of the subcutaneous tissue could represent edema versus cellulitis. Renal Ultrasound 11/24/18 00:00 IMPRESSION: CHRONIC MEDICAL RENAL DISEASE. NO HYDRONEPHROSIS. Assessment & Plan - Diagnosis (1) Acute on chronic renal failure Is this a current diagnosis for this admission?: Yes Plan: Urine output improved yesterday. She does not have any other signs of uremia no fluid overload either. Kidney function is very slowly improving. No indication for any urgent initiation of renal replacement therapy at this time. Continue to monitor kidney function. (2) Decubitus ulcer Qualifiers: Pressure injury location: sacral region Pressure injury stage: stage 4 Qualified Code(s): L89.154 - Pressure ulcer of sacral region, stage 4 Is this a current diagnosis for this admission?: Yes Plan: On IV antibiotics. Surgery following. (3) HTN (hypertension) Is this a current diagnosis for this admission?: Yes (4) Anemia Qualifiers: Anemia type: due to chronic kidney disease Chronic kidney disease stage: stage 3 (moderate) Qualified Code(s): N18.3 - Chronic kidney disease, stage 3 (moderate); D63.1 - Anemia in chronic kidney disease Is this a current diagnosis for this admission?: Yes Plan: Her TSat is mildly decreased at 17, iron at 39.2 and ferritin of 220. Stool for occult blood is negative. Patient received IV Injectafer and Procrit of 20,000 units yesterday, 618. Patient most likely need Procrit every 1 to 2 weeks once discharged. (5) CKD (chronic kidney disease), stage IV Is this a current diagnosis for this admission?: Yes Plan: I reiterated again to the patient that she is nearing to the point that she would need to be initiated with possible chronic renal replacement therapy depending on how her kidney function improves. She indicated that she would go for hemodialysis if needed. I do not think she is a candidate for home peritoneal dialysis and I recommend that she does hemodialysis if ever. (6) Hyponatremia Is this a current diagnosis for this admission?: Yes Plan: Unchanged and stable. (7) Diabetes mellitus type 2 in nonobese Is this a current diagnosis for this admission?: Yes (8) Vitamin D deficiency Is this a current diagnosis for this admission?: Yes Plan: Started vitamin D 2000 units daily. (9) Metabolic acidosis Is this a current diagnosis for this admission?: Yes Plan: Slightly worse likely exacerbated by IV fluids. Start sodium bicarbonate p.o. every 12. (10) Secondary hyperparathyroidism (of renal origin) Is this a current diagnosis for this admission?: Yes Plan: We will correct vitamin D level first before starting any other medication.. (11) Nephrotic range proteinuria Is this a current diagnosis for this admission?: Yes Plan: Most likely secondary to diabetic nephropathy. Will check protein electrophoresis. - Time Time with patient: 15-25 minutes
[2018-11-27] MEDS: SODIUM BICARBONATE 650 MG TABLET PO SCH ×2 (12:14→22:53)
--- NOTE | 2018-11-27 18:21 | PDOC PROGRESS REPORT ---
Subjective Progress Note for:: 11/27/18 Subjective:: 62 year old female with history of atrial fibrillation on warfarin, diabetes mellitus type 2, hypertension, right BKA, hyperlipidemia, and TIAs who was admitted for infected sacral decubitus ulcers. The patient was seen on afternoon rounds with nursing present. She again had an episode of emesis following a meal, not preceded by nausea. She continues to deny abdominal pain, diarrhea, and constipation. Otherwise, she reports that she is feeling better and has no new questions or concerns. She further denies fever, chills, headache, dizziness, chest pain, palpitation, dyspnea, orthopnea, cough, discomfort to her sacral wound. She indicates that her goal is to discharge to SNF for continued rehab and wound care. She has no further questions or concerns at this time. Nursing questions whether or not the patient may have esophageal stricture contributing to her postprandial emesis; request speech therapy's consultation. Reason For Visit: INFECTED DECUBITUS ULCER Physical Exam Vital Signs: Temp Pulse Resp BP Pulse Ox 98.3 F 89 18 163/80 H 98 11/27/18 11:24 11/27/18 14:00 11/27/18 11:24 11/27/18 11:24 11/27/18 11:24 Intake & Output 11/26/18 11/27/18 11/28/18 06:59 06:59 06:59 Intake Total 1450 2325 1220 Output Total 350 2225 300 Balance 1100 100 920 Weight 64.5 kg 67.7 kg General appearance: PRESENT: no acute distress, cooperative, disheveled, well- developed, well-nourished - Overweight Head exam: PRESENT: atraumatic, normocephalic Eye exam: PRESENT: conjunctiva pink, EOMI, PERRLA. ABSENT: scleral icterus Ear exam: PRESENT: normal external ear exam Mouth exam: PRESENT: moist, tongue midline Teeth exam: PRESENT: poor dentation Neck exam: ABSENT: carotid bruit, JVD, lymphadenopathy, thyromegaly Respiratory exam: PRESENT: clear to auscultation gustavo, symmetrical, unlabored. ABSENT: rales, rhonchi, wheezes Cardiovascular exam: PRESENT: RRR. ABSENT: diastolic murmur, rubs, systolic murmur Pulses: PRESENT: normal dorsalis pedis pul Vascular exam: PRESENT: normal capillary refill GI/Abdominal exam: PRESENT: normal bowel sounds, soft. ABSENT: distended, guarding, mass, organolmegaly, rebound, tenderness Rectal exam: PRESENT: deferred Gentrourinary exam: PRESENT: indwelling catheter Extremities exam: PRESENT: full ROM. ABSENT: calf tenderness, clubbing, pedal edema Musculoskeletal exam: PRESENT: other - Right BKA Neurological exam: PRESENT: alert, awake, oriented to person, oriented to place, oriented to time, oriented to situation, CN II-XII grossly intact. ABSENT: motor sensory deficit Psychiatric exam: PRESENT: normal mood, unusual affect. ABSENT: homicidal ideation, suicidal ideation Skin exam: PRESENT: dry, warm, other - Sacral decubitus ulcer visualized; eschar noted to the left lateral border, no drainage present.. ABSENT: cyanosis, rash Results Laboratory Results: 11/27/18 04:48 11/27/18 04:48 11/26/18 11/27/18 11/27/18 18:00 04:48 04:48 WBC 5.8 RBC 2.86 L Hgb 8.6 L Hct 25.5 L MCV 89 MCH 30.1 MCHC 33.8 RDW 15.6 H Plt Count 242 Seg Neutrophils % 70.3 Lymphocytes % 16.2 Monocytes % 10.1 Eosinophils % 2.5 Basophils % 0.9 Absolute Neutrophils 4.1 Absolute Lymphocytes 0.9 Absolute Monocytes 0.6 Absolute Eosinophils 0.1 Absolute Basophils 0.1 Sodium 134.8 L Potassium 4.3 Chloride 110 H Carbon Dioxide 16 L Anion Gap 9 BUN 61 H Creatinine 3.26 H Est GFR ( Amer) 17 L Est GFR (Non-Af Amer) 14 L Glucose 193 H Calcium 8.4 PTH Intact Stool Occult Blood NEGATIVE 11/27/18 04:48 WBC RBC Hgb Hct MCV MCH MCHC RDW Plt Count Seg Neutrophils % Lymphocytes % Monocytes % Eosinophils % Basophils % Absolute Neutrophils Absolute Lymphocytes Absolute Monocytes Absolute Eosinophils Absolute Basophils Sodium Potassium Chloride Carbon Dioxide Anion Gap BUN Creatinine Est GFR ( Amer) Est GFR (Non-Af Amer) Glucose Calcium PTH Intact 234.7 H Stool Occult Blood 11/24/18 16:49 Decubitis Ulcer - Buttocks Gram Stain - Final 11/25/18 14:30 Catheterized Urine Urine Culture - Final NO GROWTH 2 DAYS 06/16/19 06/16/19 06/17/19 14:20 14:20 00:44 Creatine Kinase 210 H 158 H CK-MB (CK-2) 3.22 Troponin I 0.065 NT-Pro-B Natriuret Pep 11/25/18 11/25/18 11/25/18 00:44 05:59 05:59 Creatine Kinase 134 CK-MB (CK-2) 2.99 2.67 Troponin I 0.056 0.062 NT-Pro-B Natriuret Pep 69943 H Impressions: Hip X-Ray 11/24/18 00:00 IMPRESSION: Osteopenia. No acute osseous abnormality copyright 2010 [employer]- All Rights Reserved Pelvis MRI 11/24/18 00:00 IMPRESSION: No MR evidence of osteomyelitis. Diffuse abnormal signal of the subcutaneous tissue could represent edema versus cellulitis. Renal Ultrasound 11/24/18 00:00 IMPRESSION: CHRONIC MEDICAL RENAL DISEASE. NO HYDRONEPHROSIS. Assessment and Plan - Diagnosis (1) Decubitus ulcer Qualifiers: Pressure injury location: sacral region Pressure injury stage: stage 4 Qualified Code(s): L89.154 - Pressure ulcer of sacral region, stage 4 Is this a current diagnosis for this admission?: Yes Plan: Now POD #2 surgical debridement. MRI was negative for osteomyelitis. Blood cultures are negative at 72 hours. Wound cultures (final) demonstrated skin teri. Patient is admitted to the medical floor and continuous cardiac telemetry. She was empirically placed on IV Zosyn and vancomycin; as cultures have resulted negative, patient remains afebrile with normal WBC, will discontinue antibiotics today. Surgery is consulted; appreciate their expertise. Will ask surgery to reevaluate the wound tomorrow and make wound care recommendations in anticipation of discharge within the next 24 to 48 hours. Discharge planning is consulted; anticipate patient will require SNF and possibly wound VAC at discharge. (2) Acute on chronic renal failure Is this a current diagnosis for this admission?: Yes Plan: Improved; 3.57-> 3.26. Patient has baseline creatinine of 3.03 Improved urinary output; 2.5 L in last 24 hours. No evidence of fluid overload; no dependent edema and clear lung sounds. Nephrology is consulted; appreciate Dr. Roberson's assistance. Avoid nephrotoxic medications as able. Pharmacy to dose vancomycin. Continue gentle IV fluids. Holding home dose diuretics. Daily chemistries. (3) HTN (hypertension) Is this a current diagnosis for this admission?: Yes Plan: Patient is noted to have hypertension; blood pressures 163/80 today. Cardiac consistent carb diet. Continue home dose diltiazem. Currently holding home dose furosemide and lisinopril secondary to ANDREA. IV hydralazine as needed for blood pressure control. (4) Anemia Qualifiers: Anemia type: due to chronic kidney disease Chronic kidney disease stage: stage 3 (moderate) Qualified Code(s): N18.3 - Chronic kidney disease, stage 3 (moderate); D63.1 - Anemia in chronic kidney disease Is this a current diagnosis for this admission?: Yes Plan: Anemia of chronic disease secondary to CKD 3. s/p 1 unit PRBC Occult stool negative. No evidence of active bleeding at this time. Nephrology is consulted; appreciate Dr. Roberson's assistance. Has received IV Venofer here. Continue p.o. ferrous sulfate supplementation. (5) Diabetes mellitus Qualifiers: Diabetes mellitus type: type 2 Diabetes mellitus exterminator termite insulin use: with exterminator termite use Chronic kidney disease stage: stage 3 (moderate) Is this a current diagnosis for this admission?: Yes Plan: A1C 8.2% Patient is placed on a consistent carb/cardiac diet. Accu-Cheks AC and at bedtime with Humalog for sliding scale coverage. Continue home dose long-acting insulin. Hypoglycemia protocol in place. Registered dietitian and special educator consulted. (6) Paroxysmal atrial fibrillation Is this a current diagnosis for this admission?: No Plan: Patient has history of paroxysmal atrial fibrillation on Coumadin INR today is 3.05-> 3.45-> 3.35-> 3.47; continues to trend up despite medication being held. Continue home dose diltiazem (7) Supratherapeutic INR Is this a current diagnosis for this admission?: Yes Plan: Coumadin for PAF; goal 2-3 INR today is 3.05-> 3.45-> 3.35-> 3.47; continues to trend up despite medication being held. Will ensure that the patient is not taking home medication while admitted. Continue to hold coumadin and repeat the PT/INR tomorrow. Will provide one-time dose of p.o. vitamin K. - Time Time Spent with patient: 25-34 minutes Medications reviewed and adjusted accordingly: Yes Anticipated discharge: SNF Within: within 48 hours
[2018-11-27] MEDS ORDERED: PHYTONADIONE 5 MG TABLET PO ONE (19:30)
[2018-11-27] MEDS: ATORVASTATIN CALCIUM 40 MG TABLET PO SCH (22:53)
[2018-11-28 06:32] LABS: ABSOLUTE BASOPHILS # (AUTO) 0.1 10^3/uL (0.0-0.2); ABSOLUTE MONOCYTES (AUTO) 0.7 10^3/uL (0.1-1.4); BASOPHILS % (AUTO) 0.8 % (0-2); EOSINOPHILS % (AUTO) 0.6 % (0-6); HEMATOCRIT 25.4 % (36.0-47.0); HEMOGLOBIN 8.5 g/dL (12.0-15.5); INTERNATIONAL RATION (INR) 3.03; LYMPHOCYTES % (AUTO) 12.9 % (13-45); MEAN CORPUSCULAR HEMOGLOBIN 29.8 pg (27.0-33.4); MEAN CORPUSCULAR HGB CONC 33.3 g/dL (32.0-36.0); MEAN CORPUSCULAR VOLUME 90 fl (80-97); MONOCYTES % (AUTO) 8.8 % (3-13); PLATELET COUNT 264 10^3/uL (150-450); PROTHROMBIN TIME 32.8 SEC (11.4-15.4); RED BLOOD COUNT 2.84 10^6/uL (3.72-5.28); RED CELL DISTRIBUTION WIDTH 15.8 % (11.5-14.0); SEGMENTED NEUTROPHILS % (AUTO) 76.9 % (42-78); TOTAL CELLS COUNTED % (AUTO) 100 %; WHITE BLOOD COUNT 7.8 10^3/uL (4.0-10.5)
[2018-11-28 06:50] LABS: ANION GAP 11 (5-19); BLOOD UREA NITROGEN 46 mg/dL (7-20); CALCIUM 8.8 mg/dL (8.4-10.2); CARBON DIOXIDE 16 mmol/L (22-30); CHLORIDE 110 mmol/L (98-107); GLUCOSE 150 mg/dL (75-110); POTASSIUM 4.1 mmol/L (3.6-5.0); SODIUM 136.8 mmol/L (137-145)
[2018-11-28] MEDS: INSULIN REG, HUMAN 100 UNIT/ML 3 ML VIAL (PYX) SUBCUT SCH ×4 (07:51→22:22)
--- NOTE | 2018-11-28 09:59 | PDOC PROGRESS REPORT ---
Subjective Progress Note for:: 11/28/18 Subjective:: no pains Reason For Visit: INFECTED DECUBITUS ULCER Physical Exam Vital Signs: Temp Pulse Resp BP Pulse Ox 97.2 F 82 17 175/68 H 96 11/28/18 07:38 11/28/18 07:38 11/28/18 07:38 11/28/18 07:38 11/28/18 07:38 Intake & Output 11/27/18 11/28/18 11/29/18 06:59 06:59 06:59 Intake Total 2325 2935 Output Total 2225 1800 Balance 100 1135 Weight 67.7 kg 70.7 kg Exam: sacral decud looks dry and relatively clean Results Laboratory Results: 11/28/18 05:14 11/28/18 05:14 11/28/18 11/28/18 05:14 05:14 WBC 7.8 RBC 2.84 L Hgb 8.5 L Hct 25.4 L MCV 90 MCH 29.8 MCHC 33.3 RDW 15.8 H Plt Count 264 Seg Neutrophils % 76.9 Lymphocytes % 12.9 L Monocytes % 8.8 Eosinophils % 0.6 Basophils % 0.8 Absolute Neutrophils 6.0 Absolute Lymphocytes 1.0 Absolute Monocytes 0.7 Absolute Eosinophils 0.0 Absolute Basophils 0.1 Sodium 136.8 L Potassium 4.1 Chloride 110 H Carbon Dioxide 16 L Anion Gap 11 BUN 46 H Creatinine 3.30 H Est GFR ( Amer) 17 L Est GFR (Non-Af Amer) 14 L Glucose 150 H Calcium 8.8 11/24/18 16:49 Decubitis Ulcer - Buttocks Gram Stain - Final 11/25/18 14:30 Catheterized Urine Urine Culture - Final NO GROWTH 2 DAYS 11/24/18 11/24/18 11/25/18 14:20 14:20 00:44 Creatine Kinase 210 H 158 H CK-MB (CK-2) 3.22 Troponin I 0.065 NT-Pro-B Natriuret Pep 11/25/18 11/25/18 11/25/18 00:44 05:59 05:59 Creatine Kinase 134 CK-MB (CK-2) 2.99 2.67 Troponin I 0.056 0.062 NT-Pro-B Natriuret Pep 50261 H Impressions: Hip X-Ray 11/24/18 00:00 IMPRESSION: Osteopenia. No acute osseous abnormality copyright 2011 [employer]- All Rights Reserved Pelvis MRI 11/24/18 00:00 IMPRESSION: No MR evidence of osteomyelitis. Diffuse abnormal signal of the subcutaneous tissue could represent edema versus cellulitis. Renal Ultrasound 11/24/18 00:00 IMPRESSION: CHRONIC MEDICAL RENAL DISEASE. NO HYDRONEPHROSIS. Assessment & Plan - Time Time Spent with patient: 15-24 minutes - Plan Summary Plan Summary: Continue with wet to dry dressings to sacral decub and turning to sides to prevent pressure on sacral area Should continue with good nutrition.
[2018-11-28] MEDS: CALCITRIOL 0.25 MCG CAPSULE PO SCH (11:07)
[2018-11-28] MEDS: FAMOTIDINE 20 MG TABLET PO SCH (11:07)
[2018-11-28] MEDS: DILTIAZEM HCL 30 MG TABLET PO SCH ×3 (11:07→18:04)
[2018-11-28] MEDS: SODIUM BICARBONATE 650 MG TABLET PO SCH ×2 (11:07→22:22)
[2018-11-28] MEDS: CHOLECALCIFEROL (D3) 1,000 UNIT (25 MCG) TABLET PO SCH (11:07)
[2018-11-28] MEDS: FERROUS SULFATE 325 MG TABLET PO SCH ×2 (11:07→18:04)
[2018-11-28] MEDS: MULTIVITAMIN TABLET PO SCH (11:07)
[2018-11-28] MEDS: FOLIC ACID/VITAMIN B COMP W-C CAPSULE PO SCH (11:08)
--- NOTE | 2018-11-28 11:28 | PDOC PROGRESS REPORT ---
Subjective Progress Note for:: 11/28/18 Subjective:: When I entered the room the patient is sitting up in the chair and tells me that she is feeling fine. is at bedside. states that she had some vomiting yesterday. Today she was able to eat breakfast without any problems. Her urine output remains to be acceptable. Urine output yesterday was 1800 mL. Her blood pressure is not well controlled. Reason For Visit: INFECTED DECUBITUS ULCER Physical Exam Vital Signs: Temp Pulse Resp BP Pulse Ox 97.2 F 82 17 175/68 H 96 11/28/18 07:38 11/28/18 07:38 11/28/18 07:38 11/28/18 07:38 11/28/18 07:38 Intake & Output 11/27/18 11/28/18 11/29/18 06:59 06:59 06:59 Intake Total 2325 2935 1000 Output Total 2225 1800 Balance 100 1135 1000 Weight 67.7 kg 70.7 kg Exam: General appearance: PRESENT: no acute distress, cooperative, well-developed, well-nourished Head exam: PRESENT: atraumatic, normocephalic Eye exam: PRESENT: conjunctiva pink, PERRLA. ABSENT: scleral icterus Neck exam: ABSENT: JVD Respiratory exam: PRESENT: Normal breath sounds. ABSENT: crackles, rales, rhonchi, unlabored, wheezes Cardiovascular exam: PRESENT: Regular rate rhythm -+S1, +S2. ABSENT: diastolic murmur, systolic murmur GI/Abdominal exam: PRESENT: normal bowel sounds, soft. ABSENT: guarding, mass, tenderness Extremities exam: Grade 1 left lower extremity pitting edema, right BKA with prosthesis Neurological exam: PRESENT: alert, awake, oriented to person, place and time. Skin exam: PRESENT: dry, warm, Results Laboratory Results: 11/28/18 05:14 11/28/18 05:14 11/28/18 11/28/18 05:14 05:14 WBC 7.8 RBC 2.84 L Hgb 8.5 L Hct 25.4 L MCV 90 MCH 29.8 MCHC 33.3 RDW 15.8 H Plt Count 264 Seg Neutrophils % 76.9 Lymphocytes % 12.9 L Monocytes % 8.8 Eosinophils % 0.6 Basophils % 0.8 Absolute Neutrophils 6.0 Absolute Lymphocytes 1.0 Absolute Monocytes 0.7 Absolute Eosinophils 0.0 Absolute Basophils 0.1 Sodium 136.8 L Potassium 4.1 Chloride 110 H Carbon Dioxide 16 L Anion Gap 11 BUN 46 H Creatinine 3.30 H Est GFR ( Amer) 17 L Est GFR (Non-Af Amer) 14 L Glucose 150 H Calcium 8.8 11/24/18 16:49 Decubitis Ulcer - Buttocks Gram Stain - Final 11/25/18 14:30 Catheterized Urine Urine Culture - Final NO GROWTH 2 DAYS 11/24/18 11/24/18 11/25/18 14:20 14:20 00:44 Creatine Kinase 210 H 158 H CK-MB (CK-2) 3.22 Troponin I 0.065 NT-Pro-B Natriuret Pep 11/25/18 11/25/18 11/25/18 00:44 05:59 05:59 Creatine Kinase 134 CK-MB (CK-2) 2.99 2.67 Troponin I 0.056 0.062 NT-Pro-B Natriuret Pep 12340 H Impressions: Hip X-Ray 11/24/18 00:00 IMPRESSION: Osteopenia. No acute osseous abnormality copyright 2011 [employer] All Rights Reserved Pelvis MRI 11/24/18 00:00 IMPRESSION: No MR evidence of osteomyelitis. Diffuse abnormal signal of the subcutaneous tissue could represent edema versus cellulitis. Renal Ultrasound 11/24/18 00:00 IMPRESSION: CHRONIC MEDICAL RENAL DISEASE. NO HYDRONEPHROSIS. Assessment & Plan - Diagnosis (1) Acute on chronic renal failure Is this a current diagnosis for this admission?: Yes Plan: Urine output improved. She does not have any other signs of uremia no fluid overload either. Kidney function is unchanged and stable. No indication for any urgent initiation of renal replacement therapy at this time. Continue to monitor kidney function. (2) Decubitus ulcer Qualifiers: Pressure injury location: sacral region Pressure injury stage: stage 4 Qualified Code(s): L89.154 - Pressure ulcer of sacral region, stage 4 Is this a current diagnosis for this admission?: Yes Plan: On IV antibiotics. Surgery following. (3) HTN (hypertension) Is this a current diagnosis for this admission?: Yes Plan: Uncontrolled. Start carvedilol 12.5 mg twice daily. (4) Anemia Qualifiers: Anemia type: due to chronic kidney disease Chronic kidney disease stage: stage 3 (moderate) Qualified Code(s): N18.3 - Chronic kidney disease, stage 3 (moderate); D63.1 - Anemia in chronic kidney disease Is this a current diagnosis for this admission?: Yes Plan: Her TSat is mildly decreased at 17, iron at 39.2 and ferritin of 220. Stool for occult blood is negative. Patient received IV Injectafer and Procrit of 20,000 units , 11/26. Patient most likely need Procrit every 1 to 2 weeks once discharged. (5) CKD (chronic kidney disease), stage IV Is this a current diagnosis for this admission?: Yes Plan: I reiterated again to the patient that she is nearing to the point that she w ould need to be initiated with possible chronic renal replacement therapy depending on how her kidney function improves. She indicated that she would go for hemodialysis if needed. I do not think she is a candidate for home peritoneal dialysis and I recommend that she does hemodialysis if ever. (6) Hyponatremia Is this a current diagnosis for this admission?: Yes Plan: Improved and resolving. Decrease IV fluids to maintenance of 75 mL an hour. (7) Diabetes mellitus type 2 in nonobese Is this a current diagnosis for this admission?: Yes (8) Vitamin D deficiency Is this a current diagnosis for this admission?: Yes Plan: Started vitamin D 2000 units daily. (9) Metabolic acidosis Is this a current diagnosis for this admission?: Yes Plan: In change. Started on sodium bicarbonate p.o. every 12. (10) Secondary hyperparathyroidism (of renal origin) Is this a current diagnosis for this admission?: Yes Plan: We will correct vitamin D level first before starting any other medication.. (11) Nephrotic range proteinuria Is this a current diagnosis for this admission?: Yes Plan: Most likely secondary to diabetic nephropathy. Pending protein electrophoresis. - Time Time with patient: 15-25 minutes
--- NOTE | 2018-11-28 12:31 | RADIOLOGY REPORT (SQ) ---
EXAM DESCRIPTION: MARISABEL SWALLOW COMPLETED DATE/TIME: 11/28/2018 9:55 am REASON FOR STUDY: dysphagia, emesis following meals COMPARISON: None. TECHNIQUE: Videofluoroscopic swallowing examination was performed in conjunction with speech patholo gy. Videofluoroscopic imaging was obtained and reviewed and these are the findings: RADIATION DOSE: Fluoro time 3.11 minutes 1 images saved to PACS. LIMITATIONS: None FINDINGS: The patient was brought into the fluoro room and placed upright on a modified barium swall ow chair. The patient was then given multiple consistencies mixed with barium to swallow under live fluoroscopic video guidance. According to the Speech Pathologist there was a single episode of laryn geal penetration and possible trace aspiration seen with thin barium. All other consistencies swallo wed without incident. Please refer to the speech pathology report for further details. IMPRESSION: SINGLE EPISODE OF LARYNGEAL PENETRATION AND POSSIBLE TRACE ASPIRATION WITH THIN BARIUM. PLEASE SEE SPEECH PATHOLOGIST REPORT FOR OTHER FINDINGS AND RECOMMENDATIONS. COMMENT: None Quality ID [id number]: Final reports for procedures using fluoroscopy that document radiation exposure garfield shyla, or exposure time and number of fluorographic images (if radiation exposure indices are not avail able) TECHNICAL DOCUMENTATION: JOB ID: [id number] [employer]- All Rights Reserved Reading location - IP/workstation name: [email or web address] [id number]
--- NOTE | 2018-11-28 13:37 | ST Inp Modified Barium Swallow ---
Medical Diagnosis - Medical Diagnoses Medical Diagnosis Description & ICD-10 Code(s): decubitus ulcer - ICD-10 Tx Diagnosis Coding (1) Dysphagia ICD-10 Code(s): R13.10 - DYSPHAGIA, UNSPECIFIED ST Inpatient [facility] [place] - General Date: 11/28/18 Date of Onset: 11/27/18 - History History Obtained From: Other - EMR -: Medical - per EMR: patient admitted with infected bed sore. Prior medical history includes atrial fibrillation, type 2 diabetes, hypertension, right BKA, hyperlipidemia, history of mini strokes, GERD. Recent progress not reports that patient had an episode of emesis after a meal on 11/27/18. Nursing was concerned for possible esophageal stricture. MBSS was subsequently ordered. Medications: Medications Reviewed Allergies: No known allergies - Subjective Current Nutritional Means: PO Current PO Diet: Regular Current Symptoms: other - episode of emesis after meal Pain: Patient reports, 0/5 - Objective Assessment: Upright, Left Lateral - Food Trials Food Trials Used: Thin liquids, Pureed, Regular The Patient: Was Able to Self Feed - Assessment Labial Function: Within Normal Limits Lingual Function: Within Normal Limits Mandibular Function: Within Normal Limits Dentition: Partial Velo-Pharyngeal Function: Unremarkable Laryngeal Function: clear voicing - Pharyngeal Stage Initiation of Pharyngeal Stage: Delayed - prolonged oral phase prior to initiation of swallow with solid trials Decreased Laryngeal Elevation: No Reduced Velo-Pharyngeal Closure: no Reduced Pressure Generation: Yes - mild Reduced Tongue Base Retraction: No Pre-Swallowing Pooling in Valleculae: None Pre-Swallowing Pooling in Pyriforms: None Reduced Thyro-Hyiod Approximation: No Reduced Epiglottic Excursion: Yes - mild Reduced Pharyngeal Peristalsis: No Multiple Swallows With: Cleared w/ Dry Swallow Post Swallow Residuals in Valleculae: Mild Post Swallow Residuals in Pyriforms: None - Esophageal Stage Esophageal Stage Comments: signs of esophageal stasis with solid trials below level of UES - Impression/Summary Laryngeal Penetration: Yes, Flash, during swallow Tracheal Aspiration: yes - possible episode of aspiration x1 with thin liquid residue after the swallow, cleared with cough Productive Cough: Yes Patient Presents With: Oral stage dysphagia, Esophageal stage dysph. - possible, Mild-Moderate Risk of Aspiration: Mild - Recommendations Strict Aspitarion Precautions: Yes Dysphagia Therapy with STATISTICAL DEVELOPER: Follow Up PRN - plan to follow up with further swallowing education x1. Recommended Techniques: Fully Upright During Meal, Small Bites and Sips, Alternate Bites/Sips Supervision: requires assistance Other Recommendations: Signs of oral phase dyscoordination with solids. Discussed soft solids with patient due to diffiuclty, however, patient declined. - Time Total Time: 25 Total Timed Minutes: 25
[2018-11-28] MEDS: CARVEDILOL 12.5 MG TABLET PO SCH ×2 (14:13→22:22)
[2018-11-28] MEDS: NORMAL SALINE 1000 ML 1,000 ML IV PRN (18:06)
--- NOTE | 2018-11-28 19:28 | PDOC PROGRESS REPORT ---
Subjective Progress Note for:: 11/28/18 Subjective:: 62 year old female with history of atrial fibrillation on warfarin, diabetes mellitus type 2, hypertension, right BKA, hyperlipidemia, and TIAs who was admitted for infected sacral decubitus ulcers. The patient was seen on morning rounds with her present. She was found sitting up to the recliner today. She is just returned from her swallow study; reports that she tolerated it well. She is noted to be eating her lunch and continues to pocket food to her left cheek. She reports that this is been chronic since her previous stroke. She did have another episode of emesis not preceded by nausea last night. But otherwise she reports that she is feeling well and has no questions or concerns at this time. She further denies fever, chills, headache, dizziness, chest pain, palpitation, dyspnea, orthopnea, cough, discomfort to her sacral wound. No concerns per nursing. Reason For Visit: INFECTED DECUBITUS ULCER Physical Exam Vital Signs: Temp Pulse Resp BP Pulse Ox 97.9 F 63 18 155/58 H 99 11/28/18 15:12 11/28/18 15:12 11/28/18 15:12 11/28/18 15:12 11/28/18 15:12 Intake & Output 11/27/18 11/28/18 11/29/18 06:59 06:59 06:59 Intake Total 2325 2935 1560 Output Total 2225 1800 500 Balance 100 1135 1060 Weight 67.7 kg 70.7 kg General appearance: PRESENT: no acute distress, cooperative, well-developed, well-nourished - Overweight Head exam: PRESENT: atraumatic, normocephalic Eye exam: PRESENT: conjunctiva pink, EOMI, PERRLA. ABSENT: scleral icterus Ear exam: PRESENT: normal external ear exam Mouth exam: PRESENT: moist, tongue midline Teeth exam: PRESENT: poor dentation Neck exam: ABSENT: carotid bruit, JVD, lymphadenopathy, thyromegaly Respiratory exam: PRESENT: clear to auscultation gustavo. ABSENT: rales, rhonchi, wheezes Cardiovascular exam: PRESENT: RRR. ABSENT: diastolic murmur, rubs, systolic murmur Pulses: PRESENT: normal dorsalis pedis pul Vascular exam: PRESENT: normal capillary refill GI/Abdominal exam: PRESENT: normal bowel sounds, soft. ABSENT: distended, guarding, mass, organolmegaly, rebound, tenderness Rectal exam: PRESENT: deferred Extremities exam: PRESENT: full ROM, other - Right BKA. ABSENT: calf tenderness, clubbing, pedal edema Neurological exam: PRESENT: alert, awake, oriented to person, oriented to place, oriented to time, oriented to situation, CN II-XII grossly intact. ABSENT: motor sensory deficit Psychiatric exam: PRESENT: normal mood, unusual affect. ABSENT: homicidal ideation, suicidal ideation Skin exam: PRESENT: dry, intact, warm. ABSENT: cyanosis, rash Results Laboratory Results: 11/28/18 05:14 11/28/18 05:14 11/28/18 11/28/18 05:14 05:14 WBC 7.8 RBC 2.84 L Hgb 8.5 L Hct 25.4 L MCV 90 MCH 29.8 MCHC 33.3 RDW 15.8 H Plt Count 264 Seg Neutrophils % 76.9 Lymphocytes % 12.9 L Monocytes % 8.8 Eosinophils % 0.6 Basophils % 0.8 Absolute Neutrophils 6.0 Absolute Lymphocytes 1.0 Absolute Monocytes 0.7 Absolute Eosinophils 0.0 Absolute Basophils 0.1 Sodium 136.8 L Potassium 4.1 Chloride 110 H Carbon Dioxide 16 L Anion Gap 11 BUN 46 H Creatinine 3.30 H Est GFR ( Amer) 17 L Est GFR (Non-Af Amer) 14 L Glucose 150 H Calcium 8.8 11/24/18 16:49 Decubitis Ulcer - Buttocks Gram Stain - Final 11/24/18 16:49 Decubitis Ulcer - Buttocks Wound Culture - Final Skin Teri Prevotella Species Peptostreptococcus Species 11/24/18 11/24/18 11/25/18 14:20 14:20 00:44 Creatine Kinase 210 H 158 H CK-MB (CK-2) 3.22 Troponin I 0.065 NT-Pro-B Natriuret Pep 11/25/18 11/25/18 11/25/18 00:44 05:59 05:59 Creatine Kinase 134 CK-MB (CK-2) 2.99 2.67 Troponin I 0.056 0.062 NT-Pro-B Natriuret Pep [id number] H Impressions: Hip X-Ray 11/24/18 00:00 IMPRESSION: Osteopenia. No acute osseous abnormality copyright 2010 [employer]- All Rights Reserved Pelvis MRI 11/24/18 00:00 IMPRESSION: No MR evidence of osteomyelitis. Diffuse abnormal signal of the subcutaneous tissue could represent edema versus cellulitis. Renal Ultrasound 11/24/18 00:00 IMPRESSION: CHRONIC MEDICAL RENAL DISEASE. NO HYDRONEPHROSIS. Modified Barium Swallow 11/28/18 00:00 IMPRESSION: SINGLE EPISODE OF LARYNGEAL PENETRATION AND POSSIBLE TRACE ASPIRATION WITH THIN BARIUM. PLEASE SEE SPEECH PATHOLOGIST REPORT FOR OTHER FINDINGS AND RECOMMENDATIONS. Assessment and Plan - Diagnosis (1) Decubitus ulcer Qualifiers: Pressure injury location: sacral region Pressure injury stage: stage 4 Qualified Code(s): L89.154 - Pressure ulcer of sacral region, stage 4 Is this a current diagnosis for this admission?: Yes Plan: Now POD 4# surgical debridement. MRI was negative for osteomyelitis. Blood cultures are negative at 4 days Wound cultures (final) demonstrated skin teri, Prevotella species and Peptostreptococcus species. Patient is admitted to the medical floor and continuous cardiac telemetry. She was empirically placed on IV Zosyn and vancomycin; have been discontinued. Patient is started on p.o. Cipro and Flagyl. Surgery is consulted; appreciate their expertise. Dr. Adair came by to evaluate the patient today; recommends continued wet-to-dry dressings. Discharge planning is consulted. Will not require wound VAC at discharge. (2) Acute on chronic renal failure Is this a current diagnosis for this admission?: Yes Plan: Improved; 3.57-> 3.26-> 3.30 Patient has baseline creatinine of 3.03 With good urinary output. No evidence of fluid overload; no dependent edema and clear lung sounds. Nephrology is consulted; appreciate Dr. Roberson's assistance. Avoid nephrotoxic medications as able. Continue gentle IV fluids. Holding home dose diuretics. Daily chemistries. (3) HTN (hypertension) Is this a current diagnosis for this admission?: Yes Plan: Patient is noted to have hypertension; continues to have poor control Cardiac consistent carb diet. Continue home dose diltiazem. Started on carvedilol by nephrology today. Currently holding home dose furosemide and lisinopril secondary to ANDREA. IV hydralazine as needed for blood pressure control. (4) Anemia Qualifiers: Anemia type: due to chronic kidney disease Chronic kidney disease stage: stage 3 (moderate) Qualified Code(s): N18.3 - Chronic kidney disease, stage 3 (moderate); D63.1 - Anemia in chronic kidney disease Is this a current diagnosis for this admission?: Yes Plan: Anemia of chronic disease secondary to CKD 3. s/p 1 unit PRBC Occult stool negative. No evidence of active bleeding at this time. Nephrology is consulted; appreciate Dr. Roberson's assistance. Has received IV Venofer here. Continue p.o. ferrous sulfate supplementation. 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 Accu-Cheks AC and at bedtime with Humalog for sliding scale coverage. Continue home dose long-acting insulin. Hypoglycemia protocol in place. Registered dietitian and employee development manager consulted. (6) Paroxysmal atrial fibrillation Is this a current diagnosis for this admission?: No Plan: Patient has history of paroxysmal atrial fibrillation on Coumadin INR today is 3.05-> 3.45-> 3.35-> 3.47-> 3.03 Continue home dose diltiazem Added on carvedilol twice daily by nephrology today. (7) Supratherapeutic INR Is this a current diagnosis for this admission?: Yes Plan: Coumadin for PAF; goal 2-3 INR today is 3.05-> 3.45-> 3.35-> 3.47-> 3.03; continues to trend up despite medication being held. Will ensure that the patient is not taking home medication while admitted. Continue to hold coumadin and repeat the PT/INR tomorrow. Received one-time dose of p.o. vitamin K yesterday. - Time Time Spent with patient: 15-24 minutes Medications reviewed and adjusted accordingly: Yes Anticipated discharge: SNF Within: when bed available
[2018-11-28] MEDS: ATORVASTATIN CALCIUM 40 MG TABLET PO SCH (22:22)
[2018-11-28] MEDS: CIPROFLOXACIN HCL 500 MG TABLET PO SCH (22:22)
[2018-11-28] MEDS: METOCLOPRAMIDE HCL 10 MG TABLET PO SCH (22:22)
[2018-11-28] MEDS: METRONIDAZOLE 500 MG TABLET PO SCH (22:22)
[2018-11-29 05:08] LABS: PROTHROMBIN TIME 21.8 SEC (11.4-15.4)
[2018-11-29] MEDS: METRONIDAZOLE 500 MG TABLET PO SCH ×3 (05:11→21:21)
[2018-11-29 05:33] LABS: ANION GAP 10 (5-19); BLOOD UREA NITROGEN 40 mg/dL (7-20); CALCIUM 8.4 mg/dL (8.4-10.2); CARBON DIOXIDE 15 mmol/L (22-30); CHLORIDE 112 mmol/L (98-107); GLUCOSE 105 mg/dL (75-110); POTASSIUM 3.9 mmol/L (3.6-5.0); SODIUM 137.3 mmol/L (137-145)
[2018-11-29] MEDS: INSULIN REG, HUMAN 100 UNIT/ML 3 ML VIAL (PYX) SUBCUT SCH ×4 (09:01→21:21)
[2018-11-29] MEDS: METOCLOPRAMIDE HCL 10 MG TABLET PO SCH ×4 (09:02→21:20)
[2018-11-29] MEDS: FOLIC ACID/VITAMIN B COMP W-C CAPSULE PO SCH (10:08)
[2018-11-29] MEDS: CIPROFLOXACIN HCL 500 MG TABLET PO SCH ×2 (10:08→21:22)
[2018-11-29] MEDS: DILTIAZEM HCL 30 MG TABLET PO SCH ×3 (10:08→17:28)
[2018-11-29] MEDS: CALCITRIOL 0.25 MCG CAPSULE PO SCH (10:08)
[2018-11-29] MEDS: APIXABAN 2.5 MG TABLET PO SCH ×2 (10:08→17:27)
[2018-11-29] MEDS: FAMOTIDINE 20 MG TABLET PO SCH (10:09)
[2018-11-29] MEDS: SODIUM BICARBONATE 650 MG TABLET PO SCH ×2 (10:09→21:21)
[2018-11-29] MEDS: CARVEDILOL 12.5 MG TABLET PO SCH ×2 (10:09→21:20)
[2018-11-29] MEDS: FERROUS SULFATE 325 MG TABLET PO SCH ×2 (10:09→17:28)
[2018-11-29] MEDS: CHOLECALCIFEROL (D3) 1,000 UNIT (25 MCG) TABLET PO SCH (10:09)
[2018-11-29] MEDS: MULTIVITAMIN TABLET PO SCH (10:09)
--- NOTE | 2018-11-29 15:36 | PDOC PROGRESS REPORT ---
Subjective Progress Note for:: 11/29/18 Subjective:: 62 year old female with history of atrial fibrillation on warfarin, diabetes mellitus type 2, hypertension, right BKA, hyperlipidemia, and TIAs who was admitted for infected sacral decubitus ulcers. The patient was seen on afternoon rounds. She was found sitting up to the recliner today. She was observed earlier today ambulating in the hallway with front wheel walker and minimal assist by physical therapy. She reports that she feels she has improved strength since working with physical therapy during this admission. She is noted to be eating crackers and again has odd pocketing behavior of food, although today this is to her right cheek where as yesterday it was to the left cheek. She is prompted to swallow and is able to swallow clearly without clear indications of aspiration. She does report that she has had no further episodes of emesis; possibly related to initiation of Reglan last night. She further denies fever, chills, headache, dizziness, chest pain, palpitation, dyspnea, orthopnea, cough, discomfort to her sacral wound. She is looking forward to possible discharge to SNF once insurance prior authorization is received. No concerns per nursing. Reason For Visit: INFECTED DECUBITUS ULCER Physical Exam Vital Signs: Temp Pulse Resp BP Pulse Ox 97.6 F 61 16 157/54 H 100 11/29/18 11:38 11/29/18 14:00 11/29/18 11:38 11/29/18 11:38 11/29/18 11:38 Intake & Output 11/28/18 11/29/18 11/30/18 06:59 06:59 06:59 Intake Total 2935 1782 474 Output Total 1800 1000 200 Balance 1135 782 274 Weight 70.7 kg 70.4 kg General appearance: PRESENT: no acute distress, cooperative, well-developed, well-nourished - Overweight Head exam: PRESENT: atraumatic, normocephalic Eye exam: PRESENT: conjunctiva pink, EOMI, PERRLA. ABSENT: scleral icterus Ear exam: PRESENT: normal external ear exam Mouth exam: PRESENT: moist, tongue midline Teeth exam: PRESENT: poor dentation Neck exam: ABSENT: carotid bruit, JVD, lymphadenopathy, thyromegaly Respiratory exam: PRESENT: clear to auscultation gustavo, symmetrical, unlabored. ABSENT: rales, rhonchi, wheezes Cardiovascular exam: PRESENT: RRR, +S1, +S2. ABSENT: diastolic murmur, rubs, systolic murmur Pulses: PRESENT: normal dorsalis pedis pul Vascular exam: PRESENT: normal capillary refill GI/Abdominal exam: PRESENT: normal bowel sounds, soft. ABSENT: distended, guarding, mass, organolmegaly, rebound, tenderness Rectal exam: PRESENT: deferred Extremities exam: PRESENT: full ROM, other - Right BKA. ABSENT: calf tend erness, clubbing, pedal edema Musculoskeletal exam: PRESENT: ambulatory - With front wheel walker Neurological exam: PRESENT: alert, awake, oriented to person, oriented to place, oriented to time, oriented to situation, CN II-XII grossly intact. ABSENT: motor sensory deficit Psychiatric exam: PRESENT: normal mood, unusual affect. ABSENT: homicidal ideation, suicidal ideation Skin exam: PRESENT: dry, intact, warm. ABSENT: cyanosis, rash Results Laboratory Results: 11/28/18 05:14 11/29/18 04:04 11/29/18 04:04 Sodium 137.3 Potassium 3.9 Chloride 112 H Carbon Dioxide 15 L Anion Gap 10 BUN 40 H Creatinine 3.12 H Est GFR ( Amer) 18 L Est GFR (Non-Af Amer) 15 L Glucose 105 Calcium 8.4 11/24/18 14:20 Blood Blood Culture - Final NO GROWTH IN 5 DAYS 11/24/18 16:49 Decubitis Ulcer - Buttocks Gram Stain - Final 11/24/18 16:49 Decubitis Ulcer - Buttocks Wound Culture - Final Skin Teri Prevotella Species Peptostreptococcus Species 11/24/18 11/24/18 11/25/18 14:20 14:20 00:44 Creatine Kinase 210 H 158 H CK-MB (CK-2) 3.22 Troponin I 0.065 NT-Pro-B Natriuret Pep 11/25/18 11/25/18 11/25/18 00:44 05:59 05:59 Creatine Kinase 134 CK-MB (CK-2) 2.99 2.67 Troponin I 0.056 0.062 NT-Pro-B Natriuret Pep 23957 H Impressions: Hip X-Ray 11/24/18 00:00 IMPRESSION: Osteopenia. No acute osseous abnormality copyright 2011 [employer]- All Rights Reserved Pelvis MRI 11/24/18 00:00 IMPRESSION: No MR evidence of osteomyelitis. Diffuse abnormal signal of the subcutaneous tissue could represent edema versus cellulitis. Renal Ultrasound 11/24/18 00:00 IMPRESSION: CHRONIC MEDICAL RENAL DISEASE. NO HYDRONEPHROSIS. Modified Barium Swallow 11/28/18 00:00 IMPRESSION: SINGLE EPISODE OF LARYNGEAL PENETRATION AND POSSIBLE TRACE ASPIRATION WITH THIN BARIUM. PLEASE SEE SPEECH PATHOLOGIST REPORT FOR OTHER FINDINGS AND RECOMMENDATIONS. Assessment and Plan - Diagnosis (1) Decubitus ulcer Qualifiers: Pressure injury location: sacral region Pressure injury stage: stage 4 Qualified Code(s): L89.154 - Pressure ulcer of sacral region, stage 4 Is this a current diagnosis for this admission?: Yes Plan: Now POD #5 surgical debridement. MRI was negative for osteomyelitis. Blood cultures are negative at 4 days Wound cultures (final) demonstrated skin teri, Prevotella species and Peptostreptococcus species. Patient is admitted to the medical floor and continuous cardiac telemetry. She was empirically placed on IV Zosyn and vancomycin; have been discontinued. Continue on p.o. Cipro and Flagyl. Surgery is consulted; appreciate their expertise. Dr. Adair evaluated patient yesterday; recommends continued wet-to-dry dressings. Discharge planning is consulted. Will not require wound VAC at discharge. (2) Acute on chronic renal failure Is this a current diagnosis for this admission?: Yes Plan: Improved; 3.57-> 3.26-> 3.30-> 3.12 Patient has baseline creatinine of 3.03 With good urinary output. No evidence of fluid overload; no dependent edema and clear lung sounds. Nephrology is consulted; appreciate Dr. Roberson's assistance. Discussed with Dr. Roberson today; can follow-up in the office in 2 to 3 weeks. Avoid nephrotoxic medications as able. Continue gentle IV fluids. Holding home dose diuretics. Daily chemistries. (3) HTN (hypertension) Is this a current diagnosis for this admission?: Yes Plan: Patient is noted to have hypertension; continues to have poor control. Slight improvement today with blood pressure 147/58 and 157/54. Cardiac consistent carb diet. Continue home dose diltiazem. Started on carvedilol yesterday. IV hydralazine as needed for blood pressure control. (4) Anemia Qualifiers: Anemia type: due to chronic kidney disease Chronic kidney disease stage: stage 3 (moderate) Qualified Code(s): N18.3 - Chronic kidney disease, stage 3 (moderate); D63.1 - Anemia in chronic kidney disease Is this a current diagnosis for this admission?: Yes Plan: Anemia of chronic disease secondary to CKD 3. Hemoglobin stable at 8.5. s/p 1 unit PRBC Occult stool negative. No evidence of active bleeding at this time. Nephrology is consulted; appreciate Dr. Roberson's assistance. Has received IV Venofer here. Continue p.o. ferrous sulfate supplementation. 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 Patient is placed on a consistent carb/cardiac diet. Accu-Cheks AC and at bedtime with Humalog for sliding scale coverage. Continue home dose long-acting insulin. Hypoglycemia protocol in place. Registered dietitian and clinical systems educator consulted. (6) Paroxysmal atrial fibrillation Is this a current diagnosis for this admission?: No Plan: Patient has history of paroxysmal atrial fibrillation on Coumadin at home. Continue home dose diltiazem Continue carvedilol. Start renally dosed Eliquis today. (7) Supratherapeutic INR Is this a current diagnosis for this admission?: Yes Plan: Coumadin for PAF; goal 2-3 INR today is 3.05-> 3.45-> 3.35-> 3.47-> 3.03-> 1.80 Received one-time dose of p.o. vitamin K. Concern about patient's noncompliance with medication regiment; therefore will not resume Coumadin. Patient is started on renally dose Eliquis 2.5 mg daily. - Time Time Spent with patient: 15-24 minutes Medications reviewed and adjusted accordingly: Yes Anticipated discharge: SNF Within: when bed available
--- NOTE | 2018-11-29 15:48 | PDOC PROGRESS REPORT ---
Subjective Progress Note for:: 11/29/18 Subjective:: Patient remains to be clinically stable. Blood pressure ranges 147-1 60 over 50s to 60s. Her urine output for the last 24 hours with thousand mL. No new complaints. Patient is awaiting placement. Reason For Visit: INFECTED DECUBITUS ULCER Physical Exam Vital Signs: Temp Pulse Resp BP Pulse Ox 97.4 F 68 16 154/62 H 100 11/29/18 08:00 11/29/18 08:00 11/29/18 08:00 11/29/18 08:00 11/29/18 08:00 Intake & Output 11/28/18 11/29/18 11/30/18 06:59 06:59 06:59 Intake Total 2935 1782 Output Total 1800 1000 Balance 1135 782 Weight 70.7 kg 70.4 kg Results Laboratory Results: 11/28/18 05:14 11/29/18 04:04 11/29/18 04:04 Sodium 137.3 Potassium 3.9 Chloride 112 H Carbon Dioxide 15 L Anion Gap 10 BUN 40 H Creatinine 3.12 H Est GFR ( Amer) 18 L Est GFR (Non-Af Amer) 15 L Glucose 105 Calcium 8.4 11/24/18 16:49 Decubitis Ulcer - Buttocks Gram Stain - Final 11/24/18 16:49 Decubitis Ulcer - Buttocks Wound Culture - Final Skin Dolly Prevotella Species Peptostreptococcus Species 11/24/18 11/24/18 11/25/18 14:20 14:20 00:44 Creatine Kinase 210 H 158 H CK-MB (CK-2) 3.22 Troponin I 0.065 NT-Pro-B Natriuret Pep 11/25/18 11/25/18 11/25/18 00:44 05:59 05:59 Creatine Kinase 134 CK-MB (CK-2) 2.99 2.67 Troponin I 0.056 0.062 NT-Pro-B Natriuret Pep [id number] H Impressions: Hip X-Ray 11/24/18 00:00 IMPRESSION: Osteopenia. No acute osseous abnormality copyright 2011 [employer]- All Rights Reserved Pelvis MRI 11/24/18 00:00 IMPRESSION: No MR evidence of osteomyelitis. Diffuse abnormal signal of the subcutaneous tissue could represent edema versus cellulitis. Renal Ultrasound 11/24/18 00:00 IMPRESSION: CHRONIC MEDICAL RENAL DISEASE. NO HYDRONEPHROSIS. Modified Barium Swallow 11/28/18 00:00 IMPRESSION: SINGLE EPISODE OF LARYNGEAL PENETRATION AND POSSIBLE TRACE ASPIRATION WITH THIN BARIUM. PLEASE SEE SPEECH PATHOLOGIST REPORT FOR OTHER FINDINGS AND RECOMMENDATIONS. Assessment & Plan - Diagnosis (1) Acute on chronic renal failure Is this a current diagnosis for this admission?: Yes Plan: Urine output improved. She does not have any other signs of uremia no fluid overload either. Kidney function is slowly improving. No indication for any urgent initiation of renal replacement therapy at this time. Continue to monitor kidney function. (2) Decubitus ulcer Qualifiers: Pressure injury location: sacral region Pressure injury stage: stage 4 Qualified Code(s): L89.154 - Pressure ulcer of sacral region, stage 4 Is this a current diagnosis for this admission?: Yes Plan: On antibiotics. Surgery following. (3) HTN (hypertension) Is this a current diagnosis for this admission?: Yes Plan: Uncontrolled. Started carvedilol 12.5 mg twice daily yesterday. (4) Anemia Qualifiers: Anemia type: due to chronic kidney disease Chronic kidney disease stage: stage 3 (moderate) Qualified Code(s): N18.3 - Chronic kidney disease, stage 3 (moderate); D63.1 - Anemia in chronic kidney disease Is this a current diagnosis for this admission?: Yes Plan: Her TSat is mildly decreased at 17, iron at 39.2 and ferritin of 220. Stool for occult blood is negative. Patient received IV Injectafer and Procrit of 20,000 units , 11/26. Patient most likely need Procrit every 1 to 2 weeks once discharged. (5) CKD (chronic kidney disease), stage IV Is this a current diagnosis for this admission?: Yes Plan: I reiterated again to the patient that she is nearing to the point that she would need to be initiated with possible chronic renal replacement therapy depending on how her kidney function improves. She indicated that she would go for hemodialysis if needed. I do not think she is a candidate for home peritoneal dialysis and I recommend that she does hemodialysis if ever. Patient has previously seen Dr. Fonseca so I encouraged her to follow-up with him once d ischarged. (6) Hyponatremia Is this a current diagnosis for this admission?: Yes Plan: Improved and resolving. Decrease IV fluids to maintenance of 75 mL an hour. (7) Diabetes mellitus type 2 in nonobese Is this a current diagnosis for this admission?: Yes (8) Vitamin D deficiency Is this a current diagnosis for this admission?: Yes Plan: Started vitamin D 2000 units daily. (9) Metabolic acidosis Is this a current diagnosis for this admission?: Yes Plan: Increase dose of sodium bicarbonate to 1300 mg p.o twice daily.. (10) Secondary hyperparathyroidism (of renal origin) Is this a current diagnosis for this admission?: Yes Plan: We will correct vitamin D level first before starting any other medication.. (11) Nephrotic range proteinuria Is this a current diagnosis for this admission?: Yes Plan: Most likely secondary to diabetic nephropathy. Pending protein electrophoresis. - Notes Notes: From nephrology standpoint patient can be transferred to rehab anytime from today. Discussed with MEGAN Euceda. - Time Time with patient: 15-25 minutes
[2018-11-29 16:37] LABS: ALBUMIN 3 2.7 g/dL (2.9-4.4); ALPHA-1-GLOBULIN 0.3 g/dL (0.0-0.4); BETA GLOBULIN 0.7 g/dL (0.7-1.3); GAMMA GLOBULINS 1.1 g/dL (0.4-1.8); IMMUNOGLOBULIN A 245 mg/dL (87-352); IMMUNOGLOBULIN G 1112 mg/dL (700-1600); IMMUNOGLOBULIN M 298 mg/dL (26-217); MONOCLONAL-SPIKE Not Observed g/dL (Not Observ); PROTEIN TOTAL SERUM 5.7 g/dL (6.0-8.5)
[2018-11-29] MEDS: ATORVASTATIN CALCIUM 40 MG TABLET PO SCH (21:20)
[2018-11-29] MEDS: NORMAL SALINE 1000 ML 1,000 ML IV PRN (21:27)
[2018-11-30] MEDS: METRONIDAZOLE 500 MG TABLET PO SCH ×3 (06:19→22:10)
[2018-11-30] MEDS: INSULIN REG, HUMAN 100 UNIT/ML 3 ML VIAL (PYX) SUBCUT SCH ×4 (09:51→22:12)
[2018-11-30] MEDS: CALCITRIOL 0.25 MCG CAPSULE PO SCH (09:52)
[2018-11-30] MEDS: MULTIVITAMIN TABLET PO SCH (09:52)
[2018-11-30] MEDS: CHOLECALCIFEROL (D3) 1,000 UNIT (25 MCG) TABLET PO SCH (09:52)
[2018-11-30] MEDS: METOCLOPRAMIDE HCL 10 MG TABLET PO SCH ×4 (09:57→22:10)
[2018-11-30] MEDS: CARVEDILOL 12.5 MG TABLET PO SCH ×2 (09:58→22:10)
[2018-11-30] MEDS: SODIUM BICARBONATE 650 MG TABLET PO SCH ×2 (09:58→22:10)
[2018-11-30] MEDS: FERROUS SULFATE 325 MG TABLET PO SCH ×2 (09:59→18:03)
[2018-11-30] MEDS: APIXABAN 2.5 MG TABLET PO SCH (09:59)
[2018-11-30] MEDS: FAMOTIDINE 20 MG TABLET PO SCH (10:00)
[2018-11-30] MEDS: FOLIC ACID/VITAMIN B COMP W-C CAPSULE PO SCH (10:00)
[2018-11-30] MEDS: CIPROFLOXACIN HCL 500 MG TABLET PO SCH ×2 (10:02→22:10)
[2018-11-30] MEDS: DILTIAZEM HCL 30 MG TABLET PO SCH ×3 (10:03→18:05)
[2018-11-30] MEDS ORDERED: IPRATROPIUM/ALBUTEROL 0.5-2.5 MG/3 ML AMPUL NEB ONE (10:35)
[2018-11-30] MEDS ORDERED: ALBUTEROL SULFATE 0.083% NEB 2.5 MG/3 ML AMPUL NEB ONE ×2 (10:35→12:00)
[2018-11-30] MEDS ORDERED: FUROSEMIDE INJ/PF 20 MG/2 ML SDV IV ONE (10:46)
[2018-11-30] MEDS ORDERED: FUROSEMIDE INJ/PF 20 MG/2 ML SDV ONE (11:02)
[2018-11-30 11:03] LABS: ARTERIAL BLOOD BASE EXCESS -11.2 mmol/L; ARTERIAL BLOOD FIO2 9L; ARTERIAL BLOOD H2CO3 1.24 mmol/L (1.05-1.35); ARTERIAL BLOOD O2 SATURATION 61.4 % (94-98); ARTERIAL BLOOD PCO2 41.1 mmHg (35-45); ARTERIAL BLOOD PH 7.21 (7.35-7.45); ARTERIAL BLOOD TOTAL CO2 17.3 mmol/L (21-25)
[2018-11-30 11:05] LABS: ARTERIAL BLOOD PO2 38.2 mmHg (80-100)
[2018-11-30 11:36] LABS: HEMATOCRIT 29.2 % (36.0-47.0); HEMOGLOBIN 9.4 g/dL (12.0-15.5); MEAN CORPUSCULAR HGB CONC 32.3 g/dL (32.0-36.0); MEAN CORPUSCULAR VOLUME 93 fl (80-97); PLATELET COUNT 311 10^3/uL (150-450); RED BLOOD COUNT 3.14 10^6/uL (3.72-5.28); RED CELL DISTRIBUTION WIDTH 15.7 % (11.5-14.0)
[2018-11-30 11:40] LABS: ANION GAP 11 (5-19); BLOOD UREA NITROGEN 40 mg/dL (7-20); CALCIUM 8.4 mg/dL (8.4-10.2); CARBON DIOXIDE 16 mmol/L (22-30); CHLORIDE 108 mmol/L (98-107); GLUCOSE 272 mg/dL (75-110); POTASSIUM 4.3 mmol/L (3.6-5.0); SODIUM 135.4 mmol/L (137-145)
--- NOTE | 2018-11-30 11:41 | RADIOLOGY REPORT (SQ) ---
EXAM DESCRIPTION: CHEST SINGLE VIEW COMPLETED DATE/TIME: 11/30/2018 11:28 am REASON FOR STUDY: hypoxia, resp distress COMPARISON: 08/19/2018 EXAM PARAMETERS: NUMBER OF VIEWS: One view. TECHNIQUE: Single frontal radiographic view of the chest acquired. RADIATION DOSE: NA LIMITATIONS: None. FINDINGS: LUNGS AND PLEURA: Left upper lobe opacity. Right pleural effusion which is chronic. MEDIASTINUM AND HILAR STRUCTURES: No masses. Contour normal. HEART AND VASCULAR STRUCTURES: Heart enlarged with vascular congestion. BONES: No acute findings. HARDWARE: None in the chest. OTHER: No other significant finding. IMPRESSION: New left upper lobe opacity. Right pleural effusion chronic. Vascular congestion. TECHNICAL DOCUMENTATION: JOB ID: [id number] [employer]- All Rights Reserved Reading location - IP/workstation name: [email or web address]
[2018-11-30 11:58] LABS: TROPONIN I 0.585 ng/mL
[2018-11-30] MEDS ORDERED: ASPIRIN 325 MG TABLET PO ONE (12:17)
--- NOTE | 2018-11-30 12:44 | PDOC PROGRESS REPORT ---
Subjective Progress Note for:: 11/30/18 Subjective:: 62 year old female with history of atrial fibrillation on warfarin, diabetes mellitus type 2, hypertension, right BKA, hyperlipidemia, and TIAs who was admitted for infected sacral decubitus ulcers. The patient was seen on afternoon rounds. She was found sitting up in bed. Upon entering the room, patient was found to be in clear respiratory distress with tachypnea, accessory muscle use, retractions, and minimal responsive this to questions and gentle shake (patient was able to make eye contact but was not able to respond any questions close parentheses. Nursing and respiratory therapy called to the bed emergently. First attempted tracheal aspiration by nasal suctioning secondary to strong suspicion for aspiration event (worked up for dysphagia yesterday) which did not find any food or liquid substances. Patient was placed on high flow oxygen via nonrebreather with DuoNeb/albuterol treatment. Stat chest x-ray revealed left upper lobe consolidation and vascular congestion. ABG demonstrated metabolic acidosis with hypoxia (PO2 38.2 on 9 L/min obtained during nebulizer treatment). Stat lab work reveals proBNP elevated to 34k (up from 11k at time of admission) and troponin of 0.585 up from baseline of 0.06. Patient was provided IV furosemide. EKG and echocardiogram pending. Spoke with cardiology; likely pulmonary edema and demand ischemia related to fluid volume overload. Advised to begin diuresing and will be available for consultation if needed. Reason For Visit: INFECTED DECUBITUS ULCER Physical Exam Vital Signs: Temp Pulse Resp BP Pulse Ox 97.3 F 89 30 H 174/64 H 97 11/30/18 07:04 11/30/18 10:25 11/30/18 10:25 11/30/18 07:04 11/30/18 10:25 Intake & Output 11/29/18 11/30/18 12/01/18 06:59 06:59 06:59 Intake Total 1782 2065 Output Total 1000 375 Balance 782 1690 Weight 70.4 kg 71.2 kg General appearance: PRESENT: severe distress, well-developed, well-nourished - overweight Head exam: PRESENT: atraumatic, normocephalic Eye exam: PRESENT: conjunctiva pink, EOMI, PERRLA. ABSENT: scleral icterus Ear exam: PRESENT: normal external ear exam Mouth exam: PRESENT: moist, tongue midline Teeth exam: PRESENT: poor dentation Neck exam: ABSENT: carotid bruit, JVD, lymphadenopathy, thyromegaly Respiratory exam: PRESENT: accessory muscle use, crackles - bibasilar, prolonged expiratory phas, retraction, rhonchi - Right lower mooney, tachypnea, wheezes - RLL. ABSENT: rales Cardiovascular exam: PRESENT: RRR, +S1, +S2. ABSENT: diastolic murmur, rubs, systolic murmur Pulses: PRESENT: normal dorsalis pedis pul Vascular exam: PRESENT: normal capillary refill GI/Abdominal exam: PRESENT: normal bowel sounds, soft. ABSENT: distended, guarding, mass, organolmegaly, rebound, tenderness Rectal exam: PRESENT: deferred Extremities exam: PRESENT: full ROM. ABSENT: calf tenderness, clubbing, pedal edema Neurological exam: PRESENT: alert, awake, CN II-XII grossly intact, other - disorientated (improved to baseline following application of O2). ABSENT: motor sensory deficit Psychiatric exam: PRESENT: appropriate affect, normal mood. ABSENT: homicidal ideation, suicidal ideation Skin exam: PRESENT: dry, intact, warm. ABSENT: cyanosis, rash Results Laboratory Results: 11/30/18 11:06 11/30/18 10:41 11/28/18 11/30/18 11/30/18 05:14 10:41 10:50 WBC RBC Hgb Hct MCV MCH MCHC RDW Plt Count Carbonic Acid 1.24 HCO3/H2CO3 Ratio 12:1 ABG pH 7.21 L ABG pCO2 41.1 ABG pO2 38.2 L* ABG HCO3 16.0 L ABG O2 Saturation 61.4 L ABG Base Excess -11.2 FiO2 9L Sodium 135.4 L Potassium 4.3 Chloride 108 H Carbon Dioxide 16 L Anion Gap 11 BUN 40 H Creatinine 2.98 H Est GFR ( Amer) 19 L Est GFR (Non-Af Amer) 16 L Glucose 272 H Calcium 8.4 Total Protein 5.7 L Albumin 2.7 L 11/30/18 11:06 WBC 7.0 RBC 3.14 L Hgb 9.4 L Hct 29.2 L MCV 93 MCH 30.0 MCHC 32.3 RDW 15.7 H Plt Count 311 Carbonic Acid HCO3/H2CO3 Ratio ABG pH ABG pCO2 ABG pO2 ABG HCO3 ABG O2 Saturation ABG Base Excess FiO2 Sodium Potassium Chloride Carbon Dioxide Anion Gap BUN Creatinine Est GFR ( Amer) Est GFR (Non-Af Amer) Glucose Calcium Total Protein Albumin 11/24/18 14:20 Blood Blood Culture - Final NO GROWTH IN 5 DAYS 11/24/18 11/24/18 11/25/18 14:20 14:20 00:44 Creatine Kinase 210 H 158 H CK-MB (CK-2) 3.22 Troponin I 0.065 NT-Pro-B Natriuret Pep 11/25/18 11/25/18 11/25/18 00:44 05:59 05:59 Creatine Kinase 134 CK-MB (CK-2) 2.99 2.67 Troponin I 0.056 0.062 NT-Pro-B Natriuret Pep 16225 H 11/30/18 10:41 Creatine Kinase CK-MB (CK-2) Troponin I 0.585 NT-Pro-B Natriuret Pep 58729 H Impressions: Hip X-Ray 11/24/18 00:00 IMPRESSION: Osteopenia. No acute osseous abnormality copyright 2011 [employer]- All Rights Reserved Pelvis MRI 11/24/18 00:00 IMPRESSION: No MR evidence of osteomyelitis. Diffuse abnormal signal of the subcutaneous tissue could represent edema versus cellulitis. Renal Ultrasound 11/24/18 00:00 IMPRESSION: CHRONIC MEDICAL RENAL DISEASE. NO HYDRONEPHROSIS. Modified Barium Swallow 11/28/18 00:00 IMPRESSION: SINGLE EPISODE OF LARYNGEAL PENETRATION AND POSSIBLE TRACE ASPIRATION WITH THIN BARIUM. PLEASE SEE SPEECH PATHOLOGIST REPORT FOR OTHER FINDINGS AND RECOMMENDATIONS. Chest X-Ray 11/30/18 10:25 IMPRESSION: New left upper lobe opacity. Right pleural effusion chronic. Vascular congestion. Assessment and Plan - Diagnosis (1) Decubitus ulcer Qualifiers: Pressure injury location: sacral region Pressure injury stage: stage 4 Qualified Code(s): L89.154 - Pressure ulcer of sacral region, stage 4 Is this a current diagnosis for this admission?: Yes Plan: Now POD #5 surgical debridement. MRI was negative for osteomyelitis. Blood cultures are negative Wound cultures (final) demonstrated skin teri, Prevotella species and Peptostreptococcus species. Patient is admitted to the medical floor and continuous cardiac telemetry. She was empirically placed on IV Zosyn and vancomycin; have been discontinued. Continue on p.o. Cipro and Flagyl; Day #2 Surgery is consulted; appreciate their expertise. Dr. Adair evaluated patient; recommends continued wet-to-dry dressings. Discharge planning is consulted. Will not require wound VAC at discharge. (2) Acute on chronic renal failure Is this a current diagnosis for this admission?: Yes Plan: Improved; 3.57-> 3.26-> 3.30-> 3.12-> 2.98 Patient has baseline creatinine of 3.03 With good urinary output. No evidence of fluid overload; no dependent edema and clear lung sounds. Nephrology is consulted; appreciate Dr. Roberson's assistance. Discussed with Dr. Roberson; can follow-up in the office in 2 to 3 weeks. Avoid nephrotoxic medications as able. IVF discontinued Daily chemistries. (3) HTN (hypertension) Is this a current diagnosis for this admission?: Yes Plan: Patient is noted to have hypertension; continues to have poor control. Cardiac consistent carb diet. Continue home dose diltiazem. Continue carvedilol and losartan Have started IV Lasix for fluid volume overload/CHF IV hydralazine as needed for blood pressure control. (4) Anemia Qualifiers: Anemia type: due to chronic kidney disease Chronic kidney disease stage: stage 3 (moderate) Qualified Code(s): N18.3 - Chronic kidney disease, stage 3 (moderate); D63.1 - Anemia in chronic kidney disease Is this a current diagnosis for this admission?: Yes Plan: Anemia of chronic disease secondary to CKD 3. Hemoglobin stable at 8.5. s/p 1 unit PRBC Occult stool negative. No evidence of active bleeding at this time. Nephrology is consulted; appreciate Dr. Roberson's assistance. Has received IV Venofer here. Continue p.o. ferrous sulfate supplementation. (5) Diabetes mellitus Qualifiers: Diabetes mellitus type: type 2 Diabetes mellitus group home insulin use: with group home use Chronic kidney disease stage: stage 3 (moderate) Is this a current diagnosis for this admission?: Yes Plan: A1C 8.2% Well-controlled on current regiment. Patient is placed on a consistent carb/cardiac diet. Accu-Cheks AC and at bedtime with Humalog for sliding scale coverage. Continue home dose long-acting insulin. Hypoglycemia protocol in place. Registered dietitian and life educator consulted. (6) Paroxysmal atrial fibrillation Is this a current diagnosis for this admission?: No Plan: Patient has history of paroxysmal atrial fibrillation on Coumadin at home. Continue diltiazem and carvedilol. Start renally dosed Eliquis; now on hold. Providing full dose Lovenox while ruling out ACS. (7) Supratherapeutic INR Is this a current diagnosis for this admission?: Yes Plan: Resolved. INR 3.05-> 3.45-> 3.35-> 3.47-> 3.03-> 1.80 Received one-time dose of p.o. vitamin K. Concern about patient's noncompliance with medication regiment; therefore will not resume Coumadin. Patient to be started on renally dose Eliquis 2.5 mg daily at discharge. (8) CHF exacerbation Qualifiers: Heart failure type: systolic Qualified Code(s): I50.23 - Acute on chronic systolic (congestive) heart failure Is this a current diagnosis for this admission?: Yes Plan: Patient with a history of CHF; echocardiogram from 2016 showed normal LVEF with mild diastolic dysfunction though was a poor quality study. Patient is unaware of her type or severity of CHF. Chest x-ray does show pulmonary vascular congestion today. BNP elevated to 34k; up from 11k at admission. Troponin elevated to 0.585; up from baseline 0.06 IVF are discontinued. IV furosemide 20 mg now followed by twice daily. Continue diltiazem, carvedilol, and losartan. Continue daily aspirin and statin therapy. Daily weights, strict I&Os Cardiac diet. (9) Pulmonary edema Qualifiers: Chronicity: acute Qualified Code(s): J81.0 - Acute pulmonary edema Is this a current diagnosis for this admission?: Yes Plan: Secondary to acute systolic CHF exacerbation. IV fluids are discontinued. Diuresing as above. (10) Elevated troponin Is this a current diagnosis for this admission?: Yes Plan: Likely secondary to CHF exacerbation resulting in hypoxia and demand ischemia. We will continue to trend troponins. EKG and echocardiogram are pending. Spoke with Dr. Rose; advised to begin diuresing for management of CHF exacerbation. He is available for consultation if needed. Full dose aspirin today followed by daily 81 mg. We will provide full dose Lovenox while trending troponins. - Time Time Spent with patient: 35 or more minutes Medications reviewed and adjusted accordingly: Yes - Inpatient Certification Based on my medical assessment, after consideration of the patient's comorbidi ties, presenting symptoms, or acuity I expect that the services needed warrant INPATIENT care.: Yes I certify that my determination is in accordance with my understanding of [facility] [employer]'s requirements for reasonable and necessary INPATIENT services [42 CFR 412.3e].: Yes Medical Necessity: Significant Comorbidiites Make Outpatient Treatment Too Risky, Need For IV Fluids, Need For Continuous Telemetry Monitoring, Risk of Complication if Not Cared For in Hospital
[2018-11-30] MEDS: IPRATROPIUM/ALBUTEROL 0.5-2.5 MG/3 ML AMPUL NEB SCH ×2 (14:21→21:01)
[2018-11-30] MEDS: ENOXAPARIN SODIUM INJ 80 MG/0.8 ML DISP.SYRIN SUBCUT SCH (18:04)
[2018-11-30 19:27] LABS: CREATINE KINASE MB 1.24 ng/mL (<4.55); TROPONIN I 0.513 ng/mL
[2018-11-30] MEDS ORDERED: ENOXAPARIN SODIUM INJ 80 MG/0.8 ML DISP.SYRIN SUBCUT SCH (22:00)
[2018-11-30] MEDS: ATORVASTATIN CALCIUM 40 MG TABLET PO SCH (22:10)
[2018-11-30] MEDS: FUROSEMIDE INJ/PF 20 MG/2 ML SDV IV SCH (22:12)
[2018-12-01 01:07] LABS: CREATINE KINASE MB 1.01 ng/mL (<4.55); TROPONIN I 0.523 ng/mL
[2018-12-01] MEDS: IPRATROPIUM/ALBUTEROL 0.5-2.5 MG/3 ML AMPUL NEB SCH ×4 (02:35→20:40)
[2018-12-01] MEDS: METRONIDAZOLE 500 MG TABLET PO SCH ×3 (05:56→21:47)
[2018-12-01 06:03] LABS: MEAN CORPUSCULAR HEMOGLOBIN 30.1 pg (27.0-33.4); MEAN CORPUSCULAR HGB CONC 33.1 g/dL (32.0-36.0); MEAN CORPUSCULAR VOLUME 91 fl (80-97); PLATELET COUNT 245 10^3/uL (150-450); RED BLOOD COUNT 2.63 10^6/uL (3.72-5.28); RED CELL DISTRIBUTION WIDTH 15.9 % (11.5-14.0)
[2018-12-01 06:07] LABS: HEMOGLOBIN 7.9 g/dL (12.0-15.5)
[2018-12-01 06:25] LABS: ANION GAP 8 (5-19); BLOOD UREA NITROGEN 43 mg/dL (7-20); CALCIUM 8.1 mg/dL (8.4-10.2); CARBON DIOXIDE 17 mmol/L (22-30); CHLORIDE 111 mmol/L (98-107); GLUCOSE 112 mg/dL (75-110); POTASSIUM 3.8 mmol/L (3.6-5.0); SODIUM 135.9 mmol/L (137-145)
[2018-12-01 06:37] LABS: CREATINE KINASE MB 0.89 ng/mL (<4.55); TROPONIN I 0.587 ng/mL
[2018-12-01] MEDS: INSULIN REG, HUMAN 100 UNIT/ML 3 ML VIAL (PYX) SUBCUT SCH ×4 (08:40→21:41)
[2018-12-01] MEDS: METOCLOPRAMIDE HCL 10 MG TABLET PO SCH ×4 (08:40→21:42)
--- NOTE | 2018-12-01 09:28 | EKG REPORT ---
SEVERITY:- ABNORMAL ECG - SINUS RHYTHM NONSPECIFIC INTRAVENTRICULAR CONDUCTION DELAY : Confirmed by: Daisy Rose MD 01-Dec-2018 09:28:08
[2018-12-01] MEDS: CARVEDILOL 12.5 MG TABLET PO SCH ×2 (11:07→21:42)
[2018-12-01] MEDS: SODIUM BICARBONATE 650 MG TABLET PO SCH ×2 (11:07→21:41)
[2018-12-01] MEDS: FOLIC ACID/VITAMIN B COMP W-C CAPSULE PO SCH (11:07)
[2018-12-01] MEDS: LOSARTAN POTASSIUM 25 MG TABLET PO SCH (11:08)
[2018-12-01] MEDS: DILTIAZEM HCL 30 MG TABLET PO SCH ×3 (11:10→17:37)
[2018-12-01] MEDS: CALCITRIOL 0.25 MCG CAPSULE PO SCH (11:10)
[2018-12-01] MEDS: FAMOTIDINE 20 MG TABLET PO SCH (11:10)
[2018-12-01] MEDS: MULTIVITAMIN TABLET PO SCH (11:11)
[2018-12-01] MEDS: CHOLECALCIFEROL (D3) 1,000 UNIT (25 MCG) TABLET PO SCH (11:11)
[2018-12-01] MEDS: FERROUS SULFATE 325 MG TABLET PO SCH ×2 (11:12→17:38)
[2018-12-01] MEDS: ENOXAPARIN SODIUM INJ 80 MG/0.8 ML DISP.SYRIN SUBCUT SCH (11:12)
[2018-12-01] MEDS: FUROSEMIDE INJ/PF 20 MG/2 ML SDV IV SCH ×2 (11:12→21:42)
[2018-12-01] MEDS: ASPIRIN 81 MG TABLET, CHEWABLE PO SCH (11:12)
[2018-12-01] MEDS: CIPROFLOXACIN HCL 500 MG TABLET PO SCH ×2 (11:17→21:46)
--- NOTE | 2018-12-01 11:28 | PDOC PROGRESS REPORT ---
Subjective Progress Note for:: 12/01/18 Subjective:: 62 year old female with history of atrial fibrillation on warfarin, diabetes mellitus type 2, hypertension, right BKA, hyperlipidemia, and TIAs who was admitted for infected sacral decubitus ulcers. The patient was seen on morning rounds. She was found resting in bed comfortably, lying supine, on room air. She reports that she is feeling better today; does continue to have some fatigue. Otherwise denies chest pain, palpitations, dyspnea, orthopnea, cough, abdominal pain, nausea vomiting and diarrhea. She has no questions or concerns. No concerns per nursing. Reason For Visit: INFECTED DECUBITUS ULCER Physical Exam Vital Signs: Temp Pulse Resp BP Pulse Ox 97.5 F 70 16 160/58 H 94 12/01/18 07:04 12/01/18 09:01 12/01/18 09:01 12/01/18 07:04 12/01/18 09:01 Intake & Output 11/30/18 12/01/18 12/02/18 06:59 06:59 06:59 Intake Total 2065 554 Output Total 375 700 Balance 1690 -146 Weight 71.2 kg 72.2 kg General appearance: PRESENT: no acute distress, well-developed, well-nourished - Overweight Head exam: PRESENT: atraumatic, normocephalic Eye exam: PRESENT: conjunctiva pink, EOMI, PERRLA. ABSENT: scleral icterus Ear exam: PRESENT: normal external ear exam Mouth exam: PRESENT: moist, tongue midline Teeth exam: PRESENT: poor dentation Neck exam: ABSENT: carotid bruit, JVD, lymphadenopathy, thyromegaly Respiratory exam: PRESENT: clear to auscultation gustavo, symmetrical, unlabored. ABSENT: rales, rhonchi, wheezes Cardiovascular exam: PRESENT: RRR, +S1, +S2. ABSENT: diastolic murmur, rubs, systolic murmur Pulses: PRESENT: normal dorsalis pedis pul Vascular exam: PRESENT: normal capillary refill GI/Abdominal exam: PRESENT: normal bowel sounds, soft. ABSENT: distended, guarding, mass, organolmegaly, rebound, tenderness Rectal exam: PRESENT: deferred Gentrourinary exam: PRESENT: indwelling catheter Extremities exam: PRESENT: full ROM, other - Right BKA. ABSENT: calf tenderness, clubbing, pedal edema Neurological exam: PRESENT: alert, awake, oriented to person, oriented to place, oriented to time, oriented to situation, CN II-XII grossly intact. ABSENT: motor sensory deficit Psychiatric exam: PRESENT: appropriate affect, normal mood. ABSENT: homicidal ideation, suicidal ideation Skin exam: PRESENT: dry, intact, warm. ABSENT: cyanosis, rash Results Laboratory Results: 12/01/18 05:46 12/01/18 05:46 11/28/18 11/30/18 11/30/18 05:14 10:41 11:06 WBC 7.0 RBC 3.14 L Hgb 9.4 L Hct 29.2 L MCV 93 MCH 30.0 MCHC 32.3 RDW 15.7 H Plt Count 311 Sodium 135.4 L Potassium 4.3 Chloride 108 H Carbon Dioxide 16 L Anion Gap 11 BUN 40 H Creatinine 2.98 H Est GFR ( Amer) 19 L Est GFR (Non-Af Amer) 16 L Glucose 272 H Calcium 8.4 Total Protein 5.7 L Albumin 2.7 L 12/01/18 12/01/18 05:46 05:46 WBC 7.0 RBC 2.63 L Hgb 7.9 L Hct 24.0 L MCV 91 MCH 30.1 MCHC 33.1 RDW 15.9 H Plt Count 245 Sodium 135.9 L Potassium 3.8 Chloride 111 H Carbon Dioxide 17 L Anion Gap 8 BUN 43 H Creatinine 3.36 H Est GFR ( Amer) 17 L Est GFR (Non-Af Amer) 14 L Glucose 112 H Calcium 8.1 L Total Protein Albumin 11/24/18 11/24/18 11/25/18 14:20 14:20 00:44 Creatine Kinase 210 H 158 H CK-MB (CK-2) 3.22 Troponin I 0.065 NT-Pro-B Natriuret Pep 11/25/18 11/25/18 11/25/18 00:44 05:59 05:59 Creatine Kinase 134 CK-MB (CK-2) 2.99 2.67 Troponin I 0.056 0.062 NT-Pro-B Natriuret Pep 16945 H 11/30/18 11/30/18 12/01/18 10:41 18:24 00:24 Creatine Kinase CK-MB (CK-2) 1.24 1.01 Troponin I 0.585 0.513 0.523 NT-Pro-B Natriuret Pep 76330 H 12/01/18 05:46 Creatine Kinase CK-MB (CK-2) 0.89 Troponin I 0.587 NT-Pro-B Natriuret Pep 78754 H Impressions: Hip X-Ray 11/24/18 00:00 IMPRESSION: Osteopenia. No acute osseous abnormality copyright 2010 [employer]- All Rights Reserved Pelvis MRI 11/24/18 00:00 IMPRESSION: No MR evidence of osteomyelitis. Diffuse abnormal signal of the subcutaneous tissue could represent edema versus cellulitis. Renal Ultrasound 11/24/18 00:00 IMPRESSION: CHRONIC MEDICAL RENAL DISEASE. NO HYDRONEPHROSIS. Modified Barium Swallow 11/28/18 00:00 IMPRESSION: SINGLE EPISODE OF LARYNGEAL PENETRATION AND POSSIBLE TRACE ASPIR ATION WITH THIN BARIUM. PLEASE SEE SPEECH PATHOLOGIST REPORT FOR OTHER FINDINGS AND RECOMMENDATIONS. Chest X-Ray 11/30/18 10:25 IMPRESSION: New left upper lobe opacity. Right pleural effusion chronic. Vascular congestion. Assessment and Plan - Diagnosis (1) Decubitus ulcer Qualifiers: Pressure injury location: sacral region Pressure injury stage: stage 4 Qualified Code(s): L89.154 - Pressure ulcer of sacral region, stage 4 Is this a current diagnosis for this admission?: Yes Plan: Now s/p surgical debridement. MRI was negative for osteomyelitis. Blood cultures (final) are negative Wound cultures (final) demonstrated skin teri, Prevotella species and Peptostreptococcus species. Patient is admitted to the medical floor and continuous cardiac telemetry. She was empirically placed on IV Zosyn and vancomycin; have been discontinued. Continue on p.o. Cipro and Flagyl; Day #3 Surgery is consulted; appreciate their expertise. Dr. Adair evaluated patient; recommends continued wet-to-dry dressings. Discharge planning is consulted. Will not require wound VAC at discharge. (2) Acute on chronic renal failure Is this a current diagnosis for this admission?: Yes Plan: Cr 3.57-> 3.26-> 3.30-> 3.12-> 2.98-> 3.36 Patient has baseline creatinine of 3.03 With good urinary output. Development of CHF exacerbation and flash pulmonary edema yesterday necessitated use of IV furosemide with expectant increase in creatinine. Nephrology is consulted; appreciate their assistance. Avoid nephrotoxic medications as able. IVF discontinued Daily chemistries. (3) HTN (hypertension) Is this a current diagnosis for this admission?: Yes Plan: Patient is noted to have hypertension; continues to have poor control. Cardiac consistent carb diet. Continue home dose diltiazem. Continue carvedilol and losartan Have started IV Lasix for fluid volume overload/CHF IV hydralazine as needed for blood pressure control. (4) Anemia Qualifiers: Anemia type: due to chronic kidney disease Chronic kidney disease stage: stage 3 (moderate) Qualified Code(s): N18.3 - Chronic kidney disease, stage 3 (moderate); D63.1 - Anemia in chronic kidney disease Is this a current diagnosis for this admission?: Yes Plan: Anemia of chronic disease secondary to CKD 3. Baseline hemoglobin of 10. s/p 1 unit PRBC Occult stool negative. No evidence of active bleeding at this time. Nephrology is consulted; appreciate Dr. Roberson's assistance. Has received IV Venofer here. Continue p.o. ferrous sulfate supplementation. (5) Diabetes mellitus Qualifiers: Diabetes mellitus type: type 2 Diabetes mellitus mcfp insulin use: with mcfp use Chronic kidney disease stage: stage 3 (moderate) Is this a current diagnosis for this admission?: Yes Plan: A1C 8.2% Well-controlled on current regiment. Patient is placed on a consistent carb/cardiac diet. Accu-Cheks AC and at bedtime with Humalog for sliding scale coverage. Continue home dose long-acting insulin. Hypoglycemia protocol in place. Registered dietitian and nurses educator consulted. (6) Paroxysmal atrial fibrillation Is this a current diagnosis for this admission?: No Plan: Patient has history of paroxysmal atrial fibrillation on Coumadin at home. Continue diltiazem and carvedilol. Patient was started on renally dosed Lovenox during ACS rule out yesterday. Troponins are elevated but stable and patient is chest pain-free. We will discontinue Lovenox and resume renally dose Eliquis this evening. (7) Supratherapeutic INR Is this a current diagnosis for this admission?: Yes Plan: Resolved. INR 3.05-> 3.45-> 3.35-> 3.47-> 3.03-> 1.80 Received one-time dose of p.o. vitamin K. Concern about patient's noncompliance with medication regiment; therefore will not resume Coumadin. Patient to be started on renally dose Eliquis 2.5 mg daily at discharge. (8) CHF exacerbation Qualifiers: Heart failure type: systolic Qualified Code(s): I50.23 - Acute on chronic systolic (congestive) heart failure Is this a current diagnosis for this admission?: Yes Plan: Patient with a history of CHF; echocardiogram from 2016 showed normal LVEF with mild diastolic dysfunction though was a poor quality study. Patient is unaware of her type or severity of CHF. Chest x-ray does show pulmonary vascular congestion today. BNP elevated to 34k-> 38k; up from 11k at admission. Troponin elevated to 0.585-> 0.523-> 0.587; up from baseline 0.06 IVF are discontinued. Continue IV furosemide 20 mg twice daily. Continue diltiazem, carvedilol, and losartan. Continue daily aspirin and statin therapy. Daily weights, strict I&Os; only 750 ml output in last 24 hrs. Wt increased 1 kg overnight Cardiac diet. (9) Pulmonary edema Qualifiers: Chronicity: acute Qualified Code(s): J81.0 - Acute pulmonary edema Is this a current diagnosis for this admission?: Yes Plan: Resolved; clear lung sounds and now maintaining oxygen saturations while lying supine on room air without increased work of breathing. Secondary to acute systolic CHF exacerbation. IV fluids are discontinued. Diuresing as above. (10) Elevated troponin Is this a current diagnosis for this admission?: Yes Plan: Likely secondary to CHF exacerbation resulting in hypoxia and demand ischemia. Troponins are elevated but stable. PAtient is chest pain free. EKG reassuring. Echocardiogram is pending. Spoke with Dr. Rose; advised to begin diuresing for management of CHF exacerbation. He is available for consultation if needed. Continue daily ASA 81 mg. - Time Time Spent with patient: 15-24 minutes Medications reviewed and adjusted accordingly: Yes Anticipated discharge: SNF Within: within 72 hours
[2018-12-01] MEDS: APIXABAN 2.5 MG TABLET PO SCH (17:38)
[2018-12-01] MEDS: ATORVASTATIN CALCIUM 40 MG TABLET PO SCH (21:42)
[2018-12-02] MEDS: IPRATROPIUM/ALBUTEROL 0.5-2.5 MG/3 ML AMPUL NEB SCH ×4 (01:58→19:46)
[2018-12-02 06:01] LABS: HEMATOCRIT 25.9 % (36.0-47.0); HEMOGLOBIN 8.6 g/dL (12.0-15.5); MEAN CORPUSCULAR HEMOGLOBIN 30.5 pg (27.0-33.4); MEAN CORPUSCULAR HGB CONC 33.3 g/dL (32.0-36.0); MEAN CORPUSCULAR VOLUME 91 fl (80-97); PLATELET COUNT 248 10^3/uL (150-450); RED BLOOD COUNT 2.84 10^6/uL (3.72-5.28); RED CELL DISTRIBUTION WIDTH 15.9 % (11.5-14.0)
[2018-12-02 06:15] LABS: ANION GAP 7 (5-19); BLOOD UREA NITROGEN 42 mg/dL (7-20); CALCIUM 8.2 mg/dL (8.4-10.2); CARBON DIOXIDE 19 mmol/L (22-30); CHLORIDE 109 mmol/L (98-107); GLUCOSE 104 mg/dL (75-110); POTASSIUM 3.8 mmol/L (3.6-5.0); SODIUM 135.4 mmol/L (137-145)
[2018-12-02] MEDS: METRONIDAZOLE 500 MG TABLET PO SCH ×3 (06:35→21:49)
[2018-12-02] MEDS: INSULIN REG, HUMAN 100 UNIT/ML 3 ML VIAL (PYX) SUBCUT SCH ×4 (09:14→21:46)
[2018-12-02] MEDS: CALCITRIOL 0.25 MCG CAPSULE PO SCH (09:41)
[2018-12-02] MEDS: SODIUM BICARBONATE 650 MG TABLET PO SCH ×2 (09:41→21:44)
[2018-12-02] MEDS: CHOLECALCIFEROL (D3) 1,000 UNIT (25 MCG) TABLET PO SCH (09:41)
[2018-12-02] MEDS: FERROUS SULFATE 325 MG TABLET PO SCH ×2 (09:42→17:08)
[2018-12-02] MEDS: FOLIC ACID/VITAMIN B COMP W-C CAPSULE PO SCH (09:42)
[2018-12-02] MEDS: METOCLOPRAMIDE HCL 10 MG TABLET PO SCH ×4 (09:42→21:45)
[2018-12-02] MEDS: LOSARTAN POTASSIUM 25 MG TABLET PO SCH (09:42)
[2018-12-02] MEDS: FAMOTIDINE 20 MG TABLET PO SCH (09:43)
[2018-12-02] MEDS: DILTIAZEM HCL 30 MG TABLET PO SCH ×3 (09:43→17:07)
[2018-12-02] MEDS: CARVEDILOL 12.5 MG TABLET PO SCH ×2 (09:43→21:45)
[2018-12-02] MEDS: APIXABAN 2.5 MG TABLET PO SCH ×2 (09:43→17:07)
[2018-12-02] MEDS: MULTIVITAMIN TABLET PO SCH (09:43)
[2018-12-02] MEDS: ASPIRIN 81 MG TABLET, CHEWABLE PO SCH (09:43)
[2018-12-02] MEDS: CIPROFLOXACIN HCL 500 MG TABLET PO SCH ×2 (09:44→21:49)
[2018-12-02] MEDS: FUROSEMIDE 40 MG TABLET PO SCH (09:44)
--- NOTE | 2018-12-02 11:53 | PDOC PROGRESS REPORT ---
Subjective Progress Note for:: 12/02/18 Reason For Visit: Patient seen this morning. Chart was reviewed and discussions were done with the treating nurse. This is a 62 year old female with history of Complicated diabetes mellitus, peripheral vascular disease status post right BKA, CKD stage III/IV,atrial fibrillation on warfarin, hypertension, right BKA, hyperlipidemia, and TIAs who was admitted for infected sacral decubitus ulcers. She has had an MRI of her low back which reveals no osteomyelitis. She underwent debridement by surgeons and they are following up as well. No complaints of any fever chills or Reiger's. She is on IV Cipro as well as Flagyl p.o. She is resting in bed comfortably, lying supine, on room air. She reports that she is feeling better today; does continue to have some fatigue. Otherwise denies chest pain, palpitations, dyspnea, orthopnea, cough, abdominal pain, nausea vomiting and diarrhea.Labs and medications were reviewed with her. Physical Exam Vital Signs: Temp Pulse Resp BP Pulse Ox 97.5 F 62 16 134/54 H 99 12/02/18 03:51 12/02/18 08:30 12/02/18 08:30 12/02/18 03:51 12/02/18 08:30 Intake & Output 12/01/18 12/02/18 12/03/18 06:59 06:59 06:59 Intake Total 554 913 Output Total 700 1575 Balance -146 -662 Weight 72.2 kg 72.3 kg General appearance: PRESENT: no acute distress Respiratory exam: PRESENT: clear to auscultation gustavo. ABSENT: crackles Cardiovascular exam: PRESENT: +S1, +S2 GI/Abdominal exam: PRESENT: normal bowel sounds, soft. ABSENT: organomegaly, tenderness Neurological exam: PRESENT: alert, awake, oriented to person, oriented to place Psychiatric exam: PRESENT: appropriate affect Results Laboratory Results: 12/02/18 05:37 12/02/18 05:37 12/02/18 12/02/18 05:37 05:37 WBC 8.0 RBC 2.84 L Hgb 8.6 L Hct 25.9 L MCV 91 MCH 30.5 MCHC 33.3 RDW 15.9 H Plt Count 248 Sodium 135.4 L Potassium 3.8 Chloride 109 H Carbon Dioxide 19 L Anion Gap 7 BUN 42 H Creatinine 3.55 H Est GFR ( Amer) 16 L Est GFR (Non-Af Amer) 13 L Glucose 104 Calcium 8.2 L 11/24/18 11/24/18 11/25/18 14:20 14:20 00:44 Creatine Kinase 210 H 158 H CK-MB (CK-2) 3.22 Troponin I 0.065 NT-Pro-B Natriuret Pep 11/25/18 11/25/18 11/25/18 00:44 05:59 05:59 Creatine Kinase 134 CK-MB (CK-2) 2.99 2.67 Troponin I 0.056 0.062 NT-Pro-B Natriuret Pep 55558 H 11/30/18 11/30/18 12/01/18 10:41 18:24 00:24 Creatine Kinase CK-MB (CK-2) 1.24 1.01 Troponin I 0.585 0.513 0.523 NT-Pro-B Natriuret Pep [id number] H 12/01/18 05:46 Creatine Kinase CK-MB (CK-2) 0.89 Troponin I 0.587 NT-Pro-B Natriuret Pep [id number] H Impressions: Hip X-Ray 11/24/18 00:00 IMPRESSION: Osteopenia. No acute osseous abnormality copyright 2011 [employer]- All Rights Reserved Pelvis MRI 11/24/18 00:00 IMPRESSION: No MR evidence of osteomyelitis. Diffuse abnormal signal of the subcutaneous tissue could represent edema versus cellulitis. Renal Ultrasound 11/24/18 00:00 IMPRESSION: CHRONIC MEDICAL RENAL DISEASE. NO HYDRONEPHROSIS. Modified Barium Swallow 11/28/18 00:00 IMPRESSION: SINGLE EPISODE OF LARYNGEAL PENETRATION AND POSSIBLE TRACE ASPIRATION WITH THIN BARIUM. PLEASE SEE SPEECH PATHOLOGIST REPORT FOR OTHER FINDINGS AND RECOMMENDATIONS. Chest X-Ray 11/30/18 10:25 IMPRESSION: New left upper lobe opacity. Right pleural effusion chronic. Vascular congestion. Assessment & Plan - Diagnosis (1) Acute worsening of stage 4 chronic kidney disease Plan: She is got ATN from infection and currently undergoing antibiotic treatment. Leny mao is unfortunately long-standing complicated diabetes with CKD stage IV. She is also got bad peripheral vascular disease and has underwent a right BKA. Currently she is not yet back to her baseline renal functions where her creatinine is usually around 2.5. However she is has shown some improvement from her admission creatinine and she is nonoliguric. Continue present lines of management. Please dose to a GFR of 20 cc/min. (2) Decubitus ulcer Qualifiers: Pressure injury location: sacral region Pressure injury stage: stage 4 Qualified Code(s): L89.154 - Pressure ulcer of sacral region, stage 4 Is this a current diagnosis for this admission?: Yes Plan: As per hospitalist and surgeons. (3) CHF exacerbation Qualifiers: Heart failure type: systolic Qualified Code(s): I50.23 - Acute on chronic systolic (congestive) heart failure Is this a current diagnosis for this admission?: Yes Plan: Over the weekend she had exacerbation of CHF. Cardiology has been consulted. I am unsure of her cardiac risk stratification status. (4) HTN (hypertension) Is this a current diagnosis for this admission?: Yes Plan: Presently controlled. (5) Metabolic acidosis Is this a current diagnosis for this admission?: Yes Plan: On replacements which I will continue for now. (6) CKD (chronic kidney disease), stage IV Is this a current diagnosis for this admission?: Yes Plan: From underlying complicated diabetes mellitus. Obviously she has been gradually progressing and deteriorating renal functions and I obviously see that she will need to be on SUPERVISOR PARTICLEBOARD in the near future. She would be a candidate for hemodialysis and not for any home therapy for a lot of reasons. Follow-up as an outpatient post discharge. 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 (8) Anemia Qualifiers: Chronic kidney disease stage: stage 4 (severe) Plan: She received IV iron as well as erythropoietin last week and continue with erythropoietin today. (9) Hyponatremia Is this a current diagnosis for this admission?: Yes Plan: Stable. (10) Paroxysmal atrial fibrillation Is this a current diagnosis for this admission?: No Plan: Status quo. On anticoagulation.
[2018-12-02] MEDS ORDERED: EPOETIN ALFA INJ 20000 UNIT/1 ML VIAL (RENAL) SUBCUT SCH (12:00)
--- NOTE | 2018-12-02 16:04 | PDOC PROGRESS REPORT ---
Subjective Progress Note for:: 12/02/18 Subjective:: 62 year old female with history of atrial fibrillation on warfarin, diabetes mellitus type 2, hypertension, right BKA, hyperlipidemia, and TIAs who was admitted for infected sacral decubitus ulcers. The patient was seen on morning rounds. She was found resting in bed comfortably, lying supine, on room air. She reports that she is feeling better well. Otherwise denies fever, chills, headache, chest pain, palpitations, dyspnea, orthopnea, cough, abdominal pain, nausea vomiting and diarrhea. No further episodes of emesis. She has no questions or concerns. No concerns per nursing. Reason For Visit: INFECTED DECUBITUS ULCER Physical Exam Vital Signs: Temp Pulse Resp BP Pulse Ox 97.5 F 63 14 134/54 H 96 12/02/18 03:51 12/02/18 14:00 12/02/18 13:40 12/02/18 03:51 12/02/18 13:40 Intake & Output 12/01/18 12/02/18 12/03/18 06:59 06:59 06:59 Intake Total 554 913 Output Total 700 1575 Balance -146 -662 Weight 72.2 kg 72.3 kg General appearance: PRESENT: no acute distress, well-developed, well-nourished - overweight Head exam: PRESENT: atraumatic, normocephalic Eye exam: PRESENT: conjunctiva pink, EOMI, PERRLA. ABSENT: scleral icterus Ear exam: PRESENT: normal external ear exam Mouth exam: PRESENT: moist, tongue midline Teeth exam: PRESENT: poor dentation Neck exam: ABSENT: carotid bruit, JVD, lymphadenopathy, thyromegaly Respiratory exam: PRESENT: clear to auscultation gustavo, symmetrical, unlabored. ABSENT: rales, rhonchi, wheezes Cardiovascular exam: PRESENT: RRR, +S1, +S2. ABSENT: diastolic murmur, rubs, systolic murmur Pulses: PRESENT: normal dorsalis pedis pul Vascular exam: PRESENT: normal capillary refill GI/Abdominal exam: PRESENT: normal bowel sounds, soft. ABSENT: distended, guarding, mass, organolmegaly, rebound, tenderness Rectal exam: PRESENT: deferred Extremities exam: PRESENT: full ROM, other - Rt AKA. ABSENT: calf tenderness, clubbing, pedal edema Neurological exam: PRESENT: alert, awake, oriented to person, oriented to place, oriented to time, oriented to situation, CN II-XII grossly intact. ABSENT: mo tor sensory deficit Psychiatric exam: PRESENT: appropriate affect, normal mood. ABSENT: homicidal ideation, suicidal ideation Skin exam: PRESENT: dry, intact, warm. ABSENT: cyanosis, rash Results Laboratory Results: 12/02/18 05:37 12/02/18 05:37 12/02/18 12/02/18 05:37 05:37 WBC 8.0 RBC 2.84 L Hgb 8.6 L Hct 25.9 L MCV 91 MCH 30.5 MCHC 33.3 RDW 15.9 H Plt Count 248 Sodium 135.4 L Potassium 3.8 Chloride 109 H Carbon Dioxide 19 L Anion Gap 7 BUN 42 H Creatinine 3.55 H Est GFR ( Amer) 16 L Est GFR (Non-Af Amer) 13 L Glucose 104 Calcium 8.2 L 11/24/18 11/24/18 11/25/18 14:20 14:20 00:44 Creatine Kinase 210 H 158 H CK-MB (CK-2) 3.22 Troponin I 0.065 NT-Pro-B Natriuret Pep 11/25/18 11/25/18 11/25/18 00:44 05:59 05:59 Creatine Kinase 134 CK-MB (CK-2) 2.99 2.67 Troponin I 0.056 0.062 NT-Pro-B Natriuret Pep [id number] H 11/30/18 11/30/18 12/01/18 10:41 18:24 00:24 Creatine Kinase CK-MB (CK-2) 1.24 1.01 Troponin I 0.585 0.513 0.523 NT-Pro-B Natriuret Pep [id number] H 12/01/18 05:46 Creatine Kinase CK-MB (CK-2) 0.89 Troponin I 0.587 NT-Pro-B Natriuret Pep [id number] H Impressions: Hip X-Ray 11/24/18 00:00 IMPRESSION: Osteopenia. No acute osseous abnormality copyright 2010 [employer]- All Rights Reserved Pelvis MRI 11/24/18 00:00 IMPRESSION: No MR evidence of osteomyelitis. Diffuse abnormal signal of the subcutaneous tissue could represent edema versus cellulitis. Renal Ultrasound 11/24/18 00:00 IMPRESSION: CHRONIC MEDICAL RENAL DISEASE. NO HYDRONEPHROSIS. Modified Barium Swallow 11/28/18 00:00 IMPRESSION: SINGLE EPISODE OF LARYNGEAL PENETRATION AND POSSIBLE TRACE ASPIRATION WITH THIN BARIUM. PLEASE SEE SPEECH PATHOLOGIST REPORT FOR OTHER FINDINGS AND RECOMMENDATIONS. Chest X-Ray 11/30/18 10:25 IMPRESSION: New left upper lobe opacity. Right pleural effusion chronic. Vascular congestion. Assessment and Plan - Diagnosis (1) Decubitus ulcer Qualifiers: Pressure injury location: sacral region Pressure injury stage: stage 4 Qualified Code(s): L89.154 - Pressure ulcer of sacral region, stage 4 Is this a current diagnosis for this admission?: Yes Plan: Now s/p surgical debridement. MRI was negative for osteomyelitis. Blood cultures (final) are negative Wound cultures (final) demonstrated skin teri, Prevotella species and Peptostreptococcus species. Patient is admitted to the medical floor and continuous cardiac telemetry. She was empirically placed on IV Zosyn and vancomycin; have been discontinued. Continue on p.o. Cipro and Flagyl; Day #4 Surgery is consulted; appreciate their expertise. Dr. Adair evaluated patient; recommends continued wet-to-dry dressings. Discharge planning is consulted. Will not require wound VAC at discharge. (2) Acute on chronic renal failure Is this a current diagnosis for this admission?: Yes Plan: Cr 3.57-> 3.26-> 3.30-> 3.12-> 2.98-> 3.36 -> 3.55 Patient has baseline creatinine of 3.03 With good urinary output. Development of CHF exacerbation and flash pulmonary edema yesterday necessitated use of IV furosemide with expectant increase in creatinine. Nephrology is consulted; appreciate their assistance. Follow up with nephrology 1-2 weeks after discharge. Avoid nephrotoxic medications as able. Dose medications to eGFR <20 IVF discontinued Daily chemistries. (3) HTN (hypertension) Is this a current diagnosis for this admission?: Yes Plan: Patient is noted to have hypertension; continues to have poor control. Cardiac consistent carb diet. Continue home dose diltiazem. Continue carvedilol and losartan Transition to p.o. furosemide today IV hydralazine as needed for blood pressure control. (4) Anemia Qualifiers: Anemia type: due to chronic kidney disease Chronic kidney disease stage: stage 3 (moderate) Qualified Code(s): N18.3 - Chronic kidney disease, stage 3 (moderate); D63.1 - Anemia in chronic kidney disease Is this a current diagnosis for this admission?: Yes Plan: Anemia of chronic disease secondary to CKD 3. Baseline hemoglobin of 10. s/p 1 unit PRBC Occult stool negative. No evidence of active bleeding at this time. Nephrology is consulted; appreciate their assistance. Has received IV Venofer here. Continue p.o. ferrous sulfate supplementation. (5) Diabetes mellitus Qualifiers: Diabetes mellitus type: type 2 Diabetes mellitus long chain beamer insulin use: with long chain beamer use Chronic kidney disease stage: stage 3 (moderate) Is this a current diagnosis for this admission?: Yes Plan: A1C 8.2% Well-controlled on current regiment. Patient is placed on a consistent carb/cardiac diet. Accu-Cheks AC and at bedtime with Humalog for sliding scale coverage. Continue home dose long-acting insulin. Hypoglycemia protocol in place. Registered dietitian and per diem rn consulted. (6) Paroxysmal atrial fibrillation Is this a current diagnosis for this admission?: No Plan: Patient has history of paroxysmal atrial fibrillation on Coumadin at home. Continue diltiazem and carvedilol. Patient was started on renally dosed Lovenox during ACS rule out yesterday. Troponins are elevated but stable and patient is chest pain-free. We will discontinue Lovenox and resume renally dose Eliquis this evening. (7) Supratherapeutic INR Is this a current diagnosis for this admission?: Yes Plan: Resolved. INR 3.05-> 3.45-> 3.35-> 3.47-> 3.03-> 1.80 Received one-time dose of p.o. vitamin K. Concern about patient's noncompliance with medication regiment; therefore will not resume Coumadin. Patient to be started on renally dose Eliquis 2.5 mg daily at discharge. (8) CHF exacerbation Qualifiers: Heart failure type: systolic Qualified Code(s): I50.23 - Acute on chronic systolic (congestive) heart failure Is this a current diagnosis for this admission?: Yes Plan: Patient with a history of CHF; echocardiogram from 2016 showed normal LVEF with mild diastolic dysfunction though was a poor quality study. Patient is unaware of her type or severity of CHF. Chest x-ray does show pulmonary vascular congestion today. BNP elevated to 34k-> 38k; up from 11k at admission. Troponin elevated to 0.585-> 0.523-> 0.587; up from baseline 0.06 IVF are discontinued. Transition to p.o. furosemide today Continue diltiazem, carvedilol, and losartan. Continue daily aspirin and statin therapy. Daily weights, strict I&Os;good urinary output last 24 hrs. Wt stable overnight Cardiac diet. (9) Pulmonary edema Qualifiers: Chronicity: acute Qualified Code(s): J81.0 - Acute pulmonary edema Is this a current diagnosis for this admission?: Yes Plan: Resolved; clear lung sounds and now maintaining oxygen saturations while lying supine on room air without increased work of breathing. Secondary to acute systolic CHF exacerbation. IV fluids are discontinued. Diuresing as above. (10) Elevated troponin Is this a current diagnosis for this admission?: Yes Plan: Likely secondary to CHF exacerbation resulting in hypoxia and demand ischemia. Troponins are elevated but stable. PAtient is chest pain free. EKG reassuring. Echocardiogram is pending. Spoke with Dr. Rose; advised to begin diuresing for management of CHF exacerbation. He is available for consultation if needed. Continue daily ASA 81 mg. - Time Time Spent with patient: 15-24 minutes Medications reviewed and adjusted accordingly: Yes Anticipated discharge: SNF Within: when bed available - Pending [employer] authorization
--- NOTE | 2018-12-02 16:08 | ADVANCED CARE ---
- Diagnosis (1) Decubitus ulcer Diagnosis Current: Yes (2) Acute on chronic renal failure Diagnosis Current: Yes (3) HTN (hypertension) Diagnosis Current: Yes (4) Anemia Diagnosis Current: Yes (5) Diabetes mellitus Diagnosis Current: Yes (6) Paroxysmal atrial fibrillation Diagnosis Current: Yes (7) Supratherapeutic INR Diagnosis Current: No (8) CHF exacerbation Diagnosis Current: Yes (9) Pulmonary edema Diagnosis Current: Yes (10) Elevated troponin Diagnosis Current: Yes Attendance: Patient, Ms. Lidya Castillo Resuscitation Status: Full Code Discussion: Discussed with the patient her multiple comorbid conditions including recent flash pulmonary edema resulting in respiratory distress related to her CHF and acute on chronic kidney failure. The patient was encouraged to consider how she would want to be cared for should similar circumstances occur in the future necessitating recommendations for intubation and mechanical ventilation. The patient confirms that she is a full code and would want full aggressive measures including intubation, mechanical ventilation, pressor support, and dialysis. She identifies her significant other, Randal, is her surrogate decision maker. Care Planning Goals: FULL CODE Aggressive interventions as indicated. Desires dialysis when/if indicated. Time Spent: 16 min
[2018-12-02] MEDS: ATORVASTATIN CALCIUM 40 MG TABLET PO SCH (21:45)
[2018-12-03] MEDS: IPRATROPIUM/ALBUTEROL 0.5-2.5 MG/3 ML AMPUL NEB SCH ×4 (02:08→20:40)
[2018-12-03 05:01] LABS: ANION GAP 9 (5-19); BLOOD UREA NITROGEN 44 mg/dL (7-20); CALCIUM 8.1 mg/dL (8.4-10.2); CARBON DIOXIDE 18 mmol/L (22-30); CHLORIDE 107 mmol/L (98-107); GLUCOSE 120 mg/dL (75-110); POTASSIUM 3.8 mmol/L (3.6-5.0)
[2018-12-03] MEDS: METRONIDAZOLE 500 MG TABLET PO SCH ×3 (06:09→22:29)
[2018-12-03] MEDS: ASPIRIN 81 MG TABLET, CHEWABLE PO SCH (09:05)
[2018-12-03] MEDS: FUROSEMIDE 40 MG TABLET PO SCH (09:05)
[2018-12-03] MEDS: MULTIVITAMIN TABLET PO SCH (09:05)
[2018-12-03] MEDS: FAMOTIDINE 20 MG TABLET PO SCH (09:06)
[2018-12-03] MEDS: METOCLOPRAMIDE HCL 10 MG TABLET PO SCH ×4 (09:06→22:29)
[2018-12-03] MEDS: FERROUS SULFATE 325 MG TABLET PO SCH ×2 (09:06→17:06)
[2018-12-03] MEDS: FOLIC ACID/VITAMIN B COMP W-C CAPSULE PO SCH (09:06)
[2018-12-03] MEDS: APIXABAN 2.5 MG TABLET PO SCH ×2 (09:06→17:06)
[2018-12-03] MEDS: DILTIAZEM HCL 30 MG TABLET PO SCH ×3 (09:06→17:06)
[2018-12-03] MEDS: CHOLECALCIFEROL (D3) 1,000 UNIT (25 MCG) TABLET PO SCH (09:07)
[2018-12-03] MEDS: CALCITRIOL 0.25 MCG CAPSULE PO SCH (09:07)
[2018-12-03] MEDS: CARVEDILOL 12.5 MG TABLET PO SCH ×2 (09:07→22:30)
[2018-12-03] MEDS: SODIUM BICARBONATE 650 MG TABLET PO SCH ×2 (09:07→22:27)
[2018-12-03] MEDS: LOSARTAN POTASSIUM 25 MG TABLET PO SCH (09:07)
[2018-12-03] MEDS: INSULIN REG, HUMAN 100 UNIT/ML 3 ML VIAL (PYX) SUBCUT SCH ×4 (09:08→22:30)
[2018-12-03] MEDS: CIPROFLOXACIN HCL 500 MG TABLET PO SCH ×2 (09:09→22:26)
--- NOTE | 2018-12-03 20:52 | PDOC PROGRESS REPORT ---
Subjective Progress Note for:: 12/03/18 Subjective:: 62 year old female with history of atrial fibrillation on warfarin, diabetes mellitus type 2, hypertension, right BKA, hyperlipidemia, and TIAs who was admitted for infected sacral decubitus ulcers. The patient was seen this morning on rounds. She is resting comfortably in bed on room air. She has no complaints today. No concerns from nursing staff. Patient is pending insurance approval for discharge to [place]. Reason For Visit: INFECTED DECUBITUS ULCER Physical Exam Vital Signs: Temp Pulse Resp BP Pulse Ox 98.0 F 74 18 181/64 H 94 12/03/18 16:18 12/03/18 19:00 12/03/18 16:18 12/03/18 16:18 12/03/18 16:18 Intake & Output 12/02/18 12/03/18 12/04/18 06:59 06:59 06:59 Intake Total 913 578 834 Output Total 1575 1325 780 Balance -662 -747 54 Weight 72.3 kg 74.6 kg General appearance: PRESENT: no acute distress, morbidly obese Head exam: PRESENT: atraumatic, normocephalic Eye exam: PRESENT: conjunctiva pink, EOMI, PERRLA. ABSENT: scleral icterus Ear exam: PRESENT: normal external ear exam Mouth exam: PRESENT: moist, tongue midline Teeth exam: PRESENT: poor dentation Neck exam: ABSENT: carotid bruit, JVD, lymphadenopathy, thyromegaly Respiratory exam: PRESENT: clear to auscultation gustavo, symmetrical, unlabored. ABSENT: rales, rhonchi, wheezes Cardiovascular exam: PRESENT: RRR. ABSENT: diastolic murmur, rubs, systolic murmur Pulses: PRESENT: normal radial pulses, normal dorsalis pedis pul Vascular exam: PRESENT: normal capillary refill GI/Abdominal exam: PRESENT: normal bowel sounds, soft. ABSENT: distended, guarding, mass, organolmegaly, rebound, tenderness Rectal exam: PRESENT: deferred Extremities exam: PRESENT: other - R AKA. ABSENT: calf tenderness, clubbing, pedal edema Neurological exam: PRESENT: alert, awake, oriented to person, oriented to place, oriented to time, oriented to situation Psychiatric exam: PRESENT: appropriate affect, normal mood Skin exam: PRESENT: dry, intact, warm. ABSENT: cyanosis, rash Results Laboratory Results: 12/02/18 05:37 12/03/18 04:10 12/03/18 04:10 Sodium 134.0 L Potassium 3.8 Chloride 107 Carbon Dioxide 18 L Anion Gap 9 BUN 44 H Creatinine 3.43 H Est GFR ( Amer) 16 L Est GFR (Non-Af Amer) 14 L Glucose 120 H Calcium 8.1 L 11/24/18 11/24/18 11/25/18 14:20 14:20 00:44 Creatine Kinase 210 H 158 H CK-MB (CK-2) 3.22 Troponin I 0.065 NT-Pro-B Natriuret Pep 11/25/18 11/25/18 11/25/18 00:44 05:59 05:59 Creatine Kinase 134 CK-MB (CK-2) 2.99 2.67 Troponin I 0.056 0.062 NT-Pro-B Natriuret Pep 90787 H 11/30/18 11/30/18 12/01/18 10:41 18:24 00:24 Creatine Kinase CK-MB (CK-2) 1.24 1.01 Troponin I 0.585 0.513 0.523 NT-Pro-B Natriuret Pep 34405 H 12/01/18 05:46 Creatine Kinase CK-MB (CK-2) 0.89 Troponin I 0.587 NT-Pro-B Natriuret Pep 74881 H Impressions: Hip X-Ray 11/24/18 00:00 IMPRESSION: Osteopenia. No acute osseous abnormality copyright 2011 [employer]- All Rights Reserved Pelvis MRI 11/24/18 00:00 IMPRESSION: No MR evidence of osteomyelitis. Diffuse abnormal signal of the subcutaneous tissue could represent edema versus cellulitis. Renal Ultrasound 11/24/18 00:00 IMPRESSION: CHRONIC MEDICAL RENAL DISEASE. NO HYDRONEPHROSIS. Modified Barium Swallow 11/28/18 00:00 IMPRESSION: SINGLE EPISODE OF LARYNGEAL PENETRATION AND POSSIBLE TRACE ASPIRATION WITH THIN BARIUM. PLEASE SEE SPEECH PATHOLOGIST REPORT FOR OTHER FINDINGS AND RECOMMENDATIONS. Chest X-Ray 11/30/18 10:25 IMPRESSION: New left upper lobe opacity. Right pleural effusion chronic. Vascular congestion. Status: Imported from PACS Assessment and Plan - Diagnosis (1) Decubitus ulcer Qualifiers: Pressure injury location: sacral region Pressure injury stage: stage 4 Qualified Code(s): L89.154 - Pressure ulcer of sacral region, stage 4 Is this a current diagnosis for this admission?: Yes Plan: Now s/p surgical debridement. MRI was negative for osteomyelitis. Blood cultures (final) are negative Wound cultures (final) demonstrated skin teri, Prevotella species and Peptostreptococcus species. Empirically placed on IV Zosyn and vancomycin; have been discontinued. Continue on p.o. Cipro and Flagyl Surgery is consulted; appreciate their expertise. Dr. Adair evaluated patient; recommends continued wet-to-dry dressings. Discharge planning is consulted. Will not require wound VAC at discharge. (2) Acute on chronic renal failure Is this a current diagnosis for this admission?: Yes Plan: Cr 3.57-> 3.26-> 3.30-> 3.12-> 2.98-> 3.36 -> 3.55-->3.43 Patient has baseline creatinine of 3.03 Good urinary output. Nephrology is consulted; appreciate their assistance. Follow up with nephrology 1-2 weeks after discharge. Avoid nephrotoxic medications as able. Dose medications to eGFR <20 IVF discontinued Daily chemistries. (3) HTN (hypertension) Is this a current diagnosis for this admission?: Yes Plan: Patient is noted to have hypertension; continues to have poor control. Cardiac consistent carb diet. Continue home dose diltiazem. Continue carvedilol and losartan Added PO Norvasc and lisinopril Continue PO furosemide IV hydralazine as needed for blood pressure control. (4) Anemia Qualifiers: Anemia type: due to chronic kidney disease Chronic kidney disease stage: stage 3 (moderate) Qualified Code(s): N18.3 - Chronic kidney disease, stage 3 (moderate); D63.1 - Anemia in chronic kidney disease Is this a current diagnosis for this admission?: Yes Plan: Anemia of chronic disease secondary to CKD 3. Baseline hemoglobin of 10. s/p 1 unit PRBC this hospitalization Occult stool negative. No evidence of active bleeding at this time. Nephrology is consulted; appreciate their assistance. Has received IV Venofer here. Continue p.o. ferrous sulfate supplementation. (5) Diabetes mellitus Qualifiers: Diabetes mellitus type: type 2 Diabetes mellitus custodial insulin use: with custodial use Chronic kidney disease stage: stage 3 (moderate) Is this a current diagnosis for this admission?: Yes Plan: A1C 8.2% Well-controlled on current regiment. Patient is placed on a consistent carb/cardiac diet. Accu-Cheks AC and at bedtime with Humalog for sliding scale coverage. Continue home dose long-acting insulin. Hypoglycemia protocol in place. Registered dietitian and prosthodontist/educator consulted. (6) CHF exacerbation Qualifiers: Heart failure type: systolic Qualified Code(s): I50.23 - Acute on chronic systolic (congestive) heart failure Is this a current diagnosis for this admission?: Yes Plan: Patient with a history of CHF; echocardiogram from 2016 showed normal LVEF with mild diastolic dysfunction though was a poor quality study. Patient is unaware of her type or severity of CHF. CXR shows pulmonary vascular congestion today. BNP elevated to 34k-> 38k; up from 11k at admission. Troponin elevated to 0.585-> 0.523-> 0.587; up from baseline 0.06 IVF are discontinued. Transition to p.o. furosemide today Continue diltiazem, carvedilol, and losartan. Continue daily aspirin and statin therapy. Daily weights, strict I&Os;good urinary output last 24 hrs. Wt stable overnight Cardiac diet. (7) Pulmonary edema Qualifiers: Chronicity: acute Qualified Code(s): J81.0 - Acute pulmonary edema Is this a current diagnosis for this admission?: Yes Plan: Resolved; clear lung sounds and now maintaining oxygen saturations while lying supine on room air without increased work of breathing. Secondary to acute systolic CHF exacerbation. IV fluids are discontinued. Diuresing as above. (8) Supratherapeutic INR Is this a current diagnosis for this admission?: Yes Plan: Resolved. INR 3.05-> 3.45-> 3.35-> 3.47-> 3.03-> 1.80 Received one-time dose of p.o. vitamin K. Concern about patient's noncompliance with medication regiment; therefore will not resume Coumadin. Patient to be started on renally dose Eliquis 2.5 mg daily at discharge. - Time Time Spent with patient: 15-24 minutes Medications reviewed and adjusted accordingly: Yes Anticipated discharge: SNF Within: when bed available - Inpatient Certification Based on my medical assessment, after consideration of the patient's comorbidities, presenting symptoms, or acuity I expect that the services needed warrant INPATIENT care.: Yes I certify that my determination is in accordance with my understanding of [facility]'s requirements for reasonable and necessary INPATIENT services [42 CFR 412.3e].: Yes Medical Necessity: Significant Comorbidiites Make Outpatient Treatment Too Risky, Risk of Complication if Not Cared For in Hospital
[2018-12-03] MEDS ORDERED: AMLODIPINE BESYLATE 5 MG TABLET PO SCH (22:00)
[2018-12-03] MEDS: ATORVASTATIN CALCIUM 40 MG TABLET PO SCH (22:28)
[2018-12-03] MEDS: LISINOPRIL 10 MG TABLET PO SCH (22:29)
[2018-12-04] MEDS: IPRATROPIUM/ALBUTEROL 0.5-2.5 MG/3 ML AMPUL NEB SCH ×2 (02:27→07:52)
[2018-12-04 04:31] LABS: HEMATOCRIT 26.8 % (36.0-47.0); HEMOGLOBIN 8.9 g/dL (12.0-15.5); MEAN CORPUSCULAR HEMOGLOBIN 30.6 pg (27.0-33.4); MEAN CORPUSCULAR HGB CONC 33.2 g/dL (32.0-36.0); MEAN CORPUSCULAR VOLUME 92 fl (80-97); PLATELET COUNT 251 10^3/uL (150-450); RED BLOOD COUNT 2.91 10^6/uL (3.72-5.28); RED CELL DISTRIBUTION WIDTH 16.1 % (11.5-14.0); WHITE BLOOD COUNT 8.2 10^3/uL (4.0-10.5)
[2018-12-04 04:57] LABS: ALANINE AMINOTRANSFERASE 25 U/L (9-52); ALBUMIN 2.3 g/dL (3.5-5.0); ALKALINE PHOSPHATASE 100 U/L (38-126); ANION GAP 11 (5-19); ASPARTATE AMINO TRANSFERASE 15 U/L (14-36); BILIRUBIN,DIRECT 0.3 mg/dL (0.0-0.4); BILIRUBIN,TOTAL 0.3 mg/dL (0.2-1.3); BLOOD UREA NITROGEN 43 mg/dL (7-20); CALCIUM 8.1 mg/dL (8.4-10.2); CARBON DIOXIDE 19 mmol/L (22-30); CHLORIDE 106 mmol/L (98-107); GLUCOSE 153 mg/dL (75-110); POTASSIUM 3.8 mmol/L (3.6-5.0); SODIUM 135.5 mmol/L (137-145)
[2018-12-04] MEDS: METRONIDAZOLE 500 MG TABLET PO SCH (06:30)
[2018-12-04] MEDS: INSULIN REG, HUMAN 100 UNIT/ML 3 ML VIAL (PYX) SUBCUT SCH (07:25)
[2018-12-04] MEDS: METOCLOPRAMIDE HCL 10 MG TABLET PO SCH (08:29)
[2018-12-04] MEDS: LISINOPRIL 10 MG TABLET PO SCH (09:26)
[2018-12-04] MEDS: ASPIRIN 81 MG TABLET, CHEWABLE PO SCH (09:26)
[2018-12-04] MEDS: CALCITRIOL 0.25 MCG CAPSULE PO SCH (09:26)
[2018-12-04] MEDS: FAMOTIDINE 20 MG TABLET PO SCH (09:26)
[2018-12-04] MEDS: DILTIAZEM HCL 30 MG TABLET PO SCH (09:27)
[2018-12-04] MEDS: LOSARTAN POTASSIUM 25 MG TABLET PO SCH (09:27)
[2018-12-04] MEDS: MULTIVITAMIN TABLET PO SCH (09:27)
[2018-12-04] MEDS: SODIUM BICARBONATE 650 MG TABLET PO SCH (09:28)
[2018-12-04] MEDS: CHOLECALCIFEROL (D3) 1,000 UNIT (25 MCG) TABLET PO SCH (09:28)
[2018-12-04] MEDS: FOLIC ACID/VITAMIN B COMP W-C CAPSULE PO SCH (09:28)
[2018-12-04] MEDS: FUROSEMIDE 40 MG TABLET PO SCH (09:29)
[2018-12-04] MEDS: FERROUS SULFATE 325 MG TABLET PO SCH (09:29)
[2018-12-04] MEDS: CARVEDILOL 12.5 MG TABLET PO SCH (09:29)
[2018-12-04] MEDS: APIXABAN 2.5 MG TABLET PO SCH (09:30)
[2018-12-04] MEDS: CIPROFLOXACIN HCL 500 MG TABLET PO SCH (09:31)
[2018-12-04 10:42] VITALS: BP 139/55
[2018-12-05] MEDS ORDERED: FUROSEMIDE 40 MG TABLET PO SCH (10:00)
--- NOTE | 2018-12-05 20:50 | PDOC DISCHARGE SUMMARY ---
General - Admit/Disc Date/PCP Admission Date/Primary Care Provider: 11/24/18 18:38 CYNDIE COMER MD Discharge Date: 12/04/18 - Discharge Diagnosis (1) Decubitus ulcer Is this a current diagnosis for this admission?: Yes (2) Acute on chronic renal failure Is this a current diagnosis for this admission?: Yes (3) HTN (hypertension) Is this a current diagnosis for this admission?: Yes (4) Anemia Is this a current diagnosis for this admission?: Yes (5) Diabetes mellitus Is this a current diagnosis for this admission?: Yes (6) CHF exacerbation Is this a current diagnosis for this admission?: Yes (7) Pulmonary edema Is this a current diagnosis for this admission?: Yes (8) Supratherapeutic INR Is this a current diagnosis for this admission?: Yes - Additional Information Resuscitation Status: Full Code Discharge Diet: Cardiac, Diabetic Discharge Activity: Activity As Tolerated, Balance Activity w/Rest, Slowly Increase Activity, Supervised Activity Prescriptions: Amlodipine Besylate [Norvasc 5 mg Tablet] 5 mg PO QHS #30 tablet Apixaban [Eliquis 2.5 mg Tablet] 2.5 mg PO BID #60 tablet Aspirin [Aspirin 81 mg Chewable Tablet] 81 mg PO DAILY #30 tab.chew Carvedilol [Coreg 12.5 mg Tablet] 12.5 mg PO Q12 #60 tablet Ciprofloxacin HCl [Cipro 500 mg Tablet] 250 mg PO Q12 #20 tablet Furosemide [Lasix] 60 mg PO DAILY #45 tablet Lisinopril [Prinivil 10 mg Tablet] 10 mg PO Q12 #60 tablet Losartan Potassium [Cozaar 25 mg Tablet] 25 mg PO DAILY #30 tablet Metoclopramide HCl [Reglan 10 mg Tablet] 5 mg PO ACHS #120 tablet Metronidazole [Flagyl 500 mg Tablet] 500 mg PO Q8 #30 tablet Sodium Bicarbonate [Sodium Bicarbonate 650 mg Tablet] 1,300 mg PO Q12 #60 tablet Home Medications: Clopidogrel Bisulfate [Plavix 75 mg Tablet] 75 mg PO DAILY 11/25/18 Docusate Sodium [Colace 100 mg Capsule] 100 mg PO DAILYP PRN 11/25/18 Ferrous Sulfate [Feosol 325 mg Tablet] 325 mg PO BID 11/25/18 Insulin NPH Hum/Reg Insulin Hm [Novolin 70-30 Flexpen] 7 units SQ QAM 11/25/18 Insulin NPH Hum/Reg Insulin Hm [Novolin 70-30 Flexpen] 12 units SQ QPM 11/25/18 Omeprazole 20 mg PO DAILY 11/25/18 Acetaminophen [Tylenol 325 mg Tablet] 650 mg PO Q4HP PRN tablet 11/29/18 Apixaban [Eliquis 2.5 mg Tablet] 2.5 mg PO BID #60 tablet 11/29/18 Atorvastatin Calcium [Lipitor 40 mg Tablet] 40 mg PO QHS tablet 11/29/18 Calcitriol [Rocaltrol 0.25 mcg Capsule] 0.25 mcg PO DAILY capsule 11/29/18 Carvedilol [Coreg 12.5 mg Tablet] 12.5 mg PO Q12 #60 tablet 11/29/18 Ciprofloxacin HCl [Cipro 500 mg Tablet] 250 mg PO Q12 #20 tablet 11/29/18 Diltiazem HCl [Cardizem 30 mg Tablet] 30 mg PO TID #0 tablet 11/29/18 Famotidine [Pepcid 20 mg Tablet] 20 mg PO DAILY tablet 11/29/18 Ferrous Sulfate [Feosol 325 mg Tablet] 325 mg PO BID tablet 11/29/18 Folic Acid/Vitamin B Comp W-C [Nephrocaps Multiple Vitamin Capsule] 1 cap PO DAILY capsule 11/29/18 Metoclopramide HCl [Reglan 10 mg Tablet] 5 mg PO ACHS #120 tablet 11/29/18 Metronidazole [Flagyl 500 mg Tablet] 500 mg PO Q8 #30 tablet 11/29/18 Multivitamin [Tab-A-Matheus (Multiple Vitamin) Tablet] 1 tab PO DAILY tablet 11/29/18 Amlodipine Besylate [Norvasc 5 mg Tablet] 5 mg PO QHS #30 tablet 12/04/18 Apixaban [Eliquis 2.5 mg Tablet] 2.5 mg PO BID tablet 12/04/18 Aspirin [Aspirin 81 mg Chewable Tablet] 81 mg PO DAILY #30 tab.chew 12/04/18 Epoetin Gregg [Procrit Inj 20,000 Unit/1 ml Vial (Renal)] 20,000 unit SUBCUT Mo@1200 ml 12/04/18 Furosemide [Lasix] 60 mg PO DAILY #45 tablet 12/04/18 Lisinopril [Prinivil 10 mg Tablet] 10 mg PO Q12 #60 tablet 12/04/18 Losartan Potassium [Cozaar 25 mg Tablet] 25 mg PO DAILY #30 tablet 12/04/18 Sodium Bicarbonate [Sodium Bicarbonate 650 mg Tablet] 1,300 mg PO Q12 #60 tablet 12/04/18 History of Present Illness Patient complains of: INFECTED WOUND History of Present Illness: MELBA ROSADO is a 62 year old female with history of atrial fibrillation on warfarin, diabetes mellitus type 2, hypertension, right BKA, hyperlipidemia, history of mini strokes brought in by family members with complaints of infected sacral decubitus. As per the living partner they noticed sacral wound 2 weeks ago and started turning black with foul-smelling drainage decided to came to the emergency room for further evaluation denies any fever denies any chills denies any nausea vomiting diarrhea denies any pains. She did not usually stays in the bed or in the wheelchair most of the time. No other complaints. Hospital Course Hospital Course: 62 year old female with history of atrial fibrillation on warfarin, diabetes mellitus type 2, hypertension, right BKA, hyperlipidemia, and TIAs who was admitted for infected sacral decubitus ulcer. MRI was negative for osteomyelitis. Surgery was consulted regarding the sacral wound, they conducted a wound debridement. The final debrided hole was 2 x 2 x 3 cm. Wound cultures (final) demonstrated skin teri, Prevotella species and Peptostreptococcus species. Empirically placed on IV Zosyn and vancomycin, transitioned to PO Cipro and Flagyl. Surgery did not recommend a wound vac, only wet to dry dressing changes everyday. Initial creatinine 3.57, baseline 3.03. Acute on chronic kidney disease was treated with IVF and blood pressure control, decreased to 2.98. She was continued on her home dose of diltiazem, carvedilol and losartan. Unfortunately, she remained hypertensive and additional agents (carvedilol and losartan) were added to her regimen. She was previously taking coumadin for paroxysmal AFIB and her INR on presentation was supratherapeutic at 3.03. She received a one time dose of vitamin K, coumadin was held until INR decreased 3.05-> 3.45-> 3.35-> 3.47-> 3.03-> 1.80. The patient was instructed to stop taking coumadin and was switched to renally dosed Eliquis. The patient has a history of CHF, echocardiogram from 2016 showed normal LVEF with mild diastolic dysfunction though was a poor quality study. Patient was unaware of her type or severity of CHF. BNP elevated to 34k-> 38k; up from 11k at admission. Troponin elevated to 0.585-> 0.523-> 0.587; up from baseline 0.06. Her CHF exacerbation was treated with IV lasix, she was eventually transitioned to PO lasix. She was able to tolerate PT/OT very well. On the days leading up to her discharge, the patient was seen ambulating in the hallway with rehab therapists using her front wheeled walker. After eleven days in the hospital, the patient was deemed safe for discharge. She requested to return home where her live-in fiance could take care of her. Discharge planning was able to arrange for [facility] services. She was sent home with prescriptions for her new blood pressure medications as well as the antibiotics needed to complete treatment of her sacral wound infection. For any further information, please refer to the EMR. Physical Exam Vital Signs: Temp Pulse Resp BP Pulse Ox 97.7 F 74 18 139/55 H 97 12/04/18 10:39 12/04/18 10:39 12/04/18 10:39 12/04/18 10:39 12/04/18 10:39 Intake & Output 12/04/18 12/05/18 12/06/18 06:59 06:59 06:59 Intake Total 834 Output Total 1330 Balance -496 Weight 74.3 kg General appearance: PRESENT: well-developed, well-nourished Eye exam: PRESENT: conjunctiva pink, PERRLA Mouth exam: PRESENT: moist, tongue midline Teeth exam: PRESENT: poor dentation Neck exam: PRESENT: full ROM Respiratory exam: PRESENT: clear to auscultation gustavo, symmetrical, unlabored Cardiovascular exam: PRESENT: RRR Pulses: PRESENT: normal radial pulses, +1 pedal pulses bilateral Vascular exam: PRESENT: normal capillary refill GI/Abdominal exam: PRESENT: soft. ABSENT: distended, tenderness Rectal exam: PRESENT: deferred Extremities exam: PRESENT: full ROM. ABSENT: pedal edema Musculoskeletal exam: PRESENT: ambulatory - ABLE TO AMBULATE WITH FRONT WHEELED ROLLING WALKER, full ROM Neurological exam: PRESENT: alert, awake, oriented to person, oriented to place, oriented to time, oriented to situation Psychiatric exam: PRESENT: appropriate affect Skin exam: PRESENT: dry. ABSENT: intact - SACRAL DECUB ULCER. COVERED WITH DRESSING. Results Laboratory Results: 12/04/18 03:53 12/04/18 03:53 11/24/18 11/24/18 11/25/18 14:20 14:20 00:44 Creatine Kinase 210 H 158 H CK-MB (CK-2) 3.22 Troponin I 0.065 NT-Pro-B Natriuret Pep 11/25/18 11/25/18 11/25/18 00:44 05:59 05:59 Creatine Kinase 134 CK-MB (CK-2) 2.99 2.67 Troponin I 0.056 0.062 NT-Pro-B Natriuret Pep 30608 H 11/30/18 11/30/18 12/01/18 10:41 18:24 00:24 Creatine Kinase CK-MB (CK-2) 1.24 1.01 Troponin I 0.585 0.513 0.523 NT-Pro-B Natriuret Pep 14825 H 12/01/18 12/04/18 05:46 03:53 Creatine Kinase CK-MB (CK-2) 0.89 Troponin I 0.587 NT-Pro-B Natriuret Pep 04831 H 93784 H Impressions: Hip X-Ray 11/24/18 00:00 IMPRESSION: Osteopenia. No acute osseous abnormality copyright 2011 [employer]- All Rights Reserved Pelvis MRI 11/24/18 00:00 IMPRESSION: No MR evidence of osteomyelitis. Diffuse abnormal signal of the subcutaneous tissue could represent edema versus cellulitis. Renal Ultrasound 11/24/18 00:00 IMPRESSION: CHRONIC MEDICAL RENAL DISEASE. NO HYDRONEPHROSIS. Modified Barium Swallow 11/28/18 00:00 IMPRESSION: SINGLE EPISODE OF LARYNGEAL PENETRATION AND POSSIBLE TRACE ASPIRATION WITH THIN BARIUM. PLEASE SEE SPEECH PATHOLOGIST REPORT FOR OTHER FINDINGS AND RECOMMENDATIONS. Chest X-Ray 11/30/18 10:25 IMPRESSION: New left upper lobe opacity. Right pleural effusion chronic. Vascular congestion. Status: Imported from PACS Qualifiers - * PATIENT BEING DISCHARGED WITH ANY OF THE FOLLOWING DIAGNOSIS: No Acute Heart Failure - Is this a Heart Failure Patient?: No
== END 2018-12-04 11:04 | disposition home health service (06) | DRG 570 ==
LOC: ER 12:42 → EH 18:38 → 3W 23:40
PROVIDERS: ADMIT Internal Medicine; ATTEND Internal Medicine
PROC: 0JB70ZZ Excision of Back Subcutaneous Tissue and Fascia, Open Approach (ICD-10-PCS; principal; 2018-11-24)
PROC: 30233N1 Transfusion of Nonautologous Red Blood Cells into Peripheral Vein, Percutaneous Approach (ICD-10-PCS; 2018-11-25)
DX: L89.154 Pressure ulcer of sacral region, stage 4 (principal); I50.23 Acute on chronic systolic (congestive) heart failure; N17.9 Acute kidney failure, unspecified; N18.4 Chronic kidney disease, stage 4 (severe); E87.1 Hypo-osmolality and hyponatremia; N25.81 Secondary hyperparathyroidism of renal origin; I13.0 Hypertensive heart and chronic kidney disease with heart failure and stage 1 through stage 4 chronic kidney disease, or unspecified chronic kidney disease; D63.1 Anemia in chronic kidney disease; E11.22 Type 2 diabetes mellitus with diabetic chronic kidney disease; R79.1 Abnormal coagulation profile; E78.5 Hyperlipidemia, unspecified; E11.51 Type 2 diabetes mellitus with diabetic peripheral angiopathy without gangrene; I25.10 Atherosclerotic heart disease of native coronary artery without angina pectoris; K21.9 Gastro-esophageal reflux disease without esophagitis; I48.0 Paroxysmal atrial fibrillation; E55.9 Vitamin D deficiency, unspecified; Z79.899 Other long term (current) drug therapy; Z79.01 Long term (current) use of anticoagulants; Z79.4 Long term (current) use of insulin; Z79.02 Long term (current) use of antithrombotics/antiplatelets; Z89.511 Acquired absence of right leg below knee; Z86.73 Personal history of transient ischemic attack (TIA), and cerebral infarction without residual deficits; Z83.3 Family history of diabetes mellitus; Z84.1 Family history of disorders of kidney and ureter; Z79.82 Long term (current) use of aspirin
CPT/HCPCS: 36415; 36430; 71045; 72195; 73522; 74230; 76770; 80048; 80053; 80061; 80307; 81001; 82150; 82272; 82306; 82550; 82553; 82570; 82607; 82728; 82746; 82803; 82962; 83036; 83540; 83550; 83615; 83735; 83880; 83970; 84100; 84156; 84443; 84484; 85025; 85027; 85045; 85610; 85730; 86320; 86850; 86900; 86901; 86920; 87040; 87070; 87075; 87077; 87086; 87205; 93005; 93010; 93306; 94640; 96360; 96361; 96365; 99285; J1439; J1650; J1815; J1940; J2543; J3370; J3490; J7030; J7050; J7060; J7620; P9016; Q4081; S0164

== ENCOUNTER 2018-12-19 08:06 | Inpatient (IN) | payer MEDICARE ==
--- NOTE | 2018-12-19 09:24 | RADIOLOGY REPORT (SQ) ---
EXAM DESCRIPTION: CT HEAD WITHOUT COMPLETED DATE/TIME: 12/19/2018 9:07 am REASON FOR STUDY: fall COMPARISON: 08/15/2018 TECHNIQUE: Axial images acquired through the brain without intravenous contrast. Images reviewed wi th bone, brain and subdural windows. Additional sagittal and coronal reconstructions were generated. Images stored on PACS. All CT scanners at this facility use dose modulation, iterative reconstruction, and/or weight based d osing when appropriate to reduce radiation dose to as low as reasonably achievable (ALARA). [facility]: Dose Right [facility]: CareDose [facility]: Dose Right [facility]: Teradose 4D [facility]: [employer] RADIATION DOSE: CT Rad equipment meets quality standard of care and radiation dose reduction techniq ues were employed. CTDIvol: 53.2 mGy. DLP: 1070 mGy-cm.mGy. LIMITATIONS: None. FINDINGS: VENTRICLES: Prominent. CEREBRUM: No masses. No hemorrhage. No midline shift. Areas of low density in the white matter mos t likely due to chronic micro-vascular ischemic change. No evidence for acute infarction. CEREBELLUM: No masses. No hemorrhage. No alteration of density. No evidence for acute infarction. EXTRAAXIAL SPACES: Age-related involutional change. No fluid collections. No masses. ORBITS AND GLOBE: No intra- or extraconal masses. Normal contour of globe without masses. CALVARIUM: No fracture. PARANASAL SINUSES: No fluid or mucosal thickening. SOFT TISSUES: No mass or hematoma. OTHER: No other significant finding. IMPRESSION: CHRONIC CHANGES OF ATROPHY AND MICROVASCULAR ISCHEMIA. NO ACUTE PROCESS. EVIDENCE OF ACUTE STROKE: NO. TECHNICAL DOCUMENTATION: JOB ID: [id number] Quality ID # [id number]: Final reports with documentation of one or more dose reduction techniques (e.g., Au tomated exposure control, adjustment of the mA and/or kV according to patient size, use of iterative reconstruction technique) 2010 [employer]- All Rights Reserved Reading location - IP/workstation name: [email or web address]
--- NOTE | 2018-12-19 09:36 | RADIOLOGY REPORT (SQ) ---
EXAM DESCRIPTION: CT CERVICAL SPINE WITHOUT COMPLETED DATE/TIME: 12/19/2018 9:07 am REASON FOR STUDY: fall COMPARISON: 01/24/2013 TECHNIQUE: Axial images acquired through the cervical spine without intravenous contrast. Images re viewed with lung, soft tissue and bone windows. Reconstructed coronal and sagittal MPR images review ed. Images stored on PACS. All CT scanners at this facility use dose modulation, iterative reconstruction, and/or weight based d osing when appropriate to reduce radiation dose to as low as reasonably achievable (ALARA). [facility]: Dose Right [facility]: CareDose [facility]: Dose Right [facility]: Teradose 4D [facility]: [facility] RADIATION DOSE: CT Rad equipment meets quality standard of care and radiation dose reduction techniq ues were employed. CTDIvol: 22.2 mGy. DLP: 416 mGy-cm. mGy. LIMITATIONS: None. FINDINGS: ALIGNMENT: Anatomic. MINERALIZATION: Normal. VERTEBRAL BODIES: No fractures or dislocation. DISCS: Multilevel disc space narrowing with osteophytes. FACETS, LATERAL MASSES, POSTERIOR ELEMENTS: Multilevel facet arthropathy. There is a lytic process i nvolving the left facet at C4-5. This could be asymmetric aggressive degenerative disease. Infectio us or inflammatory process cannot be excluded. No obvious soft tissue mass by CT. Neoplasm is thoug ht to be on likely but not excluded. Recommend MRI on a nonemergent basis for further evaluation. HARDWARE: None in the spine. VISUALIZED RIBS: No fractures. LUNG APICES AND SOFT TISSUES: No significant or acute findings. OTHER: No other significant finding. IMPRESSION: 1. No evidence of an acute fracture or dislocation. 2. Indeterminate lesion involving the posterior elements at L4-L5 on the left. This may represent d egenerative disease in the left C4-5 facet. Infectious or inflammatory process cannot be excluded on coronal reconstructions the lesion appears irregular. Neoplasm is thought to be on likely but not e xcluded. Recommend MRI for further evaluation. There has been a significant change when compared to 2012. 3. Multilevel spondylosis. TECHNICAL DOCUMENTATION: JOB ID: [id number] Quality ID # [id number]: Final reports with documentation of one or more dose reduction techniques (e.g., Au tomated exposure control, adjustment of the mA and/or kV according to patient size, use of iterative reconstruction technique) 2010 [employer]- All Rights Reserved Reading location - IP/workstation name: [email or web address]
--- NOTE | 2018-12-19 10:20 | ER Document Report ---
ED General - General TRAVEL OUTSIDE OF THE [place] 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 Patient states she was attempting to stand up last evening around 4:00. States she was attempting to put her prostatic lower limb in place and it would "not click in." Patient states that she then fell forward onto the ground. Patient's significant other was with her at the time. States she did not lose any consciousness. Significant other states she placed multiple pillows under the patient's head and placed blankets around her. States he was unable to physically lift the patient so the patient spends the night lying on the floor. Significant other states he attempted to pick the patient up this morning and again was unable so 911 was alerted. Patient is denying lightheadedness, weakness, dizziness, chest pain, shortness of breath. States this was a mechanical fall she was unable to properly place her prosthetic limb in place. In discussing patient's presentation with patient's significant other who the patient lives with he states he is unable to care for the patient on his own. He states prior to patient's recent admission to the hospital on 11/24/2018 he had been helping the patient get around the house. States he helps the patient in the shower and bathroom and without help from neighbors she is unable to walk up the 3 steps it takes to get into the house. Significant other denies any change in the patient's able to care for herself since admission or discharge to the hospital. States he feels as though the patient cannot take care of herself even prior to admission. (KENROY YOO) - Related Data Allergies/Adverse Reactions: No Known Allergies Allergy (Verified 11/24/18 12:45) Past Medical History - General Information source: Patient, Friend - Social History Smoking Status: Unknown if Ever Smoked Family History: CAD, DM, Hypertension Patient has suicidal ideation: No Patient has homicidal ideation: No - Past Medical History Cardiac Medical History: Reports: Hx Atrial Fibrillation, Hx Coronary Artery Disease, Hx Hypercholesterolemia, Hx Hypertension, Hx Peripheral Vascular Disease Neurological Medical History: Reports: Hx Cerebrovascular Accident Endocrine Medical History: Reports: Hx Diabetes Mellitus Type 2 Renal/ Medical History: Denies: Hx Peritoneal Dialysis GI Medical History: Reports: Hx Gastroesophageal Reflux Disease. Denies: Hx Cirrhosis, Hx Hepatitis Musculoskeletal Medical History: Reports Hx Gout Psychiatric Medical History: Denies: Hx Depression Infectious Medical History: Denies: Hx Hepatitis Past Surgical History: Reports: Hx Section, Hx Orthopedic Surgery - Right BKA, Hx Vascular Surgery - Immunizations Hx Diphtheria, Pertussis, Tetanus Vaccination: Yes - Unknown Hx Pneumococcal Vaccination: 09/09/09 <KENROY YOO - Last Filed: 12/20/18 16:44> Review of Systems - Review of Systems Constitutional: denies: Weakness <KENROY YOO - Last Filed: 12/20/18 16:44> Physical Exam <KENROY YOO - Last Filed: 12/20/18 16:44> - Vital signs Vitals: Temp Pulse Resp BP Pulse Ox 97.6 F 96 16 148/64 H 93 12/19/18 08:10 12/19/18 08:10 12/19/18 08:10 12/19/18 08:10 12/19/18 08:10 - Notes Notes: GENERAL: Alert, interacts well. No acute distress. HEAD: Normocephalic, atraumatic. EYES: Pupils equal, round, and reactive to light. Extraocular movements intact. ENT: Oral mucosa moist, tongue midline. NECK: Full range of motion. Supple. Trachea midline. LUNGS: Clear to auscultation bilaterally, no wheezes, rales, or rhonchi. No respiratory distress. HEART: Regular rate and rhythm. No murmur ABDOMEN: Soft, non-tender. Non-distended. Bowel sounds present in all 4 quadrants. EXTREMITIES: Moves all 4 extremities spontaneously, normal radial pulses bilaterally. No cyanosis. R below the knee amputation. BACK: no cervical, thoracic, lumbar midline tenderness. No saddle anesthesia, normal distal neurovascular exam. NEUROLOGICAL: Alert and oriented x3. Normal speech. PSYCH: Normal affect, normal mood. SKIN: Warm, dry, normal turgor. 2.5 cm x 2.5 cm decubitus ulcer noted sacral region, minor surrounding erythema. Packing in place. (KENROY YOO) Course <KENROY YOO - Last Filed: 12/20/18 16:44> - Laboratory Result Diagrams: 12/22/18 11:40 12/22/18 11:40 <AROLDO CATALAN - Last Filed: 12/22/18 14:56> - Re-evaluation Re-evalutation: 12/19/18 10:17 At this point in time discussing patient's presentation with the significant other and patient I feel as though the patient should have been placed in a rehab facility. I do not feel as though the patient is safe at home. She had a mechanical fall yesterday and ended up spending the night on the floor she was unable to get herself up, and her significant other which she lives with was also unable to assist her. Patient also has a significant decubitus ulcer for which she was recently admitted to the hospital for. Does have home health nursing but if patient is unable to get herself off the floor or have someone she lives with help her off the floor I do not feel as though it is safe for her to return to her home. Liz, social insurance specialist in the emergency department to discuss possible rehab placement of the patient. Og Cisneros, Social Work stated she will place orders for OT and PT. Stating that the pt. needs these evaluations prior to placement in a rehab facility based on the pts insurance. Pt. has her blister packets of medications she is suppose to take with her in the ED. I have notified staffing branch manager and Pt. to take her medications as prescribed while in the ED as she is on multiple medications to include blood thinners. Pt. voices understanding. Pt is currently on a social hold, awaiting rehab placement. (KENROY YOO) - Vital Signs Vital signs: Temp Pulse Resp BP Pulse Ox 98.1 F 93 20 175/90 H 96 12/21/18 23:30 12/21/18 23:30 12/21/18 23:30 12/21/18 23:30 12/21/18 23:30 - Laboratory Laboratory results interpreted by me: 12/19/18 12/22/18 12/22/18 17:31 07:14 11:40 RBC 3.05 L Hgb 9.2 L Hct 28.4 L RDW 17.6 H Seg Neutrophils % 78.2 H PT INR Sodium Potassium Carbon Dioxide BUN Creatinine Est GFR ( Amer) Est GFR (Non-Af Amer) Glucose POC Glucose 174 H 262 H NT-Pro-B Natriuret Pep Total Protein Albumin Urine Protein Urine Glucose (UA) Urine Ketones Urine Blood 12/22/18 12/22/18 12/22/18 11:40 11:40 12:12 RBC Hgb Hct RDW Seg Neutrophils % PT INR Sodium 135.8 L Potassium 5.2 H Carbon Dioxide 19 L BUN 64 H Creatinine 3.75 H Est GFR ( Amer) 15 L Est GFR (Non-Af Amer) 12 L Glucose 259 H POC Glucose NT-Pro-B Natriuret Pep 877255 H Total Protein 5.9 L Albumin 2.8 L Urine Protein >=500 H Urine Glucose (UA) >=500 H Urine Ketones TRACE H Urine Blood LARGE H 12/22/18 14:09 RBC Hgb Hct RDW Seg Neutrophils % PT 65.4 H* INR 7.40 H* Sodium Potassium Carbon Dioxide BUN Creatinine Est GFR ( Amer) Est GFR (Non-Af Amer) Glucose POC Glucose NT-Pro-B Natriuret Pep Total Protein Albumin Urine Protein Urine Glucose (UA) Urine Ketones Urine Blood Discharge <KENROY YOO - Last Filed: 12/20/18 16:44> - Discharge Admitting Provider: Amairani (Hospitalist) Unit Admitted: Medical Floor <AROLDO CATALAN - Last Filed: 12/22/18 14:56> - Discharge Clinical Impression: Contusion of right hip, Excessive anticoagulation, 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
--- NOTE | 2018-12-20 09:40 | ER Document Report ---
Addendum entered and electronically signed by KENROY YOO PA-C 12/20/18 16:44: Discharge - Discharge Clinical Impression: Fall Qualifiers: Encounter type: initial encounter Qualified Code(s): W19.XXXA - Unspecified fall, initial encounter Condition: Stable Disposition: REHAB FACILITY Referrals: CYNDIE COMER MD [Primary Care Provider] - Follow up as needed Course - Vital Signs Vital signs: Temp Pulse Resp BP Pulse Ox 97.9 F 84 22 H 142/75 H 95 12/20/18 14:11 12/20/18 14:11 12/20/18 14:11 12/20/18 14:11 12/20/18 14:11 - Laboratory Laboratory results interpreted by me: 12/19/18 17:31 POC Glucose 174 H Physical Exam - Vital signs Vitals: Temp Pulse Resp BP Pulse Ox 97.6 F 96 16 148/64 H 93 12/19/18 08:10 12/19/18 08:10 12/19/18 08:10 12/19/18 08:10 12/19/18 08:10 Original Note: Doctor's Note Notes: 12/20/18 09:39 I have evaluated this pt. this am and she has no c/o at this time. Her physical exam is normal and she feels all of her needs are being met. She is awaiting disposition per mental health.
--- NOTE | 2018-12-21 09:30 | ER Document Report ---
Doctor's Note Notes: 12/21/18 09:29 Patient seen and examined, vital signs reviewed, chart reviewed. Patient apparently had a fall at home, has multiple comorbidities, and appears to need rehab, she is not likely safe to be at home. Social work apparently is attempting to find placement for this patient, she will need physical therapy and occupational therapy evaluations, the patient does not recall having those evaluations yet. She has no complaints at this time, states she is sleeping well, denies shortness of breath or chest pain, has been eating without issues. Will await disposition from social work standpoint.
[2018-12-22] MEDS ORDERED: DEXTROSE 40% GEL 15 GM TUBE PO PRN ×2 (07:23)
[2018-12-22] MEDS ORDERED: DEXTROSE 50%-WATER 25 GM/50 ML DISP.SYRIN IV PRN ×2 (07:23)
[2018-12-22] MEDS ORDERED: GLUCAGON,HUMAN RECOMB 1 MG INJ IM PRN (07:23)
[2018-12-22] MEDS: HUM INSULIN NPH/REG INSULIN HM 100 UNIT/1 ML 3 ML SUBCUT SCH ×2 (10:21→18:36)
--- NOTE | 2018-12-22 10:46 | RADIOLOGY REPORT (SQ) ---
EXAM DESCRIPTION: CHEST SINGLE VIEW COMPLETED DATE/TIME: 12/22/2018 10:23 am REASON FOR STUDY: CHF, SOB COMPARISON: 11/30/2018 NUMBER OF VIEWS: One view. TECHNIQUE: Single frontal radiographic image of the chest acquired. LIMITATIONS: None. FINDINGS: LUNGS AND PLEURA: Small pleural effusions. Bilateral airspace opacities, right greater th an left most of which is chronic. No infiltrate. MEDIASTINUM AND HEART: Stable heart size and mediastinal structures. BONY STRUCTURES: No acute findings. HARDWARE: None. OTHER: No other significant finding. IMPRESSION: Chronic CHF. COPD and fibrosis. TECHNICAL DOCUMENTATION: JOB ID: [id number] Reading location - IP/workstation name: [email or web address]
--- NOTE | 2018-12-22 11:10 | ER Document Report ---
Doctor's Note Notes: 12/22/18 10:57 Rounds: Chart review and patient interviewed. Patient came in originally on December 19 after having fallen. She has a BK a of the right leg and wears a prosthesis. She feels t the prosthesis did not click into proper positioning causing her to have her fall. She hit her hip when she fell. Patient has multiple comorbidities including atrial fibrillation, previous stroke, IDDM, chronic renal disease, hypertension, congestive heart failure. She was just in [facility] for 10-day admission from November 24 until December 05. She also had a sacral decubitus which was debrided and treated while in the hospital. She has been at home since December 05. Is having difficulty and/or is unable to walk very well at home because of her BKA and her fall. After her initial assessment for her fall injury, which consisted of a CT scan of her head and C-spine, patient has been a social admission here in the ED while trying to place her in a rehab facility. There is some confusion about the medications the patient supposed to be taking. Her discharge summary from the hospital here from 10 days ago says she is supposed to be on Eliquis 2.5 mg twice a day. She has that prescription filled on December 06. Additionally, patient was previously on Coumadin before her hospitalization, but it was discontinued while she was in the hospital, however, she filled a prescription December 10 by her primary care provider for Coumadin 3 mg daily for Sunday through Sunday and none on Sundays. Patient and her male friend do not know if she is taken these medications in this way. I am going to order routine labs for like a new patient as well as some x-rays and then we will see where we go after that. Patient looks to be somewhat short of breath, especially with any effort. She has a history of COPD, bilateral pleural effusions, pulmonary fibrosis. Her chest x-ray today shows chronic congestive heart failure, but no acute infiltrates seen. Denies any chest pains. Patient's troponin was 1.88. She has no cardiac symptoms. No chest pains. She has chronic renal disease and I think that is reason for her troponin being up somewhat. EKG does not show any acute changes. At hospitalist request, I did speak with Dr. Rose who felt there was no problem keeping this patient here for evaluation and care. Patient does not appear to be medically clear at this time. Yue Garner MD Patient's PT 65 and INR 7.4 Spoke with the hospitalist who is agreeable to admitting the patient. 12/22/18 15:10
--- NOTE | 2018-12-22 11:16 | RADIOLOGY REPORT (SQ) ---
EXAM DESCRIPTION: HIP RIGHT AP/LATERAL COMPLETED DATE/TIME: 12/22/2018 10:52 am REASON FOR STUDY: Fall, landed on right hip, hematoma COMPARISON: None. NUMBER OF VIEWS: Two views. TECHNIQUE: AP pelvis and additional frog-leg view of the right hip. LIMITATIONS: None. FINDINGS: MINERALIZATION: Osteopenia. RIGHT HIP: No fracture or dislocation. No worrisome bone lesions. LEFT HIP: No fracture or dislocation. No worrisome bone lesions. PUBIS AND ISCHIUM: No fracture. PELVIS: No fracture. SACRUM: No fracture or dislocation. No worrisome bone lesions. LOWER LUMBAR SPINE: No fracture. SOFT TISSUES: No findings. OTHER: No other significant finding. IMPRESSION: No fracture. TECHNICAL DOCUMENTATION: JOB ID: [id number] [employer] All Rights Reserved Reading location - IP/workstation name: [email or web address]
[2018-12-22 12:09] LABS: ABSOLUTE LYMPHOCYTES (AUTO) 0.9 10^3/uL (0.5-4.7); ABSOLUTE MONOCYTES (AUTO) 0.4 10^3/uL (0.1-1.4); ABSOLUTE NEUT (AUTO) 5.1 10^3/uL (1.7-8.2); BASOPHILS % (AUTO) 0.4 % (0-2); EOSINOPHILS % (AUTO) 0.2 % (0-6); HEMATOCRIT 28.4 % (36.0-47.0); HEMOGLOBIN 9.2 g/dL (12.0-15.5); LYMPHOCYTES % (AUTO) 14.5 % (13-45); MEAN CORPUSCULAR HEMOGLOBIN 30.2 pg (27.0-33.4); MEAN CORPUSCULAR HGB CONC 32.3 g/dL (32.0-36.0); MEAN CORPUSCULAR VOLUME 93 fl (80-97); MONOCYTES % (AUTO) 6.7 % (3-13); PLATELET COUNT 296 10^3/uL (150-450); RED BLOOD COUNT 3.05 10^6/uL (3.72-5.28); RED CELL DISTRIBUTION WIDTH 17.6 % (11.5-14.0); SEGMENTED NEUTROPHILS % (AUTO) 78.2 % (42-78); TOTAL CELLS COUNTED % (AUTO) 100 %; WHITE BLOOD COUNT 6.5 10^3/uL (4.0-10.5)
[2018-12-22 12:26] LABS: ALANINE AMINOTRANSFERASE 24 U/L (9-52); ALBUMIN 2.8 g/dL (3.5-5.0); ALKALINE PHOSPHATASE 65 U/L (38-126); ANION GAP 12 (5-19); ASPARTATE AMINO TRANSFERASE 22 U/L (14-36); BILIRUBIN,DIRECT 0.4 mg/dL (0.0-0.4); BILIRUBIN,TOTAL 0.4 mg/dL (0.2-1.3); BLOOD UREA NITROGEN 64 mg/dL (7-20); CALCIUM 8.4 mg/dL (8.4-10.2); CARBON DIOXIDE 19 mmol/L (22-30); CHLORIDE 105 mmol/L (98-107); GLUCOSE 259 mg/dL (75-110); POTASSIUM 5.2 mmol/L (3.6-5.0); SODIUM 135.8 mmol/L (137-145); TOTAL PROTEIN 5.9 g/dL (6.3-8.2)
[2018-12-22] MEDS ORDERED: PHYTONADIONE 5 MG TABLET PO ONE (12:48)
[2018-12-22 12:56] LABS: AMORPHOUS SEDIMENT,URINE TRACE /HPF; APPEARANCE,URINE SLIGHTLY-CLOUDY; BILIRUBIN,URINE NEGATIVE (NEGATIVE); COLOR,URINE YELLOW; GLUCOSE, URINE >=500 mg/dL (NEGATIVE); KETONES,URINE TRACE mg/dL (NEGATIVE); LEUKOCYTE ESTERASE,URINE NEGATIVE (NEGATIVE); NITRITE,URINE NEGATIVE (NEGATIVE); PROTEIN,URINE >=500 mg/dL (NEGATIVE); URINE SPECIFIC GRAVITY 1.014; UROBILINOGEN,URINE NEGATIVE mg/dL (<2.0)
[2018-12-22 12:57] LABS: TROPONIN I 1.88 ng/mL
[2018-12-22] MEDS ORDERED: ONDANSETRON HCL INJ/PF 4 MG/2 ML SDV IV PRN (14:32)
--- NOTE | 2018-12-22 14:32 | PDOC H&P ---
History of Present Illness Admission Date/PCP: CYNDIE COMER MD History of Present Illness: MELBA ROSADO is a 63 year old female patient with past medical history of atrial fibrillation, diabetes mellitus, hypertension, hyperlipidemia, right BKA, stage IV CKD, anemia of CKD, sacral decubitus ulcer, presents with chief complaint of recurrent fall. Patient presented herself to ER on December 19, 2018 but she is not admitted to the floor. meeting planner has been trying to place her in rehab. This morning Dr. Garner evaluated the patient in the ER with blood work us which shows hyperkalemia with potassium 5.2 BUN of 64 creatinine of 3.75 and troponin of 1.88. Patient has chronically elevated troponins. Per Dr. Garner "there is some confusion about the medications the patient supposed to be taking. Her discharge summary from the hospital here from 10 days ago she has that prescription filled on December 06. Additionally, patient was previously on Coumadin before her hospitalization, but it was discontinued while she was in the hospital, however, she filled a prescription December by Dr. Comer for Coumadin 3 mg daily for Sunday through Sunday and none on Sundays". Past Medical History Cardiac Medical History: Reports: Atrial Fibrillation, Coronary Artery Disease, Hyperlipidema, Hypertension, Peripheral Vascular Disease Endocrine Medical History: Reports: Diabetes Mellitus Type 2 GI Medical History: Reports: Gastroesophageal Reflux Disease Denies: Cirrhosis, Hepatitis Musculoskeltal Medical History: Reports: Gout Psychiatric Medical History: Denies: Depression Hematology: Reports: Anemia Past Surgical History Past Surgical History: Reports: Amputation - Right BKA, September 2013, Section, Orthopedic Surgery - Right BKA, Vascular Surgery Social History Smoking Status: Unknown if Ever Smoked Frequency of Alcohol Use: None Hx Recreational Drug Use: No Drugs: None Hx Prescription Drug Abuse: No - Advance Directive Resuscitation Status: Do Not Resuscitate Family History Family History: CAD, DM, Hypertension Parental Family History Reviewed: Yes Children Family History Reviewed: Yes Sibling(s) Family History Reviewed.: Yes Medication/Allergy Home Medications: Clopidogrel Bisulfate [Plavix 75 mg Tablet] 75 mg PO DAILY 11/25/18 Docusate Sodium [Colace 100 mg Capsule] 100 mg PO QHS 11/25/18 Ferrous Sulfate [Feosol 325 mg Tablet] 325 mg PO BID 11/25/18 Insulin NPH Hum/Reg Insulin Hm [Novolin 70-30 Flexpen] 7 units SQ QAM 11/25/18 Insulin NPH Hum/Reg Insulin Hm [Novolin 70-30 Flexpen] 12 units SQ QPM 11/25/18 Omeprazole 20 mg PO DAILY 11/25/18 Lisinopril [Prinivil 10 mg Tablet] 10 mg PO Q12 #60 tablet 12/04/18 Allopurinol [Zyloprim 100 mg Tablet] 100 mg PO DAILY 12/20/18 Atorvastatin Calcium [Lipitor 80 mg Tablet] 80 mg PO QHS 12/20/18 Diltiazem HCl [Cardizem 30 mg Tablet] 30 mg PO Q8 12/20/18 Furosemide [Lasix] 40 mg PO BID 12/20/18 Warfarin Sodium [Coumadin 3 mg Tablet] 3 mg PO MOTUWETHFRSA@2200 12/20/18 Cyanocobalamin (Vitamin B-12) [Vitamin B-12 SL 2500 mcg Tablet] 2,500 mcg SL DAILY 12/22/18 Multivitamin [Tab-A-Matheus (Multiple Vitamin) Tablet] 1 tab PO DAILY 12/22/18 Allergies/Adverse Reactions: No Known Allergies Allergy (Verified 11/24/18 12:45) Review of Systems Constitutional: PRESENT: as per HPI, fatigue Ears: ABSENT: hearing changes Cardiovascular: ABSENT: chest pain, dyspnea on exertion, edema, orthropnea, palpitations Gastrointestinal: ABSENT: abdominal pain, constipation, diarrhea, hematemesis, hematochezia, nausea, vomiting Integumentary: PRESENT: wounds - Sacral DU Neurological: ABSENT: abnormal gait, abnormal speech, confusion, dizziness, focal weakness, syncope Psychiatric: ABSENT: anxiety, depression, homidical ideation, suicidal ideation Physical Exam Vital Signs: Temp Pulse Resp BP Pulse Ox 98.1 F 93 20 175/90 H 96 12/21/18 23:30 12/21/18 23:30 12/21/18 23:30 12/21/18 23:30 12/21/18 23:30 General appearance: PRESENT: no acute distress Head exam: PRESENT: atraumatic Eye exam: PRESENT: conjunctiva pale Mouth exam: PRESENT: dry mucosa Neck exam: ABSENT: carotid bruit, JVD, lymphadenopathy, thyromegaly Respiratory exam: PRESENT: clear to auscultation gustavo. ABSENT: rales, rhonchi, wheezes Cardiovascular exam: PRESENT: RRR. ABSENT: diastolic murmur, rubs, systolic murmur Neurological exam: PRESENT: alert, awake, oriented to person, oriented to place, oriented to time, oriented to situation Results Laboratory Results: 12/22/18 11:40 12/22/18 11:40 12/22/18 12/22/18 12/22/18 11:40 11:40 12:12 WBC 6.5 RBC 3.05 L Hgb 9.2 L Hct 28.4 L MCV 93 MCH 30.2 MCHC 32.3 RDW 17.6 H Plt Count 296 Seg Neutrophils % 78.2 H Lymphocytes % 14.5 Monocytes % 6.7 Eosinophils % 0.2 Basophils % 0.4 Absolute Neutrophils 5.1 Absolute Lymphocytes 0.9 Absolute Monocytes 0.4 Absolute Eosinophils 0.0 Absolute Basophils 0.0 Sodium 135.8 L Potassium 5.2 H Chloride 105 Carbon Dioxide 19 L Anion Gap 12 BUN 64 H Creatinine 3.75 H Est GFR ( Amer) 15 L Est GFR (Non-Af Amer) 12 L Glucose 259 H Calcium 8.4 Total Bilirubin 0.4 AST 22 ALT 24 Alkaline Phosphatase 65 Total Protein 5.9 L Albumin 2.8 L Urine Color YELLOW Urine Appearance SLIGHTLY-CLOUDY Urine pH 5.0 Ur Specific Graham 1.014 Urine Protein >=500 H Urine Glucose (UA) >=500 H Urine Ketones TRACE H Urine Blood LARGE H Urine Nitrite NEGATIVE Ur Leukocyte Esterase NEGATIVE Urine WBC (Auto) 2 Urine RBC (Auto) 122 12/22/18 11:40 Troponin I 1.880 NT-Pro-B Natriuret Pep [id number] H Impressions: Cervical Spine CT 12/19/18 08:39 IMPRESSION: 1. No evidence of an acute fracture or dislocation. 2. Indeterminate lesion involving the posterior elements at L4-L5 on the left. This may represent degenerative disease in the left C4-5 facet. Infectious or inflammatory process cannot be excluded on coronal reconstructions the lesion appears irregular. Neoplasm is thought to be on likely but not excluded. Recommend MRI for further evaluation. There has been a significant change when compared to 2013. 3. Multilevel spondylosis. Head CT 12/19/18 08:39 IMPRESSION: CHRONIC CHANGES OF ATROPHY AND MICROVASCULAR ISCHEMIA. NO ACUTE PROCESS. EVIDENCE OF ACUTE STROKE: NO. Chest X-Ray 12/22/18 10:12 IMPRESSION: Chronic CHF. COPD and fibrosis. Hip/Pelvis X-Ray 12/22/18 10:35 IMPRESSION: No fracture. Assessment and Plan - Diagnosis (1) Recurrent falls while walking Is this a current diagnosis for this admission?: Yes Plan: Patient associated with her fall with malfunctioning prosthesis (2) Debility and deconditioning Is this a current diagnosis for this admission?: Yes Plan: Patient will benefit from short-term inpatient rehab less than 30 days. (3) Sacral decubitus ulcer Qualifiers: Pressure injury stage: stage 3 Qualified Code(s): L89.153 - Pressure ulcer of sacral region, stage 3 Is this a current diagnosis for this admission?: Yes Plan: Local wound care. (4) Atrial fibrillation Qualifiers: Atrial fibrillation type: chronic Qualified Code(s): I48.2 - Chronic atrial fibrillation Is this a current diagnosis for this admission?: Yes Plan: Rate controlled. I will restart her Eliquis. (5) Type 2 diabetes mellitus Is this a current diagnosis for this admission?: Yes Plan: Continue her home medication. I will put her on sliding scale (6) Chronic kidney disease, stage IV (severe) Is this a current diagnosis for this admission?: Yes Plan: I will hydrate her gently. And I will hold nephrotoxic agents. (7) Coronary artery disease Qualifiers: Coronary Disease-Associated Artery/Lesion type: blackfeet artery Is this a current diagnosis for this admission?: Yes Plan: No anginal symptoms (8) Chronically elevated troponin Is this a current diagnosis for this admission?: Yes Plan: It might be related to CKD
[2018-12-22 14:36] LABS: PROTHROMBIN TIME 65.4 SEC (11.4-15.4)
[2018-12-22] MEDS ORDERED: NORMAL SALINE 250 ML IV PRN ×2 (14:48)
[2018-12-22] MEDS ORDERED: INSULIN LISPRO 100 UNIT/ML 3 ML VIAL SUBCUT ONE (18:30)
[2018-12-22] MEDS: DOCUSATE SODIUM 100 MG/10 ML UDC PO SCH (18:37)
--- NOTE | 2018-12-22 18:58 | EKG REPORT ---
SEVERITY:- ABNORMAL ECG - SINUS RHYTHM LEFT BUNDLE BRANCH BLOCK : Confirmed by: Daisy Rose MD 22-Dec-2018 18:57:53
[2018-12-22] MEDS: INSULIN LISPRO 100 UNIT/ML 3 ML VIAL SUBCUT SCH (21:31)
[2018-12-22] MEDS: FAMOTIDINE 20 MG TABLET PO SCH (21:34)
[2018-12-22] MEDS: NORMAL SALINE 1000 ML 1,000 ML IV PRN (21:34)
[2018-12-23 04:54] LABS: ABSOLUTE MONOCYTES (AUTO) 0.4 10^3/uL (0.1-1.4); ABSOLUTE NEUT (AUTO) 3.6 10^3/uL (1.7-8.2); BASOPHILS % (AUTO) 0.7 % (0-2); EOSINOPHILS % (AUTO) 0.8 % (0-6); HEMATOCRIT 26.5 % (36.0-47.0); HEMOGLOBIN 8.7 g/dL (12.0-15.5); LYMPHOCYTES % (AUTO) 19.7 % (13-45); MEAN CORPUSCULAR HEMOGLOBIN 30.5 pg (27.0-33.4); MEAN CORPUSCULAR HGB CONC 32.8 g/dL (32.0-36.0); MEAN CORPUSCULAR VOLUME 93 fl (80-97); MONOCYTES % (AUTO) 8.5 % (3-13); PLATELET COUNT 264 10^3/uL (150-450); RED BLOOD COUNT 2.86 10^6/uL (3.72-5.28); RED CELL DISTRIBUTION WIDTH 17.7 % (11.5-14.0); SEGMENTED NEUTROPHILS % (AUTO) 70.3 % (42-78); TOTAL CELLS COUNTED % (AUTO) 100 %; WHITE BLOOD COUNT 5.2 10^3/uL (4.0-10.5)
[2018-12-23 05:07] LABS: INTERNATIONAL RATION (INR) 2.42
[2018-12-23 05:11] LABS: PROTHROMBIN TIME 26.7 SEC (11.4-15.4)
[2018-12-23 05:19] LABS: ANION GAP 11 (5-19); BLOOD UREA NITROGEN 61 mg/dL (7-20); CALCIUM 8.5 mg/dL (8.4-10.2); CARBON DIOXIDE 19 mmol/L (22-30); CHLORIDE 107 mmol/L (98-107); GLUCOSE 181 mg/dL (75-110); POTASSIUM 4.8 mmol/L (3.6-5.0); SODIUM 136.5 mmol/L (137-145)
[2018-12-23] MEDS: NORMAL SALINE 1000 ML 1,000 ML IV PRN (06:17)
[2018-12-23] MEDS: HUM INSULIN NPH/REG INSULIN HM 100 UNIT/1 ML 3 ML SUBCUT SCH ×2 (08:26→17:06)
[2018-12-23] MEDS: INSULIN LISPRO 100 UNIT/ML 3 ML VIAL SUBCUT SCH ×4 (08:26→22:06)
[2018-12-23] MEDS: DOCUSATE SODIUM 100 MG/10 ML UDC PO SCH (10:19)
[2018-12-23] MEDS: FAMOTIDINE 20 MG TABLET PO SCH (10:20)
[2018-12-23] MEDS ORDERED: LISINOPRIL 10 MG TABLET PO ONE (12:30)
[2018-12-23] MEDS ORDERED: FUROSEMIDE 40 MG TABLET PO ONE (12:30)
--- NOTE | 2018-12-23 14:49 | PDOC PROGRESS REPORT ---
Subjective Progress Note for:: 12/23/18 Subjective:: MELBA ROSADO is a 63 year old female patient with past medical history of atrial fibrillation, diabetes mellitus, hypertension, hyperlipidemia, right BKA, stage IV CKD, anemia of CKD, sacral decubitus ulcer, presents with chief complaint of recurrent fall. Patient presented herself to ER on December 19, 2018 but she is not admitted to the floor. information systems planner has been trying to place her in rehab. This morning Dr. Garner evaluated the patient in the ER with blood work us which shows hyperkalemia with potassium 5.2 BUN of 64 creatinine of 3.75 and troponin of 1.88. Patient has chronically elevated troponins. Per Dr. Garner "there is some confusion about the medications the patient supposed to be taking. Her discharge summary from the hospital here from 10 days ago she has that prescription filled on December 06. Additionally, patient was previously on Coumadin before her hospitalization, but it was discontinued while she was in the hospital, however, she filled a prescription December by Dr. Tejeda for Coumadin 3 mg daily for Sunday through Sunday and none on Sundays". 12/23/2018: Patient seen and examined while resting in bed. She is awake alert oriented. She is not in pain distress. She reports she feels much better. After 2 units of FFP her INR dropped to 2.42 from 7.4 and PT dropped to 26.7 from 65.4 her BUN and creatinine GFR stable. After discussion with Dr. Tejeda and Dr. Rose her Coumadin is discontinued and patient switched to Eliquis. information systems planner is working on placement to rehab. Reason For Visit: SUPRATHERAPEUTIC INR, RECURRENT FALL Physical Exam Vital Signs: Temp Pulse Resp BP Pulse Ox 97.7 F 84 20 139/78 H 98 12/23/18 11:14 12/23/18 11:14 12/23/18 11:14 12/23/18 11:14 12/23/18 11:14 Intake & Output 12/22/18 12/23/18 12/24/18 06:59 06:59 06:59 Intake Total 2306 182 Output Total 400 Balance 1906 182 Weight 73 kg General appearance: PRESENT: no acute distress Head exam: PRESENT: atraumatic Eye exam: PRESENT: conjunctiva pink Mouth exam: PRESENT: dry mucosa Teeth exam: PRESENT: poor dentation Neck exam: ABSENT: carotid bruit, JVD, lymphadenopathy, thyromegaly Respiratory exam: PRESENT: clear to auscultation gustavo. ABSENT: rales, rhonchi, wheezes Cardiovascular exam: PRESENT: irregular rhythm GI/Abdominal exam: PRESENT: normal bowel sounds, soft. ABSENT: distended, guarding, mass, organolmegaly, rebound, tenderness Neurological exam: PRESENT: alert, awake, oriented to person, oriented to place, oriented to time, oriented to situation Results Laboratory Results: 12/23/18 04:18 12/23/18 04:18 12/22/18 12/23/18 12/23/18 15:07 04:18 04:18 WBC 5.2 RBC 2.86 L Hgb 8.7 L Hct 26.5 L MCV 93 MCH 30.5 MCHC 32.8 RDW 17.7 H Plt Count 264 Seg Neutrophils % 70.3 Lymphocytes % 19.7 Monocytes % 8.5 Eosinophils % 0.8 Basophils % 0.7 Absolute Neutrophils 3.6 Absolute Lymphocytes 1.0 Absolute Monocytes 0.4 Absolute Eosinophils 0.0 Absolute Basophils 0.0 Sodium 136.5 L Potassium 4.8 Chloride 107 Carbon Dioxide 19 L Anion Gap 11 BUN 61 H Creatinine 3.65 H Est GFR ( Amer) 15 L Est GFR (Non-Af Amer) 13 L Glucose 181 H Calcium 8.5 Blood Type B POSITIVE 12/22/18 11:40 Troponin I 1.880 NT-Pro-B Natriuret Pep [id number] H Impressions: Cervical Spine CT 12/19/18 08:39 IMPRESSION: 1. No evidence of an acute fracture or dislocation. 2. Indeterminate lesion involving the posterior elements at L4-L5 on the left. This may represent degenerative disease in the left C4-5 facet. Infectious or inflammatory process cannot be excluded on coronal reconstructions the lesion appears irregular. Neoplasm is thought to be on likely but not excluded. Recommend MRI for further evaluation. There has been a significant change when compared to 2013. 3. Multilevel spondylosis. Head CT 12/19/18 08:39 IMPRESSION: CHRONIC CHANGES OF ATROPHY AND MICROVASCULAR ISCHEMIA. NO ACUTE PROCESS. EVIDENCE OF ACUTE STROKE: NO. Chest X-Ray 12/22/18 10:12 IMPRESSION: Chronic CHF. COPD and fibrosis. Hip/Pelvis X-Ray 12/22/18 10:35 IMPRESSION: No fracture. Assessment and Plan - Diagnosis (1) Supratherapeutic INR Is this a current diagnosis for this admission?: Yes Plan: Has resolved. (2) Recurrent falls while walking Is this a current diagnosis for this admission?: Yes Plan: Patient qualifies and benefit from short-term inpatient rehab for less than 30 days. (3) Debility and deconditioning Is this a current diagnosis for this admission?: Yes Plan: Patient will benefit from short-term inpatient rehab less than 30 days. (4) Sacral decubitus ulcer Qualifiers: Pressure injury stage: stage 3 Qualified Code(s): L89.153 - Pressure ulcer of sacral region, stage 3 Is this a current diagnosis for this admission?: Yes Plan: Surgical team consulted for debridement (5) Atrial fibrillation Qualifiers: Atrial fibrillation type: chronic Qualified Code(s): I48.2 - Chronic atrial fibrillation Is this a current diagnosis for this admission?: Yes Plan: Rate controlled. Patient is switched from Coumadin to Eliquis. (6) Type 2 diabetes mellitus Is this a current diagnosis for this admission?: Yes Plan: Continue her home medication. I will put her on sliding scale (7) Chronic kidney disease, stage IV (severe) Is this a current diagnosis for this admission?: Yes Plan: I will hydrate her gently. And I will hold nephrotoxic agents. (8) Coronary artery disease Qualifiers: Coronary Disease-Associated Artery/Lesion type: [place] artery Is this a current diagnosis for this admission?: Yes Plan: No anginal symptoms (9) Chronically elevated troponin Is this a current diagnosis for this admission?: Yes Plan: It might be related to CKD
[2018-12-23] MEDS: DILTIAZEM HCL 30 MG TABLET PO SCH ×2 (16:06→22:06)
[2018-12-23] MEDS: FERROUS SULFATE 325 MG TABLET PO SCH (17:03)
[2018-12-23] MEDS: APIXABAN 2.5 MG TABLET PO SCH (17:03)
[2018-12-23] MEDS: FUROSEMIDE 40 MG TABLET PO SCH (17:03)
[2018-12-23] MEDS: LISINOPRIL 10 MG TABLET PO SCH (17:04)
[2018-12-23] MEDS: DOCUSATE SODIUM 100 MG CAPSULE PO SCH (17:06)
[2018-12-23] MEDS ORDERED: INSULIN NPH HUM SQ SCH (18:00)
[2018-12-23] MEDS ORDERED: REG INSULIN SQ SCH (18:00)
[2018-12-23] MEDS ORDERED: LIDOCAINE 1% INJ-PF (10 MG/ML) 30 ML SDV ONE (18:34)
--- NOTE | 2018-12-23 18:59 | Operative Report ---
Operative Report DATE OF SURGERY: 12/23/18 PREOPERATIVE DIAGNOSIS: Stage IV sacral decubitus with soft tissue and muscle n ecrosis POSTOPERATIVE DIAGNOSIS: Same OPERATION: Excisional debridement skin, subcutaneous tissue, and muscle from sacral decubitus SURGEON: SOCORRO JUAN ANESTHESIA: Local TISSUE REMOVED OR ALTERED: See below COMPLICATIONS: None ESTIMATED BLOOD LOSS: Scant INTRAOPERATIVE FINDINGS: See below PROCEDURE: The patient was rolled in the right lateral decubitus position, sacrum exposed dressing removed. Surgical plan and surgical timeout were conducted. The sacral wound approximately 4 x 4 x 3 cm was any symptoms of 1% plain lidocaine. Using pickups and a #10 blade, portions of nonviable skin, subcutaneous tissue, and gluteus rachel muscle were excisionally debrided. Approximatelly grams of tissue were removed. The wound was down to the granulation tissue overlying the sacral periosteum. Saline, packed with 2 gauze saline by force. Dry dressings applied. Patient taught procedure well Orders for dressing changes provided.
[2018-12-23] MEDS ORDERED: LISINOPRIL 10 MG TABLET PO SCH (22:00)
[2018-12-23] MEDS: ATORVASTATIN CALCIUM 80 MG TABLET PO SCH (22:06)
[2018-12-24] MEDS: LISINOPRIL 10 MG TABLET PO SCH ×2 (06:15→18:05)
[2018-12-24] MEDS: DILTIAZEM HCL 30 MG TABLET PO SCH ×3 (06:20→21:29)
[2018-12-24 06:30] LABS: ABSOLUTE LYMPHOCYTES (AUTO) 1.2 10^3/uL (0.5-4.7); ABSOLUTE MONOCYTES (AUTO) 0.5 10^3/uL (0.1-1.4); ABSOLUTE NEUT (AUTO) 3.5 10^3/uL (1.7-8.2); BASOPHILS % (AUTO) 0.5 % (0-2); EOSINOPHILS % (AUTO) 0.8 % (0-6); HEMATOCRIT 26.4 % (36.0-47.0); HEMOGLOBIN 8.5 g/dL (12.0-15.5); LYMPHOCYTES % (AUTO) 23.5 % (13-45); MEAN CORPUSCULAR HEMOGLOBIN 30.3 pg (27.0-33.4); MEAN CORPUSCULAR HGB CONC 32.4 g/dL (32.0-36.0); MEAN CORPUSCULAR VOLUME 94 fl (80-97); MONOCYTES % (AUTO) 8.8 % (3-13); PLATELET COUNT 246 10^3/uL (150-450); PROTHROMBIN TIME 23.9 SEC (11.4-15.4); RED BLOOD COUNT 2.82 10^6/uL (3.72-5.28); RED CELL DISTRIBUTION WIDTH 17.5 % (11.5-14.0); SEGMENTED NEUTROPHILS % (AUTO) 66.4 % (42-78); TOTAL CELLS COUNTED % (AUTO) 100 %; WHITE BLOOD COUNT 5.3 10^3/uL (4.0-10.5)
[2018-12-24 07:05] LABS: ANION GAP 8 (5-19); BLOOD UREA NITROGEN 60 mg/dL (7-20); CALCIUM 7.9 mg/dL (8.4-10.2); CARBON DIOXIDE 18 mmol/L (22-30); CHLORIDE 110 mmol/L (98-107); GLUCOSE 75 mg/dL (75-110); POTASSIUM 4.4 mmol/L (3.6-5.0); SODIUM 136.4 mmol/L (137-145)
[2018-12-24] MEDS ORDERED: INSULIN ISOPHANE SQ SCH (08:00)
[2018-12-24] MEDS ORDERED: INSULIN REGULAR SQ SCH (08:00)
[2018-12-24] MEDS ORDERED: (PENDING PHARMACY ID) (Cyanocobalamin (Vitamin B-12) [Vitamin B-12 Sl 2500 Mcg Tablet] 2,5 SL SCH (10:00)
[2018-12-24] MEDS: INSULIN LISPRO 100 UNIT/ML 3 ML VIAL SUBCUT SCH ×4 (10:48→21:30)
[2018-12-24] MEDS: DOCUSATE SODIUM 100 MG CAPSULE PO SCH ×2 (10:49→18:03)
[2018-12-24] MEDS: HUM INSULIN NPH/REG INSULIN HM 100 UNIT/1 ML 3 ML SUBCUT SCH ×2 (10:52→18:06)
[2018-12-24] MEDS: FERROUS SULFATE 325 MG TABLET PO SCH ×2 (10:53→18:05)
[2018-12-24] MEDS: CYANOCOBALAMIN (VITAMIN B-12) 1,000 MCG TABLET PO SCH (10:53)
[2018-12-24] MEDS: CLOPIDOGREL BISULFATE 75 MG TABLET PO SCH (10:53)
[2018-12-24] MEDS: FAMOTIDINE 20 MG TABLET PO SCH (10:55)
[2018-12-24] MEDS: ALLOPURINOL 100 MG TABLET PO SCH (10:55)
[2018-12-24] MEDS: APIXABAN 2.5 MG TABLET PO SCH ×2 (10:55→18:05)
[2018-12-24] MEDS: MULTIVITAMIN TABLET PO SCH (10:56)
[2018-12-24] MEDS: FUROSEMIDE 40 MG TABLET PO SCH (10:57)
[2018-12-24] MEDS ORDERED: COLLAGENASE CLOSTRIDIUM HIST. OINT 30 GM TOP PRN (13:00)
[2018-12-24] MEDS ORDERED: NORMAL SALINE 1000 ML 1,000 ML IV PRN (16:35)
--- NOTE | 2018-12-24 16:35 | PDOC PROGRESS REPORT ---
Subjective Progress Note for:: 12/24/18 Subjective:: This is a 63 year old female patient with a past medical history of atrial fibrillation, diabetes mellitus, hypertension, hyperlipidemia, right BKA, stage IV CKD, anemia of CKD, sacral decubitus ulcer, presents with chief complaint of recurrent fall. She was admitted eventually for hyperkalemia, acute chronic renal failure and supratherapeutic INR. She does have a known chronically elevated troponin. Patient did receive 2 units of FFP with improvement in her INR. Coumadin was also switched to Eliquis. No acute event overnight. She continues to do well. She says she feels better today. Her creatinine has improved since admission. She has a baseline creatinine of 3.1. She has qualified to go for inpatient rehab. Reason For Visit: SUPRATHERAPEUTIC INR, RECURRENT FALL Physical Exam Vital Signs: Temp Pulse Resp BP Pulse Ox 97.5 F 61 21 H 138/60 H 100 12/24/18 08:04 12/24/18 08:04 12/24/18 08:04 12/24/18 08:04 12/24/18 08:04 Intake & Output 12/23/18 12/24/18 12/25/18 06:59 06:59 06:59 Intake Total 2306 884 Output Total 400 Balance 1906 884 Weight 160 lb 14.999 oz 163 lb 12.855 oz General appearance: PRESENT: no acute distress, well-developed, well-nourished Head exam: PRESENT: atraumatic, normocephalic Eye exam: PRESENT: conjunctiva pink, EOMI, PERRLA. ABSENT: scleral icterus Ear exam: PRESENT: normal external ear exam Mouth exam: PRESENT: moist, tongue midline Neck exam: ABSENT: carotid bruit, JVD, lymphadenopathy, thyromegaly Respiratory exam: PRESENT: clear to auscultation gustavo. ABSENT: rales, rhonchi, wheezes Cardiovascular exam: PRESENT: RRR. ABSENT: diastolic murmur, rubs, systolic murmur Pulses: PRESENT: normal dorsalis pedis pul GI/Abdominal exam: PRESENT: normal bowel sounds, soft. ABSENT: distended, guarding, mass, organolmegaly, rebound, tenderness Rectal exam: PRESENT: deferred Neurological exam: PRESENT: alert, awake, oriented to person, oriented to place, oriented to time, oriented to situation, CN II-XII grossly intact. ABSENT: motor sensory deficit Results Laboratory Results: 12/24/18 06:10 12/24/18 06:10 12/24/18 12/24/18 06:10 06:10 WBC 5.3 RBC 2.82 L Hgb 8.5 L Hct 26.4 L MCV 94 MCH 30.3 MCHC 32.4 RDW 17.5 H Plt Count 246 Seg Neutrophils % 66.4 Lymphocytes % 23.5 Monocytes % 8.8 Eosinophils % 0.8 Basophils % 0.5 Absolute Neutrophils 3.5 Absolute Lymphocytes 1.2 Absolute Monocytes 0.5 Absolute Eosinophils 0.0 Absolute Basophils 0.0 Sodium 136.4 L Potassium 4.4 Chloride 110 H Carbon Dioxide 18 L Anion Gap 8 BUN 60 H Creatinine 3.33 H Est GFR ( Amer) 17 L Est GFR (Non-Af Amer) 14 L Glucose 75 Calcium 7.9 L 12/22/18 11:40 Troponin I 1.880 NT-Pro-B Natriuret Pep [id number] H Impressions: Cervical Spine CT 12/19/18 08:39 IMPRESSION: 1. No evidence of an acute fracture or dislocation. 2. Indeterminate lesion involving the posterior elements at L4-L5 on the left. This may represent degenerative disease in the left C4-5 facet. Infectious or inflammatory process cannot be excluded on coronal reconstructions the lesion appears irregular. Neoplasm is thought to be on likely but not excluded. Recommend MRI for further evaluation. There has been a significant change when compared to 2013. 3. Multilevel spondylosis. Head CT 12/19/18 08:39 IMPRESSION: CHRONIC CHANGES OF ATROPHY AND MICROVASCULAR ISCHEMIA. NO ACUTE PROCESS. EVIDENCE OF ACUTE STROKE: NO. Chest X-Ray 12/22/18 10:12 IMPRESSION: Chronic CHF. COPD and fibrosis. Hip/Pelvis X-Ray 12/22/18 10:35 IMPRESSION: No fracture. Assessment and Plan - Diagnosis (1) Acute on chronic renal failure Is this a current diagnosis for this admission?: Yes Plan: Improving. Creatinine down to 3.3 from 3.7 on admission. She has a baseline creatinine of 3.1. Decrease IV fluids from 125 to 75 cc/h.. (2) Sacral decubitus ulcer Qualifiers: Pressure injury stage: stage 3 Qualified Code(s): L89.153 - Pressure ulcer of sacral region, stage 3 Is this a current diagnosis for this admission?: Yes Plan: S/P excisional debridement on 12/23 by surgery. (3) Supratherapeutic INR Is this a current diagnosis for this admission?: Yes Plan: Resolved. She received 2 units of FFP. (4) Debility and deconditioning Is this a current diagnosis for this admission?: Yes Plan: Patient will be discharged to inpatient rehab. (5) Diabetes mellitus type 2 in nonobese Is this a current diagnosis for this admission?: Yes Plan: Continue Lantus and sliding scale coverage. (6) Paroxysmal atrial fibrillation Is this a current diagnosis for this admission?: Yes Plan: Rate controlled. Coumadin was switched to Eliquis.
[2018-12-24] MEDS: ATORVASTATIN CALCIUM 80 MG TABLET PO SCH (21:30)
[2018-12-25] MEDS: DILTIAZEM HCL 30 MG TABLET PO SCH ×3 (06:04→21:45)
[2018-12-25] MEDS: LISINOPRIL 10 MG TABLET PO SCH ×2 (06:04→17:00)
[2018-12-25] MEDS: INSULIN LISPRO 100 UNIT/ML 3 ML VIAL SUBCUT SCH ×4 (07:25→23:36)
[2018-12-25 07:33] LABS: INTERNATIONAL RATION (INR) 2.42; PROTHROMBIN TIME 26.8 SEC (11.4-15.4)
[2018-12-25 07:36] LABS: ABSOLUTE EOSINOPHILS # (AUTO) 0.1 10^3/uL (0.0-0.6); ABSOLUTE MONOCYTES (AUTO) 0.5 10^3/uL (0.1-1.4); ABSOLUTE NEUT (AUTO) 4.3 10^3/uL (1.7-8.2); BASOPHILS % (AUTO) 0.6 % (0-2); EOSINOPHILS % (AUTO) 0.9 % (0-6); HEMATOCRIT 27.9 % (36.0-47.0); HEMOGLOBIN 8.9 g/dL (12.0-15.5); LYMPHOCYTES % (AUTO) 17.4 % (13-45); MEAN CORPUSCULAR HEMOGLOBIN 29.9 pg (27.0-33.4); MEAN CORPUSCULAR HGB CONC 31.7 g/dL (32.0-36.0); MEAN CORPUSCULAR VOLUME 94 fl (80-97); MONOCYTES % (AUTO) 8.7 % (3-13); PLATELET COUNT 316 10^3/uL (150-450); RED BLOOD COUNT 2.96 10^6/uL (3.72-5.28); RED CELL DISTRIBUTION WIDTH 17.7 % (11.5-14.0); SEGMENTED NEUTROPHILS % (AUTO) 72.4 % (42-78); TOTAL CELLS COUNTED % (AUTO) 100 %
[2018-12-25 07:44] LABS: ANION GAP 7 (5-19); BLOOD UREA NITROGEN 59 mg/dL (7-20); CALCIUM 7.9 mg/dL (8.4-10.2); CARBON DIOXIDE 19 mmol/L (22-30); CHLORIDE 109 mmol/L (98-107); GLUCOSE 116 mg/dL (75-110); POTASSIUM 4.2 mmol/L (3.6-5.0); SODIUM 134.7 mmol/L (137-145)
[2018-12-25] MEDS: DOCUSATE SODIUM 100 MG CAPSULE PO SCH ×2 (09:35→17:00)
[2018-12-25] MEDS: HUM INSULIN NPH/REG INSULIN HM 100 UNIT/1 ML 3 ML SUBCUT SCH ×2 (09:44→17:01)
[2018-12-25] MEDS: FAMOTIDINE 20 MG TABLET PO SCH (09:45)
[2018-12-25] MEDS: ALLOPURINOL 100 MG TABLET PO SCH (09:45)
[2018-12-25] MEDS: MULTIVITAMIN TABLET PO SCH (09:45)
[2018-12-25] MEDS: CYANOCOBALAMIN (VITAMIN B-12) 1,000 MCG TABLET PO SCH (09:45)
[2018-12-25] MEDS: CLOPIDOGREL BISULFATE 75 MG TABLET PO SCH (09:45)
[2018-12-25] MEDS: FERROUS SULFATE 325 MG TABLET PO SCH ×2 (09:45→17:00)
[2018-12-25] MEDS: APIXABAN 2.5 MG TABLET PO SCH ×2 (09:45→17:00)
--- NOTE | 2018-12-25 18:47 | PDOC PROGRESS REPORT ---
Subjective Progress Note for:: 12/25/18 Subjective:: This is a 63 year old female patient with a past medical history of atrial fibrillation, diabetes mellitus, hypertension, hyperlipidemia, right BKA, stage IV CKD, anemia of CKD, sacral decubitus ulcer, presents with chief complaint of recurrent fall. She was admitted eventually for hyperkalemia, acute chronic renal failure and supratherapeutic INR. She does have a known chronically elevated troponin. Patient did receive 2 units of FFP with improvement in her INR. Coumadin was also switched to Eliquis. 12/24: She continues to do well. She says she feels better today. Her creatinine has improved since admission. She has a baseline creatinine of 3.1. She has qualified to go for inpatient rehab. 12/25: No acute event overnight. She continues to improve. Creatinine is now back to baseline 3.0. She denies acute complaint and she said she feels she is at her baseline. Awaiting SNF/rehab placement. Reason For Visit: SUPRATHERAPEUTIC INR, RECURRENT FALL Physical Exam Vital Signs: Temp Pulse Resp BP Pulse Ox 98 F 73 19 127/50 H 95 12/25/18 08:12 12/25/18 14:00 12/25/18 04:13 12/25/18 04:13 12/25/18 04:13 Intake & Output 12/24/18 12/25/18 12/26/18 06:59 06:59 06:59 Intake Total 884 1047 720 Balance 884 1047 720 Weight 163 lb 12.855 oz 164 lb 3.91 oz General appearance: PRESENT: no acute distress, well-developed, well-nourished Head exam: PRESENT: atraumatic, normocephalic Eye exam: PRESENT: conjunctiva pink, EOMI, PERRLA. ABSENT: scleral icterus Ear exam: PRESENT: normal external ear exam Mouth exam: PRESENT: moist, tongue midline Neck exam: ABSENT: carotid bruit, JVD, lymphadenopathy, thyromegaly Respiratory exam: PRESENT: clear to auscultation gustavo. ABSENT: rales, rhonchi, wheezes Cardiovascular exam: PRESENT: RRR. ABSENT: diastolic murmur, rubs, systolic murmur GI/Abdominal exam: PRESENT: normal bowel sounds, soft. ABSENT: distended, guarding, mass, organolmegaly, rebound, tenderness Rectal exam: PRESENT: deferred Neurological exam: PRESENT: alert, awake, oriented to person, oriented to place, oriented to time, CN II-XII grossly intact. ABSENT: motor sensory deficit Results Laboratory Results: 12/25/18 06:53 12/25/18 06:53 12/25/18 12/25/18 06:53 06:53 WBC 6.0 RBC 2.96 L Hgb 8.9 L Hct 27.9 L MCV 94 MCH 29.9 MCHC 31.7 L RDW 17.7 H Plt Count 316 Seg Neutrophils % 72.4 Lymphocytes % 17.4 Monocytes % 8.7 Eosinophils % 0.9 Basophils % 0.6 Absolute Neutrophils 4.3 Absolute Lymphocytes 1.0 Absolute Monocytes 0.5 Absolute Eosinophils 0.1 Absolute Basophils 0.0 Sodium 134.7 L Potassium 4.2 Chloride 109 H Carbon Dioxide 19 L Anion Gap 7 BUN 59 H Creatinine 3.08 H Est GFR ( Amer) 19 L Est GFR (Non-Af Amer) 15 L Glucose 116 H Calcium 7.9 L 12/23/18 04:20 Coccyx - Decubitis Ulcer Gram Stain - Final 12/22/18 12/25/18 11:40 14:15 Troponin I 1.880 0.316 NT-Pro-B Natriuret Pep [id number] H Impressions: Cervical Spine CT 12/19/18 08:39 IMPRESSION: 1. No evidence of an acute fracture or dislocation. 2. Indeterminate lesion involving the posterior elements at L4-L5 on the left. This may represent degenerative disease in the left C4-5 facet. Infectious or inflammatory process cannot be excluded on coronal reconstructions the lesion appears irregular. Neoplasm is thought to be on likely but not excluded. Recommend MRI for further evaluation. There has been a significant change when compared to 2013. 3. Multilevel spondylosis. Head CT 12/19/18 08:39 IMPRESSION: CHRONIC CHANGES OF ATROPHY AND MICROVASCULAR ISCHEMIA. NO ACUTE PROCESS. EVIDENCE OF ACUTE STROKE: NO. Chest X-Ray 12/22/18 10:12 IMPRESSION: Chronic CHF. COPD and fibrosis. Hip/Pelvis X-Ray 12/22/18 10:35 IMPRESSION: No fracture. Assessment and Plan - Diagnosis (1) Acute on chronic renal failure Is this a current diagnosis for this admission?: Yes Plan: Improving. Creatinine down to 3.3 from 3.7 on admission. She has a baseline creatinine of 3.1. Decrease IV fluids from 125 to 75 cc/h. 12/25: Creatinine now at baseline at 3.0. (2) Sacral decubitus ulcer Qualifiers: Pressure injury stage: stage 3 Qualified Code(s): L89.153 - Pressure ulcer of sacral region, stage 3 Is this a current diagnosis for this admission?: Yes Plan: S/P excisional debridement on 12/23 by surgery. (3) Supratherapeutic INR Is this a current diagnosis for this admission?: Yes Plan: Resolved. She received 2 units of FFP. (4) Debility and deconditioning Is this a current diagnosis for this admission?: Yes Plan: Patient will be discharged to rehab. (5) Diabetes mellitus type 2 in nonobese Is this a current diagnosis for this admission?: Yes Plan: Continue Lantus and sliding scale coverage. (6) Paroxysmal atrial fibrillation Is this a current diagnosis for this admission?: Yes Plan: Rate controlled. Coumadin was switched to Eliquis. - Time Time Spent with patient: 25-34 minutes
[2018-12-25] MEDS: ATORVASTATIN CALCIUM 80 MG TABLET PO SCH (21:44)
[2018-12-25] MEDS: AMOXICILLIN TR/POT CLAVULANATE 500-125 MG TAB PO SCH (21:44)
[2018-12-26] MEDS: DILTIAZEM HCL 30 MG TABLET PO SCH ×2 (05:38→14:40)
[2018-12-26] MEDS: LISINOPRIL 10 MG TABLET PO SCH (05:39)
[2018-12-26] MEDS: AMOXICILLIN TR/POT CLAVULANATE 500-125 MG TAB PO SCH (05:39)
[2018-12-26] MEDS: HUM INSULIN NPH/REG INSULIN HM 100 UNIT/1 ML 3 ML SUBCUT SCH (08:20)
[2018-12-26] MEDS: INSULIN LISPRO 100 UNIT/ML 3 ML VIAL SUBCUT SCH ×2 (08:21→13:13)
[2018-12-26] MEDS: FERROUS SULFATE 325 MG TABLET PO SCH (10:41)
[2018-12-26] MEDS: APIXABAN 2.5 MG TABLET PO SCH (10:42)
[2018-12-26] MEDS: CYANOCOBALAMIN (VITAMIN B-12) 1,000 MCG TABLET PO SCH (10:42)
[2018-12-26] MEDS: DOCUSATE SODIUM 100 MG CAPSULE PO SCH (10:42)
[2018-12-26] MEDS: MULTIVITAMIN TABLET PO SCH (10:42)
[2018-12-26] MEDS: CLOPIDOGREL BISULFATE 75 MG TABLET PO SCH (10:42)
[2018-12-26] MEDS: ALLOPURINOL 100 MG TABLET PO SCH (10:42)
[2018-12-26] MEDS: FAMOTIDINE 20 MG TABLET PO SCH (10:42)
--- NOTE | 2018-12-26 10:50 | PDOC TRANSFER SUMMARY ---
General - Admit/Disc Date/PCP Admission Date/Primary Care Provider: 12/22/18 15:19 CYNDIE COMER MD Discharge Date: 12/26/18 - Discharge Diagnosis (1) Acute on chronic renal failure Is this a current diagnosis for this admission?: Yes (2) Sacral decubitus ulcer Is this a current diagnosis for this admission?: Yes (3) Supratherapeutic INR Is this a current diagnosis for this admission?: Yes (4) Debility and deconditioning Is this a current diagnosis for this admission?: Yes (5) Diabetes mellitus type 2 in nonobese Is this a current diagnosis for this admission?: Yes (6) Paroxysmal atrial fibrillation Is this a current diagnosis for this admission?: Yes - Additional Information Resuscitation Status: Do Not Resuscitate Prescriptions: Amox Tr/Potassium Clavulanate [Augmentin "500" Tablet] 1 tab PO Q12A 5 Days #10 tablet Apixaban [Eliquis 2.5 mg Tablet] 2.5 mg PO BID #60 tablet Home Medications: Clopidogrel Bisulfate [Plavix 75 mg Tablet] 75 mg PO DAILY 11/25/18 Docusate Sodium [Colace 100 mg Capsule] 100 mg PO QHS 11/25/18 Ferrous Sulfate [Feosol 325 mg Tablet] 325 mg PO BID 11/25/18 Insulin NPH Hum/Reg Insulin Hm [Novolin 70-30 Flexpen] 7 units SQ QAM 11/25/18 Insulin NPH Hum/Reg Insulin Hm [Novolin 70-30 Flexpen] 12 units SQ QPM 11/25/18 Omeprazole 20 mg PO DAILY 11/25/18 Lisinopril [Prinivil 10 mg Tablet] 10 mg PO Q12 #60 tablet 12/04/18 Allopurinol [Zyloprim 100 mg Tablet] 100 mg PO DAILY 12/20/18 Atorvastatin Calcium [Lipitor 80 mg Tablet] 80 mg PO QHS 12/20/18 Diltiazem HCl [Cardizem 30 mg Tablet] 30 mg PO Q8 12/20/18 Furosemide [Lasix] 40 mg PO BID 12/20/18 Cyanocobalamin (Vitamin B-12) [Vitamin B-12 SL 2500 mcg Tablet] 2,500 mcg SL DAILY 12/22/18 Multivitamin [Tab-A-Matheus (Multiple Vitamin) Tablet] 1 tab PO DAILY 12/22/18 Apixaban [Eliquis 2.5 mg Tablet] 2.5 mg PO BID #60 tablet 12/25/18 Amox Tr/Potassium Clavulanate [Augmentin "500" Tablet] 1 tab PO Q12A 5 Days #10 tablet 12/26/18 History of Present Illness Admission Date/PCP: 12/22/18 15:19 CYNDIE COMER MD History of Present Illness: Admitting hospitalist's H&P: MELBA ROSADO is a 63 year old female patient with past medical history of atrial fibrillation, diabetes mellitus, hypertension, hyperlipidemia, right BKA, stage IV CKD, anemia of CKD, sacral decubitus ulcer, presents with chief complaint of recurrent fall. Patient presented herself to ER on December 19, 2018 but she is not admitted to the floor. convention planner has been trying to place her in rehab. This morning Dr. Garner evaluated the patient in the ER with blood work us which shows hyperkalemia with potassium 5.2 BUN of 64 creatinine of 3.75 and troponin of 1.88. Patient has chronically elevated tropo nins. Per Dr. Garner "there is some confusion about the medications the patient supposed to be taking. Her discharge summary from the hospital here from 10 days ago she has that prescription filled on December 06. Additionally, patient was previously on Coumadin before her hospitalization, but it was discontinued while she was in the hospital, however, she filled a prescription December by Dr. Comer for Coumadin 3 mg daily for Sunday through Sunday and none on Sundays". Hospital Course Hospital Course: This is a 63 year old female patient with a past medical history of atrial fibrillation, diabetes mellitus, hypertension, hyperlipidemia, right BKA, stage IV CKD, anemia of CKD, sacral decubitus ulcer, presents with chief complaint of recurrent fall. She was admitted eventually for hyperkalemia, acute chronic renal failure and supratherapeutic INR. She does have a known chronically elevated troponin. Patient did receive 2 units of FFP with improvement in her INR. Previous provider has discussed with DR. Mujica and cardiology and her coumadin was switched to Eliquis. Her renal functions did improve and return to baseline with IV fluids. She was amenable to the benefits and risks of continuing anticoagulation for her AFIb. She also underwent excisional debridement of her sacral ulcer on 12/23 by surgery. She will complete 5 more days of Augmentin. Physical Exam Vital Signs: Temp Pulse Resp BP Pulse Ox 97.8 F 65 18 147/58 H 100 12/26/18 07:55 12/26/18 07:55 12/26/18 07:55 12/26/18 07:55 12/26/18 07:55 Intake & Output 12/25/18 12/26/18 12/27/18 06:59 06:59 06:59 Intake Total 1047 1060 Balance 1047 1060 Weight 164 lb 3.91 oz 163 lb 9.328 oz General appearance: PRESENT: no acute distress, well-developed, well-nourished Head exam: PRESENT: atraumatic, normocephalic Eye exam: PRESENT: conjunctiva pink, EOMI, PERRLA. ABSENT: scleral icterus Ear exam: PRESENT: normal external ear exam Mouth exam: PRESENT: moist, tongue midline Neck exam: ABSENT: carotid bruit, JVD, lymphadenopathy, thyromegaly Respiratory exam: PRESENT: clear to auscultation gustavo. ABSENT: rales, rhonchi, wheezes Cardiovascular exam: PRESENT: RRR. ABSENT: diastolic murmur, rubs, systolic murmur Pulses: PRESENT: normal dorsalis pedis pul GI/Abdominal exam: PRESENT: normal bowel sounds, soft. ABSENT: distended, guarding, mass, organolmegaly, rebound, tenderness Rectal exam: PRESENT: deferred Extremities exam: PRESENT: other - right AKA stump Neurological exam: PRESENT: alert, awake, oriented to person, oriented to place, oriented to time, oriented to situation, CN II-XII grossly intact. ABSENT: motor sensory deficit Results Laboratory Results: 12/25/18 06:53 12/25/18 06:53 12/23/18 04:20 Coccyx - Decubitis Ulcer Gram Stain - Final 12/22/18 12/25/18 11:40 14:15 Troponin I 1.880 0.316 NT-Pro-B Natriuret Pep [id number] H Impressions: Cervical Spine CT 12/19/18 08:39 IMPRESSION: 1. No evidence of an acute fracture or dislocation. 2. Indeterminate lesion involving the posterior elements at L4-L5 on the left. This may represent degenerative disease in the left C4-5 facet. Infectious or inflammatory process cannot be excluded on coronal reconstructions the lesion appears irregular. Neoplasm is thought to be on likely but not excluded. Recommend MRI for further evaluation. There has been a significant change when compared to 2013. 3. Multilevel spondylosis. Head CT 12/19/18 08:39 IMPRESSION: CHRONIC CHANGES OF ATROPHY AND MICROVASCULAR ISCHEMIA. NO ACUTE PROCESS. EVIDENCE OF ACUTE STROKE: NO. Chest X-Ray 12/22/18 10:12 IMPRESSION: Chronic CHF. COPD and fibrosis. Hip/Pelvis X-Ray 12/22/18 10:35 IMPRESSION: No fracture. Qualifiers - * PATIENT BEING DISCHARGED WITH ANY OF THE FOLLOWING DIAGNOSIS: No Acute Heart Failure - Is this a Heart Failure Patient?: No LVEF < 40%?: No- if no continue to question #3 3. Anticoagulant therapy for permanect/persistent/paraoxysmal Afib or Aflutter: N/A
[2018-12-26 14:00] VITALS: BP 124/70
== END 2018-12-26 14:45 | DRG 580 ==
LOC: ER 08:06 → EH 12-22 15:19 → 4S 12-22 16:44
PROVIDERS: ADMIT Internal Medicine; ATTEND Internal Medicine
PROC: 0KBN0ZZ Excision of Right Hip Muscle, Open Approach (ICD-10-PCS; principal; 2018-12-23)
PROC: 0KBP0ZZ Excision of Left Hip Muscle, Open Approach (ICD-10-PCS; 2018-12-23)
PROC: 30243K1 Transfusion of Nonautologous Frozen Plasma into Central Vein, Percutaneous Approach (ICD-10-PCS; 2018-12-23)
DX: L89.154 Pressure ulcer of sacral region, stage 4 (principal); I13.0 Hypertensive heart and chronic kidney disease with heart failure and stage 1 through stage 4 chronic kidney disease, or unspecified chronic kidney disease; E11.52 Type 2 diabetes mellitus with diabetic peripheral angiopathy with gangrene; I96 Gangrene, not elsewhere classified; N17.9 Acute kidney failure, unspecified; L89.153 Pressure ulcer of sacral region, stage 3; S70.01XA Contusion of right hip, initial encounter; Z66 Do not resuscitate; Z86.73 Personal history of transient ischemic attack (TIA), and cerebral infarction without residual deficits; Z89.511 Acquired absence of right leg below knee; E11.22 Type 2 diabetes mellitus with diabetic chronic kidney disease; I50.9 Heart failure, unspecified; I25.10 Atherosclerotic heart disease of native coronary artery without angina pectoris; E78.5 Hyperlipidemia, unspecified; E11.51 Type 2 diabetes mellitus with diabetic peripheral angiopathy without gangrene; K21.9 Gastro-esophageal reflux disease without esophagitis; M10.9 Gout, unspecified; W01.0XXA Fall on same level from slipping, tripping and stumbling without subsequent striking against object, initial encounter; Z91.81 History of falling; E87.5 Hyperkalemia; M48.8X2 Other specified spondylopathies, cervical region; M47.896 Other spondylosis, lumbar region; J44.9 Chronic obstructive pulmonary disease, unspecified; R79.1 Abnormal coagulation profile; D63.1 Anemia in chronic kidney disease; I48.0 Paroxysmal atrial fibrillation; L98.413 Non-pressure chronic ulcer of buttock with necrosis of muscle
CPT/HCPCS: 36415; 36430; 70450; 71045; 72125; 80048; 80053; 81001; 82962; 83880; 84484; 85025; 85610; 86900; 86901; 87070; 87075; 87077; 87186; 87205; 93005; 93010; 99285; J1815; J3490; J7030; J7050; P9017

== ENCOUNTER 2019-01-08 20:39 | Inpatient (IN) | payer MEDICARE, OTHER ==
[2019-01-08] MEDS ORDERED: MAGNESIUM SULFATE/D5W 2 GM/200 ML RTUPB IV ONE (20:47)
[2019-01-08] MEDS ORDERED: IPRATROPIUM/ALBUTEROL 0.5-2.5 MG/3 ML AMPUL NEB ONE ×2 (20:47→20:49)
[2019-01-08] MEDS ORDERED: METHYLPREDNISOLONE INJ 125 MG/2 ML SDV ONE (20:47)
[2019-01-08] MEDS ORDERED: METHYLPREDNISOLONE INJ 125 MG/2 ML SDV IV ONE (20:48)
--- NOTE | 2019-01-08 20:55 | ER Document Report ---
ED Respiratory Problem - General Stated Complaint: SHORTNESS OF BREATH Time Seen by Provider: 01/08/19 20:46 Primary Care Provider: LAURYN CORADO MD [Primary Care Provider] - Follow up as needed Notes: This is a ill-appearing 63-year-old female brought in from [facility] for evaluation of shortness of breath. Has been having a difficult time breathing over the last several hours. Large amount of wheezing. Coughing. No reported fever. EMS arrived and found patient to have oxygen saturations of 79% with a heart rate in the 130s. They were unable to obtain IV. Patient currently on blood thinners/Eliquis. Has a Hardy catheter in place because she cannot ambulate due to loss of lower extremity from comp occasions of diabetes. There is blood in the catheter. Patient states that she has been bleeding easily since being on Eliquis. Was on Coumadin prior. Denies any significant chest pain. Most of her symptoms are from shortness of breath. TRAVEL OUTSIDE OF THE [place] IN LAST 30 DAYS: No - HPI Patient complains to provider of: Short of breath Onset: This morning Duration: Continuous, Worse/persistent Severity: Severe Pain Level: Denies - Related Data Allergies/Adverse Reactions: No Known Allergies Allergy (Verified 11/24/18 12:45) Past Medical History - General Information source: Patient, [facility] Records Cannot obtain history due to: Unstable vital signs - Social History Smoking Status: Smoker,Current Status Unk Frequency of alcohol use: None Drug Abuse: None Lives with: [facility] Family History: CAD, DM, Hypertension - Past Medical History Cardiac Medical History: Reports: Hx Atrial Fibrillation, Hx Coronary Artery Di sease, Hx Hypercholesterolemia, Hx Hypertension, Hx Peripheral Vascular Disease Neurological Medical History: Reports: Hx Cerebrovascular Accident Endocrine Medical History: Reports: Hx Diabetes Mellitus Type 2 Renal/ Medical History: Denies: Hx Peritoneal Dialysis GI Medical History: Reports: Hx Gastroesophageal Reflux Disease. Denies: Hx Cirrhosis, Hx Hepatitis Musculoskeletal Medical History: Reports Hx Gout Psychiatric Medical History: Denies: Hx Depression Infectious Medical History: Denies: Hx Hepatitis Past Surgical History: Reports: Hx Section, Hx Orthopedic Surgery - Rig ht BKA, Hx Vascular Surgery - Immunizations Hx Diphtheria, Pertussis, Tetanus Vaccination: Yes - Unknown Hx Pneumococcal Vaccination: 09/09/09 Review of Systems - Review of Systems -: Yes ROS unobtainable due to patient's medical condition - significant respiratory distress and difficulty answering questions. Physical Exam - Vital signs Vitals: Resp 16 01/08/19 20:44 Interpretation: Tachycardic, Hypoxic, Tachypneic - Notes Notes: Ill-appearing in significant respiratory distress. Immediate bedside BiPAP ordered. - General General appearance: Appears well, Alert - HEENT Head: Normocephalic, Atraumatic Eyes: Normal Pupils: PERRL - Respiratory Respiratory status: Respiratory distress, Retractions, Tachypnea, Tripod position Chest status: Nontender Breath sounds: Decreased air movement - Creased breath sounds on the right with crackles and wheezing noted bilaterally. Chest palpation: Normal - Cardiovascular Rhythm: Tachycardia Heart sounds: Normal auscultation Murmur: No - Abdominal Inspection: Normal Distension: No distension Bowel sounds: Normal Tenderness: Nontender Organomegaly: No organomegaly - Back Back: Normal, Nontender - Extremities General upper extremity: Normal inspection, Nontender, Normal color, Normal ROM, Normal temperature General lower extremity: Nontender, Normal color, Normal ROM, Normal temperature, Other - Right lower extremity amputation.. No: Pio's sign - Neurological Neuro grossly intact: Yes Cognition: Normal Orientation: AAOx4 Fossil Coma Scale Eye Opening: Spontaneous Jacqueline Coma Scale Verbal: Oriented Fossil Coma Scale Motor: Obeys Commands Fossil Coma Scale Total: 15 Speech: Normal Motor strength normal: LUE, RUE, LLE, RLE Sensory: Normal - Psychological Associated symptoms: Normal affect, Normal mood - Skin Skin Temperature: Warm Skin Moisture: Dry Skin Color: Normal Course - Re-evaluation Re-evalutation: 01/08/19 21:49 Patient in severe respiratory distress on arrival. Immediate Solu-Medrol, breathing treatments, BiPAP, magnesium ordered. Chest x-ray performed which shows significant abnormalities/infiltrates. Antibiotics ordered. ABG pending. Anticipate need for IMC versus ICU admission. Patient is responding well to breathing treatments and BiPAP. EKG does not show significant injury pattern. Does show sinus tachycardia. Unable to get a CTA due to her renal failure and inability to lie flat but is currently on Eliquis. Will consult with hospitalist shortly for admission. Patient in guarded condition. 01/08/19 21:49 - Vital Signs Vital signs: Temp Pulse Resp BP Pulse Ox 98.4 F 124 H 36 H 154/61 H 96 01/08/19 20:47 01/08/19 20:47 01/08/19 22:00 01/08/19 22:00 01/08/19 22:00 - Laboratory Result Diagrams: 01/08/19 20:45 01/08/19 21:30 Laboratory results interpreted by me: 01/08/19 01/08/19 01/08/19 20:45 20:50 21:30 WBC 18.5 H RBC 3.38 L Hgb 10.0 L Hct 31.5 L MCHC 31.8 L RDW 18.3 H Seg Neutrophils % 90.5 H Lymphocytes % 7.1 L Monocytes % 1.8 L Absolute Neutrophils 16.8 H ABG pO2 61.5 L ABG O2 Saturation 90.9 L Sodium 134.3 L BUN 71 H Creatinine 3.07 H Est GFR ( Amer) 19 L Est GFR (Non-Af Amer) 15 L Glucose 232 H Alkaline Phosphatase 156 H Creatine Kinase 25 L Albumin 3.3 L - EKG Interpretation by Me EKG shows normal: QRS Complexes, ST-T Waves Rate: Tachycardia Spurger/QRS: Left axis deviation Voltage: Consistant with LVH Critical Care Note - Critical Care Note Total time excluding time spent on procedures (mins): 35 Comments: Immediate assessment, respiratory distress, respiratory failure. Discharge - Discharge Clinical Impression: Multifocal pneumonia, Urinary tract bacterial infections, Respiratory distress, acute, Chronic renal failure, stage 3 (moderate), ARDS (adult respiratory distress syndrome) Condition: Fair Disposition: ADMITTED INPATIENT Admitting Provider: Jude (Hospitalist) Unit Admitted: IMCU Referrals: LAURYN CORADO MD [Primary Care Provider] - Follow up as needed
[2019-01-08 21:04] LABS: ABSOLUTE BASOPHILS # (AUTO) 0.1 10^3/uL (0.0-0.2); ABSOLUTE LYMPHOCYTES (AUTO) 1.3 10^3/uL (0.5-4.7); ABSOLUTE MONOCYTES (AUTO) 0.3 10^3/uL (0.1-1.4); ABSOLUTE NEUT (AUTO) 16.8 10^3/uL (1.7-8.2); BASOPHILS % (AUTO) 0.3 % (0-2); EOSINOPHILS % (AUTO) 0.3 % (0-6); HEMATOCRIT 31.5 % (36.0-47.0); LYMPHOCYTES % (AUTO) 7.1 % (13-45); MEAN CORPUSCULAR HEMOGLOBIN 29.6 pg (27.0-33.4); MEAN CORPUSCULAR HGB CONC 31.8 g/dL (32.0-36.0); MEAN CORPUSCULAR VOLUME 93 fl (80-97); MONOCYTES % (AUTO) 1.8 % (3-13); PLATELET COUNT 383 10^3/uL (150-450); RED BLOOD COUNT 3.38 10^6/uL (3.72-5.28); RED CELL DISTRIBUTION WIDTH 18.3 % (11.5-14.0); SEGMENTED NEUTROPHILS % (AUTO) 90.5 % (42-78); TOTAL CELLS COUNTED % (AUTO) 100 %; WHITE BLOOD COUNT 18.5 10^3/uL (4.0-10.5)
[2019-01-08 21:10] LABS: PROTHROMBIN TIME 15.3 SEC (11.4-15.4)
[2019-01-08] MEDS: MAGNESIUM SULFATE/D5W 1 GM/100 ML RTUPB IV SCH ×3 (21:10→21:21)
[2019-01-08 21:11] LABS: PARTIAL THROMBOPLASTIN TIME 28.7 SEC (23.5-35.8)
[2019-01-08 21:13] LABS: ARTERIAL BLOOD BASE EXCESS -4.2 mmol/L; ARTERIAL BLOOD H2CO3 1.13 mmol/L (1.05-1.35); ARTERIAL BLOOD HCO3 20.7 mmol/L (20-24); ARTERIAL BLOOD O2 SATURATION 90.9 % (94-98); ARTERIAL BLOOD PCO2 37.4 mmHg (35-45); ARTERIAL BLOOD PH 7.36 (7.35-7.45); ARTERIAL BLOOD PO2 61.5 mmHg (80-100); ARTERIAL BLOOD TOTAL CO2 21.9 mmol/L (21-25)
[2019-01-08] MEDS ORDERED: VANCOMYCIN HCL INJ 1000 MG VIAL IV ONE (21:13)
[2019-01-08] MEDS ORDERED: PIPERACILLIN/TAZOBACTAM 3.375 GM VIAL IV ONE (21:13)
[2019-01-08 21:14] LABS: ARTERIAL BLOOD FIO2 50%
--- NOTE | 2019-01-08 21:42 | RADIOLOGY REPORT (SQ) ---
EXAM DESCRIPTION: [facility]: XR CHEST 1 VIEW CLINICAL HISTORY: 63 years Female, sob COMPARISON: 12/22/2018 FINDINGS: Scattered bilateral pulmonary infiltrates have increased, specially in the right lower lobe. There is slight blunting of the right costophrenic angle, suggesting a small right pleural effusion. No pneumothorax. Heart appears enlarged as on prior exam. Bony structures are unremarkable. IMPRESSION: 1. Increased bilateral patchy pulmonary infiltrates since 12/22/2018, with pattern suspicious for acute multifocal pneumonia.
[2019-01-08 22:14] LABS: ALANINE AMINOTRANSFERASE 26 U/L (9-52); ALBUMIN 3.3 g/dL (3.5-5.0); ALKALINE PHOSPHATASE 156 U/L (38-126); ANION GAP 11 (5-19); ASPARTATE AMINO TRANSFERASE 28 U/L (14-36); BILIRUBIN,DIRECT 0.4 mg/dL (0.0-0.4); BILIRUBIN,TOTAL 0.6 mg/dL (0.2-1.3); BLOOD UREA NITROGEN 71 mg/dL (7-20); CALCIUM 8.8 mg/dL (8.4-10.2); CARBON DIOXIDE 22 mmol/L (22-30); CHLORIDE 101 mmol/L (98-107); CREATINE KINASE 25 U/L (30-135); GLUCOSE 232 mg/dL (75-110); POTASSIUM 4.6 mmol/L (3.6-5.0); TOTAL PROTEIN 6.6 g/dL (6.3-8.2)
[2019-01-08 22:26] LABS: CREATINE KINASE MB 1.11 ng/mL (<4.55)
[2019-01-08 22:28] LABS: TROPONIN I 0.037 ng/mL
[2019-01-08] MEDS ORDERED: ACETAMINOPHEN 325 MG TABLET PO PRN (22:40)
[2019-01-08] MEDS ORDERED: DEXTROSE 40% GEL 15 GM TUBE PO PRN ×2 (22:40)
[2019-01-08] MEDS ORDERED: IPRATROPIUM/ALBUTEROL 0.5-2.5 MG/3 ML AMPUL NEB PRN (22:40)
[2019-01-08] MEDS ORDERED: DEXTROSE 50%-WATER 25 GM/50 ML DISP.SYRIN IV PRN ×2 (22:40)
[2019-01-08] MEDS ORDERED: GLUCAGON,HUMAN RECOMB 1 MG INJ IM PRN (22:40)
[2019-01-08] MEDS ORDERED: VANCOMYCIN HCL 0 MG in DEXTROSE 5%-WATER 250 ML IV NR (22:45)
[2019-01-08] MEDS ORDERED: CEFEPIME 2 GM/D5W RTU 2 GM/50 ML RTUPB IV ONE (23:00)
[2019-01-08] MEDS ORDERED: DILTIAZEM HCL 30 MG TABLET PO ONE (23:15)
[2019-01-09] MEDS ORDERED: CEFEPIME 2 GM/D5W RTU 2 GM/50 ML RTUPB IV ONE (01:06)
[2019-01-09] MEDS: NORMAL SALINE 1000 ML 1,000 ML IV PRN ×2 (01:21→06:36)
[2019-01-09] MEDS: IPRATROPIUM/ALBUTEROL 0.5-2.5 MG/3 ML AMPUL NEB SCH ×4 (02:02→19:47)
[2019-01-09] MEDS ORDERED: LACTULOSE SYRUP 20 GM/30 ML UDCUP PO ONE (02:30)
--- NOTE | 2019-01-09 05:19 | PDOC H&P ---
History of Present Illness Admission Date/PCP: 01/08/19 22:38 LAURYN CORADO MD Patient complains of: Shortness of breath History of Present Illness: MELBA ROSADO is a 63 year old female with a partial past medical history congestive heart failure with an ejection fraction of 40%, of obstructive sleep apnea, stage IV chronic kidney disease, anemia, atrial fibrillation, insulin- dependent diabetes, right BKA, stage IV sacral decubiti and recent pneumonia. She is a [facility] resident where she was found febrile and short of breath. In the emergency room she is found to have leukocytosis, fever and bilateral infiltrates on chest x-ray. She received empiric antibiotics and referred to the hospitalist for admission. Patient denies chest pain nausea or vomiting. She is unaware of her vaccination status. Past Medical History Cardiac Medical History: Reports: Atrial Fibrillation, Congestive Heart Failure, Coronary Artery Disease, Hyperlipidema, Hypertension, Peripheral Vascular Disease Endocrine Medical History: Reports: Diabetes Mellitus Type 2 GI Medical History: Reports: Gastroesophageal Reflux Disease Denies: Cirrhosis, Hepatitis Musculoskeltal Medical History: Reports: Gout Psychiatric Medical History: Denies: Depression Hematology: Reports: Anemia Past Surgical History Past Surgical History: Reports: Amputation - Right BKA, September 2013, Section, Orthopedic Surgery - Right BKA, Vascular Surgery Social History Information Source: Patient, COUNTS INCLUDE 234 BEDS AT THE [facility] Records Lives with: Residential Smoking Status: Never Smoker Frequency of Alcohol Use: None Hx Recreational Drug Use: No Drugs: None Hx Prescription Drug Abuse: No - Advance Directive Resuscitation Status: Full Code Family History Family History: CAD, DM, Hypertension Parental Family History Reviewed: Yes Children Family History Reviewed: Yes Sibling(s) Family History Reviewed.: Yes Medication/Allergy Home Medications: Clopidogrel Bisulfate [Plavix 75 mg Tablet] 75 mg PO DAILY 11/25/18 Docusate Sodium [Colace 100 mg Capsule] 100 mg PO QHS 11/25/18 Ferrous Sulfate [Feosol 325 mg Tablet] 325 mg PO BID 11/25/18 Insulin NPH Hum/Reg Insulin Hm [Novolin 70-30 Flexpen] 7 units SQ QAM 11/25/18 Insulin NPH Hum/Reg Insulin Hm [Novolin 70-30 Flexpen] 12 units SQ QPM 11/25/18 Omeprazole 20 mg PO DAILY 11/25/18 Lisinopril [Prinivil 10 mg Tablet] 10 mg PO Q12 #60 tablet 12/04/18 Allopurinol [Zyloprim 100 mg Tablet] 100 mg PO DAILY 12/20/18 Atorvastatin Calcium [Lipitor 80 mg Tablet] 80 mg PO QHS 12/20/18 Diltiazem HCl [Cardizem 30 mg Tablet] 30 mg PO Q8 12/20/18 Furosemide [Lasix] 40 mg PO BID 12/20/18 Cyanocobalamin (Vitamin B-12) [Vitamin B-12 SL 2500 mcg Tablet] 2,500 mcg SL DAILY 12/22/18 Multivitamin [Tab-A-Matheus (Multiple Vitamin) Tablet] 1 tab PO DAILY 12/22/18 Apixaban [Eliquis 2.5 mg Tablet] 2.5 mg PO BID #60 tablet 12/25/18 Amox Tr/Potassium Clavulanate [Augmentin "500" Tablet] 1 tab PO Q12A 5 Days #10 tablet 12/26/18 Allergies/Adverse Reactions: No Known Allergies Allergy (Verified 11/24/18 12:45) Review of Systems Constitutional: ABSENT: chills, fever(s), headache(s), weight gain, weight loss Eyes: ABSENT: visual disturbances Ears: ABSENT: hearing changes Cardiovascular: ABSENT: chest pain, dyspnea on exertion, edema, orthropnea, palpitations Respiratory: ABSENT: cough, hemoptysis Gastrointestinal: ABSENT: abdominal pain, constipation, diarrhea, hematemesis, hematochezia, nausea, vomiting Genitourinary: ABSENT: dysuria, hematuria Musculoskeletal: ABSENT: joint swelling Integumentary: ABSENT: rash, wounds Neurological: ABSENT: abnormal gait, abnormal speech, confusion, dizziness, focal weakness, syncope Psychiatric: ABSENT: anxiety, depression, homidical ideation, suicidal ideation Endocrine: ABSENT: cold intolerance, heat intolerance, polydipsia, polyuria Hematologic/Lymphatic: ABSENT: easy bleeding, easy bruising Physical Exam Vital Signs: Temp Pulse Resp BP Pulse Ox 99.6 F 76 24 H 121/45 L 100 01/09/19 03:17 01/09/19 03:17 01/09/19 04:07 01/09/19 03:17 01/09/19 04:07 Intake & Output 01/07/19 01/08/19 01/09/19 11:59 11:59 11:59 Intake Total 117 Balance 117 Weight 76.2 kg General appearance: PRESENT: cooperative, severe distress. ABSENT: obese Head exam: PRESENT: atraumatic, normocephalic Eye exam: PRESENT: conjunctiva pink, EOMI, PERRLA. ABSENT: scleral icterus Ear exam: PRESENT: normal external ear exam Mouth exam: PRESENT: dry mucosa, neck supple. ABSENT: moist Neck exam: ABSENT: carotid bruit, JVD, lymphadenopathy, thyromegaly Respiratory exam: PRESENT: accessory muscle use, decreased breath sounds, prolonged expiratory phas, rales, rhonchi, symmetrical, tachypnea Cardiovascular exam: PRESENT: irregular rhythm, +S1, tachycardia Pulses: PRESENT: normal dorsalis pedis pul Vascular exam: PRESENT: normal capillary refill GI/Abdominal exam: PRESENT: normal bowel sounds, soft. ABSENT: distended, guarding, mass, organolmegaly, rebound, tenderness Rectal exam: PRESENT: deferred Extremities exam: PRESENT: full ROM, +1 edema. ABSENT: calf tenderness, clubbing, pedal edema Neurological exam: PRESENT: alert, awake, oriented to person, oriented to place, oriented to time, oriented to situation, CN II-XII grossly intact. ABSENT: motor sensory deficit Psychiatric exam: PRESENT: appropriate affect, normal mood. ABSENT: homicidal ideation, suicidal ideation Skin exam: PRESENT: dry, intact, warm. ABSENT: cyanosis, rash Results Laboratory Results: 01/08/19 20:45 01/08/19 21:30 01/08/19 01/08/19 01/08/19 20:45 20:45 20:45 WBC 18.5 H RBC 3.38 L Hgb 10.0 L Hct 31.5 L MCV 93 MCH 29.6 MCHC 31.8 L RDW 18.3 H Plt Count 383 Seg Neutrophils % 90.5 H Lymphocytes % 7.1 L Monocytes % 1.8 L Eosinophils % 0.3 Basophils % 0.3 Absolute Neutrophils 16.8 H Absolute Lymphocytes 1.3 Absolute Monocytes 0.3 Absolute Eosinophils 0.0 Absolute Basophils 0.1 Carbonic Acid HCO3/H2CO3 Ratio ABG pH ABG pCO2 ABG pO2 ABG HCO3 ABG O2 Saturation ABG Base Excess FiO2 Sodium Cancelled Potassium Cancelled Chloride Cancelled Carbon Dioxide Cancelled Anion Gap Cancelled BUN Cancelled Creatinine Cancelled Est GFR ( Amer) Cancelled Est GFR (Non-Af Amer) Cancelled Glucose Cancelled Lactic Acid 1.9 Calcium Cancelled Total Bilirubin Cancelled AST Cancelled ALT Cancelled Alkaline Phosphatase Cancelled Total Protein Cancelled Albumin Cancelled 01/08/19 01/08/19 20:50 21:30 WBC RBC Hgb Hct MCV MCH MCHC RDW Plt Count Seg Neutrophils % Lymphocytes % Monocytes % Eosinophils % Basophils % Absolute Neutrophils Absolute Lymphocytes Absolute Monocytes Absolute Eosinophils Absolute Basophils Carbonic Acid 1.13 HCO3/H2CO3 Ratio 18:1 ABG pH 7.36 ABG pCO2 37.4 ABG pO2 61.5 L ABG HCO3 20.7 ABG O2 Saturation 90.9 L ABG Base Excess -4.2 FiO2 50% Sodium 134.3 L Potassium 4.6 Chloride 101 Carbon Dioxide 22 Anion Gap 11 BUN 71 H Creatinine 3.07 H Est GFR ( Amer) 19 L Est GFR (Non-Af Amer) 15 L Glucose 232 H Lactic Acid Calcium 8.8 Total Bilirubin 0.6 AST 28 ALT 26 Alkaline Phosphatase 156 H Total Protein 6.6 Albumin 3.3 L 01/08/19 01/08/19 01/08/19 20:45 20:45 21:30 Creatine Kinase Cancelled CK-MB (CK-2) Cancelled 1.11 Troponin I Cancelled 0.037 01/08/19 21:30 Creatine Kinase 25 L CK-MB (CK-2) Troponin I Impressions: Chest X-Ray 01/08/19 20:47 IMPRESSION: 1. Increased bilateral patchy pulmonary infiltrates since 12/22/2018, with pattern suspicious for acute multifocal pneumonia. Assessment and Plan - Diagnosis (1) Multifocal pneumonia Is this a current diagnosis for this admission?: Yes Plan: Complicated by healthcare association, pneumonia care set deployed, vancomycin and cefepime initiated, incentive spirometry and supplemental oxygen (2) Respiratory distress, acute Is this a current diagnosis for this admission?: Yes Plan: Secondary to #1, complicated by chronic illness of congestive heart failure, albuterol, Atrovent, supplemental oxygen and BiPAP (3) Acute worsening of stage 4 chronic kidney disease Is this a current diagnosis for this admission?: Yes Plan: Secondary to #1 avoid nephrotoxic meds and doses follow-up chemistry (4) Atrial fibrillation Qualifiers: Atrial fibrillation type: chronic Qualified Code(s): I48.2 - Chronic atrial fibrillation Is this a current diagnosis for this admission?: Yes Plan: Resume outpatient diltiazem (5) Decubitus ulcer Qualifiers: Pressure injury location: sacral region Pressure injury stage: stage 4 Qualified Code(s): L89.154 - Pressure ulcer of sacral region, stage 4 Is this a current diagnosis for this admission?: Yes Plan: Specialty bed, surgery eval PRN (6) Diabetes mellitus Qualifiers: Diabetes mellitus type: type 2 Diabetes mellitus half-way insulin use: with half-way use Chronic kidney disease stage: stage 3 (moderate) Is this a current diagnosis for this admission?: Yes Plan: Humalog insulin sliding scale ordered (7) Sepsis Is this a current diagnosis for this admission?: Yes Plan: Secondary to #1, IV fluid challenge, follow-up lactic acid - Time Time Spent with patient: 35 or more minutes - Inpatient Certification Medical Necessity: Need Close Monitoring Due to Risk of Patient Decompensation
[2019-01-09] MEDS: DILTIAZEM HCL 30 MG TABLET PO SCH ×3 (05:37→21:25)
[2019-01-09] MEDS: HEPARIN SOD (PORCINE) 5,000 UNIT/ML 1 ML VIAL SUBCUT SCH ×2 (05:38→14:30)
[2019-01-09 05:55] LABS: HEMATOCRIT 24.6 % (36.0-47.0); MEAN CORPUSCULAR HEMOGLOBIN 29.9 pg (27.0-33.4); MEAN CORPUSCULAR HGB CONC 32.3 g/dL (32.0-36.0); MEAN CORPUSCULAR VOLUME 92 fl (80-97); PLATELET COUNT 222 10^3/uL (150-450); RED BLOOD COUNT 2.67 10^6/uL (3.72-5.28); RED CELL DISTRIBUTION WIDTH 18.5 % (11.5-14.0); WHITE BLOOD COUNT 22.8 10^3/uL (4.0-10.5)
[2019-01-09 06:03] LABS: IRON(TIBC) < 10.1 ug/dL (37-170)
[2019-01-09 06:05] LABS: ABSOLUTE RETICS # 0.039 10^6/uL (0.028-0.122); RETICULOCYTE COUNT (AUTO) 1.44 % (0.66-2.85)
[2019-01-09 06:08] LABS: ANION GAP 12 (5-19); BLOOD UREA NITROGEN 75 mg/dL (7-20); CALCIUM 8.2 mg/dL (8.4-10.2); CARBON DIOXIDE 19 mmol/L (22-30); CHLORIDE 104 mmol/L (98-107); GLUCOSE 165 mg/dL (75-110); POTASSIUM 4.8 mmol/L (3.6-5.0)
[2019-01-09 06:39] LABS: ABSOLUTE LYMPHOCYTES# (MANUAL) 0.7 10^3/uL (0.5-4.7); BAND NEUTROPHILS % (MANUAL) 1 % (3-5); BASOPHILS % (MANUAL) 0 % (0-2); EOSINOPHILS % (MANUAL) 0 % (0-6); LYMPHOCYTES % (MANUAL) 3 % (13-45); MONOCYTES % (MANUAL) 0 % (3-13); SEGMENTED NEUTROPHILS % (MAN) 96 % (42-78); TOTAL CELLS COUNTED 100
[2019-01-09 06:41] LABS: ANISOCYTOSIS 1+; HYPOCHROMASIA 1+; OVALOCYTES SLIGHT; PLATELET COMMENT ADEQUATE; POIKILOCYTOSIS 1+; SCHISTOCYTES SLIGHT; TARGET CELLS SLIGHT
[2019-01-09] MEDS ORDERED: HUM INSULIN NPH/REG INSULIN HM 100 UNIT/1 ML 3 ML SUBCUT SCH ×2 (08:00→16:00)
[2019-01-09] MEDS: INSULIN LISPRO 100 UNIT/ML 3 ML VIAL SUBCUT SCH ×3 (08:25→16:41)
[2019-01-09] MEDS ORDERED: CEFEPIME 2 GM/D5W RTU 2 GM/50 ML RTUPB IV SCH (10:00)
[2019-01-09] MEDS ORDERED: VANCOMYCIN HCL 1,500 MG in DEXTROSE 5%-WATER 250 ML IV SCH (10:00)
[2019-01-09] MEDS: CEFEPIME HCL 2 GM in DEXTROSE 5%-WATER 50 ML IV SCH ×2 (10:41→21:25)
--- NOTE | 2019-01-09 13:33 | RADIOLOGY REPORT (SQ) ---
EXAM DESCRIPTION: CT CHEST WITHOUT COMPLETED DATE/TIME: 01/09/2019 1:12 pm REASON FOR STUDY: hypoxia,assess for pna vs congestion COMPARISON: 01/24/2013 TECHNIQUE: CT scan performed of the chest without intravenous contrast. Images reviewed with lung, soft tissue and bone windows. Reconstructed coronal and sagittal MPR images reviewed. All images st ored on PACS. All CT scanners at this facility use dose modulation, iterative reconstruction, and/or weight based d osing when appropriate to reduce radiation dose to as low as reasonably achievable (ALARA). [facility]: Dose Right [facility]: CareDose [facility]: Dose Right [facility]: Teradose 4D [facility]: [employer] RADIATION DOSE: CT Rad equipment meets quality standard of care and radiation dose reduction techniq ues were employed. CTDIvol: 16.3 mGy. DLP: 585 mGy-cm. mGy. LIMITATIONS: No technical limitations. FINDINGS: LUNGS AND PLEURA: Small pleural effusions. Pulmonary vascular congestion. Cannot exclude interstitial changes. Ground-glass infiltrates are present bilaterally. HILAR AND MEDIASTINAL STRUCTURES: Cannot exclude right hilar mass/adenopathy. HEART AND VASCULAR STRUCTURES: Cardiomegaly. No pericardial effusion. Coronary atherosclerosis. UPPER ABDOMEN: There appear to be some small gallstones. THYROID AND OTHER SOFT TISSUES: No masses. No adenopathy. BONES: No significant finding. HARDWARE: None in the chest. OTHER: No other significant findings. IMPRESSION: 1. Cardiomegaly. Pulmonary vascular congestion. Ground-glass infiltrates may suggest pulmonary edema. 2. There appear to be perihilar interstitial changes. There is right hilar prominence. Correlate f or sarcoidosis. 3. Cholelithiasis. TECHNICAL DOCUMENTATION: JOB ID: [id number] Quality ID # [id number]: Final reports with documentation of one or more dose reduction techniques (e.g., Au tomated exposure control, adjustment of the mA and/or kV according to patient size, use of iterative reconstruction technique) 2010 [employer]- All Rights Reserved Reading location - IP/workstation name: [email or web address]
[2019-01-09] MEDS ORDERED: FUROSEMIDE INJ/PF 40 MG/4 ML SDV IV ONE (15:16)
--- NOTE | 2019-01-09 15:37 | PDOC PROGRESS REPORT ---
Subjective Progress Note for:: 01/09/19 Subjective:: This is a 63 yr old female with a PMH of CHF, EF of 40%, PRERNA, stage IV chronic kidney disease, anemia, atrial fibrillation, insulin-dependent diabetes, right BKA, stage IV sacral decubiti and recent pneumonia who was brought in due to increasing shortness of breath and reported fever. In the ER, she was noted to have bilateral infiltrates on chest x-ray and leukocytosis. She is admitted for possible H CAP. No acute event overnight. Patient has been weaned off BiPAP. Upon encounter, she appears comfortable and saturating well on 2 L nasal cannula. She does say that she has not been having any significantly productive cough. Denies chest pain. Will pursue a chest CT to further assess if this is more of congestion rather than pneumonia. Reason For Visit: SEPSIS PNEUMONIA STAGE 4 SACRAL DECUB Physical Exam Vital Signs: Temp Pulse Resp BP Pulse Ox 97.7 F 78 18 129/51 H 94 01/09/19 07:44 01/09/19 14:00 01/09/19 13:59 01/09/19 07:44 01/09/19 13:59 Intake & Output 01/08/19 01/09/19 01/10/19 06:59 06:59 06:59 Intake Total 1117 Output Total 300 Balance 817 Weight 169 lb 12.095 oz General appearance: PRESENT: no acute distress, well-developed, well-nourished Head exam: PRESENT: atraumatic, normocephalic Eye exam: PRESENT: conjunctiva pink, EOMI, PERRLA. ABSENT: scleral icterus Ear exam: PRESENT: normal external ear exam Mouth exam: PRESENT: moist, tongue midline Neck exam: ABSENT: carotid bruit, JVD, lymphadenopathy, thyromegaly Respiratory exam: PRESENT: rales, rhonchi. ABSENT: wheezes Cardiovascular exam: PRESENT: RRR. ABSENT: diastolic murmur, rubs, systolic murmur Pulses: PRESENT: normal dorsalis pedis pul GI/Abdominal exam: PRESENT: normal bowel sounds, soft. ABSENT: distended, guarding, mass, organolmegaly, rebound, tenderness Rectal exam: PRESENT: deferred Neurological exam: PRESENT: alert, awake, oriented to person, oriented to place, CN II-XII grossly intact. ABSENT: motor sensory deficit Results Laboratory Results: 01/09/19 04:57 01/09/19 04:57 01/08/19 01/08/19 01/08/19 20:45 20:45 20:45 WBC 18.5 H RBC 3.38 L Hgb 10.0 L Hct 31.5 L MCV 93 MCH 29.6 MCHC 31.8 L RDW 18.3 H Plt Count 383 Seg Neutrophils % 90.5 H Lymphocytes % 7.1 L Monocytes % 1.8 L Eosinophils % 0.3 Basophils % 0.3 Absolute Neutrophils 16.8 H Absolute Lymphocytes 1.3 Absolute Monocytes 0.3 Absolute Eosinophils 0.0 Absolute Basophils 0.1 Retic Count (auto) Absolute Retic Carbonic Acid HCO3/H2CO3 Ratio ABG pH ABG pCO2 ABG pO2 ABG HCO3 ABG O2 Saturation ABG Base Excess FiO2 Sodium Cancelled Potassium Cancelled Chloride Cancelled Carbon Dioxide Cancelled Anion Gap Cancelled BUN Cancelled Creatinine Cancelled Est GFR ( Amer) Cancelled Est GFR (Non-Af Amer) Cancelled Glucose Cancelled Lactic Acid 1.9 Calcium Cancelled Iron TIBC % Saturation Ferritin Total Bilirubin Cancelled AST Cancelled ALT Cancelled Alkaline Phosphatase Cancelled Total Protein Cancelled Albumin Cancelled Vitamin B12 Folate 01/08/19 01/08/19 01/09/19 20:50 21:30 04:57 WBC 22.8 H RBC 2.67 L Hgb 8.0 L Hct 24.6 L MCV 92 MCH 29.9 MCHC 32.3 RDW 18.5 H Plt Count 222 Seg Neutrophils % Not Reportable Lymphocytes % Not Reportable Monocytes % Not Reportable Eosinophils % Not Reportable Basophils % Not Reportable Absolute Neutrophils Not Reportable Absolute Lymphocytes Not Reportable Absolute Monocytes Not Reportable Absolute Eosinophils Not Reportable Absolute Basophils Not Reportable Retic Count (auto) Absolute Retic Carbonic Acid 1.13 HCO3/H2CO3 Ratio 18:1 ABG pH 7.36 ABG pCO2 37.4 ABG pO2 61.5 L ABG HCO3 20.7 ABG O2 Saturation 90.9 L ABG Base Excess -4.2 FiO2 50% Sodium 134.3 L Potassium 4.6 Chloride 101 Carbon Dioxide 22 Anion Gap 11 BUN 71 H Creatinine 3.07 H Est GFR ( Amer) 19 L Est GFR (Non-Af Amer) 15 L Glucose 232 H Lactic Acid Calcium 8.8 Iron TIBC % Saturation Ferritin Total Bilirubin 0.6 AST 28 ALT 26 Alkaline Phosphatase 156 H Total Protein 6.6 Albumin 3.3 L Vitamin B12 Folate 01/09/19 01/09/19 01/09/19 04:57 04:57 04:57 WBC RBC Hgb Hct MCV MCH MCHC RDW Plt Count Seg Neutrophils % Lymphocytes % Monocytes % Eosinophils % Basophils % Absolute Neutrophils Absolute Lymphocytes Absolute Monocytes Absolute Eosinophils Absolute Basophils Retic Count (auto) 1.44 Absolute Retic 0.039 Carbonic Acid HCO3/H2CO3 Ratio ABG pH ABG pCO2 ABG pO2 ABG HCO3 ABG O2 Saturation ABG Base Excess FiO2 Sodium 134.8 L Potassium 4.8 Chloride 104 Carbon Dioxide 19 L Anion Gap 12 BUN 75 H Creatinine 2.93 H Est GFR ( Amer) 20 L Est GFR (Non-Af Amer) 16 L Glucose 165 H Lactic Acid Calcium 8.2 L Iron < 10.1 L TIBC 196 L % Saturation UNABLE TO CALCULATE Ferritin 388.00 H Total Bilirubin AST ALT Alkaline Phosphatase Total Protein Albumin Vitamin B12 892.0 Folate 19.20 01/08/19 01/08/19 01/08/19 20:45 20:45 21:30 Creatine Kinase Cancelled CK-MB (CK-2) Cancelled 1.11 Troponin I Cancelled 0.037 01/08/19 21:30 Creatine Kinase 25 L CK-MB (CK-2) Troponin I Impressions: Chest X-Ray 01/08/19 20:47 IMPRESSION: 1. Increased bilateral patchy pulmonary infiltrates since 12/22/2018, with pattern suspicious for acute multifocal pneumonia. Chest CT 01/09/19 10:01 IMPRESSION: 1. Cardiomegaly. Pulmonary vascular congestion. Ground-glass infiltrates may suggest pulmonary edema. 2. There appear to be perihilar interstitial changes. There is right hilar prominence. Correlate for sarcoidosis. 3. Cholelithiasis. Assessment and Plan - Diagnosis (1) Acute respiratory failure with hypoxia Is this a current diagnosis for this admission?: Yes Plan: Patient has been weaned off BiPAP. She is comfortable and saturating well on 2 L nasal cannula. She does say that she has not been having any significantly productive cough. Denies chest pain. Will pursue a chest CT to further assess if this is more of congestion rather than pneumonia. (2) Multifocal pneumonia Is this a current diagnosis for this admission?: Yes Plan: Possible HCAP. On IV vancomycin and cefepime. Will order for sputum culture. Discontinue vancomycin. (3) CKD (chronic kidney disease), stage IV Is this a current diagnosis for this admission?: Yes Plan: Renal function at baseline. Strict I&O monitoring with urine container. (4) Diabetes mellitus Qualifiers: Diabetes mellitus type: type 2 Diabetes mellitus meterman insulin use: with correction use Chronic kidney disease stage: stage 3 (moderate) Is this a current diagnosis for this admission?: Yes Plan: We will resume insulin regimen at home. (5) Paroxysmal A-fib Is this a current diagnosis for this admission?: Yes Plan: Currently in sinus rhythm. Resume Eliquis. - Time Time Spent with patient: 25-34 minutes
[2019-01-09] MEDS: HUM INSULIN NPH/REG INSULIN HM 100 UNIT/1 ML 3 ML SUBCUT SCH (17:53)
[2019-01-09] MEDS: FERROUS SULFATE 325 MG TABLET PO SCH (17:53)
[2019-01-09] MEDS: FUROSEMIDE 40 MG TABLET PO SCH (17:53)
[2019-01-09] MEDS ORDERED: REG INSULIN SQ SCH (18:00)
[2019-01-09] MEDS ORDERED: INSULIN NPH HUM SQ SCH (18:00)
--- NOTE | 2019-01-09 18:14 | EKG REPORT ---
SEVERITY:- ABNORMAL ECG - SINUS TACHYCARDIA LVH WITH IVCD AND SECONDARY REPOL ABNRM : Confirmed by: Daisy Rose MD 09-Jan-2019 18:13:49
[2019-01-09] MEDS: ATORVASTATIN CALCIUM 80 MG TABLET PO SCH (21:25)
[2019-01-09] MEDS: APIXABAN 2.5 MG TABLET PO SCH (21:25)
[2019-01-10] MEDS: IPRATROPIUM/ALBUTEROL 0.5-2.5 MG/3 ML AMPUL NEB SCH ×4 (02:10→20:15)
[2019-01-10] MEDS: DILTIAZEM HCL 30 MG TABLET PO SCH ×3 (05:21→21:41)
[2019-01-10] MEDS ORDERED: INSULIN REGULAR SQ SCH (08:00)
[2019-01-10] MEDS ORDERED: INSULIN ISOPHANE SQ SCH (08:00)
[2019-01-10] MEDS: HUM INSULIN NPH/REG INSULIN HM 100 UNIT/1 ML 3 ML SUBCUT SCH ×2 (08:26→17:39)
[2019-01-10] MEDS: INSULIN LISPRO 100 UNIT/ML 3 ML VIAL SUBCUT SCH ×3 (08:27→17:39)
[2019-01-10] MEDS: ALLOPURINOL 100 MG TABLET PO SCH (09:42)
[2019-01-10] MEDS: APIXABAN 2.5 MG TABLET PO SCH ×2 (09:42→21:42)
[2019-01-10] MEDS: CEFEPIME HCL 2 GM in DEXTROSE 5%-WATER 50 ML IV SCH ×2 (09:43→21:42)
[2019-01-10] MEDS: FUROSEMIDE 40 MG TABLET PO SCH ×2 (09:43→17:39)
[2019-01-10] MEDS: FERROUS SULFATE 325 MG TABLET PO SCH ×2 (09:43→17:39)
[2019-01-10] MEDS: CYANOCOBALAMIN (VITAMIN B-12) 1,000 MCG TABLET PO SCH (09:43)
[2019-01-10] MEDS: CLOPIDOGREL BISULFATE 75 MG TABLET PO SCH (09:43)
[2019-01-10] MEDS ORDERED: (PENDING PHARMACY ID) (Cyanocobalamin (Vitamin B-12) [Vitamin B-12 Sl 2500 Mcg Tablet] 2,5 SL SCH (10:00)
--- NOTE | 2019-01-10 14:43 | PDOC PROGRESS REPORT ---
Subjective Progress Note for:: 01/10/19 Subjective:: This is a 63 yr old female with a PMH of CHF, EF of 40%, PRERNA, stage IV chronic kidney disease, anemia, atrial fibrillation, insulin-dependent diabetes, right BKA, stage IV sacral decubiti and recent pneumonia who was brought in due to increasing shortness of breath and reported fever. In the ER, she was noted to have bilateral infiltrates on chest x-ray and leukocytosis. She is admitted for possible H CAP. 01/09: Patient has been weaned off BiPAP. Upon encounter, she appears comfortable and saturating well on 2 L nasal cannula. She does say that she has not been having any significantly productive cough. Denies chest pain. Will pursue a chest CT to further assess if this is more of congestion rather than pneumonia. 01/10: No acute event overnight. Chest CT is more consistent with pulmonary congestion. Currently saturating well on nasal cannula. She says she continues to feel better. Denies shortness of breath or chest pain. Reason For Visit: SEPSIS PNEUMONIA STAGE 4 SACRAL DECUB Physical Exam Vital Signs: Temp Pulse Resp BP Pulse Ox 97.6 F 75 16 131/53 H 100 01/10/19 07:40 01/10/19 08:33 01/10/19 08:33 01/10/19 07:40 01/10/19 08:33 Intake & Output 01/09/19 01/10/19 01/11/19 06:59 06:59 06:59 Intake Total 1117 1235 Output Total 300 600 Balance 817 635 Weight 169 lb 12.095 oz 186 lb 8.177 oz General appearance: PRESENT: no acute distress, well-developed, well-nourished Head exam: PRESENT: atraumatic, normocephalic Eye exam: PRESENT: conjunctiva pink, EOMI, PERRLA. ABSENT: scleral icterus Ear exam: PRESENT: normal external ear exam Mouth exam: PRESENT: moist, tongue midline Neck exam: ABSENT: carotid bruit, JVD, lymphadenopathy, thyromegaly Respiratory exam: PRESENT: rhonchi. ABSENT: rales, wheezes Cardiovascular exam: PRESENT: RRR. ABSENT: diastolic murmur, rubs, systolic murmur Pulses: PRESENT: normal dorsalis pedis pul GI/Abdominal exam: PRESENT: normal bowel sounds, soft. ABSENT: distended, guarding, mass, organolmegaly, rebound, tenderness Rectal exam: PRESENT: deferred Extremities exam: PRESENT: full ROM. ABSENT: calf tenderness, clubbing, pedal edema Neurological exam: PRESENT: alert, awake, oriented to person, oriented to place, oriented to time, oriented to situation, CN II-XII grossly intact Results Laboratory Results: 01/09/19 04:57 01/09/19 04:57 01/08/19 01/08/19 01/08/19 20:45 20:45 21:30 Creatine Kinase Cancelled CK-MB (CK-2) Cancelled 1.11 Troponin I Cancelled 0.037 01/08/19 21:30 Creatine Kinase 25 L CK-MB (CK-2) Troponin I Impressions: Chest X-Ray 01/08/19 20:47 IMPRESSION: 1. Increased bilateral patchy pulmonary infiltrates since 12/22/2018, with pattern suspicious for acute multifocal pneumonia. Chest CT 01/09/19 10:01 IMPRESSION: 1. Cardiomegaly. Pulmonary vascular congestion. Ground-glass infiltrates may suggest pulmonary edema. 2. There appear to be perihilar interstitial changes. There is right hilar prominence. Correlate for sarcoidosis. 3. Cholelithiasis. Assessment and Plan - Diagnosis (1) Acute respiratory failure with hypoxia Is this a current diagnosis for this admission?: Yes Plan: Improving. Chest CT is more consistent with pulmonary congestion. Wean off BiPAP. Currently saturating well on nasal cannula. She says she continues to feel better. (2) Multifocal pneumonia Is this a current diagnosis for this admission?: Yes Plan: 01/09: Possible HCAP. On IV vancomycin and cefepime. Will order for sputum culture. Discontinue vancomycin. (3) CKD (chronic kidney disease), stage IV Is this a current diagnosis for this admission?: Yes Plan: Renal function at baseline. Strict I&O monitoring with urine container. 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 (5) Paroxysmal A-fib Is this a current diagnosis for this admission?: Yes Plan: Currently in sinus rhythm. Resume Eliquis. - Time Time Spent with patient: 25-34 minutes
[2019-01-10] MEDS: ATORVASTATIN CALCIUM 80 MG TABLET PO SCH (21:42)
[2019-01-11] MEDS: IPRATROPIUM/ALBUTEROL 0.5-2.5 MG/3 ML AMPUL NEB SCH ×4 (02:15→20:02)
[2019-01-11] MEDS: DILTIAZEM HCL 30 MG TABLET PO SCH ×3 (05:33→21:17)
[2019-01-11 05:56] LABS: ABSOLUTE LYMPHOCYTES (AUTO) 0.7 10^3/uL (0.5-4.7); ABSOLUTE MONOCYTES (AUTO) 0.4 10^3/uL (0.1-1.4); ABSOLUTE NEUT (AUTO) 9.2 10^3/uL (1.7-8.2); BASOPHILS % (AUTO) 0.1 % (0-2); EOSINOPHILS % (AUTO) 0.3 % (0-6); HEMATOCRIT 24.5 % (36.0-47.0); LYMPHOCYTES % (AUTO) 6.9 % (13-45); MEAN CORPUSCULAR HEMOGLOBIN 29.6 pg (27.0-33.4); MEAN CORPUSCULAR HGB CONC 31.9 g/dL (32.0-36.0); MEAN CORPUSCULAR VOLUME 93 fl (80-97); MONOCYTES % (AUTO) 3.6 % (3-13); PLATELET COUNT 212 10^3/uL (150-450); RED BLOOD COUNT 2.64 10^6/uL (3.72-5.28); RED CELL DISTRIBUTION WIDTH 18.9 % (11.5-14.0); SEGMENTED NEUTROPHILS % (AUTO) 89.1 % (42-78); TOTAL CELLS COUNTED % (AUTO) 100 %; WHITE BLOOD COUNT 10.3 10^3/uL (4.0-10.5)
[2019-01-11 06:02] LABS: HEMOGLOBIN 7.8 g/dL (12.0-15.5)
[2019-01-11 06:14] LABS: ANION GAP 10 (5-19); BLOOD UREA NITROGEN 96 mg/dL (7-20); CALCIUM 8.4 mg/dL (8.4-10.2); CARBON DIOXIDE 20 mmol/L (22-30); CHLORIDE 105 mmol/L (98-107); GLUCOSE 138 mg/dL (75-110); POTASSIUM 4.6 mmol/L (3.6-5.0)
[2019-01-11] MEDS: INSULIN LISPRO 100 UNIT/ML 3 ML VIAL SUBCUT SCH ×3 (08:28→16:44)
[2019-01-11] MEDS: HUM INSULIN NPH/REG INSULIN HM 100 UNIT/1 ML 3 ML SUBCUT SCH ×2 (08:29→17:23)
[2019-01-11] MEDS: CYANOCOBALAMIN (VITAMIN B-12) 1,000 MCG TABLET PO SCH (09:32)
[2019-01-11] MEDS: ALLOPURINOL 100 MG TABLET PO SCH (09:32)
[2019-01-11] MEDS: FUROSEMIDE 40 MG TABLET PO SCH ×2 (09:32→17:22)
[2019-01-11] MEDS: CEFEPIME HCL 2 GM in DEXTROSE 5%-WATER 50 ML IV SCH ×2 (09:32→21:17)
[2019-01-11] MEDS: FERROUS SULFATE 325 MG TABLET PO SCH ×2 (09:32→17:22)
[2019-01-11] MEDS: CLOPIDOGREL BISULFATE 75 MG TABLET PO SCH (09:32)
[2019-01-11] MEDS: APIXABAN 2.5 MG TABLET PO SCH ×2 (09:32→21:16)
--- NOTE | 2019-01-11 13:18 | RADIOLOGY REPORT (SQ) ---
EXAM DESCRIPTION: CHEST SINGLE VIEW COMPLETED DATE/TIME: 01/11/2019 12:13 pm REASON FOR STUDY: reassess congestion COMPARISON: 01/08/2019. EXAM PARAMETERS: NUMBER OF VIEWS: One view. TECHNIQUE: Single frontal radiographic view of the chest acquired. RADIATION DOSE: NA LIMITATIONS: None. FINDINGS: LUNGS AND PLEURA: Diffuse bilateral airspace disease. Slight improved aeration. Possible minimal right pleural effusion. No pneumothorax. MEDIASTINUM AND HILAR STRUCTURES: No masses. Contour normal. HEART AND VASCULAR STRUCTURES: Cardiomegaly unchanged. BONES: No acute findings. HARDWARE: None in the chest. OTHER: No other significant finding. IMPRESSION: DIFFUSE BILATERAL AIRSPACE DISEASE WITH SLIGHT IMPROVED AERATION. TECHNICAL DOCUMENTATION: JOB ID: [id number] [email or web address]- All Rights Reserved Reading location - IP/workstation name: [email or web address]
--- NOTE | 2019-01-11 15:13 | PDOC PROGRESS REPORT ---
Subjective Progress Note for:: 01/11/19 Subjective:: This is a 63 yr old female with a PMH of CHF, EF of 40%, PRERNA, stage IV chronic kidney disease, anemia, atrial fibrillation, insulin-dependent diabetes, right BKA, stage IV sacral decubiti and recent pneumonia who was brought in due to increasing shortness of breath and reported fever. In the ER, she was noted to have bilateral infiltrates on chest x-ray and leukocytosis. She is admitted for possible H CAP. 01/09: Patient has been weaned off BiPAP. Upon encounter, she appears comfortable and saturating well on 2 L nasal cannula. She does say that she has not been having any significantly productive cough. Denies chest pain. Will pursue a chest CT to further assess if this is more of congestion rather than pneumonia. 01/10: Chest CT is more consistent with pulmonary congestion. Currently saturating well on nasal cannula. She says she continues to feel better. Denies shortness of breath or chest pain. 01/11: No acute event overnight. She continues to improve. Denies acute complaints. Pulmonary congestion significant improvement repeat chest x-ray. Creatinine slightly trending up but still close to baseline. We will reduce her home dose of Lasix to half. Reason For Visit: SEPSIS PNEUMONIA STAGE 4 SACRAL DECUB Physical Exam Vital Signs: Temp Pulse Resp BP Pulse Ox 97.4 F 66 18 130/89 H 99 01/11/19 11:47 01/11/19 11:47 01/11/19 11:47 01/11/19 11:47 01/11/19 11:47 Intake & Output 01/10/19 01/11/19 01/12/19 06:59 06:59 06:59 Intake Total 1235 200 50 Output Total 600 1100 Balance 635 -900 50 Weight 186 lb 8.177 oz 186 lb 1.122 oz General appearance: PRESENT: no acute distress, well-developed, well-nourished Head exam: PRESENT: atraumatic, normocephalic Eye exam: PRESENT: conjunctiva pink, EOMI, PERRLA. ABSENT: scleral icterus Ear exam: PRESENT: normal external ear exam Mouth exam: PRESENT: moist, tongue midline Neck exam: ABSENT: carotid bruit, JVD, lymphadenopathy, thyromegaly Respiratory exam: PRESENT: clear to auscultation gustavo. ABSENT: rales, rhonchi, wheezes Cardiovascular exam: PRESENT: RRR. ABSENT: diastolic murmur, rubs, systolic murmur Pulses: PRESENT: normal dorsalis pedis pul GI/Abdominal exam: PRESENT: normal bowel sounds, soft. ABSENT: distended, guarding, mass, organolmegaly, rebound, tenderness Rectal exam: PRESENT: deferred Extremities exam: PRESENT: full ROM. ABSENT: calf tenderness, clubbing, pedal edema Neurological exam: PRESENT: alert, awake, oriented to person, oriented to place, oriented to time, oriented to situation, CN II-XII grossly intact. ABSENT: motor sensory deficit Results Laboratory Results: 01/11/19 04:54 01/11/19 04:54 01/11/19 01/11/19 04:54 04:54 WBC 10.3 RBC 2.64 L Hgb 7.8 L Hct 24.5 L MCV 93 MCH 29.6 MCHC 31.9 L RDW 18.9 H Plt Count 212 Seg Neutrophils % 89.1 H Lymphocytes % 6.9 L Monocytes % 3.6 Eosinophils % 0.3 Basophils % 0.1 Absolute Neutrophils 9.2 H Absolute Lymphocytes 0.7 Absolute Monocytes 0.4 Absolute Eosinophils 0.0 Absolute Basophils 0.0 Sodium 134.9 L Potassium 4.6 Chloride 105 Carbon Dioxide 20 L Anion Gap 10 BUN 96 H Creatinine 3.35 H Est GFR ( Amer) 17 L Est GFR (Non-Af Amer) 14 L Glucose 138 H Calcium 8.4 01/08/19 01/08/19 01/08/19 20:45 20:45 21:30 Creatine Kinase Cancelled CK-MB (CK-2) Cancelled 1.11 Troponin I Cancelled 0.037 01/08/19 21:30 Creatine Kinase 25 L CK-MB (CK-2) Troponin I Impressions: Chest CT 01/09/19 10:01 IMPRESSION: 1. Cardiomegaly. Pulmonary vascular congestion. Ground-glass infiltrates may suggest pulmonary edema. 2. There appear to be perihilar interstitial changes. There is right hilar prominence. Correlate for sarcoidosis. 3. Cholelithiasis. Chest X-Ray 01/11/19 09:06 IMPRESSION: DIFFUSE BILATERAL AIRSPACE DISEASE WITH SLIGHT IMPROVED AERATION. Assessment and Plan - Diagnosis (1) Acute respiratory failure with hypoxia Is this a current diagnosis for this admission?: Yes Plan: Improving. Chest CT is more consistent with pulmonary congestion. Wean off BiPAP. Currently saturating well on nasal cannula. She says she continues to feel better. 01/11: Resolving. Wean off nasal cannula. (2) CHF exacerbation Is this a current diagnosis for this admission?: Yes Plan: Resolving. Reduce Lasix from 40 mg bid to 20 mg bid. (3) Multifocal pneumonia Is this a current diagnosis for this admission?: Yes Plan: 01/09: Possible HCAP. On IV vancomycin and cefepime. Will order for sputum cult ure. Discontinue vancomycin. (4) CKD (chronic kidney disease), stage IV Is this a current diagnosis for this admission?: Yes Plan: Renal function at baseline. Strict I&O monitoring with urine container. 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 (6) Paroxysmal A-fib Is this a current diagnosis for this admission?: Yes Plan: Currently in sinus rhythm. Resume Eliquis.
[2019-01-11] MEDS: ATORVASTATIN CALCIUM 80 MG TABLET PO SCH (21:16)
[2019-01-12] MEDS: IPRATROPIUM/ALBUTEROL 0.5-2.5 MG/3 ML AMPUL NEB SCH ×4 (02:09→19:43)
[2019-01-12] MEDS: DILTIAZEM HCL 30 MG TABLET PO SCH ×3 (05:24→21:20)
[2019-01-12 05:47] LABS: ABSOLUTE EOSINOPHILS # (AUTO) 0.1 10^3/uL (0.0-0.6); ABSOLUTE LYMPHOCYTES (AUTO) 0.5 10^3/uL (0.5-4.7); ABSOLUTE MONOCYTES (AUTO) 0.4 10^3/uL (0.1-1.4); ABSOLUTE NEUT (AUTO) 6.8 10^3/uL (1.7-8.2); BASOPHILS % (AUTO) 0.3 % (0-2); EOSINOPHILS % (AUTO) 1.7 % (0-6); HEMATOCRIT 27.5 % (36.0-47.0); LYMPHOCYTES % (AUTO) 6.6 % (13-45); MEAN CORPUSCULAR HEMOGLOBIN 29.9 pg (27.0-33.4); MEAN CORPUSCULAR HGB CONC 32.7 g/dL (32.0-36.0); MEAN CORPUSCULAR VOLUME 91 fl (80-97); MONOCYTES % (AUTO) 4.7 % (3-13); PLATELET COUNT 230 10^3/uL (150-450); RED BLOOD COUNT 3.01 10^6/uL (3.72-5.28); RED CELL DISTRIBUTION WIDTH 18.6 % (11.5-14.0); SEGMENTED NEUTROPHILS % (AUTO) 86.7 % (42-78); TOTAL CELLS COUNTED % (AUTO) 100 %; WHITE BLOOD COUNT 7.9 10^3/uL (4.0-10.5)
[2019-01-12 05:56] LABS: ANION GAP 9 (5-19); BLOOD UREA NITROGEN 94 mg/dL (7-20); CALCIUM 8.6 mg/dL (8.4-10.2); CARBON DIOXIDE 22 mmol/L (22-30); CHLORIDE 104 mmol/L (98-107); GLUCOSE 104 mg/dL (75-110); POTASSIUM 4.4 mmol/L (3.6-5.0)
[2019-01-12] MEDS: INSULIN LISPRO 100 UNIT/ML 3 ML VIAL SUBCUT SCH ×3 (08:05→16:27)
[2019-01-12] MEDS: HUM INSULIN NPH/REG INSULIN HM 100 UNIT/1 ML 3 ML SUBCUT SCH ×2 (08:13→17:02)
[2019-01-12] MEDS: CEFEPIME HCL 2 GM in DEXTROSE 5%-WATER 50 ML IV SCH (10:03)
[2019-01-12] MEDS: CYANOCOBALAMIN (VITAMIN B-12) 1,000 MCG TABLET PO SCH (10:03)
[2019-01-12] MEDS: ALLOPURINOL 100 MG TABLET PO SCH (10:03)
[2019-01-12] MEDS: FUROSEMIDE 40 MG TABLET PO SCH ×2 (10:03→17:02)
[2019-01-12] MEDS: FERROUS SULFATE 325 MG TABLET PO SCH ×2 (10:03→17:02)
[2019-01-12] MEDS: CLOPIDOGREL BISULFATE 75 MG TABLET PO SCH (10:03)
[2019-01-12] MEDS: APIXABAN 2.5 MG TABLET PO SCH ×2 (10:13→21:20)
--- NOTE | 2019-01-12 12:22 | PDOC PROGRESS REPORT ---
Subjective Progress Note for:: 01/12/19 Subjective:: This is a 63 yr old female with a PMH of CHF, EF of 40%, PRERNA, stage IV chronic kidney disease, anemia, atrial fibrillation, insulin-dependent diabetes, right BKA, stage IV sacral decubiti and recent pneumonia who was brought in due to increasing shortness of breath and reported fever. In the ER, she was noted to have bilateral infiltrates on chest x-ray and leukocytosis. She is admitted for possible H CAP. 01/09: Patient has been weaned off BiPAP. Upon encounter, she appears comfortable and saturating well on 2 L nasal cannula. She does say that she has not been having any significantly productive cough. Denies chest pain. Will pursue a chest CT to further assess if this is more of congestion rather than pneumonia. 01/10: Chest CT is more consistent with pulmonary congestion. Currently saturating well on nasal cannula. She says she continues to feel better. Denies shortness of breath or chest pain. 01/11: She continues to improve. Denies acute complaints. Pulmonary congestion significant improvement repeat chest x-ray. Creatinine slightly trending up but still close to baseline. We will reduce her home dose of Lasix to half. 01/12: No acute event overnight. She continues to do better. She says she feels she is at her baseline. Patient is cleared to be discharged back to [facility]. She is awaiting final approval from insurance as her PA had to be resubmitted. Reason For Visit: SEPSIS PNEUMONIA STAGE 4 SACRAL DECUB Physical Exam Vital Signs: Temp Pulse Resp BP Pulse Ox 97.6 F 66 20 160/67 H 95 01/12/19 07:24 01/12/19 07:24 01/12/19 07:24 01/12/19 07:24 01/12/19 07:24 Intake & Output 01/11/19 01/12/19 01/13/19 06:59 06:59 06:59 Intake Total 200 458 Output Total 1100 2400 Balance -900 -1942 Weight 186 lb 1.122 oz 180 lb 12.465 oz General appearance: PRESENT: no acute distress, well-developed, well-nourished Head exam: PRESENT: atraumatic, normocephalic Eye exam: PRESENT: conjunctiva pink, EOMI, PERRLA. ABSENT: scleral icterus Ear exam: PRESENT: normal external ear exam Mouth exam: PRESENT: moist, tongue midline Neck exam: ABSENT: carotid bruit, JVD, lymphadenopathy, thyromegaly Respiratory exam: PRESENT: clear to auscultation gustavo. ABSENT: rales, rhonchi, wheezes Cardiovascular exam: PRESENT: RRR. ABSENT: diastolic murmur, rubs, systolic murmur Pulses: PRESENT: normal dorsalis pedis pul GI/Abdominal exam: PRESENT: normal bowel sounds, soft. ABSENT: distended, guarding, mass, organolmegaly, rebound, tenderness Rectal exam: PRESENT: deferred Extremities exam: PRESENT: full ROM. ABSENT: calf tenderness, clubbing, pedal edema Neurological exam: PRESENT: alert, awake, oriented to person, oriented to place, oriented to time, oriented to situation, CN II-XII grossly intact. ABSENT: motor sensory deficit Results Laboratory Results: 01/12/19 04:58 01/12/19 04:58 01/12/19 01/12/19 04:58 04:58 WBC 7.9 RBC 3.01 L Hgb 9.0 L Hct 27.5 L MCV 91 MCH 29.9 MCHC 32.7 RDW 18.6 H Plt Count 230 Seg Neutrophils % 86.7 H Lymphocytes % 6.6 L Monocytes % 4.7 Eosinophils % 1.7 Basophils % 0.3 Absolute Neutrophils 6.8 Absolute Lymphocytes 0.5 Absolute Monocytes 0.4 Absolute Eosinophils 0.1 Absolute Basophils 0.0 Sodium 134.7 L Potassium 4.4 Chloride 104 Carbon Dioxide 22 Anion Gap 9 BUN 94 H Creatinine 3.32 H Est GFR ( Amer) 17 L Est GFR (Non-Af Amer) 14 L Glucose 104 Calcium 8.6 01/08/19 01/08/19 01/08/19 20:45 20:45 21:30 Creatine Kinase Cancelled CK-MB (CK-2) Cancelled 1.11 Troponin I Cancelled 0.037 01/08/19 21:30 Creatine Kinase 25 L CK-MB (CK-2) Troponin I Impressions: Chest CT 01/09/19 10:01 IMPRESSION: 1. Cardiomegaly. Pulmonary vascular congestion. Ground-glass infiltrates may suggest pulmonary edema. 2. There appear to be perihilar interstitial changes. There is right hilar prominence. Correlate for sarcoidosis. 3. Cholelithiasis. Chest X-Ray 01/11/19 09:06 IMPRESSION: DIFFUSE BILATERAL AIRSPACE DISEASE WITH SLIGHT IMPROVED AERATION. Assessment and Plan - Diagnosis (1) Acute respiratory failure with hypoxia Is this a current diagnosis for this admission?: Yes Plan: Improving. Chest CT is more consistent with pulmonary congestion. Wean off BiPAP. Currently saturating well on nasal cannula. She says she continues to feel better. 01/11: Resolving. Wean off nasal cannula. 01/12: Resolved. (2) CHF exacerbation Is this a current diagnosis for this admission?: Yes Plan: Resolving. Reduce Lasix from 40 mg bid to 20 mg bid. (3) Multifocal pneumonia Is this a current diagnosis for this admission?: Yes Plan: 01/09: Possible HCAP. On IV vancomycin and cefepime. Will order for sputum culture. Discontinue vancomycin. 01/12: Switch to PO Levaquin. (4) CKD (chronic kidney disease), stage IV Is this a current diagnosis for this admission?: Yes Plan: Renal function at baseline. Strict I&O monitoring with urine container. (5) Diabetes mellitus Qualifiers: Diabetes mellitus type: type 2 Diabetes mellitus chcf insulin use: chcf use Chronic kidney disease stage: stage 3 (moderate) Is this a current diagnosis for this admission?: Yes Plan: Continue Insulin 70/30. (6) Paroxysmal A-fib Is this a current diagnosis for this admission?: Yes Plan: Currently in sinus rhythm. Continue Eliquis. - Time Time Spent with patient: 15-24 minutes
[2019-01-12] MEDS: ATORVASTATIN CALCIUM 80 MG TABLET PO SCH (21:20)
[2019-01-13] MEDS: IPRATROPIUM/ALBUTEROL 0.5-2.5 MG/3 ML AMPUL NEB SCH ×4 (01:49→21:53)
[2019-01-13] MEDS: DILTIAZEM HCL 30 MG TABLET PO SCH ×3 (05:32→22:01)
[2019-01-13 09:19] LABS: ANION GAP 12 (5-19); BLOOD UREA NITROGEN 91 mg/dL (7-20); CALCIUM 8.4 mg/dL (8.4-10.2); CARBON DIOXIDE 21 mmol/L (22-30); CHLORIDE 102 mmol/L (98-107); GLUCOSE 135 mg/dL (75-110); POTASSIUM 4.5 mmol/L (3.6-5.0)
[2019-01-13] MEDS: INSULIN LISPRO 100 UNIT/ML 3 ML VIAL SUBCUT SCH ×3 (09:26→17:31)
[2019-01-13] MEDS: HUM INSULIN NPH/REG INSULIN HM 100 UNIT/1 ML 3 ML SUBCUT SCH ×2 (09:26→17:47)
[2019-01-13] MEDS ORDERED: ONDANSETRON HCL INJ/PF 4 MG/2 ML SDV IV PRN (09:36)
--- NOTE | 2019-01-13 11:09 | RADIOLOGY REPORT (SQ) ---
EXAM DESCRIPTION: CHEST SINGLE VIEW COMPLETED DATE/TIME: 01/13/2019 10:31 am REASON FOR STUDY: reassess congestion COMPARISON: AP chest chest films 08/21/2015, 08/19/2018, 11/30/2018, 12/22/2018, 01/11/2019 CT chest 01/09/2019 EXAM PARAMETERS: NUMBER OF VIEWS: One view. TECHNIQUE: Single frontal radiographic view of the chest acquired. RADIATION DOSE: NA LIMITATIONS: None. FINDINGS: LUNGS AND PLEURA: Over the series of exams since 08/19/2018, there has been progressive vol ume loss and opacity of both lungs with confluent densities in the perihilar regions. Today's study demonstrates trace bilateral pleural fluid with minimal airspace disease in the upper l obes bilaterally, similar compared to chest film 01/11/2019. This is worrisome for mild fluid overload or congestive failure. There is no dense lobar consolidation worrisome for pneumonia. MEDIASTINUM AND HILAR STRUCTURES: No masses. Contour normal. HEART AND VASCULAR STRUCTURES: Stable cardiomegaly BONES: No acute findings. HARDWARE: None in the chest. OTHER: No other significant finding. IMPRESSION: Stable appearance of the chest compared 01/11/2019 TECHNICAL DOCUMENTATION: JOB ID: [id number] [employer]- All Rights Reserved Reading location - IP/workstation name: [email or web address]
[2019-01-13] MEDS: LEVOFLOXACIN 250 MG TABLET PO SCH (13:03)
[2019-01-13] MEDS: CLOPIDOGREL BISULFATE 75 MG TABLET PO SCH (13:03)
[2019-01-13] MEDS: FERROUS SULFATE 325 MG TABLET PO SCH ×2 (13:03→17:49)
[2019-01-13] MEDS: ALLOPURINOL 100 MG TABLET PO SCH (13:03)
[2019-01-13] MEDS: CYANOCOBALAMIN (VITAMIN B-12) 1,000 MCG TABLET PO SCH (13:04)
[2019-01-13] MEDS: APIXABAN 2.5 MG TABLET PO SCH ×2 (13:04→22:03)
[2019-01-13] MEDS: FUROSEMIDE 40 MG TABLET PO SCH ×2 (13:12→17:50)
--- NOTE | 2019-01-13 14:15 | PDOC TRANSFER SUMMARY ---
General - Admit/Disc Date/PCP Admission Date/Primary Care Provider: 01/08/19 22:38 CYNDIE COMER MD Discharge Date: 01/13/19 - Discharge Diagnosis (1) Acute respiratory failure with hypoxia Is this a current diagnosis for this admission?: Yes (2) CHF exacerbation Is this a current diagnosis for this admission?: Yes (3) Multifocal pneumonia Is this a current diagnosis for this admission?: Yes (4) CKD (chronic kidney disease), stage IV Is this a current diagnosis for this admission?: Yes (5) Diabetes mellitus Is this a current diagnosis for this admission?: Yes (6) Paroxysmal A-fib Is this a current diagnosis for this admission?: Yes - Additional Information Resuscitation Status: Full Code Prescriptions: Levofloxacin [Levaquin 250 mg Tablet] 250 mg PO DAILY 2 Days #2 tablet Metoprolol Succinate [Toprol Xl 25 mg Tab.sr] 25 mg PO DAILY #30 tab.sr.24h Home Medications: Clopidogrel Bisulfate [Plavix 75 mg Tablet] 75 mg PO DAILY 11/25/18 Docusate Sodium [Colace 100 mg Capsule] 100 mg PO QHS 11/25/18 Ferrous Sulfate [Feosol 325 mg Tablet] 325 mg PO BID 11/25/18 Insulin NPH Hum/Reg Insulin Hm [Novolin 70-30 Flexpen] 7 units SQ QAM 11/25/18 Insulin NPH Hum/Reg Insulin Hm [Novolin 70-30 Flexpen] 12 units SQ QPM 11/25/18 Omeprazole 20 mg PO DAILY 11/25/18 Lisinopril [Prinivil 10 mg Tablet] 10 mg PO Q12 #60 tablet 12/04/18 Allopurinol [Zyloprim 100 mg Tablet] 100 mg PO DAILY 12/20/18 Atorvastatin Calcium [Lipitor 80 mg Tablet] 80 mg PO QHS 12/20/18 Furosemide [Lasix] 40 mg PO BID 12/20/18 Cyanocobalamin (Vitamin B-12) [Vitamin B-12 SL 2500 mcg Tablet] 2,500 mcg SL DAILY 12/22/18 Multivitamin [Tab-A-Matheus (Multiple Vitamin) Tablet] 1 tab PO DAILY 12/22/18 Apixaban [Eliquis 2.5 mg Tablet] 2.5 mg PO Q12 01/09/19 Levofloxacin [Levaquin 250 mg Tablet] 250 mg PO DAILY 2 Days #2 tablet 01/13/19 Metoprolol Succinate [Toprol Xl 25 mg Tab.sr] 25 mg PO DAILY #30 tab.sr.24h 01/13/19 History of Present Illness Admission Date/PCP: 01/08/19 22:38 CYNDIE COMER MD History of Present Illness: Admitting hospitalist's H&P: MELBA ROSADO is a 63 year old female with a partial past medical history congestive heart failure with an ejection fraction of 40%, of obstructive sleep apnea, stage IV chronic kidney disease, anemia, atrial fibrillation, insulin- dependent diabetes, right BKA, stage IV sacral decubiti and recent pneumonia. [facility] is a [facility] where she was found febrile and short of breath. In the emergency room she is found to have leukocytosis, fever and bilateral infiltrates on chest x-ray. She received empiric antibiotics and referred to the hospitalist for admission. Patient denies chest pain nausea or vomiting. Hospital Course Hospital Course: This is a 63 yr old female with a PMH of CHF, EF of 40%, PRERNA, stage IV chronic kidney disease, anemia, atrial fibrillation, insulin-dependent diabetes, right BKA, stage IV sacral decubiti and recent pneumonia who was brought in due to increasing shortness of breath and reported fever. In the ER, she was noted to have bilateral infiltrates on chest x-ray and leukocytosis. She was admitted for possible HCAP. She was started on IV antibiotics. Chest CT showed pulmonary congestion. She was continued on diuresis with Lasix. Her IV antibiotics were also switched to PO Levaquin. She improved and returned to her baseline. Her renal functions are also at baseline. She will be discharged back to [place]. Physical Exam Vital Signs: Temp Pulse Resp BP Pulse Ox 97.5 F 73 20 151/63 H 100 01/13/19 03:44 01/13/19 07:00 01/13/19 03:44 01/13/19 03:44 01/13/19 03:44 Intake & Output 01/12/19 01/13/19 01/14/19 06:59 06:59 06:59 Intake Total 458 400 Output Total 2400 3400 Balance -1942 -3000 Weight 180 lb 12.465 oz 175 lb 0.752 oz General appearance: PRESENT: no acute distress, well-developed, well-nourished Head exam: PRESENT: atraumatic, normocephalic Eye exam: PRESENT: conjunctiva pink, EOMI, PERRLA. ABSENT: scleral icterus Ear exam: PRESENT: normal external ear exam Mouth exam: PRESENT: moist, tongue midline Neck exam: ABSENT: carotid bruit, JVD, lymphadenopathy, thyromegaly Respiratory exam: PRESENT: clear to auscultation gustavo. ABSENT: rales, rhonchi, wheezes Cardiovascular exam: PRESENT: RRR. ABSENT: diastolic murmur, rubs, systolic murmur Pulses: PRESENT: normal dorsalis pedis pul GI/Abdominal exam: PRESENT: normal bowel sounds, soft. ABSENT: distended, guarding, mass, organolmegaly, rebound, tenderness Rectal exam: PRESENT: deferred Extremities exam: PRESENT: full ROM. ABSENT: calf tenderness, clubbing, pedal edema Neurological exam: PRESENT: alert, awake, oriented to person, oriented to place, oriented to time, oriented to situation, CN II-XII grossly intact. ABSENT: motor sensory deficit Results Laboratory Results: 01/12/19 04:58 01/13/19 08:20 01/13/19 08:20 Sodium 134.8 L Potassium 4.5 Chloride 102 Carbon Dioxide 21 L Anion Gap 12 BUN 91 H Creatinine 3.10 H Est GFR ( Amer) 18 L Est GFR (Non-Af Amer) 15 L Glucose 135 H Calcium 8.4 01/08/19 23:33 Hrady Catheter Urine Culture - Final Klebsiella Pneumoniae Enterobacter Cloacae 01/08/19 01/08/19 01/08/19 20:45 20:45 21:30 Creatine Kinase Cancelled CK-MB (CK-2) Cancelled 1.11 Troponin I Cancelled 0.037 01/08/19 21:30 Creatine Kinase 25 L CK-MB (CK-2) Troponin I Impressions: Chest CT 01/09/19 10:01 IMPRESSION: 1. Cardiomegaly. Pulmonary vascular congestion. Ground-glass in filtrates may suggest pulmonary edema. 2. There appear to be perihilar interstitial changes. There is right hilar prominence. Correlate for sarcoidosis. 3. Cholelithiasis. Chest X-Ray 01/11/19 09:06 IMPRESSION: DIFFUSE BILATERAL AIRSPACE DISEASE WITH SLIGHT IMPROVED AERATION. Qualifiers - * PATIENT BEING DISCHARGED WITH ANY OF THE FOLLOWING DIAGNOSIS: No Acute Heart Failure - Is this a Heart Failure Patient?: No LVEF < 40%?: No- if no continue to question #3 3. Anticoagulant therapy for permanect/persistent/paraoxysmal Afib or Aflutter: N/A
[2019-01-13] MEDS: ATORVASTATIN CALCIUM 80 MG TABLET PO SCH (22:01)
[2019-01-14] MEDS: IPRATROPIUM/ALBUTEROL 0.5-2.5 MG/3 ML AMPUL NEB SCH ×4 (01:48→20:24)
[2019-01-14] MEDS: DILTIAZEM HCL 30 MG TABLET PO SCH ×3 (05:35→21:17)
[2019-01-14] MEDS: INSULIN LISPRO 100 UNIT/ML 3 ML VIAL SUBCUT SCH ×3 (08:44→17:58)
[2019-01-14] MEDS: LEVOFLOXACIN 250 MG TABLET PO SCH (10:01)
[2019-01-14] MEDS: FUROSEMIDE 40 MG TABLET PO SCH ×2 (10:01→17:58)
[2019-01-14] MEDS: FERROUS SULFATE 325 MG TABLET PO SCH ×2 (10:01→17:58)
[2019-01-14] MEDS: HUM INSULIN NPH/REG INSULIN HM 100 UNIT/1 ML 3 ML SUBCUT SCH ×2 (10:01→17:58)
[2019-01-14] MEDS: APIXABAN 2.5 MG TABLET PO SCH ×2 (10:01→21:17)
[2019-01-14] MEDS: ALLOPURINOL 100 MG TABLET PO SCH (10:02)
[2019-01-14] MEDS: CLOPIDOGREL BISULFATE 75 MG TABLET PO SCH (10:02)
[2019-01-14] MEDS: CYANOCOBALAMIN (VITAMIN B-12) 1,000 MCG TABLET PO SCH (10:02)
[2019-01-14] MEDS: ATORVASTATIN CALCIUM 80 MG TABLET PO SCH (21:17)
[2019-01-15] MEDS: IPRATROPIUM/ALBUTEROL 0.5-2.5 MG/3 ML AMPUL NEB SCH ×3 (02:37→13:56)
[2019-01-15] MEDS: DILTIAZEM HCL 30 MG TABLET PO SCH ×2 (05:42→13:40)
--- NOTE | 2019-01-15 06:46 | PDOC PROGRESS REPORT ---
Subjective Progress Note for:: 01/14/19 Subjective:: The patient is resting in bed. She complains of discomfort from her sacral decubitus ulcer. While I was at bedside she took sips of thin liquids and began coughing. Reason For Visit: SEPSIS PNEUMONIA STAGE 4 SACRAL DECUB Physical Exam Vital Signs: Temp Pulse Resp BP Pulse Ox 97.7 F 72 15 147/52 H 98 01/14/19 07:41 01/14/19 08:22 01/14/19 08:22 01/14/19 07:41 01/14/19 08:22 Intake & Output 01/13/19 01/14/19 01/15/19 06:59 06:59 06:59 Intake Total 400 720 Output Total 3400 1250 Balance -3000 -530 Weight 79.4 kg 79.1 kg General appearance: PRESENT: mild distress Ear exam: PRESENT: normal external ear exam Mouth exam: PRESENT: moist, tongue midline Respiratory exam: PRESENT: clear to auscultation gustavo, symmetrical, unlabored, other - Coughing. ABSENT: tachypnea, wheezes Cardiovascular exam: PRESENT: RRR, +S1, +S2, systolic murmur - 2/6 GI/Abdominal exam: PRESENT: normal bowel sounds, soft. ABSENT: distended, tenderness Rectal exam: PRESENT: deferred Gentrourinary exam: PRESENT: indwelling catheter Extremities exam: PRESENT: pedal edema Neurological exam: PRESENT: alert, awake, oriented to person, oriented to place, oriented to situation Psychiatric exam: PRESENT: unusual affect. ABSENT: agitated, anxious Focused psych exam: ABSENT: delusional, restlessness Skin exam: PRESENT: other - The decubitus ulcer was just dressed earlier and I did not remove the dressing today. Results Laboratory Results: 01/12/19 04:58 01/13/19 08:20 01/08/19 21:30 Blood Blood Culture - Final NO GROWTH IN 5 DAYS 01/08/19 20:45 Blood Blood Culture - Final NO GROWTH IN 5 DAYS 01/08/19 23:33 Hardy Catheter Urine Culture - Final Klebsiella Pneumoniae Enterobacter Cloacae 01/08/19 01/08/19 01/08/19 20:45 20:45 21:30 Creatine Kinase Cancelled CK-MB (CK-2) Cancelled 1.11 Troponin I Cancelled 0.037 01/08/19 21:30 Creatine Kinase 25 L CK-MB (CK-2) Troponin I Impressions: Chest CT 01/09/19 10:01 IMPRESSION: 1. Cardiomegaly. Pulmonary vascular congestion. Ground-glass infiltrates may suggest pulmonary edema. 2. There appear to be perihilar interstitial changes. There is right hilar prominence. Correlate for sarcoidosis. 3. Cholelithiasis. Chest X-Ray 01/13/19 09:52 IMPRESSION: Stable appearance of the chest compared 01/11/2019 Assessment and Plan - Diagnosis (1) Acute respiratory failure with hypoxia Is this a current diagnosis for this admission?: Yes Plan: 01/14/2019-acute failure resolved. Continue to wean oxygen. She is down to 1 L nasal cannula today. (2) CHF exacerbation Is this a current diagnosis for this admission?: Yes Plan: Much improved. Continue the furosemide, metoprolol and lisinopril. (3) Multifocal pneumonia Is this a current diagnosis for this admission?: Yes Plan: Complete antibiotic therapy as an outpatient. She is returning to the longterm facility. (4) CKD (chronic kidney disease), stage IV Is this a current diagnosis for this admission?: Yes Plan: Appears to be back at baseline. Follow-up with nephrology as an outpatient. 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 (6) Paroxysmal A-fib Is this a current diagnosis for this admission?: Yes Plan: Continue metoprolol and Eliquis. (7) Dysphagia Qualifiers: Dysphagia type: unspecified Qualified Code(s): R13.10 - Dysphagia, unspecified Is this a current diagnosis for this admission?: Yes Plan: I have changed her diet to nectar thick liquids and a speech therapy to see the patient. She can continue with speech therapy at the longterm facility. - Time Time Spent with patient: 15-24 minutes Medications reviewed and adjusted accordingly: Yes Anticipated discharge: SNF Within: within 24 hours
[2019-01-15] MEDS: INSULIN LISPRO 100 UNIT/ML 3 ML VIAL SUBCUT SCH ×2 (09:04→12:32)
[2019-01-15] MEDS: HUM INSULIN NPH/REG INSULIN HM 100 UNIT/1 ML 3 ML SUBCUT SCH (09:04)
[2019-01-15] MEDS: CLOPIDOGREL BISULFATE 75 MG TABLET PO SCH (09:05)
[2019-01-15] MEDS: APIXABAN 2.5 MG TABLET PO SCH (09:05)
[2019-01-15] MEDS: ALLOPURINOL 100 MG TABLET PO SCH (09:05)
[2019-01-15] MEDS: LEVOFLOXACIN 250 MG TABLET PO SCH (09:05)
[2019-01-15] MEDS: CYANOCOBALAMIN (VITAMIN B-12) 1,000 MCG TABLET PO SCH (09:05)
[2019-01-15] MEDS: FUROSEMIDE 40 MG TABLET PO SCH (09:05)
[2019-01-15] MEDS: FERROUS SULFATE 325 MG TABLET PO SCH (09:05)
--- NOTE | 2019-01-15 12:18 | PDOC TRANSFER SUMMARY ---
General - Admit/Disc Date/PCP Admission Date/Primary Care Provider: 01/08/19 22:38 CYNDIE COMER MD Discharge Date: 01/15/19 - Discharge Diagnosis (1) Acute respiratory failure with hypoxia Is this a current diagnosis for this admission?: Yes (2) CHF exacerbation Is this a current diagnosis for this admission?: Yes (3) Multifocal pneumonia Is this a current diagnosis for this admission?: Yes (4) CKD (chronic kidney disease), stage IV Is this a current diagnosis for this admission?: Yes (5) Diabetes mellitus Is this a current diagnosis for this admission?: Yes (6) Paroxysmal A-fib Is this a current diagnosis for this admission?: Yes (7) Dysphagia Is this a current diagnosis for this admission?: Yes - Additional Information Resuscitation Status: Full Code Discharge Diet: Cardiac Discharge Activity: Other - Per physical therapy at [facility] Prescriptions: Levofloxacin [Levaquin 250 mg Tablet] 250 mg PO DAILY 2 Days #2 tablet Metoprolol Succinate [Toprol Xl 25 mg Tab.sr] 25 mg PO DAILY #30 tab.sr.24h Home Medications: Clopidogrel Bisulfate [Plavix 75 mg Tablet] 75 mg PO DAILY 11/25/18 Docusate Sodium [Colace 100 mg Capsule] 100 mg PO QHS 11/25/18 Ferrous Sulfate [Feosol 325 mg Tablet] 325 mg PO BID 11/25/18 Insulin NPH Hum/Reg Insulin Hm [Novolin 70-30 Flexpen] 7 units SQ QAM 11/25/18 Insulin NPH Hum/Reg Insulin Hm [Novolin 70-30 Flexpen] 12 units SQ QPM 11/25/18 Omeprazole 20 mg PO DAILY 11/25/18 Lisinopril [Prinivil 10 mg Tablet] 10 mg PO Q12 #60 tablet 12/04/18 Allopurinol [Zyloprim 100 mg Tablet] 100 mg PO DAILY 12/20/18 Atorvastatin Calcium [Lipitor 80 mg Tablet] 80 mg PO QHS 12/20/18 Furosemide [Lasix] 40 mg PO BID 12/20/18 Cyanocobalamin (Vitamin B-12) [Vitamin B-12 SL 2500 mcg Tablet] 2,500 mcg SL DAILY 12/22/18 Multivitamin [Tab-A-Matheus (Multiple Vitamin) Tablet] 1 tab PO DAILY 12/22/18 Apixaban [Eliquis 2.5 mg Tablet] 2.5 mg PO Q12 01/09/19 Levofloxacin [Levaquin 250 mg Tablet] 250 mg PO DAILY 2 Days #2 tablet 01/13/19 Metoprolol Succinate [Toprol Xl 25 mg Tab.sr] 25 mg PO DAILY #30 tab.sr.24h 01/13/19 History of Present Illness Admission Date/PCP: 01/08/19 22:38 CYNDIE COMER MD Patient complains of: Please see Dr. Olmstead's discharge summary dated January 13, 2019 History of Present Illness: MELBA ROSADO is a 63 year old female with a complex medical history including systolic heart failure, obstructive sleep apnea, stage IV chronic kidney disease, chronic anemia, atrial fibrillation, insulin-dependent diabetes, right below-knee amputation and stage IV sacral decubitus ulcer. She was transported to the emergency department from [place]. She was found to have fever and leukocytosis with bilateral infiltrates on chest x-ray. She was referred to the hospital service for admission. Hospital Course Hospital Course: Please see transfer summary dictated by Dr. Cortez on January 13, 2019. There were no changes in the treatment plan for the patient since the original discharge summary was dictated. Physical Exam Vital Signs: Temp Pulse Resp BP Pulse Ox 97.5 F 71 26 H 134/53 H 94 01/15/19 03:38 01/15/19 07:00 01/15/19 03:38 01/15/19 03:40 01/15/19 03:38 Intake & Output 01/14/19 01/15/19 01/16/19 06:59 06:59 06:59 Intake Total 720 1957 Output Total 1250 1350 Balance -530 607 Weight 79.1 kg 77.8 kg General appearance: PRESENT: mild distress - Discomfort from decubitus ulcer Ear exam: PRESENT: normal external ear exam Mouth exam: PRESENT: moist, tongue midline Respiratory exam: PRESENT: clear to auscultation gustavo, symmetrical, unlabored. ABSENT: rales, rhonchi, tachypnea, wheezes Cardiovascular exam: PRESENT: RRR, +S1, +S2 GI/Abdominal exam: PRESENT: normal bowel sounds, soft. ABSENT: distended, tenderness Musculoskeletal exam: PRESENT: other - Right below-knee amputation Neurological exam: PRESENT: alert, awake Psychiatric exam: ABSENT: agitated, anxious Results Laboratory Results: 01/12/19 04:58 01/13/19 08:20 01/08/19 01/08/19 01/08/19 20:45 20:45 21:30 Creatine Kinase Cancelled CK-MB (CK-2) Cancelled 1.11 Troponin I Cancelled 0.037 01/08/19 21:30 Creatine Kinase 25 L CK-MB (CK-2) Troponin I Impressions: Chest CT 01/09/19 10:01 IMPRESSION: 1. Cardiomegaly. Pulmonary vascular congestion. Ground-glass infiltrates may suggest pulmonary edema. 2. There appear to be perihilar interstitial changes. There is right hilar prominence. Correlate for sarcoidosis. 3. Cholelithiasis. Chest X-Ray 01/13/19 09:52 IMPRESSION: Stable appearance of the chest compared 01/11/2019 Transfer Plan - Disposition Transfer Plan: Transfer back to [facility] - Time Spent with Patient Time spent with patient: Greater than 30 Minutes Qualifiers - * PATIENT BEING DISCHARGED WITH ANY OF THE FOLLOWING DIAGNOSIS: No Acute Heart Failure - Is this a Heart Failure Patient?: No Plan Discharge Plan: Transfer to [facility] Time Spent: Greater than 30 Minutes
[2019-01-15 15:52] VITALS: BP 133/49
== END 2019-01-15 15:55 | DRG 193 ==
LOC: ER 20:39 → EH 22:38 → 3S 01-09 00:15
PROVIDERS: ADMIT Internal Medicine; ATTEND Internal Medicine
PROC: 5A09357 Assistance with Respiratory Ventilation, Less than 24 Consecutive Hours, Continuous Positive Airway Pressure (ICD-10-PCS; principal; 2019-01-08)
DX: J18.9 Pneumonia, unspecified organism (principal); L89.154 Pressure ulcer of sacral region, stage 4; J96.01 Acute respiratory failure with hypoxia; I50.23 Acute on chronic systolic (congestive) heart failure; I13.0 Hypertensive heart and chronic kidney disease with heart failure and stage 1 through stage 4 chronic kidney disease, or unspecified chronic kidney disease; N18.4 Chronic kidney disease, stage 4 (severe); N30.00 Acute cystitis without hematuria; E11.22 Type 2 diabetes mellitus with diabetic chronic kidney disease; E11.51 Type 2 diabetes mellitus with diabetic peripheral angiopathy without gangrene; I48.0 Paroxysmal atrial fibrillation; R13.10 Dysphagia, unspecified; G47.33 Obstructive sleep apnea (adult) (pediatric); Y95 Nosocomial condition; I25.10 Atherosclerotic heart disease of native coronary artery without angina pectoris; E78.5 Hyperlipidemia, unspecified; K21.9 Gastro-esophageal reflux disease without esophagitis; M10.9 Gout, unspecified; D63.1 Anemia in chronic kidney disease; B96.1 Klebsiella pneumoniae [K. pneumoniae] as the cause of diseases classified elsewhere; B96.89 Other specified bacterial agents as the cause of diseases classified elsewhere; Z79.4 Long term (current) use of insulin; Z79.01 Long term (current) use of anticoagulants; Z89.511 Acquired absence of right leg below knee; Z87.01 Personal history of pneumonia (recurrent); Z86.73 Personal history of transient ischemic attack (TIA), and cerebral infarction without residual deficits; Z82.49 Family history of ischemic heart disease and other diseases of the circulatory system; Z83.3 Family history of diabetes mellitus
CPT/HCPCS: 36415; 71045; 71250; 80048; 80053; 81001; 82550; 82553; 82607; 82728; 82746; 82803; 82962; 83540; 83550; 83605; 84484; 85025; 85045; 85610; 85730; 87040; 87086; 87088; 87186; 93005; 93010; 94640; 94660; 94667; 94668; 94799; 96365; 96367; 96375; 99291; J0692; J1644; J1815; J1940; J2405; J2543; J2930; J3370; J3475; J3490; J7030; J7060; J7620

== ENCOUNTER → 2019-04-17 | Outpatient (CLI) | payer MEDICARE, OTHER ==
[2019-04-17 15:09] LABS: HEMATOCRIT 28.4 % (36.0-47.0); HEMOGLOBIN 9.3 g/dL (12.0-15.5); MEAN CORPUSCULAR HEMOGLOBIN 29.2 pg (27.0-33.4); MEAN CORPUSCULAR HGB CONC 32.6 g/dL (32.0-36.0); MEAN CORPUSCULAR VOLUME 90 fl (80-97); PLATELET COUNT 278 10^3/uL (150-450); RED BLOOD COUNT 3.17 10^6/uL (3.72-5.28); RED CELL DISTRIBUTION WIDTH 18.7 % (11.5-14.0); WHITE BLOOD COUNT 11.4 10^3/uL (4.0-10.5)
[2019-04-17 15:27] LABS: ANION GAP 10 (5-19); BLOOD UREA NITROGEN 95 mg/dL (7-20); CALCIUM 8.7 mg/dL (8.4-10.2); CARBON DIOXIDE 21 mmol/L (22-30); CHLORIDE 99 mmol/L (98-107); GLUCOSE 188 mg/dL (75-110); IRON(TIBC) 26.4 ug/dL (37-170); POTASSIUM 5.5 mmol/L (3.6-5.0)
[2019-04-17 15:45] LABS: ABSOLUTE LYMPHOCYTES# (MANUAL) 0.5 10^3/uL (0.5-4.7); ABSOLUTE MONOCYTES # (MANUAL) 0.6 10^3/uL (0.1-1.4); ANISOCYTOSIS 1+; BASOPHILS % (MANUAL) 0 % (0-2); EOSINOPHILS % (MANUAL) 0 % (0-6); LYMPHOCYTES % (MANUAL) 4 % (13-45); MONOCYTES % (MANUAL) 5 % (3-13); OVALOCYTES 2+; PLATELET COMMENT ADEQUATE; SEGMENTED NEUTROPHILS % (MAN) 91 % (42-78); TOTAL CELLS COUNTED 100
[2019-04-17 15:46] LABS: BURR CELLS SLIGHT
== END ==
LOC: OD 14:17
PROVIDERS: ATTEND Internal Medicine Nephrology
DX: I12.9 Hypertensive chronic kidney disease with stage 1 through stage 4 chronic kidney disease, or unspecified chronic kidney disease (principal); N18.4 Chronic kidney disease, stage 4 (severe); E11.22 Type 2 diabetes mellitus with diabetic chronic kidney disease; N25.0 Renal osteodystrophy; R80.9 Proteinuria, unspecified
CPT/HCPCS: 36415; 80048; 82728; 83540; 83550; 85025

== ENCOUNTER 2019-05-30 13:43 | Inpatient (IN) | payer MEDICARE, OTHER ==
--- NOTE | 2019-05-30 14:40 | RADIOLOGY REPORT (SQ) ---
EXAM DESCRIPTION: CT HEAD WITHOUT COMPLETED DATE/TIME: 05/30/2019 2:24 pm REASON FOR STUDY: stroke-like symptoms COMPARISON: 12/19/2018. TECHNIQUE: Axial images acquired through the brain without intravenous contrast. Images reviewed wi th bone, brain and subdural windows. Additional sagittal and coronal reconstructions were generated. Images stored on PACS. All CT scanners at this facility use dose modulation, iterative reconstruction, and/or weight based d osing when appropriate to reduce radiation dose to as low as reasonably achievable (ALARA). [facility]: Dose Right [facility]: CareDose [facility]: Dose Right [facility]: Teradose 4D [facility]: Smart Pivot Medical RADIATION DOSE: CT Rad equipment meets quality standard of care and radiation dose reduction techniq ues were employed. CTDIvol: 53.2 mGy. DLP: 1124 mGy-cm.mGy. LIMITATIONS: None. FINDINGS: VENTRICLES: Prominent. CEREBRUM: No masses. No hemorrhage. No midline shift. Areas of low density in the white matter mos t likely due to chronic micro-vascular ischemic change. No evidence for acute infarction. CEREBELLUM: No masses. No hemorrhage. No alteration of density. No evidence for acute infarction. EXTRAAXIAL SPACES: Age-related involutional change. No fluid collections. No masses. ORBITS AND GLOBE: No intra- or extraconal masses. Normal contour of globe without masses. CALVARIUM: No fracture. PARANASAL SINUSES: No fluid or mucosal thickening. SOFT TISSUES: No mass or hematoma. OTHER: No other significant finding. IMPRESSION: CHRONIC CHANGES OF ATROPHY AND MICROVASCULAR ISCHEMIA. NO ACUTE PROCESS. EVIDENCE OF ACUTE STROKE: NO. TECHNICAL DOCUMENTATION: JOB ID: [id number] Quality ID # [id number]: Final reports with documentation of one or more dose reduction techniques (e.g., Au tomated exposure control, adjustment of the mA and/or kV according to patient size, use of iterative reconstruction technique) 2010 [employer]- All Rights Reserved Reading location - IP/workstation name: [email or web address]
--- NOTE | 2019-05-30 14:45 | RADIOLOGY REPORT (SQ) ---
EXAM DESCRIPTION: CHEST SINGLE VIEW COMPLETED DATE/TIME: 05/30/2019 2:35 pm REASON FOR STUDY: stroke-like symptoms COMPARISON: 01/13/2019 EXAM PARAMETERS: NUMBER OF VIEWS: One view. TECHNIQUE: Single frontal radiographic view of the chest acquired. RADIATION DOSE: NA LIMITATIONS: None. FINDINGS: LUNGS AND PLEURA: Improved aeration. Diffuse interstitial prominence. Possible small ple ural effusions. MEDIASTINUM AND HILAR STRUCTURES: No masses. Contour normal. HEART AND VASCULAR STRUCTURES: Stable cardiomegaly. BONES: No acute findings. HARDWARE: None in the chest. OTHER: No other significant finding. IMPRESSION: STABLE CARDIOMEGALY. IMPROVED AERATION IN THE LUNGS. INTERSTITIAL PROMINENCE MAY BE A COMBINATION OF SCARRING AND INTERSTITIAL EDEMA. TECHNICAL DOCUMENTATION: JOB ID: [id number] [employer]- All Rights Reserved Reading location - IP/workstation name: [email or web address]
--- NOTE | 2019-05-30 14:45 | ER Document Report ---
ED Neuro Symptoms/Deficit - General Chief Complaint: S/S of Possible Stroke Stated Complaint: POSSIBLE STROKE Time Seen by Provider: 05/30/19 14:42 Primary Care Provider: LAURYN CORADO MD [Primary Care Provider] - Follow up as needed Mode of Arrival: Medic Information source: Patient Notes: 63-year-old woman brought to the emergency department from [facility]. Apparently today they are concerned about onset of left-sided weakness. Initially reported as began yesterday. The patient and her significant other notes that she has had weakness in the left side for the past 2 days. They note that she had residual weakness in the left arm however over the past 2 days the arm has been weaker. Patient denies any numbness or speech difficulty. Patient has flaccid left upper arm and is in the left leg. TRAVEL OUTSIDE OF THE [place] IN LAST 30 DAYS: No - Related Data Allergies/Adverse Reactions: No Known Allergies Allergy (Verified 11/24/18 12:45) Past Medical History - Social History Smoking Status: Unknown if Ever Smoked Family History: CAD, DM, Hypertension - Past Medical History Cardiac Medical History: Reports: Hx Atrial Fibrillation, Hx Congestive Heart Failure, Hx Coronary Artery Disease, Hx Hypercholesterolemia, Hx Hypertension, Hx Peripheral Vascular Disease Neurological Medical History: Reports: Hx Cerebrovascular Accident Endocrine Medical History: Reports: Hx Diabetes Mellitus Type 2 Renal/ Medical History: Denies: Hx Peritoneal Dialysis GI Medical History: Reports: Hx Gastroesophageal Reflux Disease. Denies: Hx Cirrhosis, Hx Hepatitis Musculoskeletal Medical History: Reports Hx Gout Psychiatric Medical History: Denies: Hx Depression Infectious Medical History: Denies: Hx Hepatitis Past Surgical History: Reports: Hx Section, Hx Orthopedic Surgery - Right BKA, Hx Vascular Surgery - Immunizations Hx Diphtheria, Pertussis, Tetanus Vaccination: Yes - Unknown Hx Pneumococcal Vaccination: 09/09/09 Review of Systems - Review of Systems Notes: Constitutional: Negative for fever. HENT: Negative for sore throat. Eyes: Negative for visual changes. Cardiovascular: Negative for chest pain. Respiratory: Negative for shortness of breath. Gastrointestinal: Negative for abdominal pain, vomiting or diarrhea. Genitourinary: Negative for dysuria. Musculoskeletal: + BKA, Skin: Negative for rash. Neurological: + Left flaccid upper extremity, + left lower extremity weakness 10 point ROS negative except as marked above and in HPI. Physical Exam - Notes Notes: PHYSICAL EXAMINATION: Physical Exam: General: Chronically ill female in no acute distress HEENT: NC/AT, pupils equal round and reactive to light, MM moist,nares clear, Neck: supple, no adenopathy, no masses. Lungs: clear, no wheezing, no rales no rhonchi CVS: Cardiac rate and rhythm no murmur gallop or rub Abdomen: Soft active nontender, no masses, no hepatosplenomegaly Ext: Right BKA, trace edema left lower extremity Neuro: Alert and responsive, flaccid left upper extremity, 3/5 weakness in the left lower extremity, sensation intact, speech intact Skin: Intact no open lesions, no rash PSYCH: Normal mood, normal affect. Course - Re-evaluation Re-evalutation: 05/30/19 17:59 Patient presents as a stroke, possible acute, after history, 2-day history of symptoms, patient is not a candidate for TPA given the duration of her symptoms. CT scan reveals no bleed and no acute/subacute ischemic changes. She has a history of diabetes mellitus, chronic renal insufficiency. Patient will need to be brought into the hospital for further evaluation and treatment, MRI for further elucidation of the stroke. I spoken to the hospitalist, Dr. Mcrae the patient will be admitted to the [facility]. - Laboratory Result Diagrams: 05/30/19 15:20 05/30/19 15:20 Laboratory results interpreted by me: 05/30/19 18:13 I have reviewed laboratory data and used this information for the treatment decisions regarding the patient. - Diagnostic Test Radiology reviewed: Image reviewed, Reports reviewed - Chest x-ray: Cardiomegaly, interstitial lung disease, no acute infiltrate or effusion. CT head, noncontrast: No acute intracranial hemorrhage, no acute stroke findings. - EKG Interpretation by Me EKG shows normal: Sinus rhythm Dennis/QRS: IVCD Voltage: Consistant with LVH - Repolarization abnormality Additional EKG results interpreted by me: 05/30/19 18:16 Paired with the previous EKG the patient has T wave inversion in V4 V5 and V6 compared with 01/08/2019 EKG. ED NIH Stroke Scale - NIH Stroke Scale *: 1. NIH scale should be completed with appropriate accompanying assessment tools. *: 2. The NIH should reflect what the patient is capable of doing and should not be coached by the clinician. 1a. Level of Consciousness: 0=Alert;keenly responsive -: 1=Drowsy -: 2=Obtunded -: 3=Coma/unresponsive or reflex to noxious stimuli. 1a. Responses: 0 1b. Orientation Questions: a. What month is it? -: b. How old are you? -: 0=Answers both questions correctly. -: 1=Answers one question correctly or patient is intubated or has orotracheal trauma. -: 2=Answers neither question correctly. 1b. Responses: 0 1c. Response to commands: a. Open and close eyes? -: b. Paste Up Artist and release hand? -: Credit is given despite weakness. Demonstration of task is permitted. Substitute command if hands cannot be used. -: 0=Performs both tasks correctly -: 1=Performs one task correctly -: 2=Performs neither task correctly 1c. Responses: 0 2. Gaze: Establish eye contact and instruct patient to "Follow my finger" -: 0=Normal -: 1=Partial gaze palsy. Gaze is abnormal in one or both eyes, but where forced deviation or total gaze paresis is not present. -: 2=Forced deviation or total gaze paresis. 2. Responses: 0 3. Visual Parry: Sees fingers in all four quadrants. -: 0=No visual loss. -: 1=Partial hemianopsia. -: 2=Complete hemianopsia. -: 3=Bilateral hemianopsia (including Cortical blindness) 3. Responses: 0 4. Facial Movement: Instruct patient to: -: a. Show me your teeth -: b. Raise your eyebrows -: c. Close your eyes -: d. Smile -: 0=Normal symmetrical movement -: 1=Minor paralysis (flattened nasolabial fold, asymmetry on smiling). -: 2=Partial paralysis (total or near total paralysis of lower face). -: 3=Complete paralysis of upper and lower face 4. Responses: 1 5. Motor functions (left arm): Alternate sides and extend each arm with palms down (90 degrees if sitting or 45 degrees for supine). -: 0=No drift;limb holds for full 10 seconds. -: 1=Drift; limb holds but drifts down before full 10 seconds, but does not hit bed. -: 2=Some effort against gravity; limb cannot get to or maintain position. -: 3=No effort against gravity; limb falls. -: 4=No movement. -: UN=Amputation, joint fusion, explain in comments. 5. Responses (left arm): 4 5. Motor Functions (right arm): Alternate sides and extend each arm with palms down (90 degrees if sitting or 45 degrees for supine). -: 0=No drift;limb holds for full 10 seconds. -: 1=Drift; limb holds but drifts down before full 10 seconds, but does not hit bed. -: 2=Some effort against gravity; limb cannot get to or maintain position. -: 3=No effort against gravity; limb falls. -: 4=No movement. -: UN=Amputation, joint fusion, explain in comments. 5. Responses (right arm): 0 6. Motor Functions (left leg): With patient lying supine, alternate sides and extend each leg (30 degrees always while supine). -: 0=No drift, leg holds position for full 5 seconds -: 1=Drift; leg falls before full 5 seconds but does not hit bed. -: 2=Some effort against gravity, leg falls to bed but some effort against gravity. -: 3=No effort against gravity, leg falls to bed immediately. -: 4=No movement. -: UN=Amputation, joint fusion; explain in comments. 6. Responses (left leg): 3 6. Motor Functions (right leg): With patient lying supine, alternate sides and extend each leg (30 degrees always while supine). -: 0=No drift, leg holds position for full 5 seconds -: 1=Drift; leg falls before full 5 seconds but does not hit bed. -: 2=Some effort against gravity, leg falls to bed but some effort against gravity. -: 3=No effort against gravity, leg falls to bed immediately. -: 4=No movement. -: UN=Amputation, joint fusion; explain in comments. 6. Responses (right leg): UN 7. Limb Ataxia: With eyes open instruct patient to: -: a. "Touch your finger to your nose". -: b. "Touch your heel to your robertson" -: 0=Absent -: 1=Present in one limb. -: 2=Present in two limbs. -: UN=Amputation or joint fusion; explain in comments. 7. Responses: UN 8. Sensory: Test sensation using pinprick or noxious stimuli. Test as many body parts as possible. -: 0=Normal;no sensory loss -: 1=Mile to moderate sensory loss (patient feels pin prick but is less sharp on affected side). -: 2=Severe or total sensory loss. 8. Responses: 0 9. Best Language: Instruct patient to: -: a. "Describe what you see in this picture." -: b. "Name the items in this picture." -: c. "Read these sentences." -: 0=No aphasia, normal -: 1=Mild to moderate aphasia. -: 2=Severe aphasia -: 3=Mute, global aphasia, no usable speech or auditory comprehension. 10. Articulation, Dysarthia: Instruct patient to: -: "Read these words" or "Repeat these words" -: 0=Normal -: 1=Mild to moderate; patient may slur some words but can be understood without difficulty. -: 2=Severe; patients speech so slurred as to be unintelligible in the absence of dysphasia. -: UN=Intubated or other physical barrier, explain in comments. 10. Responses: UN 11. Extinction or inattention: 0=No abnormality -: 1= Visual, tactile, auditory, spatial, or personal inattention or extinction to bilateral simulation in one or the sensory modalities. -: 2=Profound bonny-inattention or bonny-inattention to more than one modality; does not recognize own hand. 11. Responses: 0 Total Score: 8 Discharge - Discharge Clinical Impression: CVA (cerebral vascular accident) Qualifiers: CVA mechanism: unspecified Qualified Code(s): I63.9 - Cerebral infarction, unspecified Chronic kidney disease (CKD) Qualifiers: Chronic kidney disease stage: stage 3 (moderate) Qualified Code(s): N18.3 - Chronic kidney disease, stage 3 (moderate) Condition: Good Disposition: ADMITTED INPATIENT Admitting Provider: Clementina (Hospitalist) Unit Admitted: IMCU Referrals: LAURYN CORADO MD [Primary Care Provider] - Follow up as needed
[2019-05-30 15:40] LABS: INTERNATIONAL RATION (INR) 1.12; PROTHROMBIN TIME 14.5 SEC (11.4-15.4)
[2019-05-30 15:41] LABS: PARTIAL THROMBOPLASTIN TIME 33.3 SEC (23.5-35.8)
[2019-05-30 15:43] LABS: ABSOLUTE EOSINOPHILS # (AUTO) 0.1 10^3/uL (0.0-0.6); ABSOLUTE LYMPHOCYTES (AUTO) 0.9 10^3/uL (0.5-4.7); ABSOLUTE MONOCYTES (AUTO) 0.3 10^3/uL (0.1-1.4); BASOPHILS % (AUTO) 0.8 % (0-2); EOSINOPHILS % (AUTO) 1.4 % (0-6); HEMATOCRIT 31.6 % (36.0-47.0); LYMPHOCYTES % (AUTO) 16.2 % (13-45); MEAN CORPUSCULAR HGB CONC 31.5 g/dL (32.0-36.0); MEAN CORPUSCULAR VOLUME 92 fl (80-97); MONOCYTES % (AUTO) 5.8 % (3-13); PLATELET COUNT 228 10^3/uL (150-450); RED BLOOD COUNT 3.43 10^6/uL (3.72-5.28); RED CELL DISTRIBUTION WIDTH 20.9 % (11.5-14.0); SEGMENTED NEUTROPHILS % (AUTO) 75.8 % (42-78); TOTAL CELLS COUNTED % (AUTO) 100 %; WHITE BLOOD COUNT 5.3 10^3/uL (4.0-10.5)
[2019-05-30 15:47] LABS: AMORPHOUS SEDIMENT,URINE TRACE /HPF; APPEARANCE,URINE TURBID; BILIRUBIN,URINE NEGATIVE (NEGATIVE); COLOR,URINE YELLOW; GLUCOSE, URINE 50 mg/dL (NEGATIVE); KETONES,URINE NEGATIVE (NEGATIVE); LEUKOCYTE ESTERASE,URINE LARGE (NEGATIVE); NITRITE,URINE NEGATIVE (NEGATIVE); PROTEIN,URINE >=500 mg/dL (NEGATIVE); URINE SPECIFIC GRAVITY 1.018; UROBILINOGEN,URINE NEGATIVE mg/dL (<2.0)
[2019-05-30 16:09] LABS: ALBUMIN 2.9 g/dL (3.5-5.0); ALKALINE PHOSPHATASE 197 U/L (38-126); ANION GAP 9 (5-19); ASPARTATE AMINO TRANSFERASE 43 U/L (14-36); BILIRUBIN,DIRECT 0.2 mg/dL (0.0-0.4); BILIRUBIN,TOTAL 0.3 mg/dL (0.2-1.3); BLOOD UREA NITROGEN 87 mg/dL (7-20); CALCIUM 8.5 mg/dL (8.4-10.2); CARBON DIOXIDE 24 mmol/L (22-30); CHLORIDE 103 mmol/L (98-107); CREATINE KINASE 21 U/L (30-135); GLUCOSE 171 mg/dL (75-110); POTASSIUM 5.2 mmol/L (3.6-5.0)
[2019-05-30 16:20] LABS: CREATINE KINASE MB 1.94 ng/mL (<4.55); TROPONIN I 0.019 ng/mL
--- NOTE | 2019-05-30 17:02 | EKG REPORT ---
SEVERITY:- ABNORMAL ECG - SINUS RHYTHM NONSPECIFIC INTRAVENTRICULAR CONDUCTION DELAY LVH WITH SECONDARY REPOLARIZATION ABNORMALITY CONSIDER ANTERIOR INFARCT : Confirmed by: Elyse Low 30-May-2019 17:02:03
[2019-05-30] MEDS ORDERED: LABETALOL HCL INJ 20 MG/4 ML DISP.SYRIN IV PRN (18:12)
[2019-05-30] MEDS ORDERED: DEXTROSE 50%-WATER 25 GM/50 ML DISP.SYRIN IV PRN ×2 (18:13)
[2019-05-30] MEDS ORDERED: DEXTROSE 40% GEL 15 GM TUBE PO PRN ×2 (18:13)
[2019-05-30] MEDS ORDERED: GLUCAGON,HUMAN RECOMB 1 MG INJ IM PRN (18:13)
--- NOTE | 2019-05-30 18:21 | PDOC H&P ---
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 She cannot move her left arm now but does have some movement in her left leg. She is a little dysarthric but I do not know if this is chronic for her. She herself is a fairly poor historian. She did say that she had something to eat today but she cannot remember what it was. She said she had no trouble chewing or swallowing. Initial head CT was negative. She is being admitted for further evaluation. Past Medical History Cardiac Medical History: Reports: Atrial Fibrillation, Congestive Heart Failure, Coronary Artery Disease, Hyperlipidema, Hypertension, Peripheral Vascular Disease Endocrine Medical History: Reports: Diabetes Mellitus Type 2 GI Medical History: Reports: Gastroesophageal Reflux Disease Denies: Cirrhosis, Hepatitis Musculoskeltal Medical History: Reports: Gout Psychiatric Medical History: Denies: Depression Hematology: Reports: Anemia Past Surgical History Past Surgical History: Reports: Amputation - Right BKA, September 2013, Section, Orthopedic Surgery - Right BKA, Vascular Surgery Social History Smoking Status: Unknown if Ever Smoked Electronic Cigarette use?: No Frequency of Alcohol Use: None Hx Recreational Drug Use: No Drugs: None Hx Prescription Drug Abuse: No Family History Family History: CAD, DM, Hypertension Parental Family History Reviewed: Yes - Unknown Children Family History Reviewed: Unknown - None Sibling(s) Family History Reviewed.: Unknown Medication/Allergy Allergies/Adverse Reactions: No Known Allergies Allergy (Verified 11/24/18 12:45) Review of Systems All systems: reviewed and no additional remarkable complaints except as stated - She is a poor historian, but all systems were reviewed and were negative except as noted in the HPI Physical Exam Vital Signs: Temp Pulse Resp BP Pulse Ox 97.6 F 65 21 H 157/62 H 100 05/30/19 13:45 05/30/19 15:00 05/30/19 17:01 05/30/19 17:01 05/30/19 17:01 Intake & Output 05/29/19 05/30/19 05/31/19 06:59 06:59 06:59 Weight 76 kg General appearance: PRESENT: no acute distress, cooperative, disheveled Head exam: PRESENT: atraumatic, normocephalic Eye exam: PRESENT: EOMI, PERRLA. ABSENT: conjunctival injection, nystagmus, scleral icterus Ear exam: PRESENT: normal external ear exam Mouth exam: PRESENT: moist, neck supple Teeth exam: PRESENT: poor dentation Throat exam: ABSENT: post pharyngeal erythema Neck exam: PRESENT: full ROM. ABSENT: carotid bruit, JVD, lymphadenopathy, meningismus, tenderness, thyromegaly Respiratory exam: PRESENT: clear to auscultation gustavo, symmetrical, unlabored. ABSENT: accessory muscle use, chest wall tenderness, crackles, prolonged expiratory phas, rhonchi, tachypnea, wheezes Cardiovascular exam: PRESENT: RRR, +S1, +S2. ABSENT: diastolic murmur, systolic murmur Pulses: PRESENT: normal carotid pulses Vascular exam: PRESENT: normal capillary refill GI/Abdominal exam: PRESENT: normal bowel sounds, soft. ABSENT: distended, guarding, rebound, tenderness Extremities exam: ABSENT: clubbing, pedal edema Musculoskeletal exam: PRESENT: deformity - She has a right BKA, her left foot shows a flat arch inversion with lateral deviation like a Charcot foot Neurological exam: PRESENT: alert, awake, oriented to person, oriented to place, oriented to situation, CN II-XII grossly intact - I thought perhaps she had some mild facial droop but whenever she talks she showed no signs of any asymmetry, motor sensory deficit - Her left arm is flaccid, she has about 3 out of 5 strength in the left leg Psychiatric exam: PRESENT: flat affect Skin exam: PRESENT: dry, warm Results Laboratory Results: 05/30/19 15:20 05/30/19 15:20 05/30/19 05/30/19 05/30/19 15:20 15:20 15:20 WBC 5.3 RBC 3.43 L Hgb 10.0 L Hct 31.6 L MCV 92 MCH 29.0 MCHC 31.5 L RDW 20.9 H Plt Count 228 Seg Neutrophils % 75.8 Sodium 136.4 L Potassium 5.2 H Chloride 103 Carbon Dioxide 24 Anion Gap 9 BUN 87 H Creatinine 2.87 H Est GFR ( Amer) 20 L Glucose 171 H Calcium 8.5 Total Bilirubin 0.3 AST 43 H Alkaline Phosphatase 197 H Total Protein 6.0 L Albumin 2.9 L Urine Color YELLOW Urine Appearance TURBID Urine pH 9.0 Ur Specific Searchlight 1.018 Urine Protein >=500 H Urine Glucose (UA) 50 H Urine Ketones NEGATIVE Urine Blood NEGATIVE Urine Nitrite NEGATIVE Ur Leukocyte Esterase LARGE H Urine WBC (Auto) 30 Urine RBC (Auto) 29 05/30/19 05/30/19 15:20 15:20 Creatine Kinase 21 L CK-MB (CK-2) 1.94 Troponin I 0.019 Impressions: Chest X-Ray 05/30/19 13:52 IMPRESSION: STABLE CARDIOMEGALY. IMPROVED AERATION IN THE LUNGS. INTERSTITIAL PROMINENCE MAY BE A COMBINATION OF SCARRING AND INTERSTITIAL EDEMA. Head CT 05/30/19 13:52 IMPRESSION: CHRONIC CHANGES OF ATROPHY AND MICROVASCULAR ISCHEMIA. NO ACUTE PROCESS. EVIDENCE OF ACUTE STROKE: NO. Assessment and Plan - Diagnosis (1) Cerebrovascular accident (CVA) Qualifiers: CVA mechanism: unspecified Qualified Code(s): I63.9 - Cerebral infarction, unspecified Is this a current diagnosis for this admission?: Yes Plan: Her presentation would suggest an ischemic stroke in the right MCA circulation, but we will get an MRI of the brain to confirm. We will also check a carotid Doppler. We will put her on aspirin and a statin. We will have her evaluated by PT, OT, and speech therapy. (2) Chronic kidney disease (CKD) Qualifiers: Chronic kidney disease stage: stage 3 (moderate) Qualified Code(s): N18.3 - Chronic kidney disease, stage 3 (moderate) Is this a current diagnosis for this admission?: Yes Plan: Creatinine is at baseline (3) Diabetes mellitus type 2 in nonobese Is this a current diagnosis for this admission?: Yes Plan: I do not know what medication she is on, so I will put her on a diabetic diet and some sliding scale insulin until we can get her medication reconciliation - Time Time Spent with patient: 35 or more minutes - Inpatient Certification Based on my medical assessment, after consideration of the patient's comorbidities, presenting symptoms, or acuity I expect that the services needed warrant INPATIENT care.: Yes I certify that my determination is in accordance with my understanding of Medicare's requirements for reasonable and necessary INPATIENT services [42 CFR 412.3e].: Yes Medical Necessity: Significant Comorbidiites Make Outpatient Treatment Too Risky, Need Close Monitoring Due to Risk of Patient Decompensation, Need For Continuous Telemetry Monitoring, Need for Neurological Checks
--- NOTE | 2019-05-30 20:34 | RADIOLOGY REPORT (SQ) ---
MR BRAIN WITHOUT IV CONTRAST EXAM DATE: 05/30/2019 12:00 AM MICROFILMER HISTORY: Acute CVA. COMPARISON: CT scan from earlier the same day. TECHNIQUE: Multisequence, multiplanar MR imaging of the brain was performed without the administration of intravenous gadolinium. FINDINGS: There are tiny areas restricted diffusion within the right parietal region consistent with acute infarcts. Scattered areas of T2/FLAIR hyperintense foci are seen in the supratentorial white matter, likely representing chronic microvascular ischemia. Old lacunar infarct in the left cerebral hemisphere and emily. There is no intracranial hemorrhage, extra-axial fluid collection, or mass. The brainstem, posterior fossa, and cervicomedullary junction are preserved. The intravascular flow voids are preserved. The orbits are unremarkable. No abnormality of the skull base or calvarium is seen. The paranasal sinuses are clear. IMPRESSION: Tiny acute infarcts in the right parietal lobe. Chronic microvascular ischemic disease.
[2019-05-30] MEDS: ATORVASTATIN CALCIUM 80 MG TABLET PO SCH (21:24)
[2019-05-30] MEDS: HEPARIN SOD (PORCINE) 5,000 UNIT/ML 1 ML VIAL SUBCUT SCH (21:24)
[2019-05-30] MEDS: INSULIN LISPRO 100 UNIT/ML 3 ML VIAL SUBCUT SCH (21:24)
--- NOTE | 2019-05-30 23:26 | RADIOLOGY REPORT (SQ) ---
EXAM DESCRIPTION: RadLex: US CAROTID DOPPLER BILATERAL CLINICAL HISTORY: 63 years Female; acute cva TECHNIQUE: Grayscale and Doppler (color and pulse) ultrasound of bilateral carotid arteries and the vertebral arteries was performed. Stenosis assessment based on Carotid Artery Stenosis: Posey-Scale and Doppler US DiagnosisSociety of Radiologists in Ultrasound Consensus Conference; Radiology, Apr 2003, Vol. 229:340-346 COMPARISON: 09/11/2016 FINDINGS: All velocities in cm/sec. Right carotid: Morphology: Shadowing calcific plaque ICA velocities: Proximal 52/13, distal 30/8 (Normal < 124/40) CCA PSV: Proximal 63, distal 70 ICA/CCA PSV ratio: 0.7 (Normal < 2.0) ECA: PSV 219 Left carotid: Morphology: Shadowing calcific plaque ICA velocities: Proximal 104/30, distal 60/15 (Normal < 124/40) CCA PSV: Proximal 78, distal 79 ICA/CCA PSV ratio: 1.3 (Normal < 2.0) ECA: PSV 116 Right vertebral: Antegrade, PSV 48 Left vertebral: Antegrade, PSV 32 IMPRESSION: 1. Atherosclerosis 2. No significant stenosis of the internal carotid arteries 3. 50-69% stenosis of the right external carotid artery 4. Normal antegrade flow in both vertebral arteries.
[2019-05-31] MEDS: HEPARIN SOD (PORCINE) 5,000 UNIT/ML 1 ML VIAL SUBCUT SCH (05:02)
[2019-05-31 05:46] LABS: HEMOGLOBIN 8.9 g/dL (12.0-15.5); MEAN CORPUSCULAR HGB CONC 31.9 g/dL (32.0-36.0); MEAN CORPUSCULAR VOLUME 91 fl (80-97); PLATELET COUNT 199 10^3/uL (150-450); RED BLOOD COUNT 3.08 10^6/uL (3.72-5.28); RED CELL DISTRIBUTION WIDTH 20.6 % (11.5-14.0); WHITE BLOOD COUNT 5.7 10^3/uL (4.0-10.5)
[2019-05-31 06:08] LABS: ANION GAP 6 (5-19); BLOOD UREA NITROGEN 98 mg/dL (7-20); CALCIUM 8.6 mg/dL (8.4-10.2); CARBON DIOXIDE 26 mmol/L (22-30); CHLORIDE 107 mmol/L (98-107); CHOLESTEROL 89.17 mg/dL (0-200); GLUCOSE 129 mg/dL (75-110); POTASSIUM 4.7 mmol/L (3.6-5.0); TRIGLYCERIDES 34 mg/dL (<150)
[2019-05-31 06:18] LABS: DIRECT LDL 35 mg/dL (<100)
[2019-05-31] MEDS: INSULIN LISPRO 100 UNIT/ML 3 ML VIAL SUBCUT SCH ×4 (07:50→22:08)
[2019-05-31] MEDS: ASPIRIN 81 MG TABLET, ENT COATED PO SCH (09:14)
[2019-05-31] MEDS: APIXABAN 2.5 MG TABLET PO SCH ×2 (11:48→17:31)
[2019-05-31] MEDS: FUROSEMIDE 40 MG TABLET PO SCH ×2 (11:48→17:31)
[2019-05-31] MEDS: ALLOPURINOL 100 MG TABLET PO SCH (11:49)
[2019-05-31] MEDS: METOPROLOL SUCCINATE 25 MG TAB.SR.24H PO SCH (11:49)
[2019-05-31] MEDS: PANTOPRAZOLE SODIUM 20 MG TABLET.DR PO SCH (11:49)
[2019-05-31] MEDS: ASCORBIC ACID 500 MG TABLET PO SCH (11:49)
[2019-05-31] MEDS: LISINOPRIL 10 MG TABLET PO SCH ×2 (11:49→22:07)
--- NOTE | 2019-05-31 16:10 | PDOC PROGRESS REPORT ---
Subjective Progress Note for:: 05/31/19 Subjective:: No adverse events overnight. She is been eating and drinking without difficulty. She still has minimal movement in her left arm. She says it feels heavy. She still has some strength in the left leg but says she normally gets around with a prosthetic which she does not currently have with her, and physical therapy is says she is not safe to be out of bed for the time being. Reason For Visit: ACUTE ISCHEMIC STROKE Physical Exam Vital Signs: Temp Pulse Resp BP Pulse Ox 97.6 F 67 16 154/72 H 98 05/31/19 11:27 05/31/19 14:00 05/31/19 12:00 05/31/19 12:00 05/31/19 12:00 Intake & Output 05/30/19 05/31/19 06/01/19 06:59 06:59 06:59 Output Total 501 Balance -501 Weight 70 kg General appearance: PRESENT: no acute distress, cooperative, disheveled Respiratory exam: PRESENT: clear to auscultation gustavo, symmetrical, unlabored. ABSENT: accessory muscle use, chest wall tenderness, crackles, prolonged expiratory phas, rhonchi, tachypnea, wheezes Cardiovascular exam: PRESENT: RRR, +S1, +S2. ABSENT: diastolic murmur, systolic murmur Pulses: PRESENT: normal carotid pulses Vascular exam: PRESENT: normal capillary refill GI/Abdominal exam: PRESENT: normal bowel sounds, soft. ABSENT: distended, guarding, rebound, tenderness Extremities exam: ABSENT: clubbing, pedal edema Musculoskeletal exam: PRESENT: deformity - She has a right BKA, her left foot shows a flat arch inversion with lateral deviation like a Charcot foot Neurological exam: PRESENT: alert, awake, oriented to person, oriented to place, oriented to situation, CN II-XII grossly intact - I thought perhaps she had some mild facial droop but whenever she talks she showed no signs of any asymmetry, motor sensory deficit - Her left arm has 1 out of 5 strength at the shoulder, 0 out of 5 distal to the shoulder, she has about 3 out of 5 strength in the left leg Psychiatric exam: PRESENT: flat affect Skin exam: PRESENT: dry, warm Results Laboratory Results: 05/31/19 04:59 05/31/19 04:59 05/30/19 05/31/19 05/31/19 15:20 04:59 04:59 WBC 5.7 RBC 3.08 L Hgb 8.9 L Hct 28.0 L MCV 91 MCH 29.0 MCHC 31.9 L RDW 20.6 H Plt Count 199 Sodium 136.4 L 139.1 Potassium 5.2 H 4.7 Chloride 103 107 Carbon Dioxide 24 26 Anion Gap 9 6 BUN 87 H 98 H Creatinine 2.87 H 3.24 H Est GFR ( Amer) 20 L 18 L Glucose 171 H 129 H Calcium 8.5 8.6 Total Bilirubin 0.3 AST 43 H Alkaline Phosphatase 197 H Total Protein 6.0 L Albumin 2.9 L Triglycerides 34 Cholesterol 89.17 LDL Cholesterol Direct 35 VLDL Cholesterol 7.0 L HDL Cholesterol 45 05/30/19 05/30/19 15:20 15:20 Creatine Kinase 21 L CK-MB (CK-2) 1.94 Troponin I 0.019 Impressions: Head MRI 05/30/19 00:00 IMPRESSION: Tiny acute infarcts in the right parietal lobe. Chronic microvascular ischemic disease. Chest X-Ray 05/30/19 13:52 IMPRESSION: STABLE CARDIOMEGALY. IMPROVED AERATION IN THE LUNGS. INTERSTITIAL PROMINENCE MAY BE A COMBINATION OF SCARRING AND INTERSTITIAL EDEMA. Head CT 05/30/19 13:52 IMPRESSION: CHRONIC CHANGES OF ATROPHY AND MICROVASCULAR ISCHEMIA. NO ACUTE PROCESS. EVIDENCE OF ACUTE STROKE: NO. Carotid Doppler Study 05/30/19 18:12 IMPRESSION: 1. Atherosclerosis 2. No significant stenosis of the internal carotid arteries 3. 50-69% stenosis of the right external carotid artery 4. Normal antegrade flow in both vertebral arteries. Assessment and Plan - Diagnosis (1) Cerebrovascular accident (CVA) Qualifiers: CVA mechanism: unspecified Qualified Code(s): I63.9 - Cerebral infarction, unspecified Is this a current diagnosis for this admission?: Yes Plan: Continue with aspirin and statin, have restarted her home blood pressure medications, continue with physical therapy and Occupational Therapy. (2) Chronic kidney disease (CKD) Qualifiers: Chronic kidney disease stage: stage 3 (moderate) Qualified Code(s): N18.3 - Chronic kidney disease, stage 3 (moderate) Is this a current diagnosis for this admission?: Yes Plan: Creatinine is at baseline (3) Diabetes mellitus type 2 in nonobese Is this a current diagnosis for this admission?: Yes Plan: I do not know what medication she is on, so I will put her on a diabetic diet and some sliding scale insulin until we can get her medication reconciliation - Time Time Spent with patient: 15-24 minutes
[2019-05-31] MEDS: FERROUS SULFATE 325 MG TABLET PO SCH (17:31)
[2019-05-31] MEDS: MIRTAZAPINE 15 MG TABLET PO SCH (22:07)
[2019-05-31] MEDS: ATORVASTATIN CALCIUM 80 MG TABLET PO SCH (22:07)
[2019-05-31] MEDS: DOCUSATE SODIUM 100 MG CAPSULE PO SCH (22:08)
[2019-06-01 06:32] LABS: ANION GAP 8 (5-19); BLOOD UREA NITROGEN 93 mg/dL (7-20); CALCIUM 8.8 mg/dL (8.4-10.2); CARBON DIOXIDE 24 mmol/L (22-30); CHLORIDE 106 mmol/L (98-107); GLUCOSE 90 mg/dL (75-110); POTASSIUM 4.6 mmol/L (3.6-5.0)
[2019-06-01] MEDS: INSULIN LISPRO 100 UNIT/ML 3 ML VIAL SUBCUT SCH ×4 (08:06→21:25)
[2019-06-01] MEDS: FERROUS SULFATE 325 MG TABLET PO SCH ×2 (09:21→17:22)
[2019-06-01] MEDS: PANTOPRAZOLE SODIUM 20 MG TABLET.DR PO SCH (09:21)
[2019-06-01] MEDS: METOPROLOL SUCCINATE 25 MG TAB.SR.24H PO SCH (09:21)
[2019-06-01] MEDS: APIXABAN 2.5 MG TABLET PO SCH ×2 (09:21→17:22)
[2019-06-01] MEDS: ASPIRIN 81 MG TABLET, ENT COATED PO SCH (09:22)
[2019-06-01] MEDS: FUROSEMIDE 40 MG TABLET PO SCH ×2 (09:22→17:21)
[2019-06-01] MEDS: MULTIVITAMIN TABLET PO SCH (09:22)
[2019-06-01] MEDS: ASCORBIC ACID 500 MG TABLET PO SCH (09:22)
[2019-06-01] MEDS: LISINOPRIL 10 MG TABLET PO SCH ×2 (09:22→21:15)
[2019-06-01] MEDS: ALLOPURINOL 100 MG TABLET PO SCH (09:22)
[2019-06-01] MEDS: CYANOCOBALAMIN (VITAMIN B-12) 1,000 MCG TABLET PO SCH (09:23)
[2019-06-01] MEDS: ZINC SULFATE 220 MG CAPSULE PO SCH (09:23)
[2019-06-01] MEDS ORDERED: (PENDING PHARMACY ID) (Cyanocobalamin (Vitamin B-12) [Vitamin B-12 Sl 2500 Mcg Tablet] 2,5 SL SCH (10:00)
[2019-06-01] MEDS ORDERED: LUTEIN PO SCH (10:00)
[2019-06-01] MEDS ORDERED: FOLIC ACID PO SCH (10:00)
[2019-06-01] MEDS ORDERED: MV IRON MIN PO SCH (10:00)
--- NOTE | 2019-06-01 13:20 | PDOC PROGRESS REPORT ---
Subjective Progress Note for:: 06/01/19 Subjective:: No adverse events overnight. She said that her left arm still feels very heavy. She is a little bit of movement in her fingers today. She does not seem to be giving much of an effort. Reason For Visit: ACUTE ISCHEMIC STROKE Physical Exam Vital Signs: Temp Pulse Resp BP Pulse Ox 97.8 F 62 16 146/70 H 95 06/01/19 11:33 06/01/19 12:00 06/01/19 12:00 06/01/19 12:00 06/01/19 12:00 Intake & Output 05/31/19 06/01/19 06/02/19 06:59 06:59 06:59 Intake Total 780 Output Total 501 1075 Balance -501 -295 Weight 70 kg 74.6 kg General appearance: PRESENT: no acute distress, cooperative, disheveled Respiratory exam: PRESENT: clear to auscultation gustavo, symmetrical, unlabored. ABSENT: accessory muscle use, chest wall tenderness, crackles, prolonged expiratory phas, rhonchi, tachypnea, wheezes Cardiovascular exam: PRESENT: RRR, +S1, +S2. ABSENT: diastolic murmur, systolic murmur Pulses: PRESENT: normal carotid pulses Vascular exam: PRESENT: normal capillary refill GI/Abdominal exam: PRESENT: normal bowel sounds, soft. ABSENT: distended, guarding, rebound, tenderness Extremities exam: ABSENT: clubbing, pedal edema Musculoskeletal exam: PRESENT: deformity - She has a right BKA, her left foot shows a flat arch inversion with lateral deviation like a Charcot foot Neurological exam: PRESENT: alert, awake, oriented to person, oriented to place, oriented to situation, CN II-XII grossly intact - I thought perhaps she had some mild facial droop but whenever she talks she showed no signs of any asymmetry, motor sensory deficit - Her left arm has 1 out of 5 strength at the shoulder, 0 out of 5 distal to the shoulder except for a trace amount of flexion in the fingers of the left hand, she has about 3 out of 5 strength in the left leg Psychiatric exam: PRESENT: flat affect Skin exam: PRESENT: dry, warm Results Laboratory Results: 05/31/19 04:59 06/01/19 05:13 06/01/19 05:13 Sodium 138.2 Potassium 4.6 Chloride 106 Carbon Dioxide 24 Anion Gap 8 BUN 93 H Creatinine 3.26 H Est GFR ( Amer) 17 L Glucose 90 Calcium 8.8 05/30/19 05/30/19 15:20 15:20 Creatine Kinase 21 L CK-MB (CK-2) 1.94 Troponin I 0.019 Impressions: Head MRI 05/30/19 00:00 IMPRESSION: Tiny acute infarcts in the right parietal lobe. Chronic microvascular ischemic disease. Chest X-Ray 05/30/19 13:52 IMPRESSION: STABLE CARDIOMEGALY. IMPROVED AERATION IN THE LUNGS. INTERSTITIAL PROMINENCE MAY BE A COMBINATION OF SCARRING AND INTERSTITIAL EDEMA. Head CT 05/30/19 13:52 IMPRESSION: CHRONIC CHANGES OF ATROPHY AND MICROVASCULAR ISCHEMIA. NO ACUTE PROCESS. EVIDENCE OF ACUTE STROKE: NO. Carotid Doppler Study 05/30/19 18:12 IMPRESSION: 1. Atherosclerosis 2. No significant stenosis of the internal carotid arteries 3. 50-69% stenosis of the right external carotid artery 4. Normal antegrade flow in both vertebral arteries. Assessment and Plan - Diagnosis (1) Cerebrovascular accident (CVA) Qualifiers: CVA mechanism: unspecified Qualified Code(s): I63.9 - Cerebral infarction, unspecified Is this a current diagnosis for this admission?: Yes Plan: Continue with aspirin and statin, have restarted her home blood pressure medications, continue with physical therapy and Occupational Therapy. She is from [place] but will likely need to be placed in the rehab side before she transitions back to long-term placement. (2) Chronic kidney disease (CKD) Qualifiers: Chronic kidney disease stage: stage 3 (moderate) Qualified Code(s): N18.3 - Chronic kidney disease, stage 3 (moderate) Is this a current diagnosis for this admission?: Yes Plan: Creatinine is at baseline (3) Diabetes mellitus type 2 in nonobese Is this a current diagnosis for this admission?: Yes Plan: I do not know what medication she is on, so I will put her on a diabetic diet an d some sliding scale insulin until we can get her medication reconciliation - Time Time Spent with patient: 15-24 minutes
[2019-06-01] MEDS: MIRTAZAPINE 15 MG TABLET PO SCH (21:14)
[2019-06-01] MEDS: ATORVASTATIN CALCIUM 80 MG TABLET PO SCH (21:17)
[2019-06-01] MEDS: DOCUSATE SODIUM 100 MG CAPSULE PO SCH (21:17)
[2019-06-02 05:36] LABS: ANION GAP 12 (5-19); BLOOD UREA NITROGEN 91 mg/dL (7-20); CARBON DIOXIDE 21 mmol/L (22-30); CHLORIDE 103 mmol/L (98-107); GLUCOSE 124 mg/dL (75-110); POTASSIUM 4.5 mmol/L (3.6-5.0)
[2019-06-02] MEDS: INSULIN LISPRO 100 UNIT/ML 3 ML VIAL SUBCUT SCH ×4 (08:30→21:41)
[2019-06-02] MEDS: LISINOPRIL 10 MG TABLET PO SCH ×2 (09:25→21:40)
[2019-06-02] MEDS: ASPIRIN 81 MG TABLET, ENT COATED PO SCH (09:25)
[2019-06-02] MEDS: FUROSEMIDE 40 MG TABLET PO SCH ×2 (09:25→18:06)
[2019-06-02] MEDS: METOPROLOL SUCCINATE 25 MG TAB.SR.24H PO SCH (09:26)
[2019-06-02] MEDS: ASCORBIC ACID 500 MG TABLET PO SCH (09:26)
[2019-06-02] MEDS: FERROUS SULFATE 325 MG TABLET PO SCH ×2 (09:26→18:06)
[2019-06-02] MEDS: APIXABAN 2.5 MG TABLET PO SCH ×2 (09:26→18:06)
[2019-06-02] MEDS: CYANOCOBALAMIN (VITAMIN B-12) 1,000 MCG TABLET PO SCH (09:26)
[2019-06-02] MEDS: ALLOPURINOL 100 MG TABLET PO SCH (09:26)
[2019-06-02] MEDS: MULTIVITAMIN TABLET PO SCH (09:26)
[2019-06-02] MEDS: PANTOPRAZOLE SODIUM 20 MG TABLET.DR PO SCH (09:26)
--- NOTE | 2019-06-02 10:24 | PDOC PROGRESS REPORT ---
Subjective Progress Note for:: 06/02/19 Subjective:: 63 year old female with a history of diabetes and peripheral vascular disease who said she had a stroke in the past and is a long-term care resident at [facility] who presents with a 2-day history of progressing left-sided weakness. She cannot move her left arm now but does have some movement in her left leg. She is a little dysarthric but I do not know if this is chronic for her. She herself is a fairly poor historian. She did say that she had something to eat today but she cannot remember what it was. She said she had no trouble chewing or swallowing. Initial head CT was negative. She is being admitted for further evaluation. 06/02/[id number]-yfof-old female resident of [facility] with previous history of stroke came in with increasing left-sided weakness. Initial CT head was negative MRI of the brain without contrast was done shows tiny infarcts in the right parietal lobe. Patient needs to go back to the [facility] with rehab and awaiting for approval from [facility]. No acute events in the last 24 hours alert and awake communicating okay. Reason For Visit: ACUTE ISCHEMIC STROKE Physical Exam Vital Signs: Temp Pulse Resp BP Pulse Ox 97.8 F 64 16 158/68 H 96 06/02/19 08:19 06/02/19 08:19 06/02/19 08:19 06/02/19 08:19 06/02/19 08:19 Intake & Output 06/01/19 06/02/19 06/03/19 06:59 06:59 06:59 Intake Total 780 1320 Output Total 1075 1325 Balance -295 -5 Weight 74.6 kg 74.6 kg General appearance: PRESENT: no acute distress, cooperative Head exam: PRESENT: atraumatic Eye exam: PRESENT: PERRLA Mouth exam: PRESENT: moist, tongue midline Neck exam: ABSENT: carotid bruit, JVD, lymphadenopathy, thyromegaly Respiratory exam: PRESENT: decreased breath sounds Cardiovascular exam: PRESENT: irregular rhythm Pulses: PRESENT: normal dorsalis pedis pul GI/Abdominal exam: PRESENT: normal bowel sounds, soft. ABSENT: distended, guarding, mass, organolmegaly, rebound, tenderness Rectal exam: PRESENT: deferred Extremities exam: PRESENT: full ROM. ABSENT: calf tenderness, clubbing, pedal edema Neurological exam: PRESENT: alert, awake, other - Sided weakness present. Psychiatric exam: PRESENT: appropriate affect, normal mood. ABSENT: homicidal ideation, suicidal ideation Results Laboratory Results: 05/31/19 04:59 06/02/19 04:39 06/02/19 04:39 Sodium 135.9 L Potassium 4.5 Chloride 103 Carbon Dioxide 21 L Anion Gap 12 BUN 91 H Creatinine 3.33 H Est GFR ( Amer) 17 L Glucose 124 H Calcium 9.0 05/30/19 05/30/19 15:20 15:20 Creatine Kinase 21 L CK-MB (CK-2) 1.94 Troponin I 0.019 Impressions: Head MRI 05/30/19 00:00 IMPRESSION: Tiny acute infarcts in the right parietal lobe. Chronic microvascular ischemic disease. Chest X-Ray 05/30/19 13:52 IMPRESSION: STABLE CARDIOMEGALY. IMPROVED AERATION IN THE LUNGS. INTERSTITIAL PROMINENCE MAY BE A COMBINATION OF SCARRING AND INTERSTITIAL EDEMA. Head CT 05/30/19 13:52 IMPRESSION: CHRONIC CHANGES OF ATROPHY AND MICROVASCULAR ISCHEMIA. NO ACUTE PROCESS. EVIDENCE OF ACUTE STROKE: NO. Carotid Doppler Study 05/30/19 18:12 IMPRESSION: 1. Atherosclerosis 2. No significant stenosis of the internal carotid arteries 3. 50-69% stenosis of the right external carotid artery 4. Normal antegrade flow in both vertebral arteries. Assessment and Plan - Diagnosis (1) Cerebrovascular accident (CVA) Qualifiers: CVA mechanism: unspecified Qualified Code(s): I63.9 - Cerebral infarction, unspecified Is this a current diagnosis for this admission?: Yes Plan: Continue with aspirin and statin, have restarted her home blood pressure medications, continue with physical therapy and Occupational Therapy. She is from [facility] but will likely need to be placed in the rehab side before she schafer sitions back to long-term placement. 06/[id number]-hkwf-old female resident of [facility] admitted with left-sided weakness, initial CT head was negative for acute pathology MRI of the brain indicates tiny infarcts in the right parietal lobe. Stroke core measures are implemented patient is pleasant and aspirin, atorvastatin, she is also on apixaban. She will go back to home for rehab. Waiting for approval from [facility]. (2) Atrial fibrillation Qualifiers: Atrial fibrillation type: chronic Is this a current diagnosis for this admission?: No Plan: 06/02/2019-patient is history of chronic A. fib on apixaban plan is to continue the present management at this time. (3) Diabetes mellitus type 2 in nonobese Is this a current diagnosis for this admission?: Yes Plan: I do not know what medication she is on, so I will put her on a diabetic diet and some sliding scale insulin until we can get her medication reconciliation 06/02/2019-patient has history of type 2 diabetes mellitus. She is on insulin sliding scale. Just blood sugar is 145 plan is to check for hemoglobin A1c tomorrow and to continue the present management. (4) Chronic kidney disease (CKD) Qualifiers: Chronic kidney disease stage: stage 3 (moderate) Qualified Code(s): N18.3 - Chronic kidney disease, stage 3 (moderate) Is this a current diagnosis for this admission?: Yes Plan: Creatinine is at baseline 06/02/2019-patient's baseline creatinine is around 2.89 on the latest creatinine is 3.3 plan is to closely monitor the kidney function on regular basis. Chronic kidney disease most likely secondary to underlying diabetes mellitus hypertension. (5) HTN (hypertension) Is this a current diagnosis for this admission?: No Plan: 06/02/2019-patient let blood pressure is 166/69. Plan is to closely monitor the blood pressures on daily basis.
[2019-06-02] MEDS: ZINC SULFATE 220 MG CAPSULE PO SCH (14:11)
[2019-06-02] MEDS: DOCUSATE SODIUM 100 MG CAPSULE PO SCH (21:40)
[2019-06-02] MEDS: ATORVASTATIN CALCIUM 80 MG TABLET PO SCH (21:40)
[2019-06-02] MEDS: MIRTAZAPINE 15 MG TABLET PO SCH (21:40)
[2019-06-03 05:50] LABS: ABSOLUTE EOSINOPHILS # (AUTO) 0.1 10^3/uL (0.0-0.6); ABSOLUTE LYMPHOCYTES (AUTO) 0.8 10^3/uL (0.5-4.7); ABSOLUTE MONOCYTES (AUTO) 0.4 10^3/uL (0.1-1.4); ABSOLUTE NEUT (AUTO) 3.6 10^3/uL (1.7-8.2); BASOPHILS % (AUTO) 0.7 % (0-2); EOSINOPHILS % (AUTO) 2.6 % (0-6); HEMATOCRIT 29.1 % (36.0-47.0); HEMOGLOBIN 9.4 g/dL (12.0-15.5); LYMPHOCYTES % (AUTO) 16.7 % (13-45); MEAN CORPUSCULAR HEMOGLOBIN 29.6 pg (27.0-33.4); MEAN CORPUSCULAR HGB CONC 32.3 g/dL (32.0-36.0); MEAN CORPUSCULAR VOLUME 92 fl (80-97); MONOCYTES % (AUTO) 7.8 % (3-13); PLATELET COUNT 204 10^3/uL (150-450); RED BLOOD COUNT 3.18 10^6/uL (3.72-5.28); RED CELL DISTRIBUTION WIDTH 20.5 % (11.5-14.0); SEGMENTED NEUTROPHILS % (AUTO) 72.2 % (42-78); TOTAL CELLS COUNTED % (AUTO) 100 %; WHITE BLOOD COUNT 4.9 10^3/uL (4.0-10.5)
[2019-06-03 06:07] LABS: ALBUMIN 2.6 g/dL (3.5-5.0); ALKALINE PHOSPHATASE 97 U/L (38-126); ANION GAP 11 (5-19); ASPARTATE AMINO TRANSFERASE 19 U/L (14-36); BILIRUBIN,DIRECT 0.2 mg/dL (0.0-0.4); BILIRUBIN,TOTAL 0.4 mg/dL (0.2-1.3); BLOOD UREA NITROGEN 86 mg/dL (7-20); CARBON DIOXIDE 21 mmol/L (22-30); CHLORIDE 105 mmol/L (98-107); GLUCOSE 111 mg/dL (75-110); POTASSIUM 4.5 mmol/L (3.6-5.0); TOTAL PROTEIN 5.8 g/dL (6.3-8.2)
[2019-06-03] MEDS: INSULIN LISPRO 100 UNIT/ML 3 ML VIAL SUBCUT SCH ×4 (08:00→21:55)
--- NOTE | 2019-06-03 10:00 | PDOC PROGRESS REPORT ---
Subjective Progress Note for:: 06/03/19 Reason For Visit: ACUTE ISCHEMIC STROKE 06/03/2019 Left-sided CVA, acute Physical Exam Vital Signs: Temp Pulse Resp BP Pulse Ox 97.6 F 66 17 157/70 H 99 06/03/19 07:11 06/03/19 07:11 06/03/19 07:11 06/03/19 07:11 06/03/19 07:11 Intake & Output 06/02/19 06/03/19 06/04/19 06:59 06:59 06:59 Intake Total 1320 520 Output Total 1325 1550 Balance -5 -1030 Weight 74.6 kg 73 kg General appearance: PRESENT: no acute distress, other - Fixed neurologic deficit Respiratory exam: PRESENT: clear to auscultation gustavo. ABSENT: rales, rhonchi, wheezes Cardiovascular exam: PRESENT: RRR. ABSENT: diastolic murmur, rubs, systolic murmur Neurological exam: PRESENT: alert, awake, oriented to person, oriented to place, oriented to time, oriented to situation, motor sensory deficit - Patient has a flaccid left upper extremity, with a very weak 4/5 left lower extremity exam Psychiatric exam: PRESENT: flat affect Results Laboratory Results: 06/03/19 05:11 06/03/19 05:11 06/03/19 06/03/19 05:11 05:11 WBC 4.9 RBC 3.18 L Hgb 9.4 L Hct 29.1 L MCV 92 MCH 29.6 MCHC 32.3 RDW 20.5 H Plt Count 204 Seg Neutrophils % 72.2 Sodium 137.2 Potassium 4.5 Chloride 105 Carbon Dioxide 21 L Anion Gap 11 BUN 86 H Creatinine 3.25 H Est GFR ( Amer) 18 L Glucose 111 H Calcium 9.0 Magnesium 2.0 Total Bilirubin 0.4 AST 19 Alkaline Phosphatase 97 Total Protein 5.8 L Albumin 2.6 L 05/30/19 05/30/19 15:20 15:20 Creatine Kinase 21 L CK-MB (CK-2) 1.94 Troponin I 0.019 Impressions: Head MRI 05/30/19 00:00 IMPRESSION: Tiny acute infarcts in the right parietal lobe. Chronic microvascular ischemic disease. Chest X-Ray 05/30/19 13:52 IMPRESSION: STABLE CARDIOMEGALY. IMPROVED AERATION IN THE LUNGS. INTERSTITIAL PROMINENCE MAY BE A COMBINATION OF SCARRING AND INTERSTITIAL EDEMA. Head CT 05/30/19 13:52 IMPRESSION: CHRONIC CHANGES OF ATROPHY AND MICROVASCULAR ISCHEMIA. NO ACUTE PROCESS. EVIDENCE OF ACUTE STROKE: NO. Carotid Doppler Study 05/30/19 18:12 IMPRESSION: 1. Atherosclerosis 2. No significant stenosis of the internal carotid arteries 3. 50-69% stenosis of the right external carotid artery 4. Normal antegrade flow in both vertebral arteries. Assessment and Plan - Diagnosis (1) Cerebrovascular accident (CVA) Qualifiers: CVA mechanism: unspecified Qualified Code(s): I63.9 - Cerebral infarction, unspecified Is this a current diagnosis for this admission?: Yes (2) Chronic kidney disease (CKD) Qualifiers: Chronic kidney disease stage: stage 3 (moderate) Qualified Code(s): N18.3 - Chronic kidney disease, stage 3 (moderate) Is this a current diagnosis for this admission?: Yes (3) Anemia Qualifiers: Anemia type: due to chronic kidney disease Chronic kidney disease stage: stage 3 (moderate) Qualified Code(s): N18.3 - Chronic kidney disease, stage 3 (moderate); D63.1 - Anemia in chronic kidney disease Is this a current diagnosis for this admission?: Yes (4) 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 Blood pressures are just slightly high however at this point I would not try to get them significantly lower for risk of hypotension and further stroke Patient was admitted on 1220 from [facility] however she will need to be discharged to rehab to her left sided CVA. Currently waiting on approval from [facility]. Patient was on Eliquis as well as aspirin as an outpatient. Patient has a right BKA and unfortunately we do not have her prosthesis here at the hospital, therefore she is unable to ambulate or transfer weight since she has a stroke on the left side of her body. Hopefully someone will bring her prosthesis to the hospital White count is normal 4.9 BUN is still elevated about the same of 86 creatinine slightly elevated at 3.25 Glucose around 150 Patient came in her urine looked infected, I have ordered a urine culture today. Patient is currently on no antibiotics Plan is to try to discharge patient to rehab facility once insurance has approved - Time Time Spent with patient: 35 or more minutes
[2019-06-03] MEDS: METOPROLOL SUCCINATE 25 MG TAB.SR.24H PO SCH (10:04)
[2019-06-03] MEDS: FERROUS SULFATE 325 MG TABLET PO SCH ×2 (10:04→18:07)
[2019-06-03] MEDS: APIXABAN 2.5 MG TABLET PO SCH ×2 (10:04→18:07)
[2019-06-03] MEDS: MULTIVITAMIN TABLET PO SCH (10:04)
[2019-06-03] MEDS: ALLOPURINOL 100 MG TABLET PO SCH (10:04)
[2019-06-03] MEDS: PANTOPRAZOLE SODIUM 20 MG TABLET.DR PO SCH (10:04)
[2019-06-03] MEDS: LISINOPRIL 10 MG TABLET PO SCH ×2 (10:04→21:54)
[2019-06-03] MEDS: ASCORBIC ACID 500 MG TABLET PO SCH (10:04)
[2019-06-03] MEDS: ASPIRIN 81 MG TABLET, ENT COATED PO SCH (10:04)
[2019-06-03] MEDS: FUROSEMIDE 40 MG TABLET PO SCH ×2 (10:04→18:07)
[2019-06-03] MEDS: CYANOCOBALAMIN (VITAMIN B-12) 1,000 MCG TABLET PO SCH (10:05)
[2019-06-03] MEDS: ZINC SULFATE 220 MG CAPSULE PO SCH (10:08)
[2019-06-03] MEDS: DOCUSATE SODIUM 100 MG CAPSULE PO SCH (21:54)
[2019-06-03] MEDS: ATORVASTATIN CALCIUM 80 MG TABLET PO SCH (21:55)
[2019-06-03] MEDS: MIRTAZAPINE 15 MG TABLET PO SCH (21:55)
[2019-06-04] MEDS: INSULIN LISPRO 100 UNIT/ML 3 ML VIAL SUBCUT SCH ×4 (09:01→21:41)
[2019-06-04] MEDS: METOPROLOL SUCCINATE 25 MG TAB.SR.24H PO SCH (10:25)
[2019-06-04] MEDS: CYANOCOBALAMIN (VITAMIN B-12) 1,000 MCG TABLET PO SCH (10:26)
[2019-06-04] MEDS: ALLOPURINOL 100 MG TABLET PO SCH (10:26)
[2019-06-04] MEDS: FUROSEMIDE 40 MG TABLET PO SCH ×2 (10:26→17:20)
[2019-06-04] MEDS: FERROUS SULFATE 325 MG TABLET PO SCH ×2 (10:26→17:20)
[2019-06-04] MEDS: APIXABAN 2.5 MG TABLET PO SCH ×2 (10:26→17:20)
[2019-06-04] MEDS: ASPIRIN 81 MG TABLET, ENT COATED PO SCH (10:26)
[2019-06-04] MEDS: PANTOPRAZOLE SODIUM 20 MG TABLET.DR PO SCH (10:26)
[2019-06-04] MEDS: MULTIVITAMIN TABLET PO SCH (10:26)
[2019-06-04] MEDS: ZINC SULFATE 220 MG CAPSULE PO SCH (10:26)
[2019-06-04] MEDS: ASCORBIC ACID 500 MG TABLET PO SCH (10:27)
[2019-06-04] MEDS: LISINOPRIL 10 MG TABLET PO SCH ×2 (10:27→21:41)
--- NOTE | 2019-06-04 12:32 | PDOC PROGRESS REPORT ---
Subjective Progress Note for:: 06/04/19 Reason For Visit: ACUTE ISCHEMIC STROKE 06/04/2019 Acute left-sided CVA Physical Exam Vital Signs: Temp Pulse Resp BP Pulse Ox 97.6 F 67 16 166/73 H 97 06/04/19 07:58 06/04/19 07:58 06/04/19 07:58 06/04/19 07:58 06/04/19 07:58 Intake & Output 06/03/19 06/04/19 06/05/19 06:59 06:59 06:59 Intake Total 520 360 Output Total 1550 1575 Balance -1030 -1215 Weight 73 kg 71.8 kg General appearance: PRESENT: no acute distress, other - Lying in bed in no distress Respiratory exam: PRESENT: clear to auscultation gustavo. ABSENT: rales, rhonchi, wheezes Cardiovascular exam: PRESENT: RRR. ABSENT: diastolic murmur, rubs, systolic murmur Neurological exam: PRESENT: alert, awake, oriented to person, oriented to place, oriented to time, oriented to situation, motor sensory deficit - Left lower extremity is slightly stronger Left upper extremity is still flaccid Psychiatric exam: PRESENT: flat affect, other - Pleasant Results Laboratory Results: 06/03/19 05:11 06/03/19 05:11 05/30/19 05/30/19 15:20 15:20 Creatine Kinase 21 L CK-MB (CK-2) 1.94 Troponin I 0.019 Impressions: Head MRI 05/30/19 00:00 IMPRESSION: Tiny acute infarcts in the right parietal lobe. Chronic microvascular ischemic disease. Chest X-Ray 05/30/19 13:52 IMPRESSION: STABLE CARDIOMEGALY. IMPROVED AERATION IN THE LUNGS. INTERSTITIAL PROMINENCE MAY BE A COMBINATION OF SCARRING AND INTERSTITIAL EDEMA. Head CT 05/30/19 13:52 IMPRESSION: CHRONIC CHANGES OF ATROPHY AND MICROVASCULAR ISCHEMIA. NO ACUTE PROCESS. EVIDENCE OF ACUTE STROKE: NO. Carotid Doppler Study 05/30/19 18:12 IMPRESSION: 1. Atherosclerosis 2. No significant stenosis of the internal carotid arteries 3. 50-69% stenosis of the right external carotid artery 4. Normal antegrade flow in both vertebral arteries. Assessment and Plan - Diagnosis (1) Cerebrovascular accident (CVA) Qualifiers: CVA mechanism: unspecified Qualified Code(s): I63.9 - Cerebral infarction, unspecified Is this a current diagnosis for this admission?: Yes (2) Chronic kidney disease (CKD) Qualifiers: Chronic kidney disease stage: stage 3 (moderate) Qualified Code(s): N18.3 - Chronic kidney disease, stage 3 (moderate) Is this a current diagnosis for this admission?: Yes (3) Anemia Qualifiers: Anemia type: due to chronic kidney disease Chronic kidney disease stage: stage 3 (moderate) Qualified Code(s): N18.3 - Chronic kidney disease, stage 3 (moderate); D63.1 - Anemia in chronic kidney disease Is this a current diagnosis for this admission?: Yes (4) 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 Blood pressures are just slightly high however at this point I would not try to get them significantly lower for risk of hypotension and further stroke Patient was admitted on 1220 from [facility] however she will need to be discharged to rehab to her left sided CVA. Currently waiting on approval from [employer]. Patient was on Eliquis as well as aspirin as an outpatient. Patient has a right BKA and unfortunately we do not have her prosthesis here at the hospital, therefore she is unable to ambulate or transfer weight since she has a stroke on the left side of her body. Hopefully someone will bring her prosthesis to the hospital White count is normal 4.9 BUN is still elevated about the same of 86 creatinine slightly elevated at 3.25 Glucose around 150 Patient came in her urine looked infected, I have ordered a urine culture today. Patient is currently on no antibiotics Plan is to try to discharge patient to rehab facility once insurance has approved. 06/04/2019 Temperature 97.6 pulse of 67, O2 sat 97% on room air, ideally pressure 166/73. 10 CBC is stable Urine culture is pending, antibiotics are on hold until urine culture has r eturned Patient does have a stage II sacral decubitus with daily dressing changes Patient continues to have significant deficit from a right hemisphere CVA Patient's kidney functions are at baseline Waiting to hear from [facility] concerning rehab placement. Still waiting on right lower extremity prosthetic to be brought to the hospital All of this has been discussed with the patient - Time Time Spent with patient: 15-24 minutes
--- NOTE | 2019-06-04 17:26 | PDOC CONSULTATION ---
Consultation Consult Date: 06/04/19 Provider Consulted: ISIDRO KAUR Consult reason:: Grade 3 sacral decubitus History of Present Illness Admission Date/PCP: 05/30/19 18:20 LAURYN CORADO MD History of Present Illness: MELBA ROSADO is a 63 year old female recently admitted for left-sided stroke who has developed a grade 3 pressure sore in the sacral area and a being consulted to evaluate the pressure sore and to provide recommendation for treatment. Past Medical History Cardiac Medical History: Reports: Atrial Fibrillation, Congestive Heart Failure, Coronary Artery Disease, Hyperlipidema, Hypertension, Peripheral Vascular Disease Endocrine Medical History: Reports: Diabetes Mellitus Type 2 GI Medical History: Reports: Gastroesophageal Reflux Disease Denies: Cirrhosis, Hepatitis Musculoskeltal Medical History: Reports: Gout Psychiatric Medical History: Denies: Depression Hematology: Reports: Anemia Past Surgical History Past Surgical History: Reports: Amputation - Right BKA, September 2013, Section, Orthopedic Surgery - Right BKA, Vascular Surgery Social History Smoking Status: Unknown if Ever Smoked Electronic Cigarette use?: No Frequency of Alcohol Use: None Hx Recreational Drug Use: No Drugs: None Hx Prescription Drug Abuse: No - Advance Directive Resuscitation Status: Full Code Family History Family History: CAD, DM, Hypertension Parental Family History Reviewed: No Children Family History Reviewed: No Sibling(s) Family History Reviewed.: No Medication/Allergy Home Medications: Allopurinol [Zyloprim 100 mg Tablet] 100 mg PO DAILY 05/30/19 Apixaban [Eliquis 2.5 mg Tablet] 2.5 mg PO BID 05/30/19 Ascorbic Acid [Vitamin C 500 mg Tablet] 500 mg PO DAILY 05/30/19 Cyanocobalamin (Vitamin B-12) [Vitamin B-12 SL 2500 mcg Tablet] 2,500 mcg SL DAILY 05/30/19 Docusate Sodium [Colace 100 mg Capsule] 100 mg PO QHS 05/30/19 Ferrous Sulfate [Feosol 325 mg Tablet] 325 mg PO BID 05/30/19 Folic Acid/Mv,Iron,Min/Lutein [Certa Plus Tablet] 1 each PO DAILY 05/30/19 Furosemide [Lasix 40 mg Tablet] 40 mg PO BID 05/30/19 Insulin Lispro [Humalog Insulin (Lispro) 100 unit/mL] 0 unit SUBCUT .SLD SCALE 05/30/19 Insulin NPH Hum/Reg Insulin Hm [Humulin 70/30 Kwikpen] 7 unit SQ DAILY 05/30/19 Insulin NPH Hum/Reg Insulin Hm [Humulin 70/30 Kwikpen] 10 unit SQ QHS 05/30/19 Lisinopril [Prinivil 10 mg Tablet] 10 mg PO Q12 05/30/19 Metoprolol Succinate [Toprol Xl 25 mg Tab.sr] 25 mg PO DAILY 05/30/19 Mirtazapine [Remeron] 7.5 mg PO QHS 05/30/19 Omeprazole 20 mg PO DAILY 05/30/19 Zinc Sulfate [Zinc-220 Capsule] 220 mg PO DAILY 05/30/19 Aspirin [Ecotrin 81 mg EC Tablet] 81 mg PO DAILY tabec 06/02/19 Atorvastatin Calcium [Lipitor 80 mg Tablet] 80 mg PO QHS tablet 06/02/19 Allergies/Adverse Reactions: No Known Allergies Allergy (Verified 11/24/18 12:45) Physical Exam Vital Signs: Temp Pulse Resp BP Pulse Ox 97.6 F 72 16 166/73 H 97 06/04/19 07:58 06/04/19 14:00 06/04/19 07:58 06/04/19 07:58 06/04/19 07:58 Intake & Output 06/03/19 06/04/19 06/05/19 06:59 06:59 06:59 Intake Total 520 360 Output Total 1550 1575 Balance -1030 -1215 Weight 73 kg 71.8 kg General appearance: PRESENT: no acute distress, obese Head exam: PRESENT: atraumatic Eye exam: PRESENT: EOMI Mouth exam: PRESENT: neck supple Teeth exam: PRESENT: poor dentation Neck exam: PRESENT: full ROM Respiratory exam: PRESENT: clear to auscultation gustavo Cardiovascular exam: PRESENT: RRR GI/Abdominal exam: PRESENT: normal bowel sounds, soft Rectal exam: PRESENT: deferred Extremities exam: PRESENT: other - Right BKA; paralysis of left lower and left upper extremities secondary to stroke Neurological exam: PRESENT: alert, awake Skin exam: PRESENT: other - Sacral area = grade 2-3 pressure sore on the sacrum approximately 4 cm in diameter, granulating, with reactive erythema of the surrounding skin, no odor, no edema, minimal serous drainage Results Laboratory Results: 06/03/19 05:11 06/03/19 05:11 05/30/19 05/30/19 15:20 15:20 Creatine Kinase 21 L CK-MB (CK-2) 1.94 Troponin I 0.019 Impressions: Head MRI 05/30/19 00:00 IMPRESSION: Tiny acute infarcts in the right parietal lobe. Chronic microvascular ischemic disease. Chest X-Ray 05/30/19 13:52 IMPRESSION: STABLE CARDIOMEGALY. IMPROVED AERATION IN THE LUNGS. INTERSTITIAL PROMINENCE MAY BE A COMBINATION OF SCARRING AND INTERSTITIAL EDEMA. Head CT 05/30/19 13:52 IMPRESSION: CHRONIC CHANGES OF ATROPHY AND MICROVASCULAR ISCHEMIA. NO ACUTE PROCESS. EVIDENCE OF ACUTE STROKE: NO. Carotid Doppler Study 05/30/19 18:12 IMPRESSION: 1. Atherosclerosis 2. No significant stenosis of the internal carotid arteries 3. 50-69% stenosis of the right external carotid artery 4. Normal antegrade flow in both vertebral arteries. Assessment & Plan - Plan Summary Plan Summary: Assessment 2/3 sacral pressure sore, 4 cm in diameter, granulating, without evidence of acute infection Pressure sore currently treated with normal saline wet-to-dry dressings Plan: Due to the clean appearance of the pressure sore, the location, and the small s ize, I am not recommending any surgical intervention as this would not improve the appearance of the pressure or speed the healing process Rather, I am recommending to continue the current conservative management In addition, I recommend the patient to remain off the sacrum as much as possible during the day, maintain good nutrition with high-protein diet supplemented with vitamins (vitamin C and B complex) and minerals (zinc) I will sign off. Please call me with questions
[2019-06-04] MEDS: ATORVASTATIN CALCIUM 80 MG TABLET PO SCH (21:41)
[2019-06-04] MEDS: MIRTAZAPINE 15 MG TABLET PO SCH (21:41)
[2019-06-04] MEDS: DOCUSATE SODIUM 100 MG CAPSULE PO SCH (21:45)
[2019-06-05] MEDS: INSULIN LISPRO 100 UNIT/ML 3 ML VIAL SUBCUT SCH ×2 (08:06→12:24)
[2019-06-05] MEDS: ASPIRIN 81 MG TABLET, ENT COATED PO SCH (10:18)
[2019-06-05] MEDS: ZINC SULFATE 220 MG CAPSULE PO SCH (10:18)
[2019-06-05] MEDS: ASCORBIC ACID 500 MG TABLET PO SCH (10:18)
[2019-06-05] MEDS: METOPROLOL SUCCINATE 25 MG TAB.SR.24H PO SCH (10:18)
[2019-06-05] MEDS: LISINOPRIL 10 MG TABLET PO SCH (10:19)
[2019-06-05] MEDS: FUROSEMIDE 40 MG TABLET PO SCH (10:19)
[2019-06-05] MEDS: PANTOPRAZOLE SODIUM 20 MG TABLET.DR PO SCH (10:19)
[2019-06-05] MEDS: CYANOCOBALAMIN (VITAMIN B-12) 1,000 MCG TABLET PO SCH (10:19)
[2019-06-05] MEDS: MULTIVITAMIN TABLET PO SCH (10:19)
[2019-06-05] MEDS: ALLOPURINOL 100 MG TABLET PO SCH (10:19)
[2019-06-05] MEDS: APIXABAN 2.5 MG TABLET PO SCH (10:19)
[2019-06-05] MEDS: FERROUS SULFATE 325 MG TABLET PO SCH (10:19)
--- NOTE | 2019-06-05 10:56 | PDOC TRANSFER SUMMARY ---
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 Blood pressures are just slightly high however at this point I would not try to get them significantly lower for risk of hypotension and further stroke Patient was admitted on [address] [facility] however she will need to be discharged to rehab to her left sided CVA. Currently waiting on approval from [employer]. Patient was on Eliquis as well as aspirin as an outpatient. Patient has a right BKA and unfortunately we do not have her prosthesis here at the hospital, therefore she is unable to ambulate or transfer weight since she has a stroke on the left side of her body. Hopefully someone will bring her prosthesis to the hospital White count is normal 4.9 BUN is still elevated about the same of 86 creatinine slightly elevated at 3.25 Glucose around 150 Patient came in her urine looked infected, I have ordered a urine culture today. Patient is currently on no antibiotics Plan is to try to discharge patient to rehab facility once insurance has approved. 06/04/2019 Temperature 97.6 pulse of 67, O2 sat 97% on room air, ideally pressure 166/73. 10 CBC is stable Urine culture is pending, antibiotics are on hold until urine culture has returned Patient does have a stage II sacral decubitus with daily dressing changes Patient continues to have significant deficit from a right hemisphere CVA Patient's kidney functions are at baseline Waiting to hear from [facility] concerning rehab placement. Still waiting on right lower extremity prosthetic to be brought to the hospital All of this has been discussed with the patient 06/05/2019 Patient's urine is come back growing Proteus and her wound culture Shows gram-negative rods and gram-positive cocci Send her out on Keflex 500 mg 3 times daily for 10 days. She is to follow-up in 5 to 7 days with the physician at [facility] has seen the patient does not feel that any surgical treatment is indicated for her sacral decubitus Certainly she does not appear to be septic or infectious She is afebrile and white count is normal - Additional Information Resuscitation Status: Full Code Discharge Diet: Diabetic Discharge Activity: Activity As Tolerated Referrals: LAURYN CORADO MD [Primary Care Provider] - Follow up as needed Home Medications: Allopurinol [Zyloprim 100 mg Tablet] 100 mg PO DAILY 05/30/19 Apixaban [Eliquis 2.5 mg Tablet] 2.5 mg PO BID 05/30/19 Ascorbic Acid [Vitamin C 500 mg Tablet] 500 mg PO DAILY 05/30/19 Cyanocobalamin (Vitamin B-12) [Vitamin B-12 SL 2500 mcg Tablet] 2,500 mcg SL DAILY 05/30/19 Docusate Sodium [Colace 100 mg Capsule] 100 mg PO QHS 05/30/19 Ferrous Sulfate [Feosol 325 mg Tablet] 325 mg PO BID 05/30/19 Folic Acid/Mv,Iron,Min/Lutein [Certa Plus Tablet] 1 each PO DAILY 05/30/19 Furosemide [Lasix 40 mg Tablet] 40 mg PO BID 05/30/19 Insulin Lispro [Humalog Insulin (Lispro) 100 unit/mL] 0 unit SUBCUT .SLD SCALE 05/30/19 Insulin NPH Hum/Reg Insulin Hm [Humulin 70/30 Kwikpen] 7 unit SQ DAILY 05/30/19 Insulin NPH Hum/Reg Insulin Hm [Humulin 70/30 Kwikpen] 10 unit SQ QHS 05/30/19 Lisinopril [Prinivil 10 mg Tablet] 10 mg PO Q12 05/30/19 Metoprolol Succinate [Toprol Xl 25 mg Tab.sr] 25 mg PO DAILY 05/30/19 Mirtazapine [Remeron] 7.5 mg PO QHS 05/30/19 Omeprazole 20 mg PO DAILY 05/30/19 Zinc Sulfate [Zinc-220 Capsule] 220 mg PO DAILY 05/30/19 Aspirin [Ecotrin 81 mg EC Tablet] 81 mg PO DAILY tabec 06/02/19 Atorvastatin Calcium [Lipitor 80 mg Tablet] 80 mg PO QHS tablet 06/02/19 History of Present Illiness History of Present Illness: MELBA ROSADO is a 63 year old female Physical Exam Vital Signs: Temp Pulse Resp BP Pulse Ox 97.6 F 61 16 163/65 H 98 06/05/19 07:53 06/05/19 07:53 06/05/19 07:53 06/05/19 07:53 06/05/19 07:53 Intake & Output 06/04/19 06/05/19 06/06/19 06:59 06:59 06:59 Intake Total 360 595 Output Total 1579 1150 Balance -1215 -555 Weight 71.8 kg 71.1 kg Results Laboratory Results: WBC 4.9 10^3/uL (4.0-10.5) 06/03/19 05:11 RBC 3.18 10^6/uL (3.72-5.28) L 06/03/19 05:11 Hgb 9.4 g/dL (12.0-15.5) L 06/03/19 05:11 Hct 29.1 % (36.0-47.0) L 06/03/19 05:11 MCV 92 fl (80-97) 06/03/19 05:11 MCH 29.6 pg (27.0-33.4) 06/03/19 05:11 MCHC 32.3 g/dL (32.0-36.0) 06/03/19 05:11 RDW 20.5 % (11.5-14.0) H 06/03/19 05:11 Plt Count 204 10^3/uL (150-450) 06/03/19 05:11 Lymph % (Auto) 16.7 % (13-45) 06/03/19 05:11 [place] % (Auto) 7.8 % (3-13) 06/03/19 05:11 Eos % (Auto) 2.6 % (0-6) 06/03/19 05:11 Baso % (Auto) 0.7 % (0-2) 06/03/19 05:11 Absolute Neuts (auto) 3.6 10^3/uL (1.7-8.2) 06/03/19 05:11 Absolute Lymphs (auto) 0.8 10^3/uL (0.5-4.7) 06/03/19 05:11 Absolute Monos (auto) 0.4 10^3/uL (0.1-1.4) 06/03/19 05:11 Absolute Eos (auto) 0.1 10^3/uL (0.0-0.6) 06/03/19 05:11 Absolute Basos (auto) 0.0 10^3/uL (0.0-0.2) 06/03/19 05:11 Seg Neutrophils % 72.2 % (42-78) 06/03/19 05:11 PT 14.5 SEC (11.4-15.4) 05/30/19 15:20 INR 1.12 05/30/19 15:20 APTT 33.3 SEC (23.5-35.8) 05/30/19 15:20 Sodium 137.2 mmol/L (137-145) 06/03/19 05:11 Potassium 4.5 mmol/L (3.6-5.0) 06/03/19 05:11 Chloride 105 mmol/L (98-107) 06/03/19 05:11 Carbon Dioxide 21 mmol/L (22-30) L 06/03/19 05:11 Anion Gap 11 (5-19) 06/03/19 05:11 BUN 86 mg/dL (7-20) H 06/03/19 05:11 Creatinine 3.25 mg/dL (0.52-1.25) H 06/03/19 05:11 Est GFR ( Amer) 18 (>60) L 06/03/19 05:11 Est GFR (MDRD) Non-Af 14 (>60) L 06/03/19 05:11 Glucose 111 mg/dL (75-110) H 06/03/19 05:11 POC Glucose 130 mg/dL (70-110) H 06/05/19 07:47 Calcium 9.0 mg/dL (8.4-10.2) 06/03/19 05:11 Magnesium 2.0 mg/dL (1.6-2.3) 06/03/19 05:11 Total Bilirubin 0.4 mg/dL (0.2-1.3) 06/03/19 05:11 Direct Bilirubin 0.2 mg/dL (0.0-0.4) 06/03/19 05:11 Neonat Total Bilirubin Not Reportable 06/03/19 05:11 Neonat Direct Bilirubin Not Reportable 06/03/19 05:11 Neonat Indirect Bili Not Reportable 06/03/19 05:11 AST 19 U/L (14-36) 06/03/19 05:11 ALT 21 U/L (<35) 06/03/19 05:11 Alkaline Phosphatase 97 U/L (38-126) 06/03/19 05:11 Creatine Kinase 21 U/L (30-135) L 05/30/19 15:20 CK-MB (CK-2) 1.94 ng/mL (<4.55) 05/30/19 15:20 Troponin I 0.019 ng/mL 05/30/19 15:20 Total Protein 5.8 g/dL (6.3-8.2) L 06/03/19 05:11 Albumin 2.6 g/dL (3.5-5.0) L 06/03/19 05:11 Triglycerides 34 mg/dL (<150) 05/31/19 04:59 Cholesterol 89.17 mg/dL (0-200) 05/31/19 04:59 LDL Cholesterol Direct 35 mg/dL (<100) 05/31/19 04:59 VLDL Cholesterol 7.0 mg/dL (10-31) L 05/31/19 04:59 HDL Cholesterol 45 mg/dL (>40) 05/31/19 04:59 Urine Color YELLOW 05/30/19 15:20 Urine Appearance TURBID 05/30/19 15:20 Urine pH 9.0 (5.0-9.0) 05/30/19 15:20 Ur Specific [place] 1.018 05/30/19 15:20 Urine Protein >=500 mg/dL (NEGATIVE) H 05/30/19 15:20 Urine Glucose (UA) 50 mg/dL (NEGATIVE) H 05/30/19 15:20 Urine Ketones NEGATIVE mg/dL (NEGATIVE) 05/30/19 15:20 Urine Blood NEGATIVE (NEGATIVE) 05/30/19 15:20 Urine Nitrite NEGATIVE (NEGATIVE) 05/30/19 15:20 Urine Bilirubin NEGATIVE (NEGATIVE) 05/30/19 15:20 Urine Urobilinogen NEGATIVE mg/dL (<2.0) 05/30/19 15:20 Ur Leukocyte Esterase LARGE (NEGATIVE) H 05/30/19 15:20 Urine WBC (Auto) 30 /HPF 05/30/19 15:20 Urine RBC (Auto) 29 /HPF 05/30/19 15:20 Urine Bacteria (Auto) 3+ /HPF 05/30/19 15:20 Amorphous Sediment Auto TRACE /HPF 05/30/19 15:20 Urine Mucus (Auto) MANY /LPF 05/30/19 15:20 Urine Ascorbic Acid 40 (NEGATIVE) H 05/30/19 15:20 05/30/19 15:20 CK-MB (CK-2) 1.94 Troponin I 0.019 Impressions: Head MRI 05/30/19 00:00 IMPRESSION: Tiny acute infarcts in the right parietal lobe. Chronic microvascular ischemic disease. Chest X-Ray 05/30/19 13:52 IMPRESSION: STABLE CARDIOMEGALY. IMPROVED AERATION IN THE LUNGS. INTERSTITIAL PROMINENCE MAY BE A COMBINATION OF SCARRING AND INTERSTITIAL EDEMA. Head CT 05/30/19 13:52 IMPRESSION: CHRONIC CHANGES OF ATROPHY AND MICROVASCULAR ISCHEMIA. NO ACUTE PROCESS. EVIDENCE OF ACUTE STROKE: NO. Carotid Doppler Study 05/30/19 18:12 IMPRESSION: 1. Atherosclerosis 2. No significant stenosis of the internal carotid arteries 3. 50-69% stenosis of the right external carotid artery 4. Normal antegrade flow in both vertebral arteries. Stroke Is this a Stroke Patient?: Yes Stroke Pt being discharged on Anti-thrombolytic therapy?: Yes Stroke Pt being discharged on Anti-coagulation therapy?: Yes Stroke Pt being discharged on Statins?: Yes Acute Heart Failure - Is this a Heart Failure Patient?: No
[2019-06-05 14:58] VITALS: BP 168/74
== END 2019-06-05 15:20 | DRG 65 ==
LOC: ER 13:43 → EH 18:20 → 3S 22:55 → 3W 06-03 11:51
PROVIDERS: ADMIT Family Medicine; ATTEND Family Medicine
DX: I63.9 Cerebral infarction, unspecified (principal); G81.04 Flaccid hemiplegia affecting left nondominant side; I13.0 Hypertensive heart and chronic kidney disease with heart failure and stage 1 through stage 4 chronic kidney disease, or unspecified chronic kidney disease; N39.0 Urinary tract infection, site not specified; E11.22 Type 2 diabetes mellitus with diabetic chronic kidney disease; N18.3 Chronic kidney disease, stage 3 (moderate); L89.152 Pressure ulcer of sacral region, stage 2; I50.9 Heart failure, unspecified; R47.1 Dysarthria and anarthria; R29.708 NIHSS score 8; I48.91 Unspecified atrial fibrillation; I25.10 Atherosclerotic heart disease of native coronary artery without angina pectoris; E78.00 Pure hypercholesterolemia, unspecified; I73.9 Peripheral vascular disease, unspecified; K21.9 Gastro-esophageal reflux disease without esophagitis; R53.1 Weakness; Z89.511 Acquired absence of right leg below knee; Z86.73 Personal history of transient ischemic attack (TIA), and cerebral infarction without residual deficits; Z79.01 Long term (current) use of anticoagulants; Z79.82 Long term (current) use of aspirin; Z79.4 Long term (current) use of insulin; Z79.899 Other long term (current) drug therapy
CPT/HCPCS: 36415; 70450; 70551; 71045; 80048; 80053; 80061; 81001; 82550; 82553; 82962; 83735; 84484; 85025; 85027; 85610; 85730; 87070; 87077; 87086; 87088; 87186; 87205; 93005; 93010; 93880; 99285; J1644; J1815; J3490